=== PATIENT | male | born 1930 | race Caucasian/White ===

== ENCOUNTER 2016-09-24 19:54 | Inpatient (IN) | payer BC, OTHER ==
[~2016-09-24] VITALS: Ht 165.1 cm; Wt 59.1 kg
[~2016-09-24 19:54] MED LIST: BISA10SU7 RE; BNT/10 PO; CLC100X PO; LISI-789 PO; NUTR-977 PO; NVLGI SQ; OMEP40CA PO; PANC6000 PO; POLY335015 PO; PROTPAK PO; SENN1TAB80 PO; SIME1CAP11 PO
--- NOTE | 2016-09-24 20:27 | EMERGENCY ROOM VISIT NOTE ---
History Report prepared by Kaylin: Kenneth Lopez Under the Supervision of: Dr. Min Broderick M.D. First contact with patient: 20:16 Chief Complaint: HYPERTENSION Stated Complaint: VERY HIGH BLOOD PRESSURE AND SUGAR 210/98 History of Present Illness The patient is a 86 year old male who presents to the Emergency Room with complaints of hypertension that began BANKRUPTCY [place]. His blood pressure has been a high of 210/98. He notes that his blood pressure has been increasing over the past 2 months, but it has never been this high before. He has been having intermittent chest tightness with exertion recently as well. When this occurs, he becomes short of breath. He is not feeling this tightness or shortness of breath at this time. He is not on a blood thinner. He was started on Lasix four days ago. Source of History: patient Onset: BANKRUPTCY [place] Position: other (global) Symptom Intensity: 210/98 Quality: other (Hypertension) Timing: worsening Modifying Factors (Worsening): exertion Associated Symptoms: No SOB, No chest pain Review of Systems See HPI for pertinent positives & negatives. A total of 10 systems reviewed and were otherwise negative. Past Medical & Surgical Medical Problems: (1) Diabetes (2) Hyperlipidemia (3) Mass of common bile duct (4) Pancreatitis (5) Syncope (6) SYNCOPE AND COLLAPSE Surgical Problems: (1) S/P cholecystectomy Family History Heart disease Social History Smoking Status: Former Smoker Alcohol Use: none Drug Use: none Marital Status: Housing Status: lives with family Occupation Status: retired Current/Historical Medications Scheduled Docusate Sodium (Colace), 100 MG PO BID Enteral Nutrition Formula (Ensure Plus Vanilla), 1 BTL PO TID Furosemide (Lasix), 20 MG PO QAM Insulin Glargine (Lantus Solostar), 6 UNITS SC QAM Lisinopril (Zestril), 2.5 MG PO DAILY Metoprolol Tartrate (Lopressor) (Lopressor), 25 MG PO BID Pancrelipase (Lipase-Protease- (Zenpep 85923 Unit), 2 CAP PO WM Polyethylene (Miralax), 17 GM PO QAM Protein (Prosource), 15 GM PO TID Sennosides (Senna Lax), 8.6 MG PO LUNCH Sodium Chloride (Sodium Chloride), 2 GM PO TID Scheduled PRN Acetaminophen (Tylenol), 650 MG PO Q8 PRN for Pain Artificial Saliva (Mouthkote), 1 DOSE PO QPM PRN for PRN Ondansetron Hcl (Zofran), 4 MG PO Q6 PRN for Nausea Allergies Coded Allergies: Dextromethorphan (Verified Allergy, Unknown, RASH, 09/24/16) Guaifenesin (Verified Allergy, Unknown, RASH, 09/24/16) Physical Exam Vital Signs Date Time Temp Pulse Resp B/P Pulse Ox O2 Delivery O2 Flow Rate FiO2 09/24/16 22:19 77 12 198/112 98 Room Air 09/24/16 21:12 66 09/24/16 21:01 67 16 209/111 98 Room Air 09/24/16 21:00 Room Air 09/24/16 20:03 36.6 72 22 207/80 94 Room Air Physical Exam GENERAL: Patient is cachectic in appearance. HEAD: Normocephalic atraumatic EYES: Ocular movements intact pupils equal and react to light OROPHARYNX mucous membranes are moist no exudates present no erythema or edema present NECK: Supple no nuchal rigidity CHEST: Good equal expansion LUNGS: Clear and equal to auscultation CARDIAC: Grade 2/6 systolic murmur. ABDOMEN: Soft nontender no guarding BACK: No CVA tenderness EXTREMITIES: No pain upon palpation normal muscle strength in all groups no clubbing cyanosis or edema NEURO: Patient is following commands is answering questions appropriately. Alert and oriented x3 Cranial Nerves 2-12 grossly intact Medical Decision & Procedures ER Provider Diagnostic Interpretation: Radiology results are stated below per my review and radiologist interpretation: CHEST ONE VIEW PORTABLE CLINICAL HISTORY: Pt c/o SOB dyspnea COMPARISON STUDY: 02/13/2015 FINDINGS: Moderate increase in cardiac size as well as prominence of pulmonary vasculature. Diaphragms are smooth. Calcific angles are sharp. IMPRESSION: Congestive heart failure Electronically signed by: Henrry Rod M.D. 09/24/2016 8:47 PM Dictated Date/Time: 09/24/2016 8:47 PM CHEST CTA for PULMONARY ARTERIES CT DOSE: 214.95 mGy.cm HISTORY: Chest pain dyspnea TECHNIQUE: Multiaxial CT images of the chest were performed following the intravenous administration of contrast to evaluate the pulmonary arteries. Maximal intensity projection images were also obtained. COMPARISON STUDY: None. FINDINGS: General tortuosity and ectasia thoracic aorta. Mild cardiomegaly. Several indeterminate mediastinal and/or hilar nodes. Pulmonary vasculature enhances peripherally. There are no major filling defects. Mild/moderate emphysematous change. Small bilateral pleural effusions. IMPRESSION: 1. Study is negative for pulmonary embolus. 2. Generalized emphysematous and to a lesser extent interstitial prominence throughout both hemithoraces. 3. Several indeterminate mediastinal and hilar nodes. 4. Generalized atherosclerotic change and ectasia of the thoracic and upper abdominal arterial vasculature. 5. A component of mild congestive failure may be present Electronically signed by: Henrry Rod M.D. 09/24/2016 9:52 PM Dictated Date/Time: 09/24/2016 9:48 PM Laboratory Results 09/24/16 20:38 Red Blood Count 3.06, Mean Corpuscular Volume 89.5, Mean Corpuscular Hemoglobin 30.1, Mean Corpuscular Hemoglobin Concent 33.6, Mean Platelet Volume 9.8, Neutrophils (%) (Auto) 59.7, Lymphocytes (%) (Auto) 25.3, Monocytes (%) (Auto) 12.6, Eosinophils (%) (Auto) 1.7, Basophils (%) (Auto) 0.5, Neutrophils # (Auto ) 3.90, Lymphocytes # (Auto) 1.65, Monocytes # (Auto) 0.82, Eosinophils # (Auto ) 0.11, Basophils # (Auto) 0.03 09/24/16 20:38 Test 09/24/16 20:38 09/24/16 20:44 09/24/16 20:47 09/24/16 20:50 White Blood Count 6.52 K/uL (4.8-10.8) Red Blood Count 3.06 M/uL (4.7-6.1) Hemoglobin 9.2 g/dL (14.0-18.0) Hematocrit 27.4 % (42-52) Mean Corpuscular Volume 89.5 fL (80-100) Mean Corpuscular Hemoglobin 30.1 pg (25-34) Mean Corpuscular Hemoglobin Concent 33.6 g/dl (32-36) Platelet Count 215 K/uL (130-400) Mean Platelet Volume 9.8 fL (7.4-10.4) Neutrophils (%) (Auto) 59.7 % Lymphocytes (%) (Auto) 25.3 % Monocytes (%) (Auto) 12.6 % Eosinophils (%) (Auto) 1.7 % Basophils (%) (Auto) 0.5 % Neutrophils # (Auto) 3.90 K/uL (1.4-6.5) Lymphocytes # (Auto) 1.65 K/uL (1.2-3.4) Monocytes # (Auto) 0.82 K/uL (0.11-0.59) Eosinophils # (Auto) 0.11 K/uL (0-0.5) Basophils # (Auto) 0.03 K/uL (0-0.2) RDW Standard Deviation 44.4 fL (36.4-46.3) RDW Coefficient of Variation 13.5 % (11.5-14.5) Immature Granulocyte % (Auto) 0.2 % Immature Granulocyte # (Auto) 0.01 K/uL (0.00-0.02) Est Creatinine Clear Calc Drug Dose 24.6 ml/min Estimated GFR () 38.6 Estimated GFR (Non- 33.3 BUN/Creatinine Ratio 30.5 (10-20) Calcium Level 8.3 mg/dl (8.5-10.1) Total Bilirubin 0.2 mg/dl (0.2-1) Aspartate Amino Transf (AST/SGOT) 28 U/L (15-37) Alanine Aminotransferase (ALT/SGPT) 20 U/L (12-78) Alkaline Phosphatase 100 U/L (45-117) Total Creatine Kinase 93 U/L (39-308) Creatine Kinase MB 3.4 ng/ml (0.5-3.6) Creatine Kinase MB Ratio 3.7 (0-3.0) Troponin I 0.016 ng/ml (0-0.045) Pro-B-Type Natriuretic Peptide 10601 pg/ml (0-1800) Total Protein 7.8 gm/dl (6.4-8.2) Albumin 2.2 gm/dl (3.4-5.0) Globulin 5.6 gm/dl (2.5-4.0) Albumin/Globulin Ratio 0.4 (0.9-2) Bedside D-Dimer > 450 ng/mlFEU (0-450) Bedside Hemoglobin 9.5 g/dl (14.0-18.0) Bedside Hematocrit 28 % (42-52) Bedside Sodium 135 mEq/L (135-144) Bedside Potassium 3.9 mEq/L (3.3-5.0) Bedside Chloride 95 mEq/L (101-112) Bedside Total CO2 26 mEq/l (24-31) Anion Gap 18.0 mmol/L (16-25) Bedside Blood Urea Nitrogen 50 mg/dl (7-18) Bedside Creatinine 1.7 mg/dl (0.6-1.3) Bedside Glucose (other) 130 mg/dl (70-99) Bedside Ionized Calcium (Shelly) 1.21 mmol/l (1.12-1.32) Urine Color YELLOW Urine Appearance CLEAR (CLEAR) Urine pH 7.0 (4.5-7.5) Urine Specific [place] 1.009 (1.000-1.030) Urine Protein 2+ (NEG) Urine Glucose (UA) TRACE (NEG) Urine Ketones NEG (NEG) Urine Occult Blood 1+ (NEG) Urine Nitrite NEG (NEG) Urine Bilirubin NEG (NEG) Urine Urobilinogen NEG (NEG) Urine Leukocyte Esterase NEG (NEG) Urine WBC (Auto) 1-5 /hpf (0-5) Urine RBC (Auto) 0-4 /hpf (0-4) Urine Hyaline Casts (Auto) 0 /lpf (0-5) Urine Epithelial Cells (Auto) 0-5 /lpf (0-5) Urine Bacteria (Auto) NEG (NEG) Labs reviewed by ED physician. Medications Administered Medications (Trade) Dose Ordered Sig/Ruben Route Start Time Stop Time Status Last Admin Dose Admin Sodium Chloride (Nss 500ml) 500 ml @ 999 mls/hr Q31M STAT IV 09/24/16 21:06 09/24/16 21:36 DC 09/24/16 21:18 999 MLS/HR Furosemide (Lasix Inj) 40 mg NOW STAT IV 09/24/16 22:12 09/24/16 22:13 DC 09/24/16 22:41 40 MG ECG Indication: other (hypertension) Rate (beats per minute): 71 Rhythm: sinus rhythm Findings: 1st degree AV block, RBBB, no acute ischemic change, no ectopy ED Course 2016: Past medical records reviewed. The patient was evaluated in room C1. A complete history and physical examination was performed. 6: Ordered Sodium Chloride 500 ml @ 999 mls/hr IV 2: Ordered Lasix Inj 40 mg IV 2218: Upon reexamination the patient is resting. I discussed results and treatment plan with the patient. He verbalizes agreement and understanding. I spoke with Dr. Jimenes from the [facility]. The patient will be evaluated by her for further management. Medical Decision Differential diagnosis: Etiologies such as infections, reactive airway disease, pneumonia, pneumothorax , COPD, CHF, cardiac ischemia, pulmonary embolism, musculoskeletal, gastrointestinal, as well as others were entertained. This is an 86-year-old male who presents emergency department complaining of shortness of breath with exertion. The patient does have a history of congestive heart failure. The patient does have an elevation in his d-dimer therefore he was sent for CAT scan of the chest. His creatinine is 1.8 therefore the patient was given 2 boluses of fluid here in the emergency department. He was also given Lasix. Because of these findings I did discuss the case with the hospitalist service who agreed to admit the patient. Both patient and family were in agreement with the treatment plan. Consults Time Called: 2213 Consulting Physician: Dr. Jimenes - [facility] Returned Call: [phone] She will be evaluating the patient for further management. Impression Primary Impression: Acute renal failure Additional Impression: CHF (congestive heart failure) Scribe Attestation The scribe's documentation has been prepared under my direction and personally reviewed by me in its entirety. I confirm that the note above accurately reflects all work, treatment, procedures, and medical decision making performed by me. Departure Information Dispostion Being Evaluated By Hospitalist Referrals Naldo Espino MD (PCP) Patient Instructions My [facility] Problem Qualifiers Primary Impression: Acute renal failure Acute renal failure type: unspecified Qualified Codes: N17.9 - Acute kidney failure, unspecified Additional Impression: CHF (congestive heart failure) Congestive heart failure type: unspecified congestive heart failure type Congestive heart failure chronicity: unspecified congestive heart failure chronicity Qualified Codes: I50.9 - Heart failure, unspecified
--- NOTE | 2016-09-24 20:50 | DIAGNOSTIC IMAGING REPORT ---
CHEST ONE VIEW PORTABLE CLINICAL HISTORY: Pt c/o SOB dyspnea COMPARISON STUDY: 02/13/2015 FINDINGS: Moderate increase in cardiac size as well as prominence of pulmonary vasculature. Diaphragms are smooth. Calcific angles are sharp. IMPRESSION: Congestive heart failure Electronically signed by: Henrry Rod M.D. 09/24/2016 8:47 PM Dictated Date/Time: 09/24/2016 8:47 PM
[2016-09-24 20:54] LABS: BASO % 0.5 %; BASO ABS # 0.03 K/uL (0-0.2); COMPLETE YES; EOS % 1.7 %; HEMATOCRIT 27.4 % (42-52); IG% 0.2 %; LYMPH % 25.3 %; LYMPH ABS # 1.65 K/uL (1.2-3.4); MEAN CELL VOLUME 89.5 fL (80-100); MEAN CORPUSCULAR HEMOGLOBIN 30.1 pg (25-34); MEAN CORPUSCULAR HGB CONC 33.6 g/dl (32-36); MEAN PLATELET VOLUME 9.8 fL (7.4-10.4); MONO % 12.6 %; NEUT % 59.7 %; PLATELET COUNT 215 K/uL (130-400); RED BLOOD COUNT 3.06 M/uL (4.7-6.1); WHITE BLOOD COUNT 6.52 K/uL (4.8-10.8)
[2016-09-24 21:00] LABS: ISTAT CREATININE 1.7 mg/dl (0.6-1.3); ISTAT HEMOGLOBIN 9.5 g/dl (14.0-18.0); ISTAT IONIZED CALCIUM 1.21 mmol/l (1.12-1.32)
[2016-09-24] MEDS ORDERED: SODIUM CHLORIDE 0.9% 500ML 500 ML IV STA (21:06)
[2016-09-24] MEDS ORDERED: ARTISOL23 PO (21:08)
[2016-09-24] MEDS ORDERED: DOCU-94 PO (21:08)
[2016-09-24] MEDS ORDERED: SODI1TAB PO (21:08)
[2016-09-24] MEDS ORDERED: ONDA4TAB46 PO (21:08)
[2016-09-24] MEDS ORDERED: INSDGIPEN SC (21:08)
[2016-09-24] MEDS ORDERED: FURO-85 PO (21:08)
[2016-09-24] MEDS ORDERED: METO25TA56 PO (21:08)
[2016-09-24] MEDS ORDERED: MRLP17 PO (21:08)
[2016-09-24] MEDS ORDERED: PANC1CAP17 PO (21:08)
[2016-09-24 21:10] LABS: URINE APPEARANCE CLEAR (CLEAR); URINE BILIRUBIN NEG (NEG); URINE COLOR YELLOW; URINE EPITHELIAL CELL AUTO 0-5 /lpf (0-5); URINE NITRITE NEG (NEG); URINE SPECIFIC GRAVITY 1.009 (1.000-1.030); UROBILINOGEN NEG (NEG)
[2016-09-24] MEDS ORDERED: ACET-1311 PO (21:10)
[2016-09-24 21:15] LABS: MANUAL MICROSCOPIC REQUIRED? NO; REVIEW REQ? NO
[2016-09-24 21:17] LABS: ALB/GLOB RATIO 0.4 (0.9-2); BUN/CREATININE RATIO 30.5 (10-20); CALCIUM 8.3 mg/dl (8.5-10.1); CKMB/CK RATIO 3.7 (0-3.0); CREATININE 1.8 mg/dl (0.60-1.40); POTASSIUM 3.8 mmol/L (3.5-5.1)
[2016-09-24] MEDS ORDERED: OPTIRAY 320 IV PRN (21:30)
--- NOTE | 2016-09-24 21:54 | DIAGNOSTIC IMAGING REPORT ---
CHEST CTA for PULMONARY ARTERIES CT DOSE: 214.95 mGy.cm HISTORY: Chest pain dyspnea TECHNIQUE: Multiaxial CT images of the chest were performed following the intravenous administration of contrast to evaluate the pulmonary arteries. Maximal intensity projection images were also obtained. COMPARISON STUDY: None. FINDINGS: General tortuosity and ectasia thoracic aorta. Mild cardiomegaly. Several indeterminate mediastinal and/or hilar nodes. Pulmonary vasculature enhances peripherally. There are no major filling defects. Mild/moderate emphysematous change. Small bilateral pleural effusions. IMPRESSION: 1. Study is negative for pulmonary embolus. 2. Generalized emphysematous and to a lesser extent interstitial prominence throughout both hemithoraces. 3. Several indeterminate mediastinal and hilar nodes. 4. Generalized atherosclerotic change and ectasia of the thoracic and upper abdominal arterial vasculature. 5. A component of mild congestive failure may be present Electronically signed by: Henrry Rod M.D. 09/24/2016 9:52 PM Dictated Date/Time: 09/24/2016 9:48 PM
[2016-09-24] MEDS ORDERED: FUROSEMIDE 40 MG/4 ML VIAL IV STA (22:12)
[2016-09-25] VITALS (14 sets, daily range): BP systolic 135–181; BP diastolic 75–85; PULSE 67–91; TEMP 36.3–36.7; O2SAT 93–98; Ht 165.1 cm; Wt 59.1 kg
[2016-09-25] MEDS ORDERED: MoRPHine SULFATE 2 MG/ML CARP IV PRN
[2016-09-25] MEDS ORDERED: ACETAMINOPHEN 325 MG TAB PO PRN
[2016-09-25] MEDS ORDERED: POLYETHYLENE (MIRALAX) 17 GM PACK PO PRN
[2016-09-25] MEDS ORDERED: NITROGLYCERIN 0.4 MG SL PER TAB CHARGE SL PRN
[2016-09-25] MEDS ORDERED: ONDANSETRON INJ 2 MG/ML 2 ML VIAL IV PRN
[2016-09-25] MEDS ORDERED: DEXTROSE 50% 50 ML SYR IV PRN (00:15)
[2016-09-25] MEDS ORDERED: GLUCOSE 40% GEL 15 GM TUBE PO PRN (00:15)
[2016-09-25] MEDS ORDERED: GLUCAGON FOR INJ 1 MG VIAL SQ PRN (00:15)
[2016-09-25] MEDS ORDERED: GLUCOSE 10 TABS/TUBE PO PRN (00:15)
[2016-09-25] MEDS ORDERED: HydrALAZINE HCL 20 MG/ML VIAL IV. ONE (00:15)
--- NOTE | 2016-09-25 00:23 | History and Physical ---
History & Physical Date & Time of Service: Sep 25, 2016 at 00:03 Chief Complaint: Very High Blood Pressure And Sugar 210/98 Primary Care Physician: Naldo Espino MD History of Present Illness Source: patient, family 86 yoM with no h/o heart disease presents to the ER with concerns for elevated blood pressure, which he notes has been increasing over the past two months, along with a noted increase in lower extremity swelling. He is on minimal lisinopril (2.5mg) that was started while [place] was in [place] the winter. Otherwise he takes metoprolol tartrate likely for rate control in atrial fibrillation. He was just started on Lasix 20mg Po QAM 4 days ago, however, he has been given salt tabs for the last couple of months in order to "improve his numbers" and he does not try to actively restrict his salt intake. He reports some shortness of breath but is not working hard to breathe; it is more his fatigue that is slowing him down. In addition to the pulmonary congestion on exam and chest imaging today, he also has an acute kidney injury and some notable anemia of 03/13 without overt bleeding. Family reports energy levels are much lower than normal. The patient does report some chest tightness which was substernal and didn't radiate which occurred for him when he walked from one room to the other this morning, but went away shortly after he sat down, lasting approx 5 minutes total and not reoccurring. He does admit to some lightheadedness when standing up today and some generalized nausea without vomiting. Denies headache, visual changes, palpitations, numbness and tingling , or loss of consciousness. He reports that his sugars have been looking good. He wsa incidentally hospitalized in [place] in [place] an ABO which spontaneously resolved without intervention. Last echo on file was 10/2013 which revealed an EF55% and global biventricular dysfunction. The patient states that he did not know he had a heart murmur. 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 (8) Pancreatitis Status: Chronic (9) Small bowel obstruction Status: Chronic (10) SYNCOPE AND COLLAPSE Status: Resolved Surgical Problems: (1) S/P cholecystectomy Status: Resolved Family History Heart disease Father of [place] at 68 yrs old Social History Smoking Status: Former Smoker Smokeless Tobacco Use: No Alcohol Use: socially Drug Use: none Marital Status: Housing status: lives with family Occupational Status: retired Immunizations History of Influenza Vaccine: Yes Influenza Vaccine Date: Feb 18, 2015 (02/18/2015) History of Tetanus Vaccine?: Unknown History of Pneumococcal: Yes Pneumococcal Date: Mar 23, 2015 History of Hepatitis B Vaccine: No Multi-Drug Resistant Organisms History of MDRO: No Allergies Coded Allergies: Dextromethorphan (Verified Allergy, Unknown, RASH, 09/24/16) Guaifenesin (Verified Allergy, Unknown, RASH, 09/24/16) Home Medications Scheduled Docusate Sodium (Colace), 100 MG PO BID Enteral Nutrition Formula (Ensure Plus Vanilla), 1 BTL PO TID Furosemide (Lasix), 20 MG PO QAM Insulin Glargine (Lantus Solostar), 6 UNITS SC QAM Lisinopril (Zestril), 2.5 MG PO DAILY Metoprolol Tartrate (Lopressor) (Lopressor), 25 MG PO BID Pancrelipase (Lipase-Protease- (Zenpep 70709 Unit), 2 CAP PO WM Polyethylene (Miralax), 17 GM PO QAM Protein (Prosource), 15 GM PO TID Sennosides (Senna Lax), 8.6 MG PO LUNCH Sodium Chloride (Sodium Chloride), 2 GM PO TID Scheduled PRN Acetaminophen (Tylenol), 650 MG PO Q8 PRN for Pain Artificial Saliva (Mouthkote), 1 DOSE PO QPM PRN for PRN Ondansetron Hcl (Zofran), 4 MG PO Q6 PRN for Nausea Review of Systems Constitutional: + fatigue, + weakness, No chills, No fever Eyes: No worsening of vision ENT: + trouble swallowing, No sore throat Respiratory: + dyspnea on exertion, + shortness of breath, No cough Cardiovascular: + chest pain, + edema, No palpitations Abdomen: + nausea, No GI bleeding, No diarrhea, No pain, No vomiting Musculoskeletal: + swelling Genitourinary - Male: + hematuria, + urinary incontinence Neurologic: + balance problems Endocrine: + fatigue Hematologic / Lymphatic: No abnormal bleeding/bruising Physical Exam Vital Signs Date Time Temp Pulse Resp B/P Pulse Ox O2 Delivery O2 Flow Rate FiO2 09/24/16 22:30 77 13 192/104 97 Room Air 09/24/16 22:19 77 12 198/112 98 Room Air 09/24/16 21:12 66 09/24/16 21:01 67 16 209/111 98 Room Air 09/24/16 21:00 Room Air 09/24/16 20:03 36.6 72 22 207/80 94 Room Air GEN: frail, elderly, in no acute distress, alert and appropriate HEENT: NC/AT, PERRL, normal sclerae, mucous membranes are moist CARDIO: reg rate, 5/6 MANOLO heard throughout precordium, +palpable parasternal heave LUNGS: Crackles at bases of lungs bilaterally, no rales or wheezes, good diaphragmatic excursion ABD: soft, non-tender, non-distended, no rebound or guarding EXTREMITY: RP and DP palpable 2+ bilat, 1+ edema bilaterally, extremities are warm and well-perfused NEURO: CN 2-12 grossly intact, sensation intact throughout MUSC: 5/5 strength throughout, no gross focal deficits, ambulates well with minimal assistance SKIN: warm and dry Diagnostics Laboratory Results Results Past 24 Hours Test 09/24/16 20:38 09/24/16 20:44 09/24/16 20:47 09/24/16 20:50 Range/Units White Blood Count 6.52 4.8-10.8 K/uL Red Blood Count 3.06 4.7-6.1 M/uL Hemoglobin 9.2 14.0-18.0 g/dL Hematocrit 27.4 42-52 % Mean Corpuscular Volume 89.5 80-100 fL Mean Corpuscular Hemoglobin 30.1 25-34 pg Mean Corpuscular Hemoglobin Concent 33.6 32-36 g/dl Platelet Count 215 130-400 K/uL Mean Platelet Volume 9.8 7.4-10.4 fL Neutrophils (%) (Auto) 59.7 % Lymphocytes (%) (Auto) 25.3 % Monocytes (%) (Auto) 12.6 % Eosinophils (%) (Auto) 1.7 % Basophils (%) (Auto) 0.5 % Neutrophils # (Auto) 3.90 1.4-6.5 K/uL Lymphocytes # (Auto) 1.65 1.2-3.4 K/uL Monocytes # (Auto) 0.82 0.11-0.59 K/uL Eosinophils # (Auto) 0.11 0-0.5 K/uL Basophils # (Auto) 0.03 0-0.2 K/uL RDW Standard Deviation 44.4 36.4-46.3 fL RDW Coefficient of Variation 13.5 11.5-14.5 % Immature Granulocyte % (Auto) 0.2 % Immature Granulocyte # (Auto) 0.01 0.00-0.02 K/uL Sodium Level 133 136-145 mmol/L Potassium Level 3.8 3.5-5.1 mmol/L Chloride Level 99 98-107 mmol/L Carbon Dioxide Level 28 21-32 mmol/L Anion Gap 6.0 18.0 16-25 mmol/L Blood Urea Nitrogen 55 7-18 mg/dl Creatinine 1.80 0.60-1.40 mg/dl Est Creatinine Clear Calc Drug Dose 24.6 ml/min Estimated GFR () 38.6 Estimated GFR (Non- 33.3 BUN/Creatinine Ratio 30.5 10-20 Random Glucose 132 70-99 mg/dl Calcium Level 8.3 8.5-10.1 mg/dl Total Bilirubin 0.2 0.2-1 mg/dl Aspartate Amino Transf (AST/SGOT) 28 15-37 U/L Alanine Aminotransferase (ALT/SGPT) 20 12-78 U/L Alkaline Phosphatase 100 45-117 U/L Total Creatine Kinase 93 39-308 U/L Creatine Kinase MB 3.4 0.5-3.6 ng/ml Creatine Kinase MB Ratio 3.7 0-3.0 Troponin I 0.016 0-0.045 ng/ml Pro-B-Type Natriuretic Peptide 33940 0-1800 pg/ml Total Protein 7.8 6.4-8.2 gm/dl Albumin 2.2 3.4-5.0 gm/dl Globulin 5.6 2.5-4.0 gm/dl Albumin/Globulin Ratio 0.4 0.9-2 Bedside D-Dimer > 450 0-450 ng/mlFEU Bedside Hemoglobin 9.5 14.0-18.0 g/dl Bedside Hematocrit 28 42-52 % Bedside Sodium 135 135-144 mEq/L Bedside Potassium 3.9 3.3-5.0 mEq/L Bedside Chloride 95 101-112 mEq/L Bedside Total CO2 26 24-31 mEq/l Bedside Blood Urea Nitrogen 50 7-18 mg/dl Bedside Creatinine 1.7 0.6-1.3 mg/dl Bedside Glucose (other) 130 70-99 mg/dl Bedside Ionized Calcium (Shelly) 1.21 1.12-1.32 mmol/l Urine Color YELLOW Urine Appearance CLEAR CLEAR Urine pH 7.0 4.5-7.5 Urine Specific [place] 1.009 1.000-1.030 Urine Protein 2+ NEG Urine Glucose (UA) TRACE NEG Urine Ketones NEG NEG Urine Occult Blood 1+ NEG Urine Nitrite NEG NEG Urine Bilirubin NEG NEG Urine Urobilinogen NEG NEG Urine Leukocyte Esterase NEG NEG Urine WBC (Auto) 1-5 0-5 /hpf Urine RBC (Auto) 0-4 0-4 /hpf Urine Hyaline Casts (Auto) 0 0-5 /lpf Urine Epithelial Cells (Auto) 0-5 0-5 /lpf Urine Bacteria (Auto) NEG NEG Diagnostic Radiology CT PE: 1. Study is negative for pulmonary embolus. 2. Generalized emphysematous and to a lesser extent interstitial prominence throughout both hemithoraces. 3. Several indeterminate mediastinal and hilar nodes. 4. Generalized atherosclerotic change and ectasia of the thoracic and upper abdominal arterial vasculature. 5. A component of mild congestive failure may be present CXR: FINDINGS: Moderate increase in cardiac size as well as prominence of pulmonary vasculature. Diaphragms are smooth. Calcific angles are sharp. IMPRESSION: Congestive heart failure EKG SR 81, bifascicular block (chronic), 1AVB Impression Assessment and Plan 86 yoM with HTN and leg swelling presents to the hospital for elevated bp and atypical chest pain 1. Acute heart failure-new/worsened murmur on exam. Blood pressure is not well controlled on only minimal dose lisinopril. As he is currently in [place], this was held. Will use hydralazine IV now and defer better PO regimen to Cardiology who was consulted. Of note, he is also taking sodium tabs which are causing him to hold onto water and may have been a precipitant for the swelling and heart failure versus valve disease (parasternal heave on exam with loud murmur). Last TTE on file was in 2013. Will order updated one in am. Serial enzymes to rule out ACS. Lasix ordered in the ER and patient also underwent a contrasted study all after he had [place]. Hold off on further Lasix until the morning as he is not that tachypneic and has no hypoxia. CT PE was negative for PE. 2. Hypertensive urgency-IV hydralazine now. Lisinopril was held in setting of [place]. Pt will need a makeover of his antihypertensive regimen on discharge 3. [place]-poss 2/2 fluid overload versus Lasix use (started 4 days ago). Urine studies were ordered to assess Feurea. Hole ACEI, Trend PRP in am after diuresis. 4. Hyponatremia-patient was take off sodium tabs, Na is within normal limits. Low salt diet ordered. 5. Anemia-iron studies ordered for am. At baseline over last two years. 6. Dysphagia-Speech path consult. 7. Fatigue-likely 2/2 a combination of all of the above and advanced age with minimal reserve. 8. Ambulatory dysfunction-PT/OT for formal evaluation DVT proph: heparin Full Code-Discussed with patient and all family members present Dispo-inpatient for next 2-3 days. Cindy Cole, DO Hospitalist Level of Care Telemetry Resuscitation Status FULL RESUSCITATION VTE Prophylaxis VTE Risk Assessment Done? Y/N: Yes Risk Level: Moderate Given or contraindicated: Unfractionated heparin SQ, T.E.D. Stockings, SCD's Social Service Consult >80 yr.& Lives Alone
[2016-09-25] MEDS ORDERED: PHARMACY GLYCEMIC MGMT CONSULT PRN (00:30)
[2016-09-25 01:51] LABS: CREATININE RANDOM URINE < 13.0 mg/dl; UREA NITROGEN RANDOM URINE 117 mg/dl
[2016-09-25 04:20] LABS: HEMATOCRIT 28.4 % (42-52); MEAN CELL VOLUME 88.2 fL (80-100); MEAN CORPUSCULAR HEMOGLOBIN 29.8 pg (25-34); MEAN CORPUSCULAR HGB CONC 33.8 g/dl (32-36); MEAN PLATELET VOLUME 9.9 fL (7.4-10.4); PLATELET COUNT 242 K/uL (130-400); RED BLOOD COUNT 3.22 M/uL (4.7-6.1); WHITE BLOOD COUNT 8.57 K/uL (4.8-10.8)
[2016-09-25 04:48] LABS: BUN/CREATININE RATIO 29.7 (10-20); CALCIUM 8.4 mg/dl (8.5-10.1); CHOLESTEROL/HDL RATIO 2.2; CREATININE 1.7 mg/dl (0.60-1.40); FERRITIN 178.7 ng/ml (8.0-388.0); MAGNESIUM 1.8 mg/dl (1.8-2.4); POTASSIUM 3.1 mmol/L (3.5-5.1)
[2016-09-25] MEDS ORDERED: INSULIN ASPART 100 UNITS/ML 3 ML PEN SC SCH ×2 (07:00→07:30)
[2016-09-25] MEDS: BOOST VANILLA PO SCH ×6 (07:30→16:45)
[2016-09-25] MEDS ORDERED: AMLODIPINE BESYLATE 5 MG TAB PO ONE (10:45)
[2016-09-25 10:49] LABS: CKMB/CK RATIO 6.1 (0-3.0)
[2016-09-25] MEDS: FUROSEMIDE INJ 20 MG in SYRINGE 0 ML IV SCH (11:00)
[2016-09-25] MEDS: HEPARIN SOD 5000 UNIT/0.5 ML CARP SQ SCH ×2 (11:04→21:00)
[2016-09-25] MEDS: METOPROLOL TARTRATE 25 MG TAB PO SCH ×2 (11:05→19:59)
[2016-09-25] MEDS: DOCUSATE SODIUM 100 MG CAP PO SCH ×2 (11:05→19:59)
[2016-09-25] MEDS: PANCREAZE (LIPASE 10,500U) CAP PO SCH ×3 (11:05→17:46)
--- NOTE | 2016-09-25 11:59 | Progress Note ---
Subjective Date of Service: Sep 25, 2016. Subjective Pt evaluation today including: conversation w/ patient, physical exam, lab review, review of studies, review of inpatient medication list Saw/examined the patient in room 241 He states he presented to the ER with chest "tightness", some shortness of breath, lower extremity edema and high blood pressure Currently, lower extremity edema resolved; denies shortness of breath or chest pain today. Problem List Medical Problems: (1) Acute renal failure Status: Acute (2) CHF (congestive heart failure) Status: Acute (3) Vomiting Status: Acute Review of Systems Constitutional: + weakness, No chills, No fever Respiratory: + dyspnea on exertion, + shortness of breath (improving), No cough , No dyspnea at rest, No hemoptysis, No sputum, No wheezing Cardiac: + edema (improving), No chest pain (resolved), No palpitations Abdomen: No diarrhea, No nausea, No pain, No vomiting Musculoskeletal: + joint pain (chronic arthritic joint pain) Heme: No abnormal bleeding/bruising Medications Current Inpatient Medications Medications (Trade) Dose Ordered Sig/Ruben Route Start Time Stop Time Status Last Admin Dose Admin Ioversol (Optiray 320) 100 ml UD PRN IV 09/24/16 21:30 09/28/16 21:29 Acetaminophen (Tylenol Tab) 650 mg Q4H PRN PO 09/25/16 00:00 10/25/16 00:00 Ondansetron HCl (Zofran Inj) 4 mg Q6H PRN IV 09/25/16 00:00 10/25/16 00:00 Nitroglycerin (Nitrostat Tab) 0.4 mg UD PRN SL 09/25/16 00:00 10/25/16 00:00 Morphine Sulfate (MoRPHine SULFATE INJ) 2 mg Q30M PRN IV 09/25/16 00:00 10/09/16 00:00 Polyethylene (Miralax Powder Packet) 17 gm DAILY PRN PO 09/25/16 00:00 10/25/16 00:00 Docusate Sodium (coLACE CAP) 100 mg BID PO 09/25/16 09:00 10/25/16 08:59 09/25/16 11:05 100 MG Metoprolol Tartrate (Lopressor Tab) 25 mg BID PO 09/25/16 09:00 10/25/16 08:59 09/25/16 11:05 25 MG Amylase/Lipase/ Protease (Pancreaze (Lipase 10,500U) Cap) 3 cap TIDM PO 09/25/16 07:30 10/25/16 07:29 09/25/16 11:05 3 CAP Enteral Nutritional Formula (Boost) 1 can TIDM PO 09/25/16 07:30 10/25/16 07:59 09/25/16 07:30 1 CAN Insulin Glargine (Lantus Solostar Pen) 6 unit QAM SC 09/25/16 09:00 10/25/16 08:59 Future Hold Glucose (Glucose 40% Gel) 15-30 GRAMS 15 GRAMS... UD PRN PO 09/25/16 00:15 10/25/16 00:14 Glucose (Glucose Chew Tab) 4-8 Tablets 4 Tabl... UD PRN PO 09/25/16 00:15 10/25/16 00:14 Dextrose (Dextrose 50% 50ML Syringe) 25-50ML OF 50% DW IV FOR... UD PRN IV 09/25/16 00:15 10/25/16 00:14 Glucagon (Glucagon Inj) 1 mg UD PRN SQ 09/25/16 00:15 10/25/16 00:14 Miscellaneous Information 1 ea 1 ea UD PRN N/A 09/25/16 00:30 10/25/16 00:29 Furosemide/Syringe (Lasix Inj/ Syringe) 2 ml @ 4 mls/min QAM IV 09/25/16 09:00 10/25/16 08:59 09/25/16 11:00 4 MLS/MIN Heparin Sodium (Porcine) (Heparin Sq 5000 Unit/0.5ml) 5,000 unit Q12 SQ 09/25/16 09:00 10/25/16 08:59 09/25/16 11:04 5,000 UNIT Insulin Aspart (novoLOG ASPART) SLIDING SCALE If C... Q6 SC 09/25/16 07:30 10/25/16 07:29 Amlodipine Besylate 2.5 mg 2.5 mg QAM PO 09/26/16 09:00 10/26/16 08:59 Potassium Chloride/Prmx (Kcl 10 Meq / Wtr/Premixed Water) 100 ml @ 100 mls/hr Q1H IV 09/25/16 11:30 09/25/16 15:29 Objective Vital Signs Date Time Temp Pulse Resp B/P Pulse Ox O2 Delivery O2 Flow Rate FiO2 09/25/16 09:00 97 Room Air 09/25/16 08:15 36.4 90 18 141/77 96 09/25/16 06:46 36.4 91 22 139/79 98 Room Air 09/25/16 04:18 36.4 91 22 139/79 98 Room Air 09/25/16 04:00 96 Room Air 09/25/16 02:35 91 149/84 09/25/16 00:40 36.6 85 16 181/84 Room Air 09/25/16 00:34 74 18 212/108 96 09/25/16 00:10 74 18 212/108 96 Room Air 09/24/16 22:30 77 13 192/104 97 Room Air 09/24/16 22:19 77 12 198/112 98 Room Air 09/24/16 21:12 66 09/24/16 21:01 67 16 209/111 98 Room Air 09/24/16 21:00 Room Air 09/24/16 20:03 36.6 72 22 207/80 94 Room Air Physical Exam General Appearance: no apparent distress Respiratory/Chest: no respiratory distress, no accessory muscle use, + decreased breath sounds Cardiovascular: regular rate, rhythm, no edema Abdomen: normal bowel sounds, non tender, soft Extremities: normal inspection, no pedal edema Neurologic/Psychiatric: no motor/sensory deficits, alert, normal mood/affect Laboratory Results Last 24 Hours Test 09/24/16 20:38 09/24/16 20:44 09/24/16 20:47 09/24/16 20:50 White Blood Count 6.52 K/uL Red Blood Count 3.06 M/uL Hemoglobin 9.2 g/dL Hematocrit 27.4 % Mean Corpuscular Volume 89.5 fL Mean Corpuscular Hemoglobin 30.1 pg Mean Corpuscular Hemoglobin Concent 33.6 g/dl Platelet Count 215 K/uL Mean Platelet Volume 9.8 fL Neutrophils (%) (Auto) 59.7 % Lymphocytes (%) (Auto) 25.3 % Monocytes (%) (Auto) 12.6 % Eosinophils (%) (Auto) 1.7 % Basophils (%) (Auto) 0.5 % Neutrophils # (Auto) 3.90 K/uL Lymphocytes # (Auto) 1.65 K/uL Monocytes # (Auto) 0.82 K/uL Eosinophils # (Auto) 0.11 K/uL Basophils # (Auto) 0.03 K/uL RDW Standard Deviation 44.4 fL RDW Coefficient of Variation 13.5 % Immature Granulocyte % (Auto) 0.2 % Immature Granulocyte # (Auto) 0.01 K/uL Sodium Level 133 mmol/L Potassium Level 3.8 mmol/L Chloride Level 99 mmol/L Carbon Dioxide Level 28 mmol/L Anion Gap 6.0 mmol/L 18.0 mmol/L Blood Urea Nitrogen 55 mg/dl Creatinine 1.80 mg/dl Est Creatinine Clear Calc Drug Dose 24.6 ml/min Estimated GFR () 38.6 Estimated GFR (Non- 33.3 BUN/Creatinine Ratio 30.5 Random Glucose 132 mg/dl Calcium Level 8.3 mg/dl Total Bilirubin 0.2 mg/dl Aspartate Amino Transf (AST/SGOT) 28 U/L Alanine Aminotransferase (ALT/SGPT) 20 U/L Alkaline Phosphatase 100 U/L Total Creatine Kinase 93 U/L Creatine Kinase MB 3.4 ng/ml Creatine Kinase MB Ratio 3.7 Troponin I 0.016 ng/ml Pro-B-Type Natriuretic Peptide 08202 pg/ml Total Protein 7.8 gm/dl Albumin 2.2 gm/dl Globulin 5.6 gm/dl Albumin/Globulin Ratio 0.4 Bedside D-Dimer > 450 ng/mlFEU Bedside Hemoglobin 9.5 g/dl Bedside Hematocrit 28 % Bedside Sodium 135 mEq/L Bedside Potassium 3.9 mEq/L Bedside Chloride 95 mEq/L Bedside Total CO2 26 mEq/l Bedside Blood Urea Nitrogen 50 mg/dl Bedside Creatinine 1.7 mg/dl Bedside Glucose (other) 130 mg/dl Bedside Ionized Calcium (Shelly) 1.21 mmol/l Urine Color YELLOW Urine Appearance CLEAR Urine pH 7.0 Urine Specific [place] 1.009 Urine Protein 2+ Urine Glucose (UA) TRACE Urine Ketones NEG Urine Occult Blood 1+ Urine Nitrite NEG Urine Bilirubin NEG Urine Urobilinogen NEG Urine Leukocyte Esterase NEG Urine WBC (Auto) 1-5 /hpf Urine RBC (Auto) 0-4 /hpf Urine Hyaline Casts (Auto) 0 /lpf Urine Epithelial Cells (Auto) 0-5 /lpf Urine Bacteria (Auto) NEG Test 09/25/16 00:00 09/25/16 04:10 09/25/16 06:56 09/25/16 10:04 Urine Random Creatinine < 13.0 mg/dl Urine Random Urea Nitrogen 117 mg/dl White Blood Count 8.57 K/uL Red Blood Count 3.22 M/uL Hemoglobin 9.6 g/dL Hematocrit 28.4 % Mean Corpuscular Volume 88.2 fL Mean Corpuscular Hemoglobin 29.8 pg Mean Corpuscular Hemoglobin Concent 33.8 g/dl RDW Standard Deviation 43.5 fL RDW Coefficient of Variation 13.4 % Platelet Count 242 K/uL Mean Platelet Volume 9.9 fL Prothrombin Time 11.0 SECONDS Prothromb Time International Ratio 1.0 Sodium Level 136 mmol/L Potassium Level 3.1 mmol/L Chloride Level 100 mmol/L Carbon Dioxide Level 27 mmol/L Anion Gap 9.0 mmol/L Blood Urea Nitrogen 51 mg/dl Creatinine 1.70 mg/dl Est Creatinine Clear Calc Drug Dose 26.1 ml/min Estimated GFR () 41.4 Estimated GFR (Non- 35.7 BUN/Creatinine Ratio 29.7 Random Glucose 119 mg/dl Calcium Level 8.4 mg/dl Magnesium Level 1.8 mg/dl Iron Level 62 mcg/dl Total Iron Binding Capacity 241 mcg/dl Ferritin 178.7 ng/ml Total Creatine Kinase 106 U/L 124 U/L Creatine Kinase MB 4.2 ng/ml 7.6 ng/ml Creatine Kinase MB Ratio 4.0 6.1 Troponin I 0.141 ng/ml 1.140 ng/ml Triglycerides Level 82 mg/dl Cholesterol Level 102 mg/dl HDL Cholesterol 47 mg/dl LDL Cholesterol, Calculated 39 mg/dl VLDL Cholesterol, Calculated 16 mg/dl Cholesterol/HDL Ratio 2.2 Bedside Glucose 105 mg/dl Assessment and Plan This is an 86 year old male with PMH of DM1 on insulin, HTN, CKD stage 3, hx. of PE, hx. of aspiration, iron deficiency anemia presented with generalized weakness, shortness of breath, lower extremity edema and elevated blood pressure Hypertensive Urgency blood pressure > 200/100 on admission pressures improving currently after starting amlodipine 2.5mg daily continue metoprolol 25mg BID currently holding GEOFF-I due to kidney injury monitor blood pressures and will adjust accordingly appreciate cardiology input Acute Heart Failure with lower extremity edema and shortness of breath on admission BNP elevated; CXR suggests congestion was recently started on PO Lasix 20mg at home will switch to IV Lasix and monitor volume status Elevated Troponin likely from demand ischemia; probably related to hypertensive urgency last troponin level = 1.1 check one more level; control BP NOELLE superimposed on CKD stage 3 creat elevated at 1.8 on admission unsure of baseline creatinine is now down to 1.7 nephrology consulted for now on IV Lasix for his heart failure hx. of taking salt tablets? currently Na within nl Hx. of Dysphagia appreciate speech evaluation moist dental cut diet aspiration precautions Insulin Dependent DM1 currently on an insulin sliding scale check Ha1c Anemia was once on iron supplementation normal iron levels with low TIBC will check b12, folate, and stool guaiac DVT ppx subq heparin FULL CODE
--- NOTE | 2016-09-25 12:14 | CARDIOLOGY CONSULTATION ---
DATE OF CONSULTATION: 09/25/2016 CONSULTATION REQUESTED BY: Dr. Cole. REASON FOR CONSULTATION: Chest pain in the setting of uncontrolled hypertension. HISTORY OF PRESENT ILLNESS: Mr. Ramos is a very pleasant yet somewhat demented 86-year-old gentleman who presented to [facility] on 09/24[facility]2016 with a report of uncontrolled blood pressure for the last several months. Currently, the patient was seen and examined in room 241 with his and daughter present at the bedside. The daughter answers the majority of questions directed to the patient. Apparently, the patient was in [place] several months ago and was doing well; however, returning to [place], he started noticing he was developing lower extremity edema and his blood pressure was elevated when he checked it at home. His daughter states that they also noticed that he did not seem to be himself. He is rather fatigued ever since then and he did not have the energy he did previously. Then approximately 1 day ago, the patient started developing chest discomfort. He describes it as a substernal pressure sensation that would occur with exertion; however, when he would rest immediately after exertion. He states he walked across the room, maybe feeling a little winded than he would sit down and he was felt the tightness developed in his chest. He was seen by his primary care physician, Dr. Espino last week; however, he is not having the chest discomfort at that time and no medication changes were made and he was started on metoprolol 25 mg b.i.d. at that time as well as Lasix. Again since that visit, his symptoms have worsened. Currently, he states he feels fine. He does not remember the last time he had any chest discomfort, but his daughter believes it was prior to presentation to the Emergency Department. He states he has never had similar discomfort in the past. PAST SURGICAL HISTORY: 1. Whipple procedure. 2. Multiple upper endoscopies. 3. ERCP. 4. Exploratory laparotomy. 5. Hip fracture ORIF. 6. Cholecystectomy. MEDICAL ILLNESSES: 1. History of PE. 2. History of aspiration pneumonia. 3. Type 1 diabetes. 4. Stage III chronic kidney disease. 5. Pancreatic insufficiency. 6. Chronic respiratory failure. 7. Chronic hyponatremia following with nephrology. FAMILY HISTORY: Noncontributory. SOCIAL HISTORY: The patient has a very remote tobacco use history, quit in 1966. Denies any alcohol or recreational drug use. He lives at home with his . He is able to care for his ADLs at home, but not much else. REVIEW OF SYSTEMS: As per HPI, all other review of systems reviewed and negative at this time. ALLERGIES: 1. DEXTROMETHORPHAN. 2. GUAIFENESIN. MEDICATIONS AN OUTPATIENT: 1. Metoprolol 25 mg b.i.d. 2. Lantus as directed. 3. Lasix 20 mg daily. 4. Sodium chloride tablets 3 times a day. 5. Lisinopril 2.5 mg daily. 6. Insulin sliding scale as directed. PHYSICAL EXAMINATION: VITALS: Temperature 36.4, pulse 90, respiratory rate 12, and blood pressure 141/77. BP upon presentation was 207/80 followed by 209/111. GENERAL: Awake, alert, and oriented x3 in no acute distress, slow to answer questioning. HEENT: Normocephalic, atraumatic. Pupils equal, round, and reactive to light and accommodation. Extraocular muscles intact. Anicteric sclerae. Moist mucous membranes. Hard of hearing. NECK: No JVD, no bruit. CARDIOVASCULAR: Regular. Positive S4. Normal S1 and S2. No S3. 3/6 holosystolic ejection murmur greatest at the left midclavicular line with radiation to the left axilla. No rubs. PULMONARY: Clear to auscultation bilaterally. No rales, rhonchi, or wheezing. ABDOMEN: Bowel sounds x4, soft. No rebound, guarding, or tenderness. No organomegaly. EXTREMITIES: No clubbing, cyanosis or edema. +2 pedal pulses bilaterally. SKIN: Warm and dry. TEST RESULTS: A 12-lead EKG performed in the Emergency Department independently reviewed at this time shows normal sinus rhythm at 71 beats per minute with first-degree AV block, right bundle branch block, left anterior fascicular block, no signs of active ischemia. No significant change compared to previous study of October 2015. LABORATORY STUDIES OF SIGNIFICANCE: Hemoglobin 9.6. Sodium 136, potassium 3.1, BUN 51, and creatinine 1.7. CPK of 106 and troponin of 0.141. IMPRESSION: 1. Hypertensive urgency. 2. Chronic hyponatremia. 3. Type 1 diabetes. 4. Dementia. 5. Questionable history of atrial fibrillation, not on any antiplatelet or anticoagulation given history of blood loss anemia. 6. History of pulmonary embolism. 7. Aspiration pneumonia. 8. Stage III chronic kidney disease. RECOMMENDATIONS: It was my pleasure to see Mr. Ramos in consultation today. I believe his symptoms will most likely cause by hypertensive urgency. So at this point, the most prudent course of action would be to get his blood pressure under control. Given the history of his renal issues, I will choose amlodipine 2.5 mg daily to be started now and could be up titrated as needed for further blood pressure control. Given his history of hyponatremia, I will ask our nephrology colleagues to assist in his management. Otherwise, I do not believe this represents acute coronary syndrome. A complete 2D echocardiogram will be performed to evaluate for any wall motion abnormalities. However, even should that come back with any slight motion abnormalities, I believe medical management will be the preferred route. DAMION
[2016-09-25] MEDS: POTASSIUM CHLR 10 MEQ / WTR 10 MEQ in PREMIXED WATER 100 ML IV SCH ×4 (12:24→17:46)
[2016-09-25] MEDS: INSULIN ASPART 100 UNITS/ML 3 ML PEN SC SCH ×3 (12:31→21:00)
--- NOTE | 2016-09-25 13:06 | Pharmacy Progress Note ---
Glycemic Control Intl Consult Date of Service Sep 25, 2016. Scope Glycemic Pharmacist consulted by Dr Cole on 09/25 for glycemic control and to write orders per [facility] inpatient glycemic control protocol Objective Weight (Kilograms): 61.500 Accuchecks BSG (last 24hrs): Test 09/24/16 20:38 09/25/16 04:10 09/25/16 06:56 09/25/16 11:33 Random Glucose 132 mg/dl (70-99) 119 mg/dl (70-99) Bedside Glucose 105 mg/dl (70-99) 125 mg/dl (70-99) Laboratory Data (last 24hrs) Test 09/24/16 20:38 09/24/16 20:47 09/25/16 04:10 Anion Gap 6.0 mmol/L 18.0 mmol/L 9.0 mmol/L BUN/Creatinine Ratio 30.5 29.7 Blood Urea Nitrogen 55 mg/dl 51 mg/dl Creatinine 1.80 mg/dl 1.70 mg/dl Potassium Level 3.8 mmol/L 3.1 mmol/L Sodium Level 133 mmol/L 136 mmol/L White Blood Count 6.52 K/uL 8.57 K/uL Red Blood Count 3.06 M/uL Hemoglobin 9.2 g/dL Hematocrit 27.4 % Mean Corpuscular Volume 89.5 fL Mean Corpuscular Hemoglobin 30.1 pg Mean Corpuscular Hemoglobin Concent 33.6 g/dl Platelet Count 215 K/uL Mean Platelet Volume 9.8 fL Neutrophils (%) (Auto) 59.7 % Lymphocytes (%) (Auto) 25.3 % Monocytes (%) (Auto) 12.6 % Eosinophils (%) (Auto) 1.7 % Basophils (%) (Auto) 0.5 % Neutrophils # (Auto) 3.90 K/uL Lymphocytes # (Auto) 1.65 K/uL Monocytes # (Auto) 0.82 K/uL Eosinophils # (Auto) 0.11 K/uL Basophils # (Auto) 0.03 K/uL Recent Pertinent Medications Outpatient Anti-diabetic Regimen: * Lantus 6 units qAM * Novolog as needed - rarely, per patient's * A1c = pending The patient is currently receiving: * Basal insulin: Lantus 6 units every 24 hours * Correctional Insulin: Novolog Correction per scale ACHS Goal Range: Low 100 mg/dL - High 150 mg/dL Correction Factor: 75 mg/dL/unit * Prandial insulin: Per carb ratio of 1 unit per 25 grams CHO consumed Risk Factors for Insulin Resistance: * Diet: was NPO this AM -> now transitioned to AHA/type 2 diabetes diet Assessment & Plan ASSESSMENT: * ADA & AACE recommend a goal blood sugar range 140-180 mg/dl for the majority of critically ill & non-critically ill patients. However, more stringent targets may be selected in individual cases. 09/25/16 * Mr. 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 This may need to be cut back if it seems like he does not need the full amt. PLAN FOR INPATIENT GLYCEMIC CONTROL: * Give Lantus 4 units x 1 now then resume 6 units qAM tomorrow * Novolog ACHS * Goal 140-180 d/t age/comorbidities * CF 40 * Remove carb ratio * Please note that the plan above was derived based on current level of insulin resistance and hospital stress. These recommendations are appropriate for inpatient admission only. Plan of care upon discharge will need to be reassessed to avoid potential outpatient hypo/hyperglycemia. Thank you.
[2016-09-25] MEDS ORDERED: INSULIN GLARGINE SOLOSTAR 100 UNITS/ML 3 ML PEN SC ONE ×2 (13:15)
[2016-09-26] VITALS (8 sets, daily range): BP systolic 161–187; BP diastolic 76–89; PULSE 68–77; TEMP 36.8–37; O2SAT 93–98
[2016-09-26] MEDS ORDERED: AMLODIPINE BESYLATE 5 MG TAB PO ONE ×2 (04:15→10:30)
[2016-09-26 07:41] LABS: HEMATOCRIT 25.1 % (42-52); MEAN CELL VOLUME 87.8 fL (80-100); MEAN CORPUSCULAR HEMOGLOBIN 30.1 pg (25-34); MEAN CORPUSCULAR HGB CONC 34.3 g/dl (32-36); PLATELET COUNT 227 K/uL (130-400); RED BLOOD COUNT 2.86 M/uL (4.7-6.1); WHITE BLOOD COUNT 7.85 K/uL (4.8-10.8)
[2016-09-26] MEDS: INSULIN ASPART 100 UNITS/ML 3 ML PEN SC SCH ×4 (07:56→20:16)
[2016-09-26 08:06] LABS: BUN/CREATININE RATIO 26.7 (10-20); CREATININE 1.8 mg/dl (0.60-1.40); MAGNESIUM 1.8 mg/dl (1.8-2.4); POTASSIUM 3.9 mmol/L (3.5-5.1)
[2016-09-26] MEDS: PANCREAZE (LIPASE 10,500U) CAP PO SCH ×3 (08:15→17:05)
[2016-09-26] MEDS: BOOST VANILLA PO SCH ×2 (08:15)
[2016-09-26] MEDS: AMLODIPINE BESYLATE 5 MG TAB PO SCH (08:15)
[2016-09-26] MEDS: METOPROLOL TARTRATE 25 MG TAB PO SCH ×2 (08:16→20:12)
[2016-09-26] MEDS: DOCUSATE SODIUM 100 MG CAP PO SCH ×2 (08:16→20:13)
[2016-09-26] MEDS: INSULIN GLARGINE SOLOSTAR 100 UNITS/ML 3 ML PEN SC SCH (08:17)
[2016-09-26] MEDS: FUROSEMIDE INJ 20 MG in SYRINGE 0 ML IV SCH (08:17)
[2016-09-26] MEDS: HEPARIN SOD 5000 UNIT/0.5 ML CARP SQ SCH ×2 (08:19→20:16)
--- NOTE | 2016-09-26 08:52 | ECHOCARDIOGRAM REPORT ---
*NOTICE TO RECEIVING LIBERTARIAN AGENCY This information is strictly Confidential and protected under [place] law. [place] law prohibits you from making any further disclosure of this information unless further disclosure is expressly permitted by the written consent of the person to whom it pertains or is authorized by law. A general authorization for the release of medical or other information is not sufficient for this purpose. Hospital accepts no responsibility if the information is made available to any other person, INCLUDING THE PATIENT. Interpretation Summary * Name: CARMEN ECHEVARRIA Study Date: 09/25/2016 07:35 AM BP: 139/79 mmHg * Patient Location: [facility] HR: 91 * : 1930 (M/d/yyyy) Gender: Male Height: 65 in * Age: 86 yrs Ethnicity: CA Weight: 130 lb * Ordering Physician: Cindy Cole * Referring Physician: Naldo Espino * Performed By: Gracia Jackson RDCS * * Reason For Study: CHF * BSA: 1.6 m2 * -- Conclusions -- * Normal LV chamber size and wall thickness, sigmoid appearing septum. * Normal LV systolic function, EF 60-65%. * No segmental left ventricular wall motion abnormalities are noted. * Aortic valve sclerosis moderate, without significant aortic valvular stenosis. Mild aortic regurgitation. * Mild mitral annular calcification, mild mitral regurgitation. * Mild tricuspid regurgitation. * Atrial septal aneurysm incidentally noted, with small, hemodynamically insigificant shunt. Consider daily aspirin for stroke prophylaxis. Closure not currently indicated. Procedure Details * A complete two-dimensional transthoracic echocardiogram was performed (2D, M-mode, Doppler and color flow Doppler). * A contrast injection of Definity was performed to improve assessment of LV function. * Contrast was injected into an intravenous site in the left arm. * One vial of Definity ultrasound contrast was diluted in normal saline to a total volume of 10 ml. A total of '2' ml of solution was administered during imaging. * Lot # [id number] of Definity utilized for procedure. * Expiration date 1 AUG 04. * The attending nurse who injected the contrast agent was Nano Canales RN. Left Ventricle * The left ventricle is normal in size. * There is normal left ventricular wall thickness. * Ejection Fraction = 60-65%. * Left ventricular systolic function is normal. * No segmental left ventricular wall motion abnormalities are noted. * The left ventricular wall motion is normal. Right Ventricle * The right ventricular cavity size is normal (basal dimension <4.2 cm in right ventricular apical 4-chamber view). * The right ventricular systolic function is normal as assessed by tricuspid annular plane systolic excursion (TAPSE) (normal >1.5 cm). Atria * The left atrial size is normal. * Right atrial size is normal. * Atrial septal aneurysm incidentally noted, with small, hemodynamically insigificant shunt. Consider daily aspirin for stroke prophylaxis. Closure not currently indicated. * No ASD detected; PFO is not assessed. Mitral Valve * There is mild mitral annular calcification. * There is no mitral valve stenosis. * There is mild mitral regurgitation. Tricuspid Valve * The tricuspid valve anatomy is normal. * There is no tricuspid stenosis. * There is mild tricuspid regurgitation. Aortic Valve * The aortic valve is trileaflet. * Aortic valve sclerosis moderate, without significant aortic valvular stenosis. * Mild aortic regurgitation. Pulmonic Valve * The pulmonary valve is not well seen, but the Doppler examination is normal without significant regurgitation or stenosis. Great Vessels * The aortic root and proximal ascending aorta are normal sized. Pericardium/Pleural * There is no pericardial effusion. MMode 2D Measurements and Calculations IVSd 0.82 cm LVIDd 2.9 cm LVIDs 2.1 cm LVPWd 1.1 cm IVS/LVPW 0.76 FS 26.7 % EDV(Teich) 32.3 ml ESV(Teich) 14.9 ml EF(Teich) 53.9 % EDV(cubed) 24.4 ml ESV(cubed) 9.6 ml EF(cubed) 60.7 % LV mass(C)d 72.7 grams LV mass(C)dI 44.1 grams/m\S\2 CO(Teich) 1.5 l/min CI(Teich) 0.92 l/min/m\S\2 SV(Teich) 17.4 ml SI(Teich) 10.6 ml/m\S\2 CO(cubed) 1.3 l/min CI(cubed) 0.78 l/min/m\S\2 SV(cubed) 14.8 ml SI(cubed) 9.0 ml/m\S\2 Ao root diam 3.3 cm Ao root area 8.7 cm\S\2 ACS 1.0 cm LA dimension 2.5 cm asc Aorta Diam 3.3 cm LA/Ao 0.76 LVOT diam 2.0 cm LVOT area 3.0 cm\S\2 LVAd ap4 20.9 cm\S\2 LVLd ap4 7.5 cm EDV(MOD-sp4) 46.5 ml LVAs ap4 9.7 cm\S\2 LVLs ap4 5.2 cm ESV(MOD-sp4) 16.6 ml EF(MOD-sp4) 64.3 % LVAd ap2 16.0 cm\S\2 LVLd ap2 7.4 cm EDV(MOD-sp2) 29.4 ml LVAs ap2 8.2 cm\S\2 LVLs ap2 5.5 cm ESV(MOD-sp2) 11.9 ml EF(MOD-sp2) 59.5 % CO(MOD-sp4) 2.6 l/min CI(MOD-sp4) 1.6 l/min/m\S\2 SV(MOD-sp4) 29.9 ml SI(MOD-sp4) 18.2 ml/m\S\2 CO(MOD-sp2) 1.5 l/min CI(MOD-sp2) 0.92 l/min/m\S\2 SV(MOD-sp2) 17.5 ml SI(MOD-sp2) 10.6 ml/m\S\2 Doppler Measurements and Calculations MV E max nelson 156.7 cm/sec MV dec time 0.18 sec Ao V2 max 176.5 cm/sec Ao max PG 12.5 mmHg Ao max PG (full) 8.8 mmHg EASTON(V,A) 1.6 cm\S\2 EASTON(V,D) 1.6 cm\S\2 AI max nelson 289.1 cm/sec AI max PG 33.4 mmHg AI dec slope 137.0 cm/sec\S\2 AI P1/2t 618.3 msec LV V1 max PG 3.7 mmHg LV V1 max 96.1 cm/sec MR max nelson 623.0 cm/sec MR max PG 155.2 mmHg MR mean nelson 467.6 cm/sec MR mean PG 99.1 mmHg MR VTI 204.1 cm PA V2 max 73.3 cm/sec PA max PG 2.1 mmHg PA acc slope 437.8 cm/sec\S\2 PA acc time 0.16 sec TR max nelson 232.1 cm/sec PA pr(Accel) 7.7 mmHg
[2016-09-26] MEDS ORDERED: AMLODIPINE BESYLATE 5 MG TAB PO SCH (09:00)
[2016-09-26 09:34] LABS: ESTIMATED AVERAGE GLUCOSE 117 mg/dl; HA1C FLAG Normal (Normal)
[2016-09-26] MEDS ORDERED: NVLGI/PEN SQ (10:33)
--- NOTE | 2016-09-26 10:33 | Cardiology Follow-Up ---
Subjective Subjective Date of Service: Sep 26, 2016. Pt evaluation today including: conversation w/ patient, conversation w/ family , physical exam, chart review, lab review, review of studies, review of inpatient medication list Additional Details: Pt seen and examined, with daughter at bedside. No complaints overnight except not sleeping well. Denies cp, sob, palpitations, lightheadedness or dizziness. Tele reviewed: sinus rhythm without arrhythmia or significant ectopy. Problem List Medical Problems: (1) Acute renal failure Status: Acute (2) CHF (congestive heart failure) Status: Acute (3) Vomiting Status: Acute Review of Systems Constitutional: + weakness, No chills, No fever Respiratory: No cough, No dyspnea at rest, No dyspnea on exertion, No hemoptysis, No problem reported, No see HPI, No shortness of breath, No sputum, No wheezing Cardiac: No PND, No chest pain (resolved), No claudication, No edema, No orthopnea, No palpitations, No problem reported, No see HPI Abdomen: No diarrhea, No nausea, No pain, No vomiting Musculoskeletal: + joint pain (chronic arthritic joint pain) Heme: No abnormal bleeding/bruising Endo: + fatigue Objective Vital Signs Last Vital Signs Documentation Date Time Temp Pulse Resp B/P Pulse Ox O2 Delivery O2 Flow Rate FiO2 09/26/16 09:58 167/83 177/89 09/26/16 07:40 37.0 75 18 97 Room Air Physical Exam: General Appearance: WD/WN, no apparent distress, + cachetic, + pertinent finding (confused, slow to answer questions) Eyes: bilateral eyes EOMI, bilateral eyes PERRL, bilateral eyes normal inspection ENT: normal ENT inspection, hearing grossly normal, pharynx normal Neck: supple, no adenopathy, thyroid normal, no JVD, no carotid bruits, trachea midline Respiratory/Chest: chest non-tender, normal breath sounds, no respiratory distress, no accessory muscle use, + decreased breath sounds Cardiovascular: regular rate, rhythm, no edema, no JVD, + systolic murmur (3/6 mid to late zhanna, 2nd ics, rsb), + gallop/S4 Abdomen: normal bowel sounds, non tender, soft, no organomegaly, no pulsatile mass Extremities: non-tender, normal inspection, no pedal edema, no calf tenderness Neurologic/Psychiatric: photogrammetrist II-XII nml as tested, no motor/sensory deficits, alert, normal mood/affect, oriented x 3 Skin: normal color, warm/dry, no rash Lymphatic: no adenopathy Assessment and Plan 1. hypertensive urgency chest pain resolved no wall motion abnormalities on echo bp initially responded to amlodipine but back up again this AM remains elevated despite 5mg of amlodipine this AM, will give additional 5mg now will also start on terazosin qhs (pt states he normally gets up every hour to pee) will hold off rabia/arb given renal function, will defer to nephrology cont to monitor 2. hyponatremia/ckd appreciate nephrology input cont to monitor on tele
--- NOTE | 2016-09-26 10:41 | Pharmacy Progress Note ---
Glycemic Control: Progress Nt Date of Service Sep 26, 2016. Scope Glycemic Pharmacist consulted by Dr Cole on 09/25 for glycemic control and to write orders per [facility] inpatient glycemic control protocol. Objective Accuchecks BSG (last 24hrs): Test 09/25/16 11:33 09/25/16 16:27 09/25/16 20:52 09/26/16 06:51 Bedside Glucose 125 mg/dl (70-99) 125 mg/dl (70-99) 199 mg/dl (70-99) 111 mg/dl (70-99) Test 09/26/16 06:55 Random Glucose 96 mg/dl (70-99) Laboratory Data (last 24hrs) Test 09/26/16 06:55 Anion Gap 8.0 mmol/L BUN/Creatinine Ratio 26.7 Blood Urea Nitrogen 48 mg/dl Creatinine 1.80 mg/dl Hemoglobin A1c 5.7 % Potassium Level 3.9 mmol/L Sodium Level 131 mmol/L White Blood Count 7.85 K/uL HbA1c: Test 09/26/16 06:55 Hemoglobin A1c 5.7 % (4.5-5.6) H Recent Pertinent Medications Outpatient Anti-diabetic Regimen: * Lantus 6 units qAM * Novolog as needed - rarely, per patient's The patient is currently receiving: * Basal insulin: Lantus 4 units x 1 yesterday, 6 units qAM ordered to start today * Correctional Insulin: Novolog Correction per scale ACHS Goal Range: Low 140 mg/dL - High 180 mg/dL Correction Factor: 40 mg/dL/unit * Prandial insulin: None Risk Factors for Insulin Resistance: * Diet: AHA/type 2 diabetes diet Assessment & Plan ASSESSMENT: * ADA & AACE recommend a goal blood sugar range 140-180 mg/dl for the majority of critically ill & non-critically ill patients. However, more stringent targets may be selected in individual cases. 09/25/16 * Mr. 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 This may need to be cut back if it seems like he does not need the full amt. 09/26/16 * Mr. Ramos rec'd 7 units of insulin yesterday with BSGs ranging from 96-199 mg/dL in the past 24 hrs * His fasting BSG looks great this AM so continuing with 6 units of Lantus seems appropriate * Will see how he does today on basically his outpatient regimen * Of note, A1c is very well controlled and would have suspected hypoglycemia but patient's reported yesterday that his BSGs were well controlled with his Lantus PLAN FOR INPATIENT GLYCEMIC CONTROL: * Continue Lantus 6 units qAM * Continue Novolog ACHS * Goal 140-180 d/t age/comorbidities * CF 40 * No carb ratio DISCHARGE RECOMMENDATIONS: * Continue Lantus 6 units qAM + Novolog per sliding scale Thank you.
--- NOTE | 2016-09-26 10:49 | Clinical Documentation Query ---
QUERY 1 OF [address] LI, In your clinical opinion is this patient being managed for: ( ) NSTEMI/type II MT ( ) Other explanation of clinical findings (Please Explain) ( ) Unable to determine (Please Define) ( ) Need to Discuss ( ) Not Agree The medical record reflects the following clinical findings, treatment, and risk factors. Clinical Indicators:Pt reported chest tightness. Trops 0.141/1.140. Inital EKG with nonspecific T wave abnormality which is new compared to previous. Trop elevations noted to be likley from demand ischemia. Treatment:ECHO, tele, cardiology consult, start amlodipine, serial cardiac enzymes, IV lasix, continue metoprolol Risk Factors: age, hypertension, CKD, A fib, DM Type 2 MT is diagnosed in instances in which a supply/demand imbalance leads to myocardial injury with necrosis that is not caused by ACS, including arrhythmias, aortic dissection, severe aortic valve disease, hypertrophic cardiomyopathy, shock, respiratory failure, severe anemia, hypertension with or without left ventricular hypertrophy, coronary spasm, coronary embolism or vasculitis, and coronary endothelial dysfunction without significant coronary artery disease (CAD) Reference : [facility] October 2013, volume 63, issue 20 QUERY 2 OF 3 In your clinical opinion is this patient being managed for: ( ) Acute diastolic CHF ( ) Other explanation of clinical findings (Please Explain) ( ) Unable to determine (Please Define) ( ) Need to Discuss ( ) Not Agree The medical record reflects the following clinical findings, treatment, and risk factors. Clinical Indicators: 86 yo male presenting with increasing hypertension and increasing LE swelling. BNP 66414, CXR showed Congestive heart failure, +1 bilateral LE edema, lungs with crackles in bases bilaterally. BP 209/111. ECHO showed EF 60-65%. H/P and progress notes indicate Acute Heart Failure. Treatment: IV lasix, tele, ECHO, serial cardiac enzymes, cardiology consult, amlodipine Risk Factors: age, A fib, CKD stage III, HTN, DM QUERY 3 OF 3 In your clinical opinion is this patient being managed for: ( ) Hypertensive emergency ( ) Other explanation of clinical findings (Please Explain) ( ) Unable to determine (Please Define) ( ) Need to Discuss ( ) Not Agree The medical record reflects the following clinical findings, treatment, and risk factors. Clinical Indicators: Pt presented with elevated BP. Range of 192-212/104-112. Trops elevated 0.141/1.140, Cr 1.8 Treatment: IV lasix, tele, ECHO, serial cardiac enzymes, start amlodipine, cardiology consult, continue metoprolol Risk Factors:age, afib, HTN, NOELLE on CKD stage III, DM Hypertensive Emergency occurs when blood pressure is severely elevated and results in organ damage. The condition can also occur at lower levels in patients whose blood pressure had not previously been high. Serious consequences of uncontrolled hypertension include stroke, loss of consciousness, memory loss, acute myocardial infarction, angina, aortic dissection, damage to the eyes and kidneys, and pulmonary edema Please clarify and document your clinical opinion in the progress notes and discharge summary. Terms such as "probable", "suspected", "likely", "questionable", "possible", or "still to be ruled out" are acceptable. IF IN AGREEMENT, YOU MUST DOCUMENT ABOVE DIAGNOSTIC STATEMENT IN DAILY PROGRESS NOTES AND DISCHARGE SUMMARY. This document is not part of the patient's record. Thank You, Charity Montaño, LAY [phone]
--- NOTE | 2016-09-26 13:16 | Progress Note ---
Subjective Date of Service: Sep 26, 2016. Subjective Pt evaluation today including: conversation w/ patient, physical exam, lab review, review of studies, review of inpatient medication list Saw/examined the patient in room 241-2 He's doing well today; no significant shortness of breath. denies chest pain or palpitations as per family, he is not eating much Problem List Medical Problems: (1) Acute renal failure Status: Acute (2) CHF (congestive heart failure) Status: Acute (3) Vomiting Status: Acute Review of Systems Constitutional: + weakness, No chills, No fever Respiratory: No cough, No dyspnea on exertion, No shortness of breath, No sputum Cardiac: No chest pain, No edema, No palpitations Medications Current Inpatient Medications Medications (Trade) Dose Ordered Sig/Ruben Route Start Time Stop Time Status Last Admin Dose Admin Ioversol (Optiray 320) 100 ml UD PRN IV 09/24/16 21:30 09/28/16 21:29 Acetaminophen (Tylenol Tab) 650 mg Q4H PRN PO 09/25/16 00:00 10/25/16 00:00 09/26/16 00:21 650 MG Ondansetron HCl (Zofran Inj) 4 mg Q6H PRN IV 09/25/16 00:00 10/25/16 00:00 Nitroglycerin (Nitrostat Tab) 0.4 mg UD PRN SL 09/25/16 00:00 10/25/16 00:00 Morphine Sulfate (MoRPHine SULFATE INJ) 2 mg Q30M PRN IV 09/25/16 00:00 10/09/16 00:00 Polyethylene (Miralax Powder Packet) 17 gm DAILY PRN PO 09/25/16 00:00 10/25/16 00:00 Docusate Sodium (coLACE CAP) 100 mg BID PO 09/25/16 09:00 10/25/16 08:59 09/26/16 08:16 100 MG Metoprolol Tartrate (Lopressor Tab) 25 mg BID PO 09/25/16 09:00 10/25/16 08:59 09/26/16 08:16 25 MG Amylase/Lipase/ Protease (Pancreaze (Lipase 10,500U) Cap) 3 cap TIDM PO 09/25/16 07:30 10/25/16 07:29 09/26/16 08:15 3 CAP Insulin Glargine (Lantus Solostar Pen) 6 unit QAM SC 09/25/16 09:00 10/25/16 08:59 Future hold 09/26/16 08:17 6 UNIT Glucose (Glucose 40% Gel) 15-30 GRAMS 15 GRAMS... UD PRN PO 09/25/16 00:15 10/25/16 00:14 Glucose (Glucose Chew Tab) 4-8 Tablets 4 Tabl... UD PRN PO 09/25/16 00:15 10/25/16 00:14 Dextrose (Dextrose 50% 50ML Syringe) 25-50ML OF 50% DW IV FOR... UD PRN IV 09/25/16 00:15 10/25/16 00:14 Glucagon (Glucagon Inj) 1 mg UD PRN SQ 09/25/16 00:15 10/25/16 00:14 Miscellaneous Information 1 ea 1 ea UD PRN N/A 09/25/16 00:30 10/25/16 00:29 Furosemide/Syringe (Lasix Inj/ Syringe) 2 ml @ 4 mls/min QAM IV 09/25/16 09:00 10/25/16 08:59 09/26/16 08:17 4 MLS/MIN Heparin Sodium (Porcine) (Heparin Sq 5000 Unit/0.5ml) 5,000 unit Q12 SQ 09/25/16 09:00 10/25/16 08:59 09/26/16 08:19 5,000 UNIT Insulin Aspart (novoLOG ASPART) SLIDING SCALE If C... ACHS SC 09/25/16 11:30 10/25/16 11:29 09/25/16 21:00 1 UNITS Amlodipine Besylate (Norvasc Tab) 5 mg QAM PO 09/26/16 09:00 10/26/16 08:59 09/26/16 08:15 5 MG Terazosin HCl (Hytrin Cap) 1 mg HS PO 09/26/16 21:00 10/26/16 20:59 Enteral Nutritional Formula (Boost Glucose Control) 1 can TIDM PO 09/26/16 16:45 10/26/16 16:44 Objective Vital Signs Date Time Temp Pulse Resp B/P Pulse Ox O2 Delivery O2 Flow Rate FiO2 09/26/16 11:32 36.9 68 18 164/79 97 Room Air 09/26/16 09:58 167/83 177/89 09/26/16 08:00 Room Air 09/26/16 07:40 37.0 75 18 187/86 97 Room Air 09/26/16 04:05 36.8 77 16 181/88 97 Room Air 09/26/16 04:02 93 Room Air 09/26/16 00:01 93 Room Air 09/26/16 00:01 93 Room Air 09/25/16 23:18 36.7 72 16 154/85 98 Room Air 09/25/16 20:00 93 Room Air 09/25/16 20:00 93 Room Air 09/25/16 19:25 36.5 75 18 135/85 93 Room Air 09/25/16 16:15 95 Room Air 09/25/16 15:24 36.3 67 16 164/75 98 Room Air Physical Exam General Appearance: no apparent distress, + thin Respiratory/Chest: no respiratory distress, no accessory muscle use, + decreased breath sounds Cardiovascular: regular rate, rhythm, no edema, + systolic murmur Extremities: normal inspection, no pedal edema Neurologic/Psychiatric: no motor/sensory deficits, alert, normal mood/affect Skin: normal color Laboratory Results Last 24 Hours Test 09/25/16 16:27 09/25/16 20:52 09/26/16 06:51 09/26/16 06:55 Bedside Glucose 125 mg/dl 199 mg/dl 111 mg/dl White Blood Count 7.85 K/uL Red Blood Count 2.86 M/uL Hemoglobin 8.6 g/dL Hematocrit 25.1 % Mean Corpuscular Volume 87.8 fL Mean Corpuscular Hemoglobin 30.1 pg Mean Corpuscular Hemoglobin Concent 34.3 g/dl RDW Standard Deviation 44.2 fL RDW Coefficient of Variation 13.7 % Platelet Count 227 K/uL Mean Platelet Volume 10.0 fL Sodium Level 131 mmol/L Potassium Level 3.9 mmol/L Chloride Level 98 mmol/L Carbon Dioxide Level 25 mmol/L Anion Gap 8.0 mmol/L Blood Urea Nitrogen 48 mg/dl Creatinine 1.80 mg/dl Est Creatinine Clear Calc Drug Dose 25.6 ml/min Estimated GFR () 38.6 Estimated GFR (Non- 33.3 BUN/Creatinine Ratio 26.7 Random Glucose 96 mg/dl Estimated Average Glucose 117 mg/dl Hemoglobin A1c 5.7 % Calcium Level 8.3 mg/dl Magnesium Level 1.8 mg/dl Vitamin B12 Level 998 pg/mL Folate 14.16 ng/mL Test 09/26/16 11:20 Bedside Glucose 244 mg/dl Assessment and Plan This is an 86 year old male with PMH of DM1 on insulin, HTN, CKD stage 3, hx. of PE, hx. of aspiration, iron deficiency anemia presented with generalized weakness, shortness of breath, lower extremity edema and elevated blood pressure Hypertensive Urgency 09/26 blood pressures initially controlled yesterday, came back up later in the evening now received total of 10mg of amlodipine today if okay with nephrology, will add back lisinopril creatinine is stable; probably around his baseline kidney function 09/25 blood pressure > 200/100 on admission pressures improving currently after starting amlodipine 2.5mg daily continue metoprolol 25mg BID currently holding GEOFF-I due to kidney injury monitor blood pressures and will adjust accordingly appreciate cardiology input Acute Heart Failure 09/26 no significant shortness of breath noted will switch IV Lasix to PO and monitor volume status 09/25 with lower extremity edema and shortness of breath on admission BNP elevated; CXR suggests congestion was recently started on PO Lasix 20mg at home will switch to IV Lasix and monitor volume status Elevated Troponin likely from demand ischemia; probably related to hypertensive urgency last troponin level = 1.1 check one more level; control BP NOELLE superimposed on CKD stage 3 09/26 creat is stable will remove Medrano and monitor how he does with urination 09/25 creat elevated at 1.8 on admission unsure of baseline creatinine is now down to 1.7 nephrology consulted for now on IV Lasix for his heart failure hx. of taking salt tablets? currently Na within nl Hx. of Dysphagia appreciate speech evaluation moist dental cut diet aspiration precautions Insulin Dependent DM1 Ha1c = 5.7%; well controlled patient is not eating as much as he should boost TID with meals added Anemia 09/26 Hgb = 8.6 today monitor normal folate and B12 will need iron supplementation 09/25 was once on iron supplementation normal iron levels with low TIBC will check b12, folate, and stool guaiac DVT ppx subq heparin FULL CODE
--- NOTE | 2016-09-26 14:19 | Nephrology Consultation ---
Nephrology Consultation Date of Consultation: Sep 26, 2016. Attending Physician: Dr Crespo Requesting Physician: Dr Ackerman Reason for Consultation: hyponatremia, salt tablets, HTN History of Present Illness 86 year old male admitted 09/25 for mgt of HTN urgency after presenting w/ elevated BP at home (worsening over past 2 mos), fatigue, and worsening LE edema w/o dypsnea or orthopnea. He follows w/ my partner Dr Bar in CKD clinic for ckd 3 and euvolemic hyponatremia/SIADH, the latter treated with salt tablets. 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 His baseline creatinine in [facility] is 1.1-1.3, has had a few more readings of 1.5 since late last summer when he developed sodium as low as 124 as an outpatient, attributed to SIADH, and started on salt tablets which were subsequently increased. Lost 40 lb after Whipple procedure and has since regained some back; did lose 5 lb (back to where he was about a year ago at 127 lb) per [facility] records 09/2016 after spending winter in [place]. He presented to ER 09/25 with nausea in addition to above sx; no emesis; did endorse mild exertional dyspnea on presentation. Saw PCP on 09/20 and HTN, edema noted: started on lasix low dose. Hgb in [facility] runs in low 10s past year (last checked 01/2016); 10s generally since 2013. Salt tabs held at admission; edema much improved; BP still working at control. Lives independently with his . Uses a cane for ambulation. Pt seen on rounds this am at 0800. Past Medical/Surgical History Medical Problems: (1) Acute renal failure Status: Acute (2) CHF (congestive heart failure) Status: Acute (3) Vomiting Status: Acute as per HPI Family History Heart disease Social History Smoking Status: Former Smoker Alcohol Use: none Drug Use: none Marital Status: Housing Status: lives with family Occupation Status: retired Allergies Coded Allergies: Dextromethorphan (Verified Allergy, Unknown, RASH, 09/24/16) Guaifenesin (Verified Allergy, Unknown, RASH, 09/24/16) Medications Current Inpatient Medications Medications (Trade) Dose Ordered Sig/Ruben Route Start Time Stop Time Status Last Admin Dose Admin Ioversol (Optiray 320) 100 ml UD PRN IV 09/24/16 21:30 09/28/16 21:29 Acetaminophen (Tylenol Tab) 650 mg Q4H PRN PO 09/25/16 00:00 10/25/16 00:00 09/26/16 00:21 650 MG Ondansetron HCl (Zofran Inj) 4 mg Q6H PRN IV 09/25/16 00:00 10/25/16 00:00 Nitroglycerin (Nitrostat Tab) 0.4 mg UD PRN SL 09/25/16 00:00 10/25/16 00:00 Morphine Sulfate (MoRPHine SULFATE INJ) 2 mg Q30M PRN IV 09/25/16 00:00 10/09/16 00:00 Polyethylene (Miralax Powder Packet) 17 gm DAILY PRN PO 09/25/16 00:00 10/25/16 00:00 Docusate Sodium (coLACE CAP) 100 mg BID PO 09/25/16 09:00 10/25/16 08:59 09/26/16 08:16 100 MG Metoprolol Tartrate (Lopressor Tab) 25 mg BID PO 09/25/16 09:00 10/25/16 08:59 09/26/16 08:16 25 MG Amylase/Lipase/ Protease (Pancreaze (Lipase 10,500U) Cap) 3 cap TIDM PO 09/25/16 07:30 10/25/16 07:29 09/26/16 08:15 3 CAP Insulin Glargine (Lantus Solostar Pen) 6 unit QAM SC 09/25/16 09:00 10/25/16 08:59 Future hold 09/26/16 08:17 6 UNIT Glucose (Glucose 40% Gel) 15-30 GRAMS 15 GRAMS... UD PRN PO 09/25/16 00:15 10/25/16 00:14 Glucose (Glucose Chew Tab) 4-8 Tablets 4 Tabl... UD PRN PO 09/25/16 00:15 10/25/16 00:14 Dextrose (Dextrose 50% 50ML Syringe) 25-50ML OF 50% DW IV FOR... UD PRN IV 09/25/16 00:15 10/25/16 00:14 Glucagon (Glucagon Inj) 1 mg UD PRN SQ 09/25/16 00:15 10/25/16 00:14 Miscellaneous Information (Consult Glycemic Management Pharmacy) 1 ea UD PRN N/A 09/25/16 00:30 10/25/16 00:29 Heparin Sodium (Porcine) (Heparin Sq 5000 Unit/0.5ml) 5,000 unit Q12 SQ 09/25/16 09:00 10/25/16 08:59 09/26/16 08:19 5,000 UNIT Insulin Aspart (novoLOG ASPART) SLIDING SCALE If C... ACHS SC 09/25/16 11:30 10/25/16 11:29 09/25/16 21:00 1 UNITS Amlodipine Besylate (Norvasc Tab) 5 mg QAM PO 09/26/16 09:00 10/26/16 08:59 09/26/16 08:15 5 MG Terazosin HCl (Hytrin Cap) 1 mg HS PO 09/26/16 21:00 10/26/16 20:59 Enteral Nutritional Formula (Boost Glucose Control) 1 can TIDM PO 09/26/16 16:45 10/26/16 16:44 Furosemide (Lasix Tab) 20 mg QAM PO 09/27/16 09:00 10/27/16 08:59 UNV Home Meds and Scripts Medications Dose Route/Sig Max Daily Dose Days Date Category Dose Instructions Novolog Flexpen (Insulin Aspart) 100 Units/Ml Inj 0 SQ UD 09/26/16 Reported per sliding scale Tylenol (Acetaminophen) 325 Mg Tab 650 Mg PO Q8 PRN 09/24/16 Reported Zofran (Ondansetron HCl) 4 Mg Tab 4 Mg PO Q6 PRN 09/24/16 Reported Mouthkote (Artificial Saliva) 1 Nellie Nellie 1 Dose PO QPM PRN 09/24/16 Reported Zenpep 22455 Unit (Pancrelipase (Lipase-Protease-) 1 Cap Cap 2 Cap PO WM 09/24/16 Reported Sodium Chloride 1 Gm Tab 2 Gm PO TID 09/24/16 Reported Lasix (Furosemide) 20 Mg Tab 20 Mg PO QAM 09/24/16 Reported Lopressor (Metoprolol Tartrate) 25 Mg Tab 25 Mg PO BID 09/24/16 Reported Lantus Solostar (Insulin Glargine) 100 Unit/Ml Inj 6 Units SC QAM 09/24/16 Reported Colace (Docusate Sodium) 100 Mg Cap 100 Mg PO BID 30 09/24/16 Reported Miralax (Polyethylene) 17 Gm Pow 17 Gm PO QAM 09/24/16 Reported Prosource (Protein) 1 Yuri Yuri 15 Gm PO TID 11/02/15 Reported Ensure Plus Vanilla (Enteral Nutritional Formula) 1 Can Liqd 1 Btl PO TID 11/02/15 Reported Zestril (Lisinopril) 2.5 Mg Tab 2.5 Mg PO DAILY 11/02/15 Reported Senna Lax (Sennosides) 8.6 Mg Tab 8.6 Mg PO LUNCH 01/23/14 Reported Review of Systems Constitutional: + fatigue, + weakness Eyes: No worsening of vision ENT: + hearing loss Respiratory: + dyspnea on exertion, + see HPI, No dyspnea at rest Cardiac: + see HPI, No chest pain, No edema, No palpitations Abdomen: + nausea, + problem reported (has to work to maintain weight and protein intake), No constipation, No diarrhea, No pain, No vomiting Musculoskeletal: No joint pain, No muscle pain Male : No dysuria, No incontinence, No urinary frequency Neuro: + balance problems, + memory loss, + weakness Psych: No anxiety, No depression symptoms Heme: No abnormal bleeding/bruising Endo: + fatigue Skin: No rash Physical Exam Date Time Temp Pulse Resp B/P Pulse Ox O2 Delivery O2 Flow Rate FiO2 09/26/16 12:00 Room Air 09/26/16 11:32 36.9 68 18 164/79 97 Room Air 09/26/16 09:58 167/83 177/89 09/26/16 08:00 Room Air 09/26/16 07:40 37.0 75 18 187/86 97 Room Air 09/26/16 04:05 36.8 77 16 181/88 97 Room Air 09/26/16 04:02 93 Room Air 09/26/16 00:01 93 Room Air 09/26/16 00:01 93 Room Air 09/25/16 23:18 36.7 72 16 154/85 98 Room Air 09/25/16 20:00 93 Room Air 09/25/16 20:00 93 Room Air 09/25/16 19:25 36.5 75 18 135/85 93 Room Air 09/25/16 16:15 95 Room Air 09/25/16 15:24 36.3 67 16 164/75 98 Room Air 24-Hour Column 09/26/16 08:00 Intake Total 1364 ml Output Total 1550 ml Balance -186 ml General Appearance: WD/WN, no apparent distress, + thin, + pertinent finding ( sitting in bed on room air; belches several times in exam) Eyes: EOMI ENT: hearing grossly normal Neck: supple Respiratory/Chest: no respiratory distress, + decreased breath sounds Cardiovascular: regular rate, rhythm, + systolic murmur Abdomen: normal bowel sounds, non tender, soft, + pertinent finding (joshua) Extremities: + pedal edema (at most trace) Neurologic/Psych: alert, normal mood/affect, oriented x 3 (works to recall/ find right words but mostly good historian) Skin: no jaundice, warm/dry, no rash Diagnostics Last 24 Hours Test 09/25/16 16:27 09/25/16 20:52 09/26/16 06:51 09/26/16 06:55 Bedside Glucose 125 mg/dl 199 mg/dl 111 mg/dl White Blood Count 7.85 K/uL Red Blood Count 2.86 M/uL Hemoglobin 8.6 g/dL Hematocrit 25.1 % Mean Corpuscular Volume 87.8 fL Mean Corpuscular Hemoglobin 30.1 pg Mean Corpuscular Hemoglobin Concent 34.3 g/dl RDW Standard Deviation 44.2 fL RDW Coefficient of Variation 13.7 % Platelet Count 227 K/uL Mean Platelet Volume 10.0 fL Sodium Level 131 mmol/L Potassium Level 3.9 mmol/L Chloride Level 98 mmol/L Carbon Dioxide Level 25 mmol/L Anion Gap 8.0 mmol/L Blood Urea Nitrogen 48 mg/dl Creatinine 1.80 mg/dl Est Creatinine Clear Calc Drug Dose 25.6 ml/min Estimated GFR () 38.6 Estimated GFR (Non- 33.3 BUN/Creatinine Ratio 26.7 Random Glucose 96 mg/dl Estimated Average Glucose 117 mg/dl Hemoglobin A1c 5.7 % Calcium Level 8.3 mg/dl Magnesium Level 1.8 mg/dl Vitamin B12 Level 998 pg/mL Folate 14.16 ng/mL Test 09/26/16 11:20 Bedside Glucose 244 mg/dl Diagnostic Radiology: CT angio 09/24 no PE several indeterminate lung/hilar nodules mild HF emphysema CXR 09/24 HF EKG: TTE > EF 55%; mild AV sclerosis w/o stenosis; no wma Assessment & Plan 86 y/o M w/ ckd 3 baseline creatinine 1.2-1.3 as of last fall and getting salt tablets for mgt of hyponatremia admitted with HTN urgency and volume overload. Other PMH includes s/p Whipple procedure, DM, past PE. He had IV contrast on ; also started on lasix on 09/20. Hyponatremia Sodium today 131; salt tabs appropriately held since admission. Appears euvolemic today on exam but may be slightly volume depleted given lasix start, over 1L negative yesterday; I also get the sense that since/after Whipple he has to really work to maintain adequate food intake. already works hard to maintain protein intake -no fluid restriction just yet >recheck bmp later today and check serum/urine osms, urine Na rd Acute on chronic renal failure suspect multifactorial > ATN +/- combined contrast induced nephropathy; he also told me he'd had a few advil prior to admission, though he usually does not use these> urine sediment on admission shows dilute urine with blood and protein; has had suggestions of each individually on outside studies > unclear what his baseline function was on return from [place] as recent #s in fall suggest trend to progression; also recently started on lasix and had IV contrast and was on ACEI on admission. -cont to hold ACEI; diuretic for now prn only HTN Goal sbp is 140-150s for this hospital stay -started on amlodipine this admission and this was upped to 5 mg today -still getting lasix 20 mg po daily and may look to hold this/ substitute w/ hydralazine for now -cont BB Wt loss -low threshold for calorie count; agree w/ speech eval >>>cont boost Appreciate consultation; will follow with you
[2016-09-26 14:58] LABS: CALCIUM 8.7 mg/dl (8.5-10.1)
[2016-09-26] MEDS: BOOST GLUCOSE CONTROL PO SCH (17:05)
[2016-09-26 17:27] LABS: BUN/CREATININE RATIO 25.4 (10-20); CALCIUM 8.5 mg/dl (8.5-10.1); CREATININE 1.9 mg/dl (0.60-1.40); POTASSIUM 4.1 mmol/L (3.5-5.1)
[2016-09-27] VITALS (10 sets, daily range): BP systolic 123–168; BP diastolic 64–80; PULSE 70–80; TEMP 36.3–36.7; O2SAT 92–98
[2016-09-27 07:33] LABS: HEMATOCRIT 24.7 % (42-52); MEAN CELL VOLUME 86.7 fL (80-100); MEAN CORPUSCULAR HEMOGLOBIN 29.5 pg (25-34); MEAN PLATELET VOLUME 10.2 fL (7.4-10.4); PLATELET COUNT 207 K/uL (130-400); RED BLOOD COUNT 2.85 M/uL (4.7-6.1); WHITE BLOOD COUNT 7.47 K/uL (4.8-10.8)
[2016-09-27] MEDS: BOOST GLUCOSE CONTROL PO SCH ×3 (07:54→17:52)
[2016-09-27] MEDS: DOCUSATE SODIUM 100 MG CAP PO SCH ×2 (07:54→20:35)
[2016-09-27] MEDS: AMLODIPINE BESYLATE 5 MG TAB PO SCH (07:55)
[2016-09-27] MEDS: PANCREAZE (LIPASE 10,500U) CAP PO SCH ×3 (07:55→17:53)
[2016-09-27] MEDS: METOPROLOL TARTRATE 25 MG TAB PO SCH ×2 (07:56→20:36)
[2016-09-27 08:37] LABS: BUN/CREATININE RATIO 26.6 (10-20)
[2016-09-27 09:00] LABS: CALCIUM 8.8 mg/dl (8.5-10.1)
[2016-09-27] MEDS ORDERED: FUROSEMIDE 20 MG TAB PO SCH (09:00)
[2016-09-27] MEDS: INSULIN ASPART 100 UNITS/ML 3 ML PEN SC SCH ×4 (09:30→20:36)
[2016-09-27] MEDS: HEPARIN SOD 5000 UNIT/0.5 ML CARP SQ SCH ×2 (09:30→20:39)
[2016-09-27] MEDS: INSULIN GLARGINE SOLOSTAR 100 UNITS/ML 3 ML PEN SC SCH (09:30)
--- NOTE | 2016-09-27 10:12 | Nephrology Progress Note ---
Nephrology Progress Note Date of Service: Sep 27, 2016. Subjective no pain in abd or chest, breathing well no edema; slept well, moving bowels. daughter at bedside Objective Date Time Temp Pulse Resp B/P Pulse Ox O2 Delivery O2 Flow Rate FiO2 09/27/16 07:35 36.7 80 20 150/69 95 Room Air 09/27/16 04:03 Room Air 09/27/16 03:57 36.6 77 15 123/64 92 Room Air 09/27/16 00:25 93 Room Air 09/27/16 00:13 36.5 71 19 142/69 96 Room Air 09/27/16 00:01 Room Air 09/26/16 20:00 36.8 71 16 165/76 96 Room Air 09/26/16 20:00 Room Air 09/26/16 16:00 Room Air 09/26/16 15:51 36.8 71 16 161/76 98 Room Air 09/26/16 12:00 Room Air 09/26/16 11:32 36.9 68 18 164/79 97 Room Air Physical Exam: General Appearance: WD/WN, no apparent distress, + thin, + pertinent finding ( sitting up in chair on room air; no belching today) Eyes: EOMI ENT: hearing grossly normal Neck: supple Respiratory/Chest: no respiratory distress, + decreased breath sounds Cardiovascular: regular rate, rhythm, + systolic murmur Abdomen: normal bowel sounds, non tender, soft, + pertinent finding (joshua) Extremities: no edema Neurologic/Psych: alert, normal mood/affect, oriented x 3 (works to recall/ find right words but mostly good historian) Skin: no jaundice, warm/dry, no rash Current Inpatient Medications Medications (Trade) Dose Ordered Sig/Ruben Route Start Time Stop Time Status Last Admin Dose Admin Ioversol (Optiray 320) 100 ml UD PRN IV 09/24/16 21:30 09/28/16 21:29 Acetaminophen (Tylenol Tab) 650 mg Q4H PRN PO 09/25/16 00:00 10/25/16 00:00 09/26/16 00:21 650 MG Ondansetron HCl (Zofran Inj) 4 mg Q6H PRN IV 09/25/16 00:00 10/25/16 00:00 Nitroglycerin (Nitrostat Tab) 0.4 mg UD PRN SL 09/25/16 00:00 10/25/16 00:00 Morphine Sulfate (MoRPHine SULFATE INJ) 2 mg Q30M PRN IV 09/25/16 00:00 10/09/16 00:00 Polyethylene (Miralax Powder Packet) 17 gm DAILY PRN PO 09/25/16 00:00 10/25/16 00:00 Docusate Sodium (coLACE CAP) 100 mg BID PO 09/25/16 09:00 10/25/16 08:59 09/27/16 07:54 100 MG Metoprolol Tartrate (Lopressor Tab) 25 mg BID PO 09/25/16 09:00 10/25/16 08:59 09/27/16 07:56 25 MG Amylase/Lipase/ Protease (Pancreaze (Lipase 10,500U) Cap) 3 cap TIDM PO 09/25/16 07:30 10/25/16 07:29 09/27/16 07:55 3 CAP Insulin Glargine (Lantus Solostar Pen) 6 unit QAM SC 09/25/16 09:00 10/25/16 08:59 Future hold 09/26/16 08:17 6 UNIT Glucose (Glucose 40% Gel) 15-30 GRAMS 15 GRAMS... UD PRN PO 09/25/16 00:15 10/25/16 00:14 Glucose (Glucose Chew Tab) 4-8 Tablets 4 Tabl... UD PRN PO 09/25/16 00:15 10/25/16 00:14 Dextrose (Dextrose 50% 50ML Syringe) 25-50ML OF 50% DW IV FOR... UD PRN IV 09/25/16 00:15 10/25/16 00:14 Glucagon (Glucagon Inj) 1 mg UD PRN SQ 09/25/16 00:15 10/25/16 00:14 Miscellaneous Information (Consult Glycemic Management Pharmacy) 1 ea UD PRN N/A 09/25/16 00:30 10/25/16 00:29 Heparin Sodium (Porcine) (Heparin Sq 5000 Unit/0.5ml) 5,000 unit Q12 SQ 09/25/16 09:00 10/25/16 08:59 09/26/16 20:16 5,000 UNIT Insulin Aspart (novoLOG ASPART) SLIDING SCALE If C... ACHS SC 09/25/16 11:30 10/25/16 11:29 09/26/16 20:16 1 UNITS Amlodipine Besylate (Norvasc Tab) 5 mg QAM PO 09/26/16 09:00 10/26/16 08:59 09/27/16 07:55 5 MG Terazosin HCl (Hytrin Cap) 1 mg HS PO 09/26/16 21:00 10/26/16 20:59 09/26/16 20:13 1 MG Enteral Nutritional Formula (Boost Glucose Control) 1 can TIDM PO 09/26/16 16:45 10/26/16 16:44 09/27/16 07:54 1 CAN Last 24 Hours Test 09/26/16 11:20 09/26/16 16:05 09/26/16 16:32 09/26/16 16:42 Bedside Glucose 244 mg/dl 135 mg/dl Transferrin % Saturation % 26 % Sodium Level 132 mmol/L Potassium Level 4.1 mmol/L Chloride Level 95 mmol/L Carbon Dioxide Level 30 mmol/L Anion Gap 7.0 mmol/L Blood Urea Nitrogen 48 mg/dl Creatinine 1.90 mg/dl Est Creatinine Clear Calc Drug Dose 24.3 ml/min Estimated GFR () 36.2 Estimated GFR (Non- 31.2 BUN/Creatinine Ratio 25.4 Random Glucose 132 mg/dl Osmolality 286 mOsm/kg Calcium Level 8.5 mg/dl Iron Level 67 mcg/dl Total Iron Binding Capacity 229 mcg/dl Transferrin 181 mg/dl Test 09/26/16 17:40 09/26/16 20:09 09/27/16 06:42 09/27/16 06:59 Urine Osmolality 348 mOms/kg Urine Random Sodium 62 mEq/L Bedside Glucose 194 mg/dl 128 mg/dl White Blood Count 7.47 K/uL Red Blood Count 2.85 M/uL Hemoglobin 8.4 g/dL Hematocrit 24.7 % Mean Corpuscular Volume 86.7 fL Mean Corpuscular Hemoglobin 29.5 pg Mean Corpuscular Hemoglobin Concent 34.0 g/dl RDW Standard Deviation 42.8 fL RDW Coefficient of Variation 13.4 % Platelet Count 207 K/uL Mean Platelet Volume 10.2 fL Sodium Level 132 mmol/L Potassium Level 4.0 mmol/L Chloride Level 97 mmol/L Carbon Dioxide Level 28 mmol/L Anion Gap 7.0 mmol/L Blood Urea Nitrogen 53 mg/dl Creatinine 2.00 mg/dl Est Creatinine Clear Calc Drug Dose 20.5 ml/min Estimated GFR () 34.0 Estimated GFR (Non- 29.3 BUN/Creatinine Ratio 26.6 Random Glucose 115 mg/dl Calcium Level 8.8 mg/dl Assessment & Plan 86 y/o M w/ ckd 3 baseline creatinine 1.2-1.3 as of last fall and getting salt tablets for mgt of hyponatremia admitted with HTN urgency and volume overload. 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 He had IV contrast on 09/24; also started on lasix on 09/20 , last dose 09/26. Normoosmolar hyponatremia Sodium today 132 and w/ normal serum osms this is not true/classic hyponatremia ; salt tabs appropriately held since admission. BG ok > no obvious cause for normal serum osms but will r/o paraproteinemia Appears euvolemic today on exam but may be slightly volume depleted given lasix and again over 1L negative yesterday; I also get the sense that since/after Whipple he has to really work to maintain adequate food intake. already works hard to maintain protein intake -no fluid restriction >daily bmp -ordered SPEP -will check prot/creat ratio in urine > if present > 1gm or so needs BJ protein Acute on chronic renal failure suspect multifactorial > prerenal in setting of diuretic +/- combined contrast induced nephropathy; he also told me he'd had a few advil prior to admission, though he usually does not use these> urine sediment on admission shows dilute urine with blood and protein; has had suggestions of each individually on outside studies > unclear what his baseline function was on return from [place] as recent #s in fall suggest trend to progression; also recently started on lasix and had IV contrast and was on ACEI on admission. -cont to hold ACEI; diuretic for now prn only -d/c joshua -will give a liter of 1/2 NS to gently hydrate w/o much affecting BP HTN Goal sbp is 140-150s for this hospital stay and at goal today -hold lasix; if needed, prn hydralazine for now -cont BB and CCB Wt loss -low threshold for calorie count; agree w/ speech eval >>>cont boost Appreciate consultation; will follow with you. care coordinated w/ Zak Rodríguez; care d/w daughter >10 min
[2016-09-27] MEDS ORDERED: SODIUM CHLORIDE 0.45% 1000ML 1,000 ML IV SCH (10:15)
--- NOTE | 2016-09-27 10:37 | Cardiology Follow-Up ---
Subjective Subjective Date of Service: Sep 27, 2016. Pt evaluation today including: conversation w/ patient, physical exam, chart review, lab review, review of studies, review of inpatient medication list Additional Details: Pt seen and examined, with daughter at bedside. No complaints overnight, slept well. Denies cp, sob, palpitations, lightheadedness or dizziness. Tele reviewed: sinus rhythm without arrhythmia or significant ectopy. Problem List Medical Problems: (1) Acute renal failure Status: Acute (2) CHF (congestive heart failure) Status: Acute (3) Vomiting Status: Acute Review of Systems Constitutional: + fatigue, + weakness Eyes: No worsening of vision Respiratory: + dyspnea on exertion, + see HPI, No dyspnea at rest Cardiac: + see HPI, No chest pain, No edema, No palpitations Abdomen: No diarrhea, No nausea, No pain, No vomiting Musculoskeletal: No joint pain, No muscle pain Male : No dysuria, No incontinence, No urinary frequency Neurologic: + balance problems, + memory loss, + weakness Psychiatric: No anxiety, No depression symptoms Heme: No abnormal bleeding/bruising Endo: + fatigue Objective Vital Signs Last Vital Signs Documentation Date Time Temp Pulse Resp B/P Pulse Ox O2 Delivery O2 Flow Rate FiO2 09/27/16 07:35 36.7 80 20 150/69 95 Room Air Physical Exam: General Appearance: WD/WN, no apparent distress, + thin Eyes: bilateral eyes EOMI, bilateral eyes PERRL, bilateral eyes normal inspection ENT: normal ENT inspection, hearing grossly normal, pharynx normal Neck: supple, no adenopathy, thyroid normal, no JVD, no carotid bruits, trachea midline Respiratory/Chest: no respiratory distress, no accessory muscle use, + decreased breath sounds Cardiovascular: regular rate, rhythm, no edema, + systolic murmur Abdomen: normal bowel sounds, non tender, soft, no organomegaly, no pulsatile mass Extremities: normal inspection, no pedal edema Neurologic/Psychiatric: no motor/sensory deficits, alert, normal mood/affect Skin: normal color Lymphatic: no adenopathy Assessment and Plan 1. hypertensive urgency chest pain resolved no wall motion abnormalities on echo bp now well controlled received terazosin last pm amlodipine 5mg today and metoprolol suspect terazosin will be the most beneficial especially with significant nocturia can increase amlodipine to a total of 10mg if necessary or uptitrate terazosin can be done as an outpatient ok to d/c to home from cardiac standpoint 2. hyponatremia/ckd appreciate nephrology input pt was receiving lasix for hyponatremia and not chf, no role from cardiac standpoint ok to d/c to home from cardiac standpoint
--- NOTE | 2016-09-27 11:16 | Pharmacy Progress Note ---
Glycemic Control: Progress Nt Date of Service Sep 27, 2016. Scope Glycemic Pharmacist consulted by Dr Cole on 09/25 for glycemic control and to write orders per [facility] inpatient glycemic control protocol. Objective Accuchecks BSG (last 24hrs): Test 09/26/16 11:20 09/26/16 16:32 09/26/16 16:42 09/26/16 20:09 Bedside Glucose 244 mg/dl (70-99) 135 mg/dl (70-99) 194 mg/dl (70-99) Random Glucose 132 mg/dl (70-99) Test 09/27/16 06:42 09/27/16 06:59 Random Glucose 115 mg/dl (70-99) Bedside Glucose 128 mg/dl (70-99) Laboratory Data (last 24hrs) Test 09/26/16 16:42 09/27/16 06:42 Anion Gap 7.0 mmol/L 7.0 mmol/L BUN/Creatinine Ratio 25.4 26.6 Blood Urea Nitrogen 48 mg/dl 53 mg/dl Creatinine 1.90 mg/dl 2.00 mg/dl Potassium Level 4.1 mmol/L 4.0 mmol/L Sodium Level 132 mmol/L 132 mmol/L White Blood Count 7.47 K/uL HbA1c: Test 09/26/16 06:55 Hemoglobin A1c 5.7 % (4.5-5.6) H Recent Pertinent Medications Outpatient Anti-diabetic Regimen: * Lantus 6 units qAM * Novolog as needed - rarely, per patient's The patient is currently receiving: * Basal insulin: Lantus 6 units qAM * Correctional Insulin: Novolog Correction per scale ACHS Goal Range: Low 140 mg/dL - High 180 mg/dL Correction Factor: 40 mg/dL/unit * Prandial insulin: 1 unit per 20 gm CHO consumed Risk Factors for Insulin Resistance: * Diet: AHA/type 2 diabetes diet + Boost glucose control TID with meals Assessment & Plan ASSESSMENT: * ADA & AACE recommend a goal blood sugar range 140-180 mg/dl for the majority of critically ill & non-critically ill patients. However, more stringent targets may be selected in individual cases. 09/25/16 * Mr. 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 This may need to be cut back if it seems like he does not need the full amt. 09/26/16 * Mr. Ramos rec'd 7 units of insulin yesterday with BSGs ranging from 96-199 mg/dL in the past 24 hrs * His fasting BSG looks great this AM so continuing with 6 units of Lantus seems appropriate * Will see how he does today on basically his outpatient regimen * Of note, A1c is very well controlled and would have suspected hypoglycemia but patient's reported yesterday that his BSGs were well controlled with his Lantus 09/27/16 * BSGs have improved with the addition of a conservative CR * Pt rec'd 10 units yesterday with BSGs ranging from 115-194 since addition of this * No new stressors have been added but will need to be cognizant of the slowly increasing SCr and potential for insulin accumulation PLAN FOR INPATIENT GLYCEMIC CONTROL: * Continue Lantus 6 units qAM * Continue Novolog ACHS * Goal 140-180 d/t age/comorbidities * CF 40 * CR 20 DISCHARGE RECOMMENDATIONS: * Continue Lantus 6 units qAM + Novolog per sliding scale Thank you.
--- NOTE | 2016-09-27 17:28 | Progress Note ---
Subjective Date of Service: Sep 27, 2016. Subjective Pt evaluation today including: conversation w/ patient, physical exam, lab review, review of studies, review of inpatient medication list Saw/examined the patient in room 241 He's doing better today; no shortness of breath or chest pain Medrano removed, ambulation improved Problem List Medical Problems: (1) Acute renal failure Status: Acute (2) CHF (congestive heart failure) Status: Acute (3) Vomiting Status: Acute Review of Systems Constitutional: + fatigue, + weakness, No chills, No fever Respiratory: No cough, No dyspnea on exertion, No shortness of breath, No sputum, No wheezing Cardiac: No chest pain, No edema, No palpitations Abdomen: No diarrhea, No nausea, No pain, No vomiting Musculoskeletal: + joint pain (chronic hip/back pain) Neurologic: + balance problems, + weakness, No numbness/tingling, No paralysis , No vertigo Medications Current Inpatient Medications Medications (Trade) Dose Ordered Sig/Ruben Route Start Time Stop Time Status Last Admin Dose Admin Ioversol (Optiray 320) 100 ml UD PRN IV 09/24/16 21:30 09/28/16 21:29 Acetaminophen (Tylenol Tab) 650 mg Q4H PRN PO 09/25/16 00:00 10/25/16 00:00 09/26/16 00:21 650 MG Ondansetron HCl (Zofran Inj) 4 mg Q6H PRN IV 09/25/16 00:00 10/25/16 00:00 Nitroglycerin (Nitrostat Tab) 0.4 mg UD PRN SL 09/25/16 00:00 10/25/16 00:00 Morphine Sulfate (MoRPHine SULFATE INJ) 2 mg Q30M PRN IV 09/25/16 00:00 10/09/16 00:00 Polyethylene (Miralax Powder Packet) 17 gm DAILY PRN PO 09/25/16 00:00 10/25/16 00:00 Docusate Sodium (coLACE CAP) 100 mg BID PO 09/25/16 09:00 10/25/16 08:59 09/27/16 07:54 100 MG Metoprolol Tartrate (Lopressor Tab) 25 mg BID PO 09/25/16 09:00 10/25/16 08:59 09/27/16 07:56 25 MG Amylase/Lipase/ Protease (Pancreaze (Lipase 10,500U) Cap) 3 cap TIDM PO 09/25/16 07:30 10/25/16 07:29 09/27/16 12:27 3 CAP Insulin Glargine (Lantus Solostar Pen) 6 unit QAM SC 09/25/16 09:00 10/25/16 08:59 Future hold 09/27/16 09:30 6 UNIT Glucose (Glucose 40% Gel) 15-30 GRAMS 15 GRAMS... UD PRN PO 09/25/16 00:15 10/25/16 00:14 Glucose (Glucose Chew Tab) 4-8 Tablets 4 Tabl... UD PRN PO 09/25/16 00:15 10/25/16 00:14 Dextrose (Dextrose 50% 50ML Syringe) 25-50ML OF 50% DW IV FOR... UD PRN IV 09/25/16 00:15 10/25/16 00:14 Glucagon (Glucagon Inj) 1 mg UD PRN SQ 09/25/16 00:15 10/25/16 00:14 Miscellaneous Information (Consult Glycemic Management Pharmacy) 1 ea UD PRN N/A 09/25/16 00:30 10/25/16 00:29 Heparin Sodium (Porcine) (Heparin Sq 5000 Unit/0.5ml) 5,000 unit Q12 SQ 09/25/16 09:00 10/25/16 08:59 09/26/16 20:16 5,000 UNIT Insulin Aspart (novoLOG ASPART) SLIDING SCALE If C... ACHS SC 09/25/16 11:30 10/25/16 11:29 09/27/16 09:30 1 UNITS Amlodipine Besylate (Norvasc Tab) 5 mg QAM PO 09/26/16 09:00 10/26/16 08:59 09/27/16 07:55 5 MG Terazosin HCl (Hytrin Cap) 1 mg HS PO 09/26/16 21:00 10/26/16 20:59 09/26/16 20:13 1 MG Enteral Nutritional Formula 1 can 1 can TIDM PO 09/26/16 16:45 10/26/16 16:44 09/27/16 12:28 1 CAN Sodium Chloride (1/2 Nss 1000ml) 1,000 ml @ 75 mls/hr [id number] IV 09/27/16 10:15 09/27/16 23:34 09/27/16 12:27 75 MLS/HR Objective Vital Signs Date Time Temp Pulse Resp B/P Pulse Ox O2 Delivery O2 Flow Rate FiO2 09/27/16 16:00 Room Air 09/27/16 15:26 36.3 72 18 155/80 98 Room Air 09/27/16 14:44 70 98 09/27/16 12:00 Room Air 09/27/16 11:00 36.3 70 20 142/73 98 Room Air 09/27/16 08:00 Room Air 09/27/16 07:35 36.7 80 20 150/69 95 Room Air 09/27/16 04:03 Room Air 09/27/16 03:57 36.6 77 15 123/64 92 Room Air 09/27/16 00:25 93 Room Air 09/27/16 00:13 36.5 71 19 142/69 96 Room Air 09/27/16 00:01 Room Air 09/26/16 20:00 36.8 71 16 165/76 96 Room Air 09/26/16 20:00 Room Air Physical Exam General Appearance: no apparent distress, + thin Respiratory/Chest: lungs clear, normal breath sounds, no respiratory distress, no accessory muscle use Cardiovascular: regular rate, rhythm, no edema, + systolic murmur Abdomen: normal bowel sounds, non tender, soft Extremities: normal inspection, no pedal edema Neurologic/Psychiatric: no motor/sensory deficits, alert, normal mood/affect Laboratory Results Last 24 Hours Test 09/26/16 17:40 09/26/16 20:09 09/27/16 06:42 09/27/16 06:59 Urine Osmolality 348 mOms/kg Urine Random Sodium 62 mEq/L Bedside Glucose 194 mg/dl 128 mg/dl White Blood Count 7.47 K/uL Red Blood Count 2.85 M/uL Hemoglobin 8.4 g/dL Hematocrit 24.7 % Mean Corpuscular Volume 86.7 fL Mean Corpuscular Hemoglobin 29.5 pg Mean Corpuscular Hemoglobin Concent 34.0 g/dl RDW Standard Deviation 42.8 fL RDW Coefficient of Variation 13.4 % Platelet Count 207 K/uL Mean Platelet Volume 10.2 fL Sodium Level 132 mmol/L Potassium Level 4.0 mmol/L Chloride Level 97 mmol/L Carbon Dioxide Level 28 mmol/L Anion Gap 7.0 mmol/L Blood Urea Nitrogen 53 mg/dl Creatinine 2.00 mg/dl Est Creatinine Clear Calc Drug Dose 20.5 ml/min Estimated GFR () 34.0 Estimated GFR (Non- 29.3 BUN/Creatinine Ratio 26.6 Random Glucose 115 mg/dl Calcium Level 8.8 mg/dl Test 09/27/16 11:41 09/27/16 16:11 Bedside Glucose 194 mg/dl 134 mg/dl Assessment and Plan This is an 86 year old male with PMH of DM1 on insulin, HTN, CKD stage 3, hx. of PE, hx. of aspiration, iron deficiency anemia presented with generalized weakness, shortness of breath, lower extremity edema and elevated blood pressure Hypertensive Urgency 09/27 appreciate nephrology input currently on amlodipine 5mg daily metoprolol 25mg BID appreciate cardiology input - Lasix d/c'd 09/26 blood pressures initially controlled yesterday, came back up later in the evening now received total of 10mg of amlodipine today if okay with nephrology, will add back lisinopril creatinine is stable; probably around his baseline kidney function 09/25 blood pressure > 200/100 on admission pressures improving currently after starting amlodipine 2.5mg daily continue metoprolol 25mg BID currently holding GEOFF-I due to kidney injury monitor blood pressures and will adjust accordingly appreciate cardiology input NOELLE superimposed on CKD stage 3 09/27 appreciate nephrology input gentle hydration with 1/2 NS monitor creat off of Lasix hold GEOFF-I for now, discuss regarding whether to continue this on discharge or not 09/26 creat is stable will remove Medrano and monitor how he does with urination 09/25 creat elevated at 1.8 on admission unsure of baseline creatinine is now down to 1.7 nephrology consulted for now on IV Lasix for his heart failure hx. of taking salt tablets? currently Na within nl Hyponatremia appreciate nephrology consultation on this he was once on sodium tablets currently mildly hyponatremic SPEP/EPEP ordered as per nephro Lasix d/c'd Unlikely Heart Failure normal echo, SOB not likely related to heart failure as per cardio, we will d/c Lasix continue medications for blood pressure 09/25 with lower extremity edema and shortness of breath on admission BNP elevated; CXR suggests congestion was recently started on PO Lasix 20mg at home will switch to IV Lasix and monitor volume status Elevated Troponin likely from demand ischemia; probably related to hypertensive urgency last troponin level = 1.1 check one more level; control BP Hx. of Dysphagia appreciate speech evaluation moist dental cut diet aspiration precautions Insulin Dependent DM1 Ha1c = 5.7%; well controlled patient is not eating as much as he should boost TID with meals added Anemia 09/26 Hgb = 8.6 today monitor normal folate and B12 will need iron supplementation 09/25 was once on iron supplementation normal iron levels with low TIBC will check b12, folate, and stool guaiac DVT ppx subq heparin FULL CODE
[2016-09-27 20:02] LABS: URINE APPEARANCE CLEAR (CLEAR); URINE BILIRUBIN NEG (NEG); URINE COLOR YELLOW; URINE NITRITE NEG (NEG); URINE PH 6.5 (4.5-7.5); URINE SPECIFIC GRAVITY 1.012 (1.000-1.030); UROBILINOGEN NEG (NEG); ZZUR CULT IF INDIC CLEAN CATCH NO
[2016-09-27 20:09] LABS: MANUAL MICROSCOPIC REQUIRED? NO; REVIEW REQ? NO
[2016-09-27 20:22] LABS: URINE TOTAL PROTEIN 104.5 mg/dl (0-11.9)
[2016-09-28 03:20] VITALS: BP 129/71; PULSE 69; TEMP 36.5; O2SAT 96
[2016-09-28 06:01] LABS: HEMATOCRIT 27.9 % (42-52); MEAN CELL VOLUME 89.1 fL (80-100); MEAN CORPUSCULAR HEMOGLOBIN 29.7 pg (25-34); MEAN CORPUSCULAR HGB CONC 33.3 g/dl (32-36); MEAN PLATELET VOLUME 10.7 fL (7.4-10.4); PLATELET COUNT 217 K/uL (130-400); RED BLOOD COUNT 3.13 M/uL (4.7-6.1); WHITE BLOOD COUNT 7.29 K/uL (4.8-10.8)
[2016-09-28 07:47] VITALS: BP 158/78; PULSE 75; TEMP 36.9; O2SAT 96
[2016-09-28] MEDS: AMLODIPINE BESYLATE 5 MG TAB PO SCH (08:26)
[2016-09-28] MEDS: PANCREAZE (LIPASE 10,500U) CAP PO SCH (08:26)
[2016-09-28] MEDS: BOOST GLUCOSE CONTROL PO SCH (08:27)
[2016-09-28] MEDS: INSULIN ASPART 100 UNITS/ML 3 ML PEN SC SCH (08:28)
[2016-09-28] MEDS: DOCUSATE SODIUM 100 MG CAP PO SCH (08:29)
[2016-09-28] MEDS: HEPARIN SOD 5000 UNIT/0.5 ML CARP SQ SCH (08:29)
[2016-09-28] MEDS: METOPROLOL TARTRATE 25 MG TAB PO SCH (08:29)
[2016-09-28] MEDS: INSULIN GLARGINE SOLOSTAR 100 UNITS/ML 3 ML PEN SC SCH (08:29)
[2016-09-28 08:50] LABS: BUN/CREATININE RATIO 25.8 (10-20); CREATININE 1.9 mg/dl (0.60-1.40); POTASSIUM 4.1 mmol/L (3.5-5.1)
[2016-09-28 08:57] LABS: CALCIUM 8.1 mg/dl (8.5-10.1)
--- NOTE | 2016-09-28 09:47 | Nephrology Progress Note ---
Nephrology Progress Note Date of Service: Sep 28, 2016. Subjective 86 yo male with ckd stage 3 and hyponatremia with underlying siadh of unclear etiology who presented with jay and hypertensive urgency and volume overload. off salt tabs and off lasix now. volume status is good. urinating well and is 1 to 2 liters negative. Objective Date Time Temp Pulse Resp B/P Pulse Ox O2 Delivery O2 Flow Rate FiO2 09/28/16 08:00 Room Air 09/28/16 07:47 36.9 75 18 158/78 96 Room Air 09/28/16 04:03 Room Air 09/28/16 03:20 36.5 69 18 129/71 96 Room Air 09/28/16 00:00 Room Air 09/27/16 23:48 36.6 70 20 142/69 98 Room Air 09/27/16 20:00 Room Air 09/27/16 19:41 36.5 71 18 168/79 98 Room Air 09/27/16 16:00 Room Air 09/27/16 15:26 36.3 72 18 155/80 98 Room Air 09/27/16 14:44 70 98 09/27/16 12:00 Room Air 09/27/16 11:00 36.3 70 20 142/73 98 Room Air Physical Exam: General-aaox3, mentally improving Eyes-no scleral icterus ENT-mmm Neck-supple Lungs-cta Heart-rrr Abdomen-bs+ s/nt/nd Extremities-no c/c/e Neuro-nonfocal Current Inpatient Medications Medications (Trade) Dose Ordered Sig/Ruben Route Start Time Stop Time Status Last Admin Dose Admin Ioversol (Optiray 320) 100 ml UD PRN IV 09/24/16 21:30 09/28/16 21:29 Acetaminophen (Tylenol Tab) 650 mg Q4H PRN PO 09/25/16 00:00 10/25/16 00:00 09/26/16 00:21 650 MG Ondansetron HCl (Zofran Inj) 4 mg Q6H PRN IV 09/25/16 00:00 10/25/16 00:00 Nitroglycerin (Nitrostat Tab) 0.4 mg UD PRN SL 09/25/16 00:00 10/25/16 00:00 Morphine Sulfate (MoRPHine SULFATE INJ) 2 mg Q30M PRN IV 09/25/16 00:00 10/09/16 00:00 Polyethylene (Miralax Powder Packet) 17 gm DAILY PRN PO 09/25/16 00:00 10/25/16 00:00 Docusate Sodium (coLACE CAP) 100 mg BID PO 09/25/16 09:00 10/25/16 08:59 09/28/16 08:29 100 MG Metoprolol Tartrate (Lopressor Tab) 25 mg BID PO 09/25/16 09:00 10/25/16 08:59 09/28/16 08:29 25 MG Amylase/Lipase/ Protease (Pancreaze (Lipase 10,500U) Cap) 3 cap TIDM PO 09/25/16 07:30 10/25/16 07:29 09/28/16 08:26 3 CAP Insulin Glargine (Lantus Solostar Pen) 6 unit QAM SC 09/25/16 09:00 10/25/16 08:59 Future hold 09/28/16 08:29 6 UNIT Glucose (Glucose 40% Gel) 15-30 GRAMS 15 GRAMS... UD PRN PO 09/25/16 00:15 10/25/16 00:14 Glucose (Glucose Chew Tab) 4-8 Tablets 4 Tabl... UD PRN PO 09/25/16 00:15 10/25/16 00:14 Dextrose (Dextrose 50% 50ML Syringe) 25-50ML OF 50% DW IV FOR... UD PRN IV 09/25/16 00:15 10/25/16 00:14 Glucagon (Glucagon Inj) 1 mg UD PRN SQ 09/25/16 00:15 10/25/16 00:14 Miscellaneous Information (Consult Glycemic Management Pharmacy) 1 ea UD PRN N/A 09/25/16 00:30 10/25/16 00:29 Heparin Sodium (Porcine) (Heparin Sq 5000 Unit/0.5ml) 5,000 unit Q12 SQ 09/25/16 09:00 10/25/16 08:59 09/28/16 08:29 5,000 UNIT Insulin Aspart (novoLOG ASPART) SLIDING SCALE If C... ACHS SC 09/25/16 11:30 10/25/16 11:29 09/28/16 08:28 3 UNITS Amlodipine Besylate (Norvasc Tab) 5 mg QAM PO 09/26/16 09:00 10/26/16 08:59 09/28/16 08:26 5 MG Terazosin HCl (Hytrin Cap) 1 mg HS PO 09/26/16 21:00 10/26/16 20:59 09/27/16 20:36 1 MG Enteral Nutritional Formula (Boost Glucose Control) 1 can TIDM PO 09/26/16 16:45 10/26/16 16:44 09/28/16 08:27 1 CAN Last 24 Hours Test 09/27/16 11:41 09/27/16 16:11 09/27/16 19:34 09/27/16 20:28 Bedside Glucose 194 mg/dl 134 mg/dl 178 mg/dl Urine Color YELLOW Urine Appearance CLEAR Urine pH 6.5 Urine Specific [place] 1.012 Urine Protein 2+ Urine Glucose (UA) NEG Urine Ketones NEG Urine Occult Blood 1+ Urine Nitrite NEG Urine Bilirubin NEG Urine Urobilinogen NEG Urine Leukocyte Esterase NEG Urine WBC (Auto) 1-5 /hpf Urine RBC (Auto) 0-4 /hpf Urine Hyaline Casts (Auto) 1-5 /lpf Urine Epithelial Cells (Auto) 10-20 /lpf Urine Bacteria (Auto) NEG Urine Random Creatinine 35.0 mg/dl Urine Random Total Protein 104.5 mg/dl Urine Protein/Creatinine Ratio 3.0 Test 09/28/16 05:21 09/28/16 07:03 White Blood Count 7.29 K/uL Red Blood Count 3.13 M/uL Hemoglobin 9.3 g/dL Hematocrit 27.9 % Mean Corpuscular Volume 89.1 fL Mean Corpuscular Hemoglobin 29.7 pg Mean Corpuscular Hemoglobin Concent 33.3 g/dl RDW Standard Deviation 44.5 fL RDW Coefficient of Variation 13.6 % Platelet Count 217 K/uL Mean Platelet Volume 10.7 fL Sodium Level 133 mmol/L Potassium Level 4.1 mmol/L Chloride Level 98 mmol/L Carbon Dioxide Level 28 mmol/L Anion Gap 7.0 mmol/L Blood Urea Nitrogen 49 mg/dl Creatinine 1.90 mg/dl Est Creatinine Clear Calc Drug Dose 23.3 ml/min Estimated GFR () 36.2 Estimated GFR (Non- 31.2 BUN/Creatinine Ratio 25.8 Random Glucose 90 mg/dl Calcium Level 8.1 mg/dl Bedside Glucose 106 mg/dl Assessment & Plan yri-hwh-erjnpvjo-creatinine elevated above baseline and now at 1.9. may be at new baseline. perhaps may trend back down to 1.4 range. hyponatremia-serum osm is normal. lipid panel is normal. spep is pending. currently off salt tabs and lasix. volume status is good and pt is urinating very well. will recheck sodium levels on saturday. may need to eventually restart salt tabs and/or lasix but would discharge off of them for now.
--- NOTE | 2016-09-28 10:04 | Progress Note ---
Subjective Date of Service: Sep 28, 2016. Subjective Pt evaluation today including: conversation w/ patient, physical exam, lab review, review of studies, review of inpatient medication list Saw/examined the patient in room 241 Doing well today, no shortness of breath, no chest pain no other complaints at this time Problem List Medical Problems: (1) Acute renal failure Status: Acute (2) CHF (congestive heart failure) Status: Acute (3) Vomiting Status: Acute Review of Systems Constitutional: + weakness, No chills, No fever Respiratory: No shortness of breath Cardiac: No chest pain Abdomen: + constipation, No diarrhea, No nausea, No pain, No vomiting Musculoskeletal: No joint pain Male : No dysuria, No urinary frequency Medications Current Inpatient Medications Medications (Trade) Dose Ordered Sig/Ruebn Route Start Time Stop Time Status Last Admin Dose Admin Ioversol (Optiray 320) 100 ml UD PRN IV 09/24/16 21:30 09/28/16 21:29 Acetaminophen (Tylenol Tab) 650 mg Q4H PRN PO 09/25/16 00:00 10/25/16 00:00 09/26/16 00:21 650 MG Ondansetron HCl (Zofran Inj) 4 mg Q6H PRN IV 09/25/16 00:00 10/25/16 00:00 Nitroglycerin (Nitrostat Tab) 0.4 mg UD PRN SL 09/25/16 00:00 10/25/16 00:00 Morphine Sulfate (MoRPHine SULFATE INJ) 2 mg Q30M PRN IV 09/25/16 00:00 10/09/16 00:00 Polyethylene (Miralax Powder Packet) 17 gm DAILY PRN PO 09/25/16 00:00 10/25/16 00:00 Docusate Sodium (coLACE CAP) 100 mg BID PO 09/25/16 09:00 10/25/16 08:59 09/28/16 08:29 100 MG Metoprolol Tartrate (Lopressor Tab) 25 mg BID PO 09/25/16 09:00 10/25/16 08:59 09/28/16 08:29 25 MG Amylase/Lipase/ Protease (Pancreaze (Lipase 10,500U) Cap) 3 cap TIDM PO 09/25/16 07:30 10/25/16 07:29 09/28/16 08:26 3 CAP Insulin Glargine (Lantus Solostar Pen) 6 unit QAM SC 09/25/16 09:00 10/25/16 08:59 Future hold 09/28/16 08:29 6 UNIT Glucose (Glucose 40% Gel) 15-30 GRAMS 15 GRAMS... UD PRN PO 09/25/16 00:15 10/25/16 00:14 Glucose (Glucose Chew Tab) 4-8 Tablets 4 Tabl... UD PRN PO 09/25/16 00:15 10/25/16 00:14 Dextrose (Dextrose 50% 50ML Syringe) 25-50ML OF 50% DW IV FOR... UD PRN IV 09/25/16 00:15 10/25/16 00:14 Glucagon (Glucagon Inj) 1 mg UD PRN SQ 09/25/16 00:15 10/25/16 00:14 Miscellaneous Information (Consult Glycemic Management Pharmacy) 1 ea UD PRN N/A 09/25/16 00:30 10/25/16 00:29 Heparin Sodium (Porcine) (Heparin Sq 5000 Unit/0.5ml) 5,000 unit Q12 SQ 09/25/16 09:00 10/25/16 08:59 09/28/16 08:29 5,000 UNIT Insulin Aspart (novoLOG ASPART) SLIDING SCALE If C... ACHS SC 09/25/16 11:30 10/25/16 11:29 09/28/16 08:28 3 UNITS Amlodipine Besylate (Norvasc Tab) 5 mg QAM PO 09/26/16 09:00 10/26/16 08:59 09/28/16 08:26 5 MG Terazosin HCl (Hytrin Cap) 1 mg HS PO 09/26/16 21:00 10/26/16 20:59 09/27/16 20:36 1 MG Enteral Nutritional Formula (Boost Glucose Control) 1 can TIDM PO 09/26/16 16:45 10/26/16 16:44 09/28/16 08:27 1 CAN Objective Vital Signs Date Time Temp Pulse Resp B/P Pulse Ox O2 Delivery O2 Flow Rate FiO2 09/28/16 08:00 Room Air 09/28/16 07:47 36.9 75 18 158/78 96 Room Air 09/28/16 04:03 Room Air 09/28/16 03:20 36.5 69 18 129/71 96 Room Air 09/28/16 00:00 Room Air 09/27/16 23:48 36.6 70 20 142/69 98 Room Air 09/27/16 20:00 Room Air 09/27/16 19:41 36.5 71 18 168/79 98 Room Air 09/27/16 16:00 Room Air 09/27/16 15:26 36.3 72 18 155/80 98 Room Air 09/27/16 14:44 70 98 09/27/16 12:00 Room Air 09/27/16 11:00 36.3 70 20 142/73 98 Room Air Physical Exam General Appearance: no apparent distress, + thin Respiratory/Chest: lungs clear, normal breath sounds, no respiratory distress, no accessory muscle use Cardiovascular: regular rate, rhythm, no edema, no murmur Abdomen: normal bowel sounds, non tender, soft Laboratory Results Last 24 Hours Test 09/27/16 11:41 09/27/16 16:11 09/27/16 19:34 09/27/16 20:28 Bedside Glucose 194 mg/dl 134 mg/dl 178 mg/dl Urine Color YELLOW Urine Appearance CLEAR Urine pH 6.5 Urine Specific [place] 1.012 Urine Protein 2+ Urine Glucose (UA) NEG Urine Ketones NEG Urine Occult Blood 1+ Urine Nitrite NEG Urine Bilirubin NEG Urine Urobilinogen NEG Urine Leukocyte Esterase NEG Urine WBC (Auto) 1-5 /hpf Urine RBC (Auto) 0-4 /hpf Urine Hyaline Casts (Auto) 1-5 /lpf Urine Epithelial Cells (Auto) 10-20 /lpf Urine Bacteria (Auto) NEG Urine Random Creatinine 35.0 mg/dl Urine Random Total Protein 104.5 mg/dl Urine Protein/Creatinine Ratio 3.0 Test 09/28/16 05:21 09/28/16 07:03 White Blood Count 7.29 K/uL Red Blood Count 3.13 M/uL Hemoglobin 9.3 g/dL Hematocrit 27.9 % Mean Corpuscular Volume 89.1 fL Mean Corpuscular Hemoglobin 29.7 pg Mean Corpuscular Hemoglobin Concent 33.3 g/dl RDW Standard Deviation 44.5 fL RDW Coefficient of Variation 13.6 % Platelet Count 217 K/uL Mean Platelet Volume 10.7 fL Sodium Level 133 mmol/L Potassium Level 4.1 mmol/L Chloride Level 98 mmol/L Carbon Dioxide Level 28 mmol/L Anion Gap 7.0 mmol/L Blood Urea Nitrogen 49 mg/dl Creatinine 1.90 mg/dl Est Creatinine Clear Calc Drug Dose 23.3 ml/min Estimated GFR () 36.2 Estimated GFR (Non- 31.2 BUN/Creatinine Ratio 25.8 Random Glucose 90 mg/dl Calcium Level 8.1 mg/dl Bedside Glucose 106 mg/dl Assessment and Plan This is an 86 year old male with PMH of DM1 on insulin, HTN, CKD stage 3, hx. of PE, hx. of aspiration, iron deficiency anemia presented with generalized weakness, shortness of breath, lower extremity edema and elevated blood pressure Hypertensive Urgency 09/28 will d/c home with amlodipine and metoprolol BID d/c Lasix recheck labs on Wednesday 09/27 appreciate nephrology input currently on amlodipine 5mg daily metoprolol 25mg BID appreciate cardiology input - Lasix d/c'd 09/26 blood pressures initially controlled yesterday, came back up later in the evening now received total of 10mg of amlodipine today if okay with nephrology, will add back lisinopril creatinine is stable; probably around his baseline kidney function 09/25 blood pressure > 200/100 on admission pressures improving currently after starting amlodipine 2.5mg daily continue metoprolol 25mg BID currently holding GEOFF-I due to kidney injury monitor blood pressures and will adjust accordingly appreciate cardiology input NOELLE superimposed on CKD stage 3 09/27 appreciate nephrology input gentle hydration with 1/2 NS monitor creat off of Lasix hold GEOFF-I for now, discuss regarding whether to continue this on discharge or not 09/26 creat is stable will remove Medrano and monitor how he does with urination 09/25 creat elevated at 1.8 on admission unsure of baseline creatinine is now down to 1.7 nephrology consulted for now on IV Lasix for his heart failure hx. of taking salt tablets? currently Na within nl Hyponatremia appreciate nephrology consultation on this he was once on sodium tablets currently mildly hyponatremic SPEP/EPEP ordered as per nephro Lasix d/c'd Unlikely Heart Failure normal echo, SOB not likely related to heart failure as per cardio, we will d/c Lasix continue medications for blood pressure 09/25 with lower extremity edema and shortness of breath on admission BNP elevated; CXR suggests congestion was recently started on PO Lasix 20mg at home will switch to IV Lasix and monitor volume status Elevated Troponin likely from demand ischemia; probably related to hypertensive urgency last troponin level = 1.1 check one more level; control BP Hx. of Dysphagia appreciate speech evaluation moist dental cut diet aspiration precautions Insulin Dependent DM1 Ha1c = 5.7%; well controlled patient is not eating as much as he should boost TID with meals added Anemia 09/26 Hgb = 8.6 today monitor normal folate and B12 will need iron supplementation 09/25 was once on iron supplementation normal iron levels with low TIBC will check b12, folate, and stool guaiac DVT ppx subq heparin FULL CODE Discharge planning: home with home health
[2016-09-28] MEDS ORDERED: NRV5 PO (10:06)
[2016-09-28] MEDS ORDERED: INSDGIPEN SC (10:06)
--- NOTE | 2016-09-28 10:11 | Discharge Instructions ---
Discharge Instructions Date of Service Sep 28, 2016. Admission Reason for Admission: Acute Heart Failure Discharge Discharge Diagnosis / Problem: hypertensive urgency; SOB, hyponatremia, NOELLE Discharge Goals Goal(s): Decrease discomfort, Improve function, Diagnostic testing, Therapeutic intervention Activity Recommendations Activity Limitations: resume your previous activity . Instructions / Follow-Up Instructions / Follow-Up Please follow-up with Dr. Espino on October 03 @ 12:45PM * Stop taking Lasix, lisinopril and salt tablets * You are started on amlodipine 5mg for blood pressure; if blood pressure >200, let your primary care physician know * Your Lantus dose is changed from 6 units to 5 units - take sugars in the morning and in the evening and let your primary care physician know the numbers * blood work will be performed on Saturday - with the lab results being sent to your primary care physician Current Hospital Diet Patient's current hospital diet: AHA Diet (Heart Healthy), Diabetes Type 2 Diet Discharge Diet Recommended Diet: Regular Diet Pending Studies Studies pending at discharge: no Laboratory Results Hemoglobin A1c Test 09/26/16 06:55 Range/Units Estimated Average Glucose 117 mg/dl Hemoglobin A1c 5.7 H 4.5-5.6 % Lipid Panel Test 09/25/16 04:10 Range/Units Triglycerides Level 82 0-150 mg/dl Cholesterol Level 102 0-200 mg/dl HDL Cholesterol 47 mg/dl Cholesterol/HDL Ratio 2.2 LDL Cholesterol, Calculated 39 mg/dl Medical Emergencies . Who to Call and When: Medical Emergencies: If at any time you feel your situation is an emergency, please call 911 immediately. . Non-Emergent Contact Non-Emergency issues call your: Primary Care Provider, Respiratory Therapist Assistant . . "Provider Documentation" section prepared by Juliane Crespo. VTE Core Measure Inpt VTE Proph given/why not?: Unfractionated heparin SQ, T.E.Demi. Rhett, SCD 's
--- NOTE | 2016-09-28 10:17 | Discharge Summary ---
Discharge Summary Date of Service Sep 28, 2016. Discharge Summary Admission Date: Sep 24, 2016 at 23:54 Discharge Date: Sep 28, 2016 Discharge Disposition: Home with services Principal Diagnosis: Hypertensive Urgency Shortness of Breath Hyponatremia Acute Kidney Injury Medication Reconciliation New Medications: Amlodipine Besylate (Amlodipine Besylate) 5 Mg Tab 5 MG PO QAM for 30 Days, #30 TAB Changed Medications: Insulin Glargine (Lantus Solostar) 100 Unit/Ml Inj 5 UNITS SC QAM for 30 Days, #1 PEN (Changed from: 6 UNITS) Continued Medications: Acetaminophen (Tylenol) 325 Mg Tab 650 MG PO Q8 PRN for Pain, TAB Artificial Saliva (Mouthkote) 1 Nellie Nellie 1 DOSE PO QPM PRN for PRN Docusate Sodium (Colace) 100 Mg Cap 100 MG PO BID for 30 Days, #60 CAP Enteral Nutrition Formula (Ensure Plus Vanilla) 1 Can Liqd 1 BTL PO TID, CAN Insulin Aspart (Novolog Flexpen) 100 Units/Ml Inj 0 SQ UD per sliding scale Metoprolol Tartrate (Lopressor) (Lopressor) 25 Mg Tab 25 MG PO BID, TAB Ondansetron Hcl (Zofran) 4 Mg Tab 4 MG PO Q6 PRN for Nausea, TAB Pancrelipase (Lipase-Protease- (Zenpep 01923 Unit) 1 Cap Cap 2 CAP PO WM Polyethylene (Miralax) 17 Gm Pow 17 GM PO QAM Protein (Prosource) 1 Yuri Yuri 15 GM PO TID Sennosides (Senna Lax) 8.6 Mg Tab 8.6 MG PO LUNCH Discontinued Medications: Furosemide (Lasix) 20 Mg Tab 20 MG PO QAM, TAB Lisinopril (Zestril) 2.5 Mg Tab 2.5 MG PO DAILY Sodium Chloride (Sodium Chloride) 1 Gm Tab 2 GM PO TID Admission Information HPI (per Admitting provider): 86 yoM with no h/o heart disease presents to the ER with concerns for elevated blood pressure, which he notes has been increasing over the past two months, along with a noted increase in lower extremity swelling. He is on minimal lisinopril (2.5mg) that was started while he was in [place] for the winter. Otherwise he takes metoprolol tartrate likely for rate control in atrial fibrillation. He was just started on Lasix 20mg Po QAM 4 days ago, however, he has been given salt tabs for the last couple of months in order to "improve his numbers" and he does not try to actively restrict his salt intake. He reports some shortness of breath but is not working hard to breathe; it is more his fatigue that is slowing him down. In addition to the pulmonary congestion on exam and chest imaging today, he also has an acute kidney injury and some notable anemia of 03/13 without overt bleeding. Family reports energy levels are much lower than normal. The patient does report some chest tightness which was substernal and didn't radiate which occurred for him when he walked from one room to the other this morning, but went away shortly after he sat down, lasting approx 5 minutes total and not reoccurring. He does admit to some lightheadedness when standing up today and some generalized nausea without vomiting. Denies headache, visual changes, palpitations, numbness and tingling , or loss of consciousness. He reports that his sugars have been looking good. He wsa incidentally hospitalized in [place] in [place] an ABO which spontaneously resolved without intervention. Last echo on file was 10/2013 which revealed an EF55% and global biventricular dysfunction. The patient states that he did not know he had a heart murmur. Physical Exam (per Admitting): GEN: frail, elderly, in no acute distress, alert and appropriate HEENT: NC/AT, PERRL, normal sclerae, mucous membranes are moist CARDIO: reg rate, 5/6 MANOLO heard throughout precordium, +palpable parasternal heave LUNGS: Crackles at bases of lungs bilaterally, no rales or wheezes, good diaphragmatic excursion ABD: soft, non-tender, non-distended, no rebound or guarding EXTREMITY: RP and DP palpable 2+ bilat, 1+ edema bilaterally, extremities are warm and well-perfused NEURO: CN 2-12 grossly intact, sensation intact throughout MUSC: 5/5 strength throughout, no gross focal deficits, ambulates well with minimal assistance SKIN: warm and dry Hospital Course This is an 86 year old male with PMH of DM1 on insulin, HTN, CKD stage 3, hx. of PE, hx. of aspiration, iron deficiency anemia presented with generalized weakness, shortness of breath, lower extremity edema and elevated blood pressure Hypertensive Urgency 09/28 will d/c home with amlodipine and metoprolol BID d/c Lasix recheck labs on Wednesday 09/27 appreciate nephrology input currently on amlodipine 5mg daily metoprolol 25mg BID appreciate cardiology input - Lasix d/c'd 09/26 blood pressures initially controlled yesterday, came back up later in the evening now received total of 10mg of amlodipine today if okay with nephrology, will add back lisinopril creatinine is stable; probably around his baseline kidney function 09/25 blood pressure > 200/100 on admission pressures improving currently after starting amlodipine 2.5mg daily continue metoprolol 25mg BID currently holding GEOFF-I due to kidney injury monitor blood pressures and will adjust accordingly appreciate cardiology input NOELLE superimposed on CKD stage 3 09/27 appreciate nephrology input gentle hydration with 1/2 NS monitor creat off of Lasix hold GEOFF-I for now, discuss regarding whether to continue this on discharge or not 09/26 creat is stable will remove Medrnao and monitor how he does with urination 09/25 creat elevated at 1.8 on admission unsure of baseline creatinine is now down to 1.7 nephrology consulted for now on IV Lasix for his heart failure hx. of taking salt tablets? currently Na within nl Hyponatremia appreciate nephrology consultation on this he was once on sodium tablets currently mildly hyponatremic SPEP/EPEP ordered as per nephro Lasix d/c'd Unlikely Heart Failure normal echo, SOB not likely related to heart failure as per cardio, we will d/c Lasix continue medications for blood pressure 09/25 with lower extremity edema and shortness of breath on admission BNP elevated; CXR suggests congestion was recently started on PO Lasix 20mg at home will switch to IV Lasix and monitor volume status Elevated Troponin likely from demand ischemia; probably related to hypertensive urgency last troponin level = 1.1 check one more level; control BP Hx. of Dysphagia appreciate speech evaluation moist dental cut diet aspiration precautions Insulin Dependent DM1 Ha1c = 5.7%; well controlled patient is not eating as much as he should boost TID with meals added Anemia 09/26 Hgb = 8.6 today monitor normal folate and B12 will need iron supplementation 09/25 was once on iron supplementation normal iron levels with low TIBC will check b12, folate, and stool guaiac DVT ppx subq heparin FULL CODE Discharge planning: home with home health Total time spent on discharge = 50 minutes This includes examination of the patient, discharge planning, medication reconciliation, and communication with other providers. Discharge Instructions Please follow-up with Dr. Espino on October 03 @ 12:45PM * Stop taking Lasix, lisinopril and salt tablets * You are started on amlodipine 5mg for blood pressure; if blood pressure >200, let your primary care physician know * Your Lantus dose is changed from 6 units to 5 units - take sugars in the morning and in the evening and let your primary care physician know the numbers * blood work will be performed on Saturday - with the lab results being sent to your primary care physician
[2016-09-28 10:48] VITALS: BP 158/78; PULSE 75; TEMP 36.9; O2SAT 96
--- NOTE | 2016-09-28 10:59 | Pharmacy Progress Note ---
Glycemic Control: Progress Nt Date of Service Sep 28, 2016. Scope Glycemic Pharmacist consulted by Dr Cole on 09/25/16 for glycemic control and to write orders per [facility] inpatient glycemic control protocol. Objective Accuchecks BSG (last 24hrs): Test 09/27/16 11:41 09/27/16 16:11 09/27/16 20:28 09/28/16 05:21 Bedside Glucose 194 mg/dl (70-99) 134 mg/dl (70-99) 178 mg/dl (70-99) Random Glucose 90 mg/dl (70-99) Test 09/28/16 07:03 Bedside Glucose 106 mg/dl (70-99) Laboratory Data (last 24hrs) Test 09/28/16 05:21 Anion Gap 7.0 mmol/L BUN/Creatinine Ratio 25.8 Blood Urea Nitrogen 49 mg/dl Creatinine 1.90 mg/dl Potassium Level 4.1 mmol/L Sodium Level 133 mmol/L White Blood Count 7.29 K/uL HbA1c: Test 09/26/16 06:55 Hemoglobin A1c 5.7 % (4.5-5.6) H Recent Pertinent Medications Outpatient Anti-diabetic Regimen: * Lantus 6 units Q AM * Novolog as needed (rarely given per 's report) * A1c = 5.7 % 09/26/16 The patient is currently receiving: * Basal insulin: Lantus 6 units every 24 hours - dosed in the AM * Correctional Insulin: Novolog Correction per scale ACHS Goal Range: Low 140 mg/dL - High 180 mg/dL Correction Factor: 40 mg/dL/unit * Prandial insulin: Per carb ratio of 1 unit per 20 grams CHO consumed * Oral Agents: None currently Risk Factors for Insulin Resistance: * Steroids: n/a * Infection: n/a * Pressors: n/a * IVF: n/a * Recent Surgery: n/a * Diet: ordered AHA / T2DM diet and tolerating well * Mechanical Ventilation: n/a Assessment & Plan ASSESSMENT: 09/25/16 * Mr. 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 This may need to be cut back if it seems like he does not need the full amt. 09/26/16 * Mr. Ramos rec'd 7 units of insulin yesterday with BSGs ranging from 96-199 mg/dL in the past 24 hrs * His fasting BSG looks great this AM so continuing with 6 units of Lantus seems appropriate * Will see how he does today on basically his outpatient regimen * Of note, A1c is very well controlled and would have suspected hypoglycemia but patient's reported yesterday that his BSGs were well controlled with his Lantus 09/27/16 * BSGs have improved with the addition of a conservative CR * Pt rec'd 10 units yesterday with BSGs ranging from 115-194 since addition of this * No new stressors have been added but will need to be cognizant of the slowly increasing SCr and potential for insulin accumulation 09/28/16 * Control remains acceptable; only 1 BSG elevated above 180 in the last 24 hrs * Fasting BSG 106 this AM w/ 6 units of Lantus on board - no change * CF and CR have performed well * Of note, pre-lunch hyperglycemia noted on BSG pattern - this is most likely due to post-prandial administration of Novolog - leading to delayed administration and f/u BSG check soon afterwards, before full effects of AM dose shown PLAN FOR INPATIENT GLYCEMIC CONTROL: * Continuing Lantus 6 units SQ Q AM * Continuing correction factor 40 mg/dl/unit * Continuing carb ratio 1 unit per 20 grams CHO consumed * Continuing goal range Low 140 mg/dL - High 180 mg/dL * Please note that the plan above was derived based on current level of insulin resistance and hospital stress. These recommendations are appropriate for inpatient admission only. Plan of care upon discharge will need to be reassessed to avoid potential outpatient hypo/hyperglycemia. Thank you.
[2016-10-01 17:57] LABS: ALBUMIN 2.4 G/DL (3.8-4.8); GAMMA GLOBULIN 2.6 G/DL (0.8-1.7)
[2017-04-01] MEDS ORDERED: METO25TA56 PO (13:01)
== END 2016-09-28 11:30 | disposition home health service (06) | DRG 292 ==
LOC: ENRESERVDT → ENRESERVTM → C.EDB 19:56 → C.2T 23:54
PROVIDERS: ADMIT Hospitalist; ATTEND Family Medicine
DX: I13.0 Hypertensive heart and chronic kidney disease with heart failure and stage 1 through stage 4 chronic kidney disease, or unspecified chronic kidney disease (principal); J96.10 Chronic respiratory failure, unspecified whether with hypoxia or hypercapnia; E87.1 Hypo-osmolality and hyponatremia; N17.9 Acute kidney failure, unspecified; R64 Cachexia; I24.8 Other forms of acute ischemic heart disease; I48.2 Chronic atrial fibrillation; E78.5 Hyperlipidemia, unspecified; Z90.49 Acquired absence of other specified parts of digestive tract; Z82.49 Family history of ischemic heart disease and other diseases of the circulatory system; Z87.891 Personal history of nicotine dependence; R32 Unspecified urinary incontinence; I16.0 Hypertensive urgency; Z88.8 Allergy status to other drugs, medicaments and biological substances; Z88.5 Allergy status to narcotic agent; Z79.4 Long term (current) use of insulin; Z79.899 Other long term (current) drug therapy; R31.9 Hematuria, unspecified; R13.10 Dysphagia, unspecified; R26.9 Unspecified abnormalities of gait and mobility; F03.90 Unspecified dementia, unspecified severity, without behavioral disturbance, psychotic disturbance, mood disturbance, and anxiety; N18.3 Chronic kidney disease, stage 3 (moderate); E10.22 Type 1 diabetes mellitus with diabetic chronic kidney disease; Z86.711 Personal history of pulmonary embolism; H91.90 Unspecified hearing loss, unspecified ear; D50.9 Iron deficiency anemia, unspecified; Z68.21 Body mass index [BMI] 21.0-21.9, adult; K59.00 Constipation, unspecified; I50.9 Heart failure, unspecified

== ENCOUNTER 2017-03-28 10:06 | Inpatient (IN) | payer BC, OTHER ==
[~2017-03-28] VITALS: Ht 167.6 cm; Wt 53.6 kg
[~2017-03-28 10:06] MED LIST changes: +ACET-1311 PO; +ARTISOL23 PO; -BISA10SU7 RE; -BNT/10 PO; -CLC100X PO; +DOCU-94 PO; +INSDGIPEN SC; -LISI-789 PO; +METO25TA56 PO; +MRLP17 PO; +NRV5 PO; -NVLGI SQ; +NVLGI/PEN SQ; -OMEP40CA PO; +ONDA4TAB46 PO; +PANC1CAP17 PO; -PANC6000 PO; -POLY335015 PO; -SENN1TAB80 PO; +SENN8.6T13 PO; -SIME1CAP11 PO
[2017-03-28 10:46] LABS: BASO % 0.2 %; BASO ABS # 0.02 K/uL (0-0.2); COMPLETE YES; EOS % 1.4 %; IG% 0.3 %; LYMPH % 14.6 %; LYMPH ABS # 1.42 K/uL (1.2-3.4); MEAN CELL VOLUME 87.8 fL (80-100); MEAN CORPUSCULAR HEMOGLOBIN 30.1 pg (25-34); MEAN CORPUSCULAR HGB CONC 34.3 g/dl (32-36); MEAN PLATELET VOLUME 9.5 fL (7.4-10.4); MONO % 10.4 %; NEUT % 73.1 %; PLATELET COUNT 274 K/uL (130-400); RED BLOOD COUNT 3.19 M/uL (4.7-6.1); WHITE BLOOD COUNT 9.71 K/uL (4.8-10.8)
--- NOTE | 2017-03-28 10:46 | DIAGNOSTIC IMAGING REPORT ---
CHEST ONE VIEW PORTABLE CLINICAL HISTORY: Weakness. COMPARISON STUDY: 09/24/2016 FINDINGS: The cardiac and mediastinal contours remain stable. There is persistent aortic tortuosity/ectasia. There is mild interstitial thickening but no evidence of overt failure. There is no focal pulmonary consolidation. There are no pleural effusions.[ IMPRESSION: No active disease in the chest. Electronically signed by: Aakash Mayo M.D. 03/28/2017 10:44 AM Dictated Date/Time: 03/28/2017 10:44 AM
[2017-03-28 10:52] LABS: PARTIAL THROMBOPLASTIN RATIO 0.8; PROTHROMBIN TIME (PATIENT) 10.5 SECONDS (9.0-12.0)
[2017-03-28 11:02] LABS: ALT/SGPT 35 U/L (12-78); BLOOD UREA NITROGEN 67 mg/dl (7-18); BUN/CREATININE RATIO 32.1 (10-20); CALCIUM 8.8 mg/dl (8.5-10.1); CARBON DIOXIDE 24 mmol/L (21-32); CHLORIDE 102 mmol/L (98-107); GLUCOSE 109 mg/dl (70-99); MAGNESIUM 2.3 mg/dl (1.8-2.4); SODIUM 132 mmol/L (136-145)
--- NOTE | 2017-03-28 11:03 | EMERGENCY ROOM VISIT NOTE ---
History Report prepared by Kaylin: Yonatan Mcnair Under the Supervision of: Dr. Jose Bae M.D. First contact with patient: 10:20 Chief Complaint: SYNCOPE Stated Complaint: NEAR SYNCOPE Nursing Triage Summary: Patient arrived by ambulance from home after having 3 syncopal episodes this am. Patient states he felt "crampy" and thought he may need to have a bowel movement then became warm all over and when he got up to walk into the bathroom fainted. Patient states he is having left knee pain but denies any other symptoms on arrival. History of Present Illness The patient is an 87 year old male who presents to the Emergency Room via EMS with complaints of 3 syncopal episodes that occurred earlier this morning. The patient says that he felt like he needed to have a bowel movement earlier this morning but did not have one. Per the patient's , the patient felt hot right before the episodes. The patient says that he hurt his left knee during the episodes, and during the second episode, he fell onto the concrete floor in the bathroom. Per the patient's , the patient was out for around 20 to 30 seconds during the episodes. The patient did not hit his head on the falls. Per the patient's family, the patient has been eating and drinking fine the past few days, but is on a fluid restriction because his kidneys are not well. Pt denies headache, visual changes, neck pain, chest pain, breathing difficulties, nausea, vomiting, abdominal pain, back pain, numbness, weakness, open wounds, active bleeding, or other complaints. Source of History: patient, family Onset: Earlier this morning Position: other (global - syncope) Symptom Intensity: 3 episodes - out for 20-30 seconds Timing: other (episodes) Associated Symptoms: + LOC Note: Associated symptoms: [place] hot right before passing out. Hurt left knee from falls. Review of Systems See HPI for pertinent positives and negatives. A total of ten systems were reviewed and were otherwise negative. Past Medical & Surgical Medical Problems: (1) Anemia (2) CKD (chronic kidney disease), stage III (3) DM type 1 (diabetes mellitus, type 1) (4) H/O fracture of femur (5) HTN (hypertension) (6) Hyponatremia (7) Pulmonary embolism Surgical Problems: (1) H/O exploratory laparotomy (2) S/P cholecystectomy (3) s/p Whipple Family History Heart disease Social History Smoking Status: Former Smoker Alcohol Use: none Drug Use: none Marital Status: Housing Status: lives with family Occupation Status: retired Current/Historical Medications Scheduled Amlodipine Besylate (Amlodipine Besylate), 5 MG PO QAM Docusate Sodium (Colace), 100 MG PO BID Insulin Aspart (Novolog Flexpen), 0 SQ UD Insulin Glargine (Lantus Solostar), 5 UNITS SC QAM Metoprolol Tartrate (Lopressor) (Lopressor), 25 MG PO BID Pancrelipase (Lipase-Protease- (Zenpep), 2 CAP PO TIDM Polyethylene (Miralax), 17 GM PO QAM Protein (Prosource), 15 GM PO BID Sennosides (Senna Lax), 8.6 MG PO LUNCH Scheduled PRN Acetaminophen (Tylenol), 650 MG PO Q8 PRN for Pain Artificial Saliva (Mouthkote), 1 DOSE PO QPM PRN for PRN Ondansetron Hcl (Zofran), 4 MG PO Q6 PRN for Nausea Allergies Coded Allergies: Dextromethorphan (Verified Allergy, Unknown, RASH, 03/28/17) Guaifenesin (Verified Allergy, Unknown, RASH, 03/28/17) Physical Exam Vital Signs Date Time Temp Pulse Resp B/P (MAP) Pulse Ox O2 Delivery O2 Flow Rate FiO2 03/28/17 13:13 97 03/28/17 13:00 89 20 138/80 94 Room Air 03/28/17 12:00 89 20 138/80 93 Room Air 03/28/17 10:30 89 20 110/56 94 Room Air 03/28/17 10:22 78 03/28/17 10:15 36.8 84 20 131/75 96 Room Air 03/28/17 10:15 36.8 84 20 131/73 96 Room Air 81 141/71 86 110/56 03/28/17 10:15 96 Room Air Physical Exam GENERAL: Awake, alert, tired-appearing, in no distress HENT: Normocephalic, atraumatic. Oropharynx unremarkable. EYES: Normal conjunctiva. Sclera non-icteric. NECK: Supple. No nuchal rigidity. FROM. No JVD. RESPIRATORY: Clear to auscultation. CARDIAC: Regular rate, normal rhythm. Extremities warm and well perfused. Pulses equal. ABDOMEN: Soft, non-distended. No tenderness to palpation. No rebound or guarding. No masses. RECTAL: Deferred. MUSCULOSKELETAL: Chest examination reveals no tenderness. The back is symmetrical on inspection without obvious abnormality. There is no CVA tenderness to palpation. No joint edema. LOWER EXTREMITIES: Calves are equal size bilaterally and non-tender. No edema. No discoloration. NEURO: Normal sensorium. No sensory or motor deficits noted. SKIN: No rash or jaundice noted. Medical Decision & Procedures ER Provider Diagnostic Interpretation: Radiology results as stated below per my review and radiologist interpretation: CHEST ONE VIEW PORTABLE CLINICAL HISTORY: Weakness. COMPARISON STUDY: 09/24/2016 FINDINGS: The cardiac and mediastinal contours remain stable. There is persistent aortic tortuosity/ectasia. There is mild interstitial thickening but no evidence of overt failure. There is no focal pulmonary consolidation. There are no pleural effusions.[ IMPRESSION: No active disease in the chest. Electronically signed by: Aakash Mayo M.D. 03/28/2017 10:44 AM Dictated Date/Time: 03/28/2017 10:[address] HEAD WITHOUT CONTRAST (CT) CLINICAL HISTORY: Head pain status post trauma COMPARISON STUDY: No previous studies for comparison. TECHNIQUE: Axial CT of the brain is performed from the vertex to the skull base. IV contrast was not administered for this examination. A dose lowering technique was utilized adhering to the principles of ALARA. CT DOSE: 776.86 mGycm FINDINGS: No intra or extra-axial mass lesions are visualized. There is no CT evidence of acute cortical infarction. There is no evidence of midline shift. There is no acute hemorrhage. No calvarial fractures are visualized. There are patchy white matter hypodensities likely on a small vessel basis. 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 There is a lacunar infarct in the right cerebellar hemisphere. There is no evidence of pathologic ventricular dilatation. There is left maxillary sinus because of thickening and left frontal sinus mucosal thickening IMPRESSION: No acute intracranial findings Electronically signed by: Aakash Mayo M.D. 03/28/2017 11:42 AM Dictated Date/Time: 03/28/2017 11:40 AM Left knee x-ray negative for fracture. Laboratory Results 03/28/17 10:25 Red Blood Count 3.19, Mean Corpuscular Volume 87.8, Mean Corpuscular Hemoglobin 30.1, Mean Corpuscular Hemoglobin Concent 34.3, Mean Platelet Volume 9.5, Neutrophils (%) (Auto) 73.1, Lymphocytes (%) (Auto) 14.6, Monocytes (%) (Auto) 10.4, Eosinophils (%) (Auto) 1.4, Basophils (%) (Auto) 0.2, Neutrophils # (Auto ) 7.09, Lymphocytes # (Auto) 1.42, Monocytes # (Auto) 1.01, Eosinophils # (Auto ) 0.14, Basophils # (Auto) 0.02 03/28/17 10:25 Test 03/28/17 10:25 03/28/17 10:45 White Blood Count 9.71 K/uL (4.8-10.8) Red Blood Count 3.19 M/uL (4.7-6.1) Hemoglobin 9.6 g/dL (14.0-18.0) Hematocrit 28.0 % (42-52) Mean Corpuscular Volume 87.8 fL (80-100) Mean Corpuscular Hemoglobin 30.1 pg (25-34) Mean Corpuscular Hemoglobin Concent 34.3 g/dl (32-36) Platelet Count 274 K/uL (130-400) Mean Platelet Volume 9.5 fL (7.4-10.4) Neutrophils (%) (Auto) 73.1 % Lymphocytes (%) (Auto) 14.6 % Monocytes (%) (Auto) 10.4 % Eosinophils (%) (Auto) 1.4 % Basophils (%) (Auto) 0.2 % Neutrophils # (Auto) 7.09 K/uL (1.4-6.5) Lymphocytes # (Auto) 1.42 K/uL (1.2-3.4) Monocytes # (Auto) 1.01 K/uL (0.11-0.59) Eosinophils # (Auto) 0.14 K/uL (0-0.5) Basophils # (Auto) 0.02 K/uL (0-0.2) RDW Standard Deviation 42.7 fL (36.4-46.3) RDW Coefficient of Variation 13.2 % (11.5-14.5) Immature Granulocyte % (Auto) 0.3 % Immature Granulocyte # (Auto) 0.03 K/uL (0.00-0.02) Prothrombin Time 10.5 SECONDS (9.0-12.0) Prothromb Time International Ratio 1.0 (0.9-1.1) Activated Partial Thromboplast Time 21.2 SECONDS (21.0-31.0) Partial Thromboplastin Ratio 0.8 Anion Gap 7.0 mmol/L (3-11) Est Creatinine Clear Calc Drug Dose 19.1 ml/min Estimated GFR () 31.8 Estimated GFR (Non- 27.5 BUN/Creatinine Ratio 32.1 (10-20) Calcium Level 8.8 mg/dl (8.5-10.1) Magnesium Level 2.3 mg/dl (1.8-2.4) Total Bilirubin 0.2 mg/dl (0.2-1) Direct Bilirubin < 0.1 mg/dl (0-0.2) Aspartate Amino Transf (AST/SGOT) 44 U/L (15-37) Alanine Aminotransferase (ALT/SGPT) 35 U/L (12-78) Alkaline Phosphatase 155 U/L (45-117) Total Protein 8.5 gm/dl (6.4-8.2) Albumin 2.5 gm/dl (3.4-5.0) Lipase 34 U/L (73-393) Thyroid Stimulating Hormone (TSH) 5.950 uIu/ml (0.300-4.500) Free Thyroxine 1.17 ng/dl (0.80-1.60) Urine Color YELLOW Urine Appearance CLEAR (CLEAR) Urine pH 5.0 (4.5-7.5) Urine Specific [place] 1.015 (1.000-1.030) Urine Protein 1+ (NEG) Urine Glucose (UA) NEG (NEG) Urine Ketones NEG (NEG) Urine Occult Blood TRACE (NEG) Urine Nitrite NEG (NEG) Urine Bilirubin NEG (NEG) Urine Urobilinogen NEG (NEG) Urine Leukocyte Esterase TRACE (NEG) Urine WBC (Auto) 1-5 /hpf (0-5) Urine RBC (Auto) 0-4 /hpf (0-4) Urine Hyaline Casts (Auto) 1-5 /lpf (0-5) Urine Epithelial Cells (Auto) 10-20 /lpf (0-5) Urine Bacteria (Auto) NEG (NEG) Laboratory results reviewed by me ECG Indication: syncope Rate (beats per minute): 79 Rhythm: sinus rhythm Findings: 1st degree AV block, LAFB, RBBB, no acute ischemic change, no ectopy ED Course 1047: The patient was evaluated in room A3. A complete history and physical exam was performed. 1217: Upon reexamination, the patient was resting comfortably. I discussed the test results and treatment plan with him. He expressed understanding and agreement. The patient will be evaluated for further management. 1240: I discussed the patient with Dr. Jeromy Glass fuel cell engineer - he will evaluate the patient for further treatment. Medical Decision Triage Nursing notes reviewed. The patient's presentation and history were concerning for syncope. Etiologies such as vasovagal event, infection, hypoglycemia, electrolyte abnormalities, cardiac sources, intracerebral event, toxicologic, neurologic, as well as others were entertained. The patient was evaluated. Clinically he is tired but was in no distress. He had a skin abrasion on the right anterior knee that was nontender. He complained of some left knee pain. There is no edema. No joint line tenderness. He had good range of motion. No focal neurologic findings. Blood work, imaging and ECG were performed. The patient was gently hydrated. Given his multiple episodes of syncope this morning he will need further evaluation and management in the hospital. Consultation was made with the hospitalist service. The patient was evaluated in the Emergency Room for further treatment. Medication Reconcilliation Current Medication List: was personally reviewed by me Blood Pressure Screening Patient's blood pressure: Normal blood pressure Consults Time Called: 1230 Consulting Physician: Dr. Jeromy Glass fuel cell engineer Returned Call: 1240 I discussed the patient with Dr. Jeromy Glass fuel cell engineer - he will evaluate the patient for further treatment. Impression Primary Impression: Syncope Scribe Attestation The scribe's documentation has been prepared under my direction and personally reviewed by me in its entirety. I confirm that the note above accurately reflects all work, treatment, procedures, and medical decision making performed by me. Departure Information Dispostion Being Evaluated By Hospitalist Referrals Naldo Espino MD (PCP) Patient Instructions [facility]
[2017-03-28 11:06] LABS: URINE APPEARANCE CLEAR (CLEAR); URINE BILIRUBIN NEG (NEG); URINE COLOR YELLOW; URINE NITRITE NEG (NEG); URINE SPECIFIC GRAVITY 1.015 (1.000-1.030); UROBILINOGEN NEG (NEG)
[2017-03-28 11:09] LABS: MANUAL MICROSCOPIC REQUIRED? NO; REVIEW REQ? NO
[2017-03-28 11:13] LABS: ALKALINE PHOSPHATASE 155 U/L (45-117); AST/SGOT 44 U/L (15-37)
--- NOTE | 2017-03-28 11:44 | DIAGNOSTIC IMAGING REPORT ---
CT HEAD WITHOUT CONTRAST (CT) CLINICAL HISTORY: Head pain status post trauma COMPARISON STUDY: No previous studies for comparison. TECHNIQUE: Axial CT of the brain is performed from the vertex to the skull base. IV contrast was not administered for this examination. A dose lowering technique was utilized adhering to the principles of ALARA. CT DOSE: 776.86 mGycm FINDINGS: No intra or extra-axial mass lesions are visualized. There is no CT evidence of acute cortical infarction. There is no evidence of midline shift. There is no acute hemorrhage. No calvarial fractures are visualized. There are patchy white matter hypodensities likely on a small vessel basis. 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 There is a lacunar infarct in the right cerebellar hemisphere. There is no evidence of pathologic ventricular dilatation. There is left maxillary sinus because of thickening and left frontal sinus mucosal thickening IMPRESSION: No acute intracranial findings Electronically signed by: Aakash Mayo M.D. 03/28/2017 11:42 AM Dictated Date/Time: 03/28/2017 11:40 AM
[2017-03-28] MEDS ORDERED: ONDANSETRON INJ 2 MG/ML 2 ML VIAL IV PRN (13:45)
[2017-03-28] MEDS ORDERED: ACETAMINOPHEN 325 MG TAB PO PRN (13:45)
[2017-03-28] MEDS ORDERED: IV FLUIDS COMPLETED PRN (13:45)
[2017-03-28] MEDS ORDERED: PANC1CAP21 PO (13:46)
--- NOTE | 2017-03-28 13:50 | DIAGNOSTIC IMAGING REPORT ---
LEFT KNEE 2 VIEWS CLINICAL HISTORY: Left knee pain status post trauma COMPARISON: None. DISCUSSION: The bones are osteopenic. No fractures or dislocations are visualized. There are moderately extensive vascular calcifications. IMPRESSION: Osteopenia. No acute fractures. Electronically signed by: Aakash Mayo M.D. 03/28/2017 1:49 PM Dictated Date/Time: 03/28/2017 1:48 PM
[2017-03-28] MEDS ORDERED: SODIUM CHLORIDE 0.9% 500ML 500 ML IV SCH (14:00)
[2017-03-28] MEDS ORDERED: DEXTROSE 50% 50 ML SYR IV PRN (14:00)
[2017-03-28] MEDS ORDERED: GLUCOSE 10 TABS/TUBE PO PRN (14:00)
[2017-03-28] MEDS ORDERED: GLUCAGON FOR INJ 1 MG VIAL SQ PRN (14:00)
[2017-03-28] MEDS ORDERED: GLUCOSE 40% GEL 15 GM TUBE PO PRN (14:00)
[2017-03-28 15:23] VITALS: BP 136/83; PULSE 92; TEMP 36.6; O2SAT 96
[2017-03-28 16:15] VITALS: BP 146/82; PULSE 99; TEMP 36.8; Ht 167.6 cm; Wt 53.6 kg
[2017-03-28] MEDS: INSULIN ASPART 100 UNITS/ML 3 ML PEN SC SCH ×2 (16:30→20:43)
--- NOTE | 2017-03-28 17:32 | History and Physical ---
History & Physical Date & Time of Service: Mar 28, 2017 ~ 13:15 Chief Complaint: Passed Out Primary Care Physician: Naldo Espino MD History of Present Illness 87 year old male who presents to the ED with multiple syncopal events at home. is at the bedside who provides some history. Patient reports that he woke up around 0300 to have a bowl of cereal, like he normally does. He was warming the milk up in the microwave and when he turned around her felt very warm and lightheaded. He reports he fell to his knees. He does not feel as though he lost coconsciousness but his reports he did for a few seconds. She checked his blood sugar and reports that it was normal. He then went back to bed. He got up a few hours later to go to the bathroom and had another similar event in the bathroom. He was took weak to stand on his own so his son-in-law was called to help him. While he was lifting him up, he passed out again. EMS was then called. Patient denies any loss of bowel or bladder function with these episodes. No associated shortness of breath, chest pain, or diaphoresis. He reports he has been feeling well recently. He actually went out last night to celebrate his birthday. He was placed on a fluid restriction 6 months ago by nephrology and denies any changes in his oral intake. He denies abdominal pain, nausea, vomiting, or diarrhea. No fever or chills. He denies urinary symptoms. In the ED, patient is found to have orthostatic BPs. Labs and EKG are unremarkable. 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 Family History non contributory due to patient's advanced age Social History Smoking Status: Former Smoker Alcohol Use: none Marital Status: Housing status: lives with family Immunizations History of Influenza Vaccine: Yes Influenza Vaccine Date: Mar 01, 2017 History of Pneumococcal: Yes Pneumococcal Date: Mar 23, 2015 Multi-Drug Resistant Organisms History of MDRO: No Allergies Coded Allergies: Dextromethorphan (Verified Allergy, Unknown, RASH, 03/28/17) Guaifenesin (Verified Allergy, Unknown, RASH, 03/28/17) Home Medications Scheduled Amlodipine Besylate (Amlodipine Besylate), 5 MG PO QAM Docusate Sodium (Colace), 100 MG PO BID Insulin Aspart (Novolog Flexpen), 0 SQ UD Insulin Glargine (Lantus Solostar), 5 UNITS SC QAM Metoprolol Tartrate (Lopressor) (Lopressor), 25 MG PO BID Pancrelipase (Lipase-Protease- (Zenpep), 2 CAP PO TIDM Polyethylene (Miralax), 17 GM PO QAM Protein (Prosource), 15 GM PO BID Sennosides (Senna Lax), 8.6 MG PO LUNCH Scheduled PRN Acetaminophen (Tylenol), 650 MG PO Q8 PRN for Pain Artificial Saliva (Mouthkote), 1 DOSE PO QPM PRN for PRN Ondansetron Hcl (Zofran), 4 MG PO Q6 PRN for Nausea Review of Systems ROS per HPI, all other systems reviewed and negative Physical Exam Vital Signs Date Time Temp Pulse Resp B/P (MAP) Pulse Ox O2 Delivery O2 Flow Rate FiO2 03/28/17 16:15 36.8 99 16 146/82 Room Air 03/28/17 15:23 36.6 92 16 136/83 (100) 96 Room Air 03/28/17 14:30 92 20 138/80 94 03/28/17 13:13 97 03/28/17 13:00 89 20 138/80 94 Room Air 03/28/17 12:00 89 20 138/80 93 Room Air 03/28/17 10:30 89 20 110/56 94 Room Air 03/28/17 10:22 78 03/28/17 10:15 36.8 84 20 131/75 96 Room Air 03/28/17 10:15 36.8 84 20 131/73 96 Room Air 81 141/71 86 110/56 03/28/17 10:15 96 Room Air General Appearance: WD/WN, no apparent distress Head: normocephalic, atraumatic Eyes: normal inspection, PERRL, EOMI, sclerae normal ENT: hearing grossly normal, + pertinent finding (mucous membranes moist) Neck: supple, no JVD, trachea midline Respiratory/Chest: lungs clear, normal breath sounds, no respiratory distress Cardiovascular: regular rate, rhythm, no edema, normal peripheral pulses, + systolic murmur Abdomen/GI: normal bowel sounds, non tender, soft, no organomegaly Extremities/Musculoskelatal: normal inspection, no calf tenderness, normal capillary refill Neurologic/Psych: no motor/sensory deficits, alert, normal mood/affect, oriented x 3 Skin: normal color, warm/dry Diagnostics Laboratory Results Results Past 24 Hours Test 03/28/17 10:25 03/28/17 10:45 03/28/17 15:59 03/28/17 16:24 Range/Units White Blood Count 9.71 4.8-10.8 K/uL Red Blood Count 3.19 4.7-6.1 M/uL Hemoglobin 9.6 14.0-18.0 g/dL Hematocrit 28.0 42-52 % Mean Corpuscular Volume 87.8 80-100 fL Mean Corpuscular Hemoglobin 30.1 25-34 pg Mean Corpuscular Hemoglobin Concent 34.3 32-36 g/dl Platelet Count 274 130-400 K/uL Mean Platelet Volume 9.5 7.4-10.4 fL Neutrophils (%) (Auto) 73.1 % Lymphocytes (%) (Auto) 14.6 % Monocytes (%) (Auto) 10.4 % Eosinophils (%) (Auto) 1.4 % Basophils (%) (Auto) 0.2 % Neutrophils # (Auto) 7.09 1.4-6.5 K/uL Lymphocytes # (Auto) 1.42 1.2-3.4 K/uL Monocytes # (Auto) 1.01 0.11-0.59 K/uL Eosinophils # (Auto) 0.14 0-0.5 K/uL Basophils # (Auto) 0.02 0-0.2 K/uL RDW Standard Deviation 42.7 36.4-46.3 fL RDW Coefficient of Variation 13.2 11.5-14.5 % Immature Granulocyte % (Auto) 0.3 % Immature Granulocyte # (Auto) 0.03 0.00-0.02 K/uL Prothrombin Time 10.5 9.0-12.0 SECONDS Prothromb Time International Ratio 1.0 0.9-1.1 Activated Partial Thromboplast Time 21.2 21.0-31.0 SECONDS Partial Thromboplastin Ratio 0.8 Sodium Level 132 136-145 mmol/L Potassium Level 4.0 3.5-5.1 mmol/L Chloride Level 102 98-107 mmol/L Carbon Dioxide Level 24 21-32 mmol/L Anion Gap 7.0 3-11 mmol/L Blood Urea Nitrogen 67 7-18 mg/dl Creatinine 2.10 0.60-1.40 mg/dl Est Creatinine Clear Calc Drug Dose 19.1 ml/min Estimated GFR () 31.8 Estimated GFR (Non- 27.5 BUN/Creatinine Ratio 32.1 10-20 Random Glucose 109 70-99 mg/dl Calcium Level 8.8 8.5-10.1 mg/dl Magnesium Level 2.3 1.8-2.4 mg/dl Total Bilirubin 0.2 0.2-1 mg/dl Direct Bilirubin < 0.1 0-0.2 mg/dl Aspartate Amino Transf (AST/SGOT) 44 15-37 U/L Alanine Aminotransferase (ALT/SGPT) 35 12-78 U/L Alkaline Phosphatase 155 45-117 U/L Troponin I < 0.015 0-0.045 ng/ml Total Protein 8.5 6.4-8.2 gm/dl Albumin 2.5 3.4-5.0 gm/dl Lipase 34 73-393 U/L Thyroid Stimulating Hormone (TSH) 5.950 0.300-4.500 uIu/ml Free Thyroxine 1.17 0.80-1.60 ng/dl Urine Color YELLOW Urine Appearance CLEAR CLEAR Urine pH 5.0 4.5-7.5 Urine Specific [place] 1.015 1.000-1.030 Urine Protein 1+ NEG Urine Glucose (UA) NEG NEG Urine Ketones NEG NEG Urine Occult Blood TRACE NEG Urine Nitrite NEG NEG Urine Bilirubin NEG NEG Urine Urobilinogen NEG NEG Urine Leukocyte Esterase TRACE NEG Urine WBC (Auto) 1-5 0-5 /hpf Urine RBC (Auto) 0-4 0-4 /hpf Urine Hyaline Casts (Auto) 1-5 0-5 /lpf Urine Epithelial Cells (Auto) 10-20 0-5 /lpf Urine Bacteria (Auto) NEG NEG Creatine Kinase MB Ratio 0-3.0 Bedside Glucose 122 70-99 mg/dl Microbiology Results 03/28/17 Urine Culture, Received Pending Diagnostic Radiology CXR IMPRESSION: No active disease in the chest. HEAD CT IMPRESSION: No acute intracranial findings LEFT KNEE XR MPRESSION: Osteopenia. No acute fractures. Impression Assessment and Plan SYNCOPE - admit to tele - patient presenting with syncopal events x 3 at home - work up in the ED shows positive orthostatic BPs; head CT negative, troponin negative, EKG without acute ST changes - suspect likely due to hypovolemia given positive orthostatic BPs; no focal deficits on exam, nothing in the history to suggest seizure - will give 500ml NSS slowly due to history of volume overload (patient is on fluid restriction at home per nephrology for hyponatremia and volume overload) - recent outpatient echo 02/13/17 - PFO noted, mild aortic stenosis, mild aortic regurgitation, moderate MR, mod-severe TR - will hold on repeating echo for now - monitor in tele for arrhythmias - serial cardiac enzymes - orthostatic BPs ANEMIA - baseline hgb 8.5 - 9.0 - likely due to CKD; has had positive FOBT however due to patient's advanced age , EGD and colonoscopy were deferred - hgb 9.6 today CKD STAGE III - baseline creat runs in the high 1's - low 2's - creat noted to be 2.1 today - continue to monitor, avoid nephrotoxic agents when able PFO - noted on recent echo - ASA not given due to anemia / positive FOBT HTN - BP controlled, continue metoprolol and amlodipine DM TYPE I - hgb a1 5.7 09/2016 - continue Lantus + SSI DVT PROPHYLAXIS - SCDs due to anemia CODE STATUS - Patient is a DNR as per my discussion with him and his and daughter who are the bedside. DISPO - The patient will be placed as observation status for now until further work up is complete. Advanced Directives Existing Living Will: No Existing Power of Aerial Sprayer: Yes VTE Prophylaxis VTE Risk Assessment Done? Y/N: Yes Risk Level: Moderate Given or contraindicated: SCD's Note ATTENDING ADDENDUM Record reviewed. Patient interviewed and examined in his room. Care coordinated with TALIA Garcia. Please refer to her documentation for patient's history. Briefly, 87 YO male with history of hypertension, PFO, CKD, hyponatremia, anemia. 3 syncopal episodes this morning, each after rising from sitting to standing position. No associated neurologic or cardiac symptoms. No fever, diarrhea, gross GI bleeding. EXAM: General- VS- as noted HEENT- anicteric Neck- no JVD Lungs- clear Heart- RRR, II/ systolic murmurs at base and apex, no gallop appreciated Abdomen- + BS, soft, nontender Extremities- no pretibial edema or calf tenderness Neuro- alert, mild confusion, PERRL, EOMI, no facial palsy, no dysarthria, motor strength upper and lower extremities essentially normal DATA: Hgb 9.6. Na 132. BUN 67, creat 2.1. Other lab studies as noted. CT head- small vessel white matter disease, old lacunar infarcts within L periventricular white matter and right cerebellum; no acute events. EKG performed at 10:16 reviewed and demonstrated NSR at 80 / minute, RBB, left anterior fascicular block, repolarization abnormalities. ASSESSMENT AND PLAN: Syncope x 3 after standing. No associated cardiac or neuro symptoms. Orthostatic BP drop noted. Gentle IV hydration. Monitor for arrhythmias. Chronic anemia / monitor H/H. History of hyponatremia followed by Nephrology. Was on NaCl supplementation, but developed elevated BP and fluid overload. Now on fluid restriction, but BUN and creatinine elevated and orthostatic. Na 132. Consult Nephrology regarding further management. Please refer to DEREK Bro's documentation for discussion of other issues. Jose Pinzon MD .
[2017-03-28] MEDS ORDERED: ZENPEP PO PRN ×2 (18:45)
[2017-03-28 19:48] VITALS: BP 141/81; PULSE 88; TEMP 36.7; O2SAT 96
[2017-03-28] MEDS: DOCUSATE SODIUM 100 MG CAP PO SCH (20:53)
[2017-03-28] MEDS: METOPROLOL TARTRATE 25 MG TAB PO SCH (20:54)
[2017-03-28 21:10] VITALS: BP_SYST 109; BP_SYST 126; BP_SYST 163; BP_DIAS 64; BP_DIAS 80; BP_DIAS 85; PULSE 99
[2017-03-28 23:29] VITALS: BP 138/76; PULSE 77; TEMP 37.2; O2SAT 95
[2017-03-29] VITALS (9 sets, daily range): BP systolic 84–162; BP diastolic 40–80; PULSE 55–94; TEMP 36.6–36.9; O2SAT 95–100
[2017-03-29 05:36] LABS: HEMATOCRIT 24.8 % (42-52); MEAN CELL VOLUME 88.3 fL (80-100); MEAN CORPUSCULAR HEMOGLOBIN 29.5 pg (25-34); MEAN CORPUSCULAR HGB CONC 33.5 g/dl (32-36); MEAN PLATELET VOLUME 9.7 fL (7.4-10.4); PLATELET COUNT 261 K/uL (130-400); RED BLOOD COUNT 2.81 M/uL (4.7-6.1); WHITE BLOOD COUNT 7.91 K/uL (4.8-10.8)
[2017-03-29 06:08] LABS: BUN/CREATININE RATIO 28.2 (10-20); CALCIUM 8.1 mg/dl (8.5-10.1); CREATININE 2.2 mg/dl (0.60-1.40); POTASSIUM 4.3 mmol/L (3.5-5.1)
[2017-03-29] MEDS ORDERED: ZENPEP PO SCH (08:00)
[2017-03-29] MEDS: ZENPEP PO SCH ×3 (08:16→16:46)
[2017-03-29] MEDS: DOCUSATE SODIUM 100 MG CAP PO SCH ×2 (08:17→21:20)
[2017-03-29] MEDS: METOPROLOL TARTRATE 25 MG TAB PO SCH ×2 (08:18→21:20)
[2017-03-29] MEDS: POLYETHYLENE (MIRALAX) 17 GM PACK PO SCH (08:18)
[2017-03-29] MEDS: INSULIN ASPART 100 UNITS/ML 3 ML PEN SC SCH ×4 (08:19→21:00)
[2017-03-29] MEDS: SENNA 8.6 MG TAB PO SCH (08:19)
[2017-03-29] MEDS: INSULIN GLARGINE SOLOSTAR 100 UNITS/ML 3 ML PEN SC SCH (08:22)
[2017-03-29] MEDS ORDERED: AMLODIPINE BESYLATE 5 MG TAB PO SCH (09:00)
--- NOTE | 2017-03-29 09:03 | NEPHROLOGY CONSULTATION ---
DATE OF CONSULTATION: 03/29/2017 ATTENDING OF RECORD: Dr. Guzmán. REASON FOR CONSULTATION: Syncope. HISTORY OF PRESENT ILLNESS: This is an 87-year-old male with CKD stage III-IV with a creatinine of 2 with proteinuria and chronic hyponatremia who is on a 1500 mL fluid restriction, does have a significant history of Whipple in 2013, and diabetic since 2013 as well with a hemoglobin A1c of 5.7 with no retinopathy, quit smoking about 40 years ago. No NSAIDs. The patient was treated in the past with salt tablets; however, presented in the beginning of the year, coming back from [place] with significant volume overload and salt tablets were stopped and diuretics were stopped as well and I have been treating with a purely a fluid restriction. The patient weighs himself at home and weight has been stable. No recent infections. He has been eating and drinking okay. The patient normally wakes up at 3:00 in the morning and makes himself something to eat and while doing so, passed out briefly and fell to the ground on to his knees. The patient was brought in for further evaluation. PAST MEDICAL HISTORY: Diabetes, CKD stage III-IV, hyponatremia, history of PE in the past, hyperlipidemia. PAST SURGICAL HISTORY: Whipple femoral fracture repair, exploratory laparotomy. FAMILY HISTORY: Significant for heart disease in dad. 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 REVIEW OF SYSTEMS: Positive fatigue. Positive shortness of breath with overexertion. No chest pain. No swelling. No nausea or vomiting, no diarrhea or constipation. Positive nocturia. Positive arthritis in the hands and a recent syncopal episode. No rash or itching. All other review of systems otherwise negative. CURRENT MEDICATIONS: Norvasc 5 mg a day, Lantus 5 units subQ daily, MiraLax 17 grams daily, senna 8.6 mg daily, Colace 100 mg p.o. b.i.d., Lopressor 25 mg p.o. b.i.d. PHYSICAL EXAMINATION VITAL SIGNS: Temperature 36.6, pulse 67, blood pressures 136/71. Did have significant orthostasis last night with blood pressure 163/85 lying down drop down to 109/64 standing up. GENERAL: Awake, alert, oriented x3, and difficulty with hearing. EYES: No scleral icterus. HEENT: Moist mucous membranes. NECK: Supple. PULMONARY: Clear to auscultation. CARDIAC: A 3/6 systolic murmur. ABDOMEN: Bowel sounds positive, soft, nontender. EXTREMITIES: No clubbing, cyanosis or edema. NEUROLOGICALLY: Nonfocal. DERMATOLOGIC: No rash or ulcers noted. LABORATORY DATA: Sodium was 137, potassium 4.3, chloride is 106, bicarbonate is 22, BUN is 62, creatinine is 2.2, glucose 98, calcium is 8.1. Troponin is negative x2. White count 7.9, H&H 8.3 and 24.8, platelet count is 261. INR is 1. UA with pH of 5, specific gravity 1.015, trace blood. Urine culture is pending. IMAGING DATA: Chest x-ray shows no active disease in the chest. IMPRESSION AND PLAN: 1. Chronic kidney disease stage IV with baseline creatinine in the high 1s to low 2's, creatinine at baseline. Volume status appears good. No changes to medications at this time. 2. Hypertension. The patient has some positive orthostasis. We will discuss further with the primary hospitalist, currently on his home medicines metoprolol and amlodipine. 3. Hyponatremia. Sodium levels are stable, did receive 500 mL of normal saline. Echo in the past revealed moderate to severe tricuspid regurgitation, mild aortic stenosis. The patient is relatively asymptomatic at this time but did have significant orthostasis. Question would be whether to continue IV fluids to help optimize his volume status and/or decreased one of his blood pressure medicines perhaps lowering his Norvasc from 5 mg to 2.5 mg a day and consider another 500 mL of normal saline bolus. In terms of kidney function, sodium levels, those labs are stable; however, need to monitor his orthostasis to make sure volume status is good and that he is not overmedicated in terms of his blood pressure medications. We will discuss further with hospitalist. DAMION
--- NOTE | 2017-03-29 18:27 | Progress Note ---
Medicine Progress Note Date & Time of Visit: Mar 29, 2017 at 18:05. Subjective Pt was seen and examined Lying in bed with no distress Pt said that he feels fine Denies any chest pain, palpitation, dizziness and sob Objective Last 8 Hrs Date Time Temp Pulse Resp B/P (MAP) Pulse Ox O2 Delivery O2 Flow Rate FiO2 03/29/17 16:00 74 129/65 (86) 03/29/17 16:00 Room Air 03/29/17 15:59 94 137/73 (94) 03/29/17 15:57 36.7 67 18 156/72 (100) 100 Room Air 67 03/29/17 12:30 Room Air 03/29/17 11:57 36.8 61 16 152/75 (100) 96 Room Air Physical Exam: General- No acute distress Head- atraumatic Eyes- PERRL, EOMI ENT- oropharynx clear Neck- supple, no JVD Lungs- clear to auscultation Heart- regular rhythm, +systolic murmur Abdomen- normal bowel sounds, soft Extremities- no calf tenderness Neuro- alert, oriented x 3; PERRL, EOMI; no facial palsy Skin- warm & dry Laboratory Results: Last 24 Hours Test 03/28/17 20:25 03/28/17 21:57 03/29/17 05:12 03/29/17 07:44 Bedside Glucose 150 mg/dl 102 mg/dl Creatine Kinase MB 2.7 ng/ml Creatine Kinase MB Ratio Troponin I < 0.015 ng/ml White Blood Count 7.91 K/uL Red Blood Count 2.81 M/uL Hemoglobin 8.3 g/dL Hematocrit 24.8 % Mean Corpuscular Volume 88.3 fL Mean Corpuscular Hemoglobin 29.5 pg Mean Corpuscular Hemoglobin Concent 33.5 g/dl RDW Standard Deviation 43.3 fL RDW Coefficient of Variation 13.3 % Platelet Count 261 K/uL Mean Platelet Volume 9.7 fL Sodium Level 137 mmol/L Potassium Level 4.3 mmol/L Chloride Level 106 mmol/L Carbon Dioxide Level 22 mmol/L Anion Gap 9.0 mmol/L Blood Urea Nitrogen 62 mg/dl Creatinine 2.20 mg/dl Est Creatinine Clear Calc Drug Dose 18.3 ml/min Estimated GFR () 30.1 Estimated GFR (Non- 26.0 BUN/Creatinine Ratio 28.2 Random Glucose 98 mg/dl Calcium Level 8.1 mg/dl Test 03/29/17 11:43 03/29/17 16:26 Bedside Glucose 132 mg/dl 112 mg/dl Assessment & Plan SYNCOPE had 3 syncopal events at home CT head was negative for acute finding Positive for orthostatic BP Positive related to hypovolemia from fluid restriction EKG showed no acute ischemic changes No focal neuro deficit on exam Received 500 ml IVL Telemonitor showed no arrhythmia activity Consider to decrease BP med if continue Last outpatient echo 02/13/17 - PFO noted, mild aortic stenosis, mild aortic regurgitation, moderate MR, mod-severe TR Continue monitor in telemetry PT/OT Fall precaution ANEMIA Baseline hgb 8.5 - 9.0 Hgb 8.3 today Likely due to CKD; has had positive FOBT however due to patient's advanced age, EGD and colonoscopy were deferred Continue monitor cbc CKD STAGE III Baseline creat runs in the high 1's - low 2's Creatine on admission 2.1, increase to 2.2 today Avoid nephrotoxic agents Continue monitor HYPONATREMIA Na on admission 132 improved to 137 today Nephrology on board continue monitor ABNORMAL TSH TSH elevated to 5.9 with normal free T4 Check TSH in 1 month PFO Noted on recent echo ASA not given due to anemia / positive FOBT HTN on metoprolol and amlodipine Might consider to decrease norvasc to 2.5 mg if orthostatic BP still presents Stable DM TYPE I Hgba1C 5.7 09/2016 Continue Lantus + SSI DVT PROPHYLAXIS SCDs due to anemia CODE STATUS DNR DISPOSITION Continue monitor in tele Consultants: Nephrology Current Inpatient Medications: Current Inpatient Medications Medications (Trade) Dose Ordered Sig/Ruben Route Start Time Stop Time Status Last Admin Dose Admin Acetaminophen (Tylenol Tab) 650 mg Q4H PRN PO 03/28/17 13:45 04/27/17 13:44 03/28/17 23:42 325 MG Ondansetron HCl (Zofran Inj) 4 mg Q6H PRN IV 03/28/17 13:45 04/27/17 13:44 Miscellaneous (Iv Fluids Completed) 1 ea PRN PRN N/A 03/28/17 13:45 03/28/18 13:44 Insulin Aspart (novoLOG ASPART) SLIDING SCALE If C... ACHS SC 03/28/17 16:00 04/27/17 15:59 Glucose (Glucose 40% Gel) 15-30 GRAMS 15 GRAMS... UD PRN PO 03/28/17 14:00 04/27/17 13:59 Glucose (Glucose Chew Tab) 4-8 Tablets 4 Tabl... UD PRN PO 03/28/17 14:00 04/27/17 13:59 Dextrose (Dextrose 50% 50ML Syringe) 25-50ML OF 50% DW IV FOR... UD PRN IV 03/28/17 14:00 04/27/17 13:59 Glucagon (Glucagon Inj) 1 mg UD PRN SQ 03/28/17 14:00 04/27/17 13:59 Amlodipine Besylate (Norvasc Tab) 5 mg QAM PO 03/29/17 09:00 04/28/17 08:59 03/29/17 08:18 5 MG Docusate Sodium (coLACE CAP) 100 mg BID PO 03/28/17 21:00 04/27/17 20:59 03/29/17 08:17 100 MG Insulin Glargine (Lantus Solostar Pen) 5 units QAM SC 03/29/17 09:00 04/28/17 08:59 03/29/17 08:22 5 UNITS Metoprolol Tartrate (Lopressor Tab) 25 mg BID PO 03/28/17 21:00 04/27/17 20:59 03/29/17 08:18 25 MG Polyethylene (Miralax Powder Packet) 17 gm QAM PO 03/29/17 09:00 04/28/17 08:59 03/29/17 08:18 17 GM Senna (Senokot Tab) 8.6 mg DAILY PO 03/29/17 09:00 04/28/17 08:59 03/29/17 08:19 8.6 MG Non-Formulary Medication (Non-Formulary Patient'S Own Med) 2 ea TIDM PO 03/29/17 08:00 04/28/17 07:59 03/29/17 16:46 2 EA Non-Formulary Medication (Non-Formulary Patient'S Own Med) 2 ea PRN PRN PO 03/28/17 18:45 04/27/17 18:44
[2017-03-30] VITALS (8 sets, daily range): BP systolic 89–145; BP diastolic 45–80; PULSE 18–105; TEMP 36.2–37.1; O2SAT 94–98
[2017-03-30 06:37] LABS: HEMATOCRIT 27.2 % (42-52); MEAN CORPUSCULAR HEMOGLOBIN 28.5 pg (25-34); MEAN CORPUSCULAR HGB CONC 32.4 g/dl (32-36); MEAN PLATELET VOLUME 9.6 fL (7.4-10.4); PLATELET COUNT 265 K/uL (130-400); RED BLOOD COUNT 3.09 M/uL (4.7-6.1)
[2017-03-30 07:06] LABS: BUN/CREATININE RATIO 25.9 (10-20); CALCIUM 8.5 mg/dl (8.5-10.1); CREATININE 2.3 mg/dl (0.60-1.40); POTASSIUM 4.3 mmol/L (3.5-5.1)
[2017-03-30] MEDS: ZENPEP PO SCH ×3 (07:56→17:48)
[2017-03-30] MEDS: DOCUSATE SODIUM 100 MG CAP PO SCH ×2 (07:56→21:01)
[2017-03-30] MEDS: SENNA 8.6 MG TAB PO SCH (07:56)
[2017-03-30] MEDS: POLYETHYLENE (MIRALAX) 17 GM PACK PO SCH (07:57)
[2017-03-30] MEDS: INSULIN ASPART 100 UNITS/ML 3 ML PEN SC SCH ×4 (07:57→21:12)
[2017-03-30] MEDS: INSULIN GLARGINE SOLOSTAR 100 UNITS/ML 3 ML PEN SC SCH (07:59)
[2017-03-30] MEDS ORDERED: SODIUM CHLORIDE 0.9% 500ML 500 ML IV SCH (08:15)
[2017-03-30] MEDS: METOPROLOL TARTRATE 25 MG TAB PO SCH ×2 (09:00→21:04)
--- NOTE | 2017-03-30 09:48 | Nephrology Progress Note ---
Nephrology Progress Note Date of Service: Mar 30, 2017. Subjective 87 yo male with orthostasis in the setting of hyponatremia and ckd stage 4 both of which are stable. pt walked around yesterday with nurse and did well. pt to leave for [place] next weekend. pt has lost about 5 pounds. Objective Date Time Temp Pulse Resp B/P (MAP) Pulse Ox O2 Delivery O2 Flow Rate FiO2 03/30/17 09:12 36.2 74 18 145/73 (97) 94 Room Air 129/64 (85) 89/45 (60) 03/30/17 08:30 Room Air 03/30/17 06:56 36.6 74 18 131/69 (89) 97 Room Air 03/30/17 04:00 Room Air 03/30/17 03:52 36.6 69 18 131/66 (87) 98 Room Air 03/30/17 00:00 Room Air 03/29/17 23:28 36.7 65 18 144/71 (95) 97 Room Air 03/29/17 21:26 86 162/80 (107) 03/29/17 21:00 Room Air 03/29/17 19:46 36.9 79 18 139/74 (95) 95 Room Air 03/29/17 16:00 74 129/65 (86) 03/29/17 16:00 Room Air 03/29/17 15:59 94 137/73 (94) 03/29/17 15:57 36.7 67 18 156/72 (100) 100 Room Air 67 03/29/17 12:30 Room Air 03/29/17 11:57 36.8 61 16 152/75 (100) 96 Room Air Physical Exam: General-aaox3 Eyes-no scleral icterus ENT-mmm Neck-supple Lungs-cta Heart-rrr Abdomen-bs+ s/nt/nd Extremities-no c/c/e Neuro-nonfocal Current Inpatient Medications Medications (Trade) Dose Ordered Sig/Ruben Route Start Time Stop Time Status Last Admin Dose Admin Acetaminophen (Tylenol Tab) 650 mg Q4H PRN PO 03/28/17 13:45 04/27/17 13:44 03/28/17 23:42 325 MG Ondansetron HCl (Zofran Inj) 4 mg Q6H PRN IV 03/28/17 13:45 04/27/17 13:44 Miscellaneous (Iv Fluids Completed) 1 ea PRN PRN N/A 03/28/17 13:45 03/28/18 13:44 Insulin Aspart (novoLOG ASPART) SLIDING SCALE If C... ACHS SC 03/28/17 16:00 04/27/17 15:59 Glucose (Glucose 40% Gel) 15-30 GRAMS 15 GRAMS... UD PRN PO 03/28/17 14:00 04/27/17 13:59 Glucose (Glucose Chew Tab) 4-8 Tablets 4 Tabl... UD PRN PO 03/28/17 14:00 04/27/17 13:59 Dextrose (Dextrose 50% 50ML Syringe) 25-50ML OF 50% DW IV FOR... UD PRN IV 03/28/17 14:00 04/27/17 13:59 Glucagon (Glucagon Inj) 1 mg UD PRN SQ 03/28/17 14:00 04/27/17 13:59 Docusate Sodium (coLACE CAP) 100 mg BID PO 03/28/17 21:00 04/27/17 20:59 03/30/17 07:56 100 MG Insulin Glargine (Lantus Solostar Pen) 5 units QAM SC 03/29/17 09:00 04/28/17 08:59 03/30/17 07:59 5 UNITS Metoprolol Tartrate (Lopressor Tab) 25 mg BID PO 03/28/17 21:00 04/27/17 20:59 03/29/17 21:20 25 MG Polyethylene (Miralax Powder Packet) 17 gm QAM PO 03/29/17 09:00 04/28/17 08:59 03/30/17 07:57 17 GM Senna (Senokot Tab) 8.6 mg DAILY PO 03/29/17 09:00 04/28/17 08:59 03/30/17 07:56 8.6 MG Non-Formulary Medication (Non-Formulary Patient'S Own Med) 2 ea TIDM PO 03/29/17 08:00 04/28/17 07:59 03/30/17 07:56 2 EA Non-Formulary Medication (Non-Formulary Patient'S Own Med) 2 ea PRN PRN PO 03/28/17 18:45 04/27/17 18:44 Sodium Chloride 500 ml @ 80 mls/hr Q6H15M IV 03/30/17 08:15 03/30/17 14:29 03/30/17 08:31 80 MLS/HR Amlodipine Besylate (Norvasc Tab) 2.5 mg QAM PO 03/31/17 09:00 04/28/17 08:59 Last 24 Hours Test 03/29/17 11:43 03/29/17 16:26 03/29/17 20:23 03/30/17 06:05 Bedside Glucose 132 mg/dl 112 mg/dl 176 mg/dl White Blood Count 8.70 K/uL Red Blood Count 3.09 M/uL Hemoglobin 8.8 g/dL Hematocrit 27.2 % Mean Corpuscular Volume 88.0 fL Mean Corpuscular Hemoglobin 28.5 pg Mean Corpuscular Hemoglobin Concent 32.4 g/dl RDW Standard Deviation 42.8 fL RDW Coefficient of Variation 13.2 % Platelet Count 265 K/uL Mean Platelet Volume 9.6 fL Sodium Level 134 mmol/L Potassium Level 4.3 mmol/L Chloride Level 103 mmol/L Carbon Dioxide Level 23 mmol/L Anion Gap 8.0 mmol/L Blood Urea Nitrogen 60 mg/dl Creatinine 2.30 mg/dl Est Creatinine Clear Calc Drug Dose 16.9 ml/min Estimated GFR () 28.5 Estimated GFR (Non- 24.6 BUN/Creatinine Ratio 25.9 Random Glucose 112 mg/dl Calcium Level 8.5 mg/dl Vitamin B12 Level 771 pg/mL Folate 10.21 ng/mL Test 03/30/17 07:37 Bedside Glucose 112 mg/dl Assessment & Plan hyponatremia-pt with chronic hyponatremia treated with fluid restriction at home and sodium levels are stable. CKD stage 4-creatinine usually in the low 2s and stable. Orthostatic hypotension-pt has lost weight and getting iv fluids and has orthostasis when he stands up. will stop the norvasc altogether and lower metoprolol to 12.5mg a day and continue the iv fluids throughout the day and stop in the morning. recommend bp check this upcoming week along with a bmp prior to going to [place].
[2017-03-30] MEDS: SODIUM CHLORIDE 0.9% 1000ML 1,000 ML IV SCH ×2 (10:18→22:21)
--- NOTE | 2017-03-30 14:12 | Progress Note ---
Medicine Progress Note Date & Time of Visit: Mar 30, 2017 at 13:55. Subjective Pt was seen and examined Lying in bed with no distress with daughter at bedside Pt said that he feels fine Pt said that he walked yesterday with the nurse with no problem denies any chest pain, palpitation, dizziness, dysuria and diarrhea Objective Last 8 Hrs Date Time Temp Pulse Resp B/P (MAP) Pulse Ox O2 Delivery O2 Flow Rate FiO2 03/30/17 12:00 Room Air 03/30/17 11:35 36.6 76 18 141/74 (96) 95 Room Air 03/30/17 09:12 36.2 74 18 145/73 (97) 94 Room Air 129/64 (85) 89/45 (60) 03/30/17 08:30 Room Air 03/30/17 06:56 36.6 74 18 131/69 (89) 97 Room Air Physical Exam: General- No acute distress Head- atraumatic Eyes- PERRL, EOMI ENT- oropharynx clear Neck- supple, no JVD Lungs- clear to auscultation Heart- regular rhythm, +systolic murmur Abdomen- normal bowel sounds, soft Extremities- no calf tenderness Neuro- alert, oriented x 3; PERRL, EOMI; no facial palsy Skin- warm & dry Laboratory Results: Last 24 Hours Test 03/29/17 16:26 03/29/17 20:23 03/30/17 06:05 03/30/17 07:37 Bedside Glucose 112 mg/dl 176 mg/dl 112 mg/dl White Blood Count 8.70 K/uL Red Blood Count 3.09 M/uL Hemoglobin 8.8 g/dL Hematocrit 27.2 % Mean Corpuscular Volume 88.0 fL Mean Corpuscular Hemoglobin 28.5 pg Mean Corpuscular Hemoglobin Concent 32.4 g/dl RDW Standard Deviation 42.8 fL RDW Coefficient of Variation 13.2 % Platelet Count 265 K/uL Mean Platelet Volume 9.6 fL Sodium Level 134 mmol/L Potassium Level 4.3 mmol/L Chloride Level 103 mmol/L Carbon Dioxide Level 23 mmol/L Anion Gap 8.0 mmol/L Blood Urea Nitrogen 60 mg/dl Creatinine 2.30 mg/dl Est Creatinine Clear Calc Drug Dose 16.9 ml/min Estimated GFR () 28.5 Estimated GFR (Non- 24.6 BUN/Creatinine Ratio 25.9 Random Glucose 112 mg/dl Calcium Level 8.5 mg/dl Vitamin B12 Level 771 pg/mL Folate 10.21 ng/mL Test 03/30/17 11:12 03/30/17 11:47 Bedside Glucose 162 mg/dl 183 mg/dl Assessment & Plan SYNCOPE had 3 syncopal events at home CT head was negative for acute finding Positive for orthostatic BP Positive related to hypovolemia from fluid restriction EKG showed no acute ischemic changes No focal neuro deficit on exam Received 500 ml IVL Telemonitor showed no arrhythmia activity Consider to decrease BP med if continue Last outpatient echo 02/13/17 - PFO noted, mild aortic stenosis, mild aortic regurgitation, moderate MR, mod-severe TR Continue monitor in telemetry 03/30 Continue PT/OT Fall precaution no further episode of syncope while in the hospital no arrhythmia on tele monitor Starting on NS at 80ml Norvasc d/c and metoprolol decrease to 12.5 mg Continue monitor ANEMIA Baseline hgb 8.5 - 9.0 Hgb 8.8 today Likely due to CKD; has had positive FOBT however due to patient's advanced age, EGD and colonoscopy were deferred Continue monitor cbc CKD STAGE III Baseline creat runs in the high 1's - low 2's Creatine on admission 2.1, increase to 2.3 today Avoid nephrotoxic agents Continue monitor HYPONATREMIA Na on admission 132 improved to 134 today Nephrology on board Continue IVF will monitor for signs of overload continue monitor ABNORMAL TSH TSH elevated to 5.9 with normal free T4 Check TSH in 1 month PFO Noted on recent echo ASA not given due to anemia / positive FOBT HTN Orthostatic BP present Norvasc discontinued and metoprolol decreased to 12.5 mg Will monitor BP closely Stable DM TYPE I Hgba1C 5.7 09/2016 Continue Lantus + SSI DVT PROPHYLAXIS SCDs due to anemia CODE STATUS DNR DISPOSITION Continue monitor in tele Consultants: Nephrology Current Inpatient Medications: Current Inpatient Medications Medications (Trade) Dose Ordered Sig/Ruebn Route Start Time Stop Time Status Last Admin Dose Admin Acetaminophen (Tylenol Tab) 650 mg Q4H PRN PO 03/28/17 13:45 04/27/17 13:44 03/28/17 23:42 325 MG Ondansetron HCl (Zofran Inj) 4 mg Q6H PRN IV 03/28/17 13:45 04/27/17 13:44 Miscellaneous (Iv Fluids Completed) 1 ea PRN PRN N/A 03/28/17 13:45 03/28/18 13:44 Insulin Aspart (novoLOG ASPART) SLIDING SCALE If C... ACHS SC 03/28/17 16:00 04/27/17 15:59 03/30/17 12:19 2 UNITS Glucose (Glucose 40% Gel) 15-30 GRAMS 15 GRAMS... UD PRN PO 03/28/17 14:00 04/27/17 13:59 Glucose (Glucose Chew Tab) 4-8 Tablets 4 Tabl... UD PRN PO 03/28/17 14:00 04/27/17 13:59 Dextrose (Dextrose 50% 50ML Syringe) 25-50ML OF 50% DW IV FOR... UD PRN IV 03/28/17 14:00 04/27/17 13:59 Glucagon (Glucagon Inj) 1 mg UD PRN SQ 03/28/17 14:00 04/27/17 13:59 Docusate Sodium (coLACE CAP) 100 mg BID PO 03/28/17 21:00 04/27/17 20:59 03/30/17 07:56 100 MG Insulin Glargine (Lantus Solostar Pen) 5 units QAM SC 03/29/17 09:00 04/28/17 08:59 03/30/17 07:59 5 UNITS Polyethylene (Miralax Powder Packet) 17 gm QAM PO 03/29/17 09:00 04/28/17 08:59 03/30/17 07:57 17 GM Senna (Senokot Tab) 8.6 mg DAILY PO 03/29/17 09:00 04/28/17 08:59 03/30/17 07:56 8.6 MG Non-Formulary Medication (Non-Formulary Patient'S Own Med) 2 ea TIDM PO 03/29/17 08:00 04/28/17 07:59 03/30/17 12:16 2 EA Non-Formulary Medication (Non-Formulary Patient'S Own Med) 2 ea PRN PRN PO 03/28/17 18:45 04/27/17 18:44 Metoprolol Tartrate (Lopressor Tab) 12.5 mg BID PO 03/30/17 21:00 04/27/17 20:59 Sodium Chloride 1,000 ml @ 80 mls/hr [id number] IV 03/30/17 10:00 04/29/17 09:59 03/30/17 10:18 80 MLS/HR
[2017-03-31] VITALS (7 sets, daily range): BP systolic 146–181; BP diastolic 70–86; PULSE 66–81; TEMP 36.3–36.7; O2SAT 96–98
[2017-03-31 06:37] LABS: BUN/CREATININE RATIO 27.9 (10-20); CALCIUM 8.4 mg/dl (8.5-10.1); CREATININE 2.2 mg/dl (0.60-1.40); POTASSIUM 4.5 mmol/L (3.5-5.1)
[2017-03-31] MEDS: ZENPEP PO SCH ×3 (07:47→17:12)
[2017-03-31] MEDS: METOPROLOL TARTRATE 25 MG TAB PO SCH ×2 (07:48→21:02)
[2017-03-31] MEDS: DOCUSATE SODIUM 100 MG CAP PO SCH ×2 (07:48→21:03)
[2017-03-31] MEDS: SENNA 8.6 MG TAB PO SCH (07:49)
[2017-03-31] MEDS: POLYETHYLENE (MIRALAX) 17 GM PACK PO SCH (07:49)
[2017-03-31] MEDS: INSULIN GLARGINE SOLOSTAR 100 UNITS/ML 3 ML PEN SC SCH (07:52)
[2017-03-31] MEDS: INSULIN ASPART 100 UNITS/ML 3 ML PEN SC SCH ×5 (08:00→21:00)
[2017-03-31] MEDS ORDERED: AMLODIPINE BESYLATE 5 MG TAB PO SCH (09:00)
--- NOTE | 2017-03-31 09:05 | Nephrology Progress Note ---
Nephrology Progress Note Date of Service: Mar 31, 2017. Subjective 87 yo male with orthostasis in the setting of hyponatremia and ckd stage 4 both of which are stable. giving iv fluids yesterday and stopped his norvasc and lowered his metoprolol yesterday. this morning, orthostasis has improved however laying blood pressure is elevated. Objective Date Time Temp Pulse Resp B/P (MAP) Pulse Ox O2 Delivery O2 Flow Rate FiO2 03/31/17 07:32 36.6 71 18 175/86 (115) 97 Room Air 160/84 (109) 153/82 (105) 03/31/17 04:00 Room Air 03/31/17 03:42 36.3 79 20 153/75 (101) 96 Room Air 03/30/17 23:59 Room Air 03/30/17 23:02 36.8 82 20 116/62 (80) 95 Room Air 84 113/70 (84) 84 99/46 (63) 03/30/17 21:00 105 127/78 (94) 03/30/17 20:00 Room Air 03/30/17 19:27 36.9 102 20 124/80 (95) 96 Room Air 03/30/17 16:00 Room Air 03/30/17 15:09 37.1 89 18 130/75 (93) 96 Room Air 03/30/17 12:00 Room Air 03/30/17 11:35 36.6 76 18 141/74 (96) 95 Room Air 03/30/17 09:12 36.2 74 18 145/73 (97) 94 Room Air 129/64 (85) 89/45 (60) Physical Exam: General-aaox3 Eyes-no scleral icterus ENT-mmm Neck-supple Lungs-clear Heart-regular Abdomen-bs+ s/nt/nd Extremities-no c/c/e Neuro-nonfocal Current Inpatient Medications Medications (Trade) Dose Ordered Sig/Ruben Route Start Time Stop Time Status Last Admin Dose Admin Acetaminophen (Tylenol Tab) 650 mg Q4H PRN PO 03/28/17 13:45 04/27/17 13:44 03/28/17 23:42 325 MG Ondansetron HCl (Zofran Inj) 4 mg Q6H PRN IV 03/28/17 13:45 04/27/17 13:44 Miscellaneous (Iv Fluids Completed) 1 ea PRN PRN N/A 03/28/17 13:45 03/28/18 13:44 Insulin Aspart (novoLOG ASPART) SLIDING SCALE If C... ACHS SC 03/28/17 16:00 04/27/17 15:59 03/30/17 21:12 1 UNITS Glucose (Glucose 40% Gel) 15-30 GRAMS 15 GRAMS... UD PRN PO 03/28/17 14:00 04/27/17 13:59 Glucose (Glucose Chew Tab) 4-8 Tablets 4 Tabl... UD PRN PO 03/28/17 14:00 04/27/17 13:59 Dextrose (Dextrose 50% 50ML Syringe) 25-50ML OF 50% DW IV FOR... UD PRN IV 03/28/17 14:00 04/27/17 13:59 Glucagon (Glucagon Inj) 1 mg UD PRN SQ 03/28/17 14:00 04/27/17 13:59 Docusate Sodium (coLACE CAP) 100 mg BID PO 03/28/17 21:00 04/27/17 20:59 03/31/17 07:48 100 MG Insulin Glargine (Lantus Solostar Pen) 5 units QAM SC 03/29/17 09:00 04/28/17 08:59 03/31/17 07:52 5 UNITS Polyethylene (Miralax Powder Packet) 17 gm QAM PO 03/29/17 09:00 04/28/17 08:59 03/31/17 07:49 17 GM Senna (Senokot Tab) 8.6 mg DAILY PO 03/29/17 09:00 04/28/17 08:59 03/31/17 07:49 8.6 MG Non-Formulary Medication (Non-Formulary Patient'S Own Med) 2 ea TIDM PO 03/29/17 08:00 04/28/17 07:59 03/31/17 07:47 2 EA Non-Formulary Medication (Non-Formulary Patient'S Own Med) 2 ea PRN PRN PO 03/28/17 18:45 04/27/17 18:44 Metoprolol Tartrate (Lopressor Tab) 12.5 mg BID PO 03/30/17 21:00 04/27/17 20:59 03/31/17 07:48 12.5 MG Last 24 Hours Test 03/30/17 11:12 03/30/17 11:47 03/30/17 16:19 03/30/17 19:50 Bedside Glucose 162 mg/dl 183 mg/dl 113 mg/dl 213 mg/dl Test 03/31/17 05:32 03/31/17 07:41 Sodium Level 137 mmol/L Potassium Level 4.5 mmol/L Chloride Level 107 mmol/L Carbon Dioxide Level 24 mmol/L Anion Gap 6.0 mmol/L Blood Urea Nitrogen 61 mg/dl Creatinine 2.20 mg/dl Est Creatinine Clear Calc Drug Dose 17.7 ml/min Estimated GFR () 30.1 Estimated GFR (Non- 26.0 BUN/Creatinine Ratio 27.9 Random Glucose 101 mg/dl Calcium Level 8.4 mg/dl Bedside Glucose 104 mg/dl Assessment & Plan hyponatremia-pt with chronic hyponatremia treated with fluid restriction at home and sodium levels are stable here in the hospital. CKD stage 4-creatinine usually in the low 2s and stable. Orthostatic hypotension-improved with hydration and lowering of bp meds. now laying bp too high. will stop the iv fluids and increase the metoprolol back to 25mg po bid. observe for another 24 hours. if bp stable tomorrow, ok to discharge. would recommend a bp check this week prior to going to [place] to see if we need to restart the norvasc at 2.5mg a day.
--- NOTE | 2017-03-31 17:20 | Progress Note ---
Medicine Progress Note Date & Time of Visit: Mar 31, 2017 at 09:07. Subjective Pt was seen and examined Lying in bed with no distress Pt said that he feels fine He said that he does not have any urinary symptoms Denies any chest pain, palpitation, dysuria, fever and SOB Objective Last 8 Hrs Date Time Temp Pulse Resp B/P (MAP) Pulse Ox O2 Delivery O2 Flow Rate FiO2 03/31/17 16:46 36.7 68 18 176/86 (116) 96 Room Air 148/76 (100) 148/80 (102) 03/31/17 16:10 Room Air 03/31/17 15:26 36.4 69 18 146/70 (95) 96 Room Air 03/31/17 12:00 Room Air 03/31/17 11:37 36.3 66 18 157/81 (106) 96 Room Air Physical Exam: General- No acute distress Head- atraumatic Eyes- PERRL, EOMI ENT- oropharynx clear Neck- supple, no JVD Lungs- clear to auscultation Heart- regular rhythm, +systolic murmur Abdomen- normal bowel sounds, soft Extremities- no calf tenderness Neuro- alert, oriented, PERRL, EOMI; no facial palsy Skin- warm & dry Laboratory Results: Last 24 Hours Test 03/30/17 19:50 03/31/17 05:32 03/31/17 07:41 03/31/17 11:50 Bedside Glucose 213 mg/dl 104 mg/dl 140 mg/dl Sodium Level 137 mmol/L Potassium Level 4.5 mmol/L Chloride Level 107 mmol/L Carbon Dioxide Level 24 mmol/L Anion Gap 6.0 mmol/L Blood Urea Nitrogen 61 mg/dl Creatinine 2.20 mg/dl Est Creatinine Clear Calc Drug Dose 17.7 ml/min Estimated GFR () 30.1 Estimated GFR (Non- 26.0 BUN/Creatinine Ratio 27.9 Random Glucose 101 mg/dl Calcium Level 8.4 mg/dl Test 03/31/17 16:33 Bedside Glucose 161 mg/dl Assessment & Plan SYNCOPE had 3 syncopal events at home CT head was negative for acute finding Positive for orthostatic BP Positive related to hypovolemia from fluid restriction EKG showed no acute ischemic changes No focal neuro deficit on exam Received 500 ml IVL Telemonitor showed no arrhythmia activity Consider to decrease BP med if continue Last outpatient echo 02/13/17 - PFO noted, mild aortic stenosis, mild aortic regurgitation, moderate MR, mod-severe TR Continue monitor in telemetry 03/31 Continue PT/OT Fall precaution no further episode of syncope while in the hospital no arrhythmia on tele monitor D/C IVF Norvasc d/c yesterday Metoprolol increase back to 25mg Continue monitor ANEMIA Baseline hgb 8.5 - 9.0 Hgb 8.8 today Likely due to CKD; has had positive FOBT however due to patient's advanced age, EGD and colonoscopy were deferred Continue monitor cbc CKD STAGE III Baseline creat runs in the high 1's - low 2's Creatine on admission 2.1, increase to 2.2 today Avoid nephrotoxic agents Continue monitor ABNORMAL UA Asymptomatic UA showed trace leukocytes urine cx positive for coag negative staph with 30,000 colonies NO Leukocytosis and afebrile No abx given continue monitor check cbc HYPONATREMIA Na on admission 137 improved to 134 today Nephrology on board D/C IVF monitor for signs of overload continue monitor ABNORMAL TSH TSH elevated to 5.9 with normal free T4 Check TSH in 1 month PFO Noted on recent echo ASA not given due to anemia / positive FOBT HTN Orthostatic BP present Norvasc discontinued yesterday BP starting to elevate Metoprolol increased back to 25mg If BP high, will start Norvasc 2.5 mg Continue monitor BP closely DM TYPE I Hgba1C 5.7 09/2016 Continue Lantus + SSI DVT PROPHYLAXIS SCDs due to anemia CODE STATUS DNR DISPOSITION Continue monitor in tele Consultants: Nephrology Current Inpatient Medications: Current Inpatient Medications Medications (Trade) Dose Ordered Sig/Ruben Route Start Time Stop Time Status Last Admin Dose Admin Acetaminophen (Tylenol Tab) 650 mg Q4H PRN PO 03/28/17 13:45 04/27/17 13:44 03/28/17 23:42 325 MG Ondansetron HCl (Zofran Inj) 4 mg Q6H PRN IV 03/28/17 13:45 04/27/17 13:44 Miscellaneous (Iv Fluids Completed) 1 ea PRN PRN N/A 03/28/17 13:45 03/28/18 13:44 Insulin Aspart (novoLOG ASPART) SLIDING SCALE If C... ACHS SC 03/28/17 16:00 04/27/17 15:59 03/30/17 21:12 1 UNITS Glucose (Glucose 40% Gel) 15-30 GRAMS 15 GRAMS... UD PRN PO 03/28/17 14:00 04/27/17 13:59 Glucose (Glucose Chew Tab) 4-8 Tablets 4 Tabl... UD PRN PO 03/28/17 14:00 04/27/17 13:59 Dextrose (Dextrose 50% 50ML Syringe) 25-50ML OF 50% DW IV FOR... UD PRN IV 03/28/17 14:00 04/27/17 13:59 Glucagon (Glucagon Inj) 1 mg UD PRN SQ 03/28/17 14:00 04/27/17 13:59 Docusate Sodium (coLACE CAP) 100 mg BID PO 03/28/17 21:00 04/27/17 20:59 03/31/17 07:48 100 MG Insulin Glargine (Lantus Solostar Pen) 5 units QAM SC 03/29/17 09:00 04/28/17 08:59 03/31/17 07:52 5 UNITS Polyethylene (Miralax Powder Packet) 17 gm QAM PO 03/29/17 09:00 04/28/17 08:59 03/31/17 07:49 17 GM Senna (Senokot Tab) 8.6 mg DAILY PO 03/29/17 09:00 04/28/17 08:59 03/31/17 07:49 8.6 MG Non-Formulary Medication (Non-Formulary Patient'S Own Med) 2 ea TIDM PO 03/29/17 08:00 04/28/17 07:59 03/31/17 12:26 2 EA Non-Formulary Medication (Non-Formulary Patient'S Own Med) 2 ea PRN PRN PO 03/28/17 18:45 04/27/17 18:44 Metoprolol Tartrate (Lopressor Tab) 25 mg BID PO 03/31/17 21:00 04/27/17 20:59
[2017-04-01] VITALS (7 sets, daily range): BP systolic 108–180; BP diastolic 71–87; PULSE 64–91; TEMP 36.3–36.7; O2SAT 96–98
[2017-04-01 06:30] LABS: HEMATOCRIT 27.4 % (42-52); MEAN CELL VOLUME 87.5 fL (80-100); MEAN CORPUSCULAR HEMOGLOBIN 28.8 pg (25-34); MEAN CORPUSCULAR HGB CONC 32.8 g/dl (32-36); MEAN PLATELET VOLUME 9.6 fL (7.4-10.4); PLATELET COUNT 259 K/uL (130-400); RED BLOOD COUNT 3.13 M/uL (4.7-6.1)
[2017-04-01] MEDS: INSULIN ASPART 100 UNITS/ML 3 ML PEN SC SCH ×2 (06:30→11:00)
[2017-04-01 06:52] LABS: BUN/CREATININE RATIO 31.3 (10-20); CALCIUM 8.4 mg/dl (8.5-10.1); CREATININE 1.87 mg/dl (0.60-1.40); POTASSIUM 4.2 mmol/L (3.5-5.1)
[2017-04-01] MEDS: ZENPEP PO SCH ×2 (08:06→12:22)
[2017-04-01] MEDS: DOCUSATE SODIUM 100 MG CAP PO SCH (08:08)
[2017-04-01] MEDS: POLYETHYLENE (MIRALAX) 17 GM PACK PO SCH (08:08)
[2017-04-01] MEDS: SENNA 8.6 MG TAB PO SCH (08:09)
[2017-04-01] MEDS: METOPROLOL TARTRATE 25 MG TAB PO SCH (08:09)
[2017-04-01] MEDS: INSULIN GLARGINE SOLOSTAR 100 UNITS/ML 3 ML PEN SC SCH (08:14)
--- NOTE | 2017-04-01 12:59 | Progress Note ---
Medicine Progress Note Date & Time of Visit: Apr 01, 2017 at 12:39. Subjective Pt was seen and examined Lying in bed with no distress with Family at bedside Pt said that he feels fine He denies any chest pain, palpitation, dizziness and SOB Objective Last 8 Hrs Date Time Temp Pulse Resp B/P (MAP) Pulse Ox O2 Delivery O2 Flow Rate FiO2 04/01/17 12:00 36.3 64 18 154/84 (107) 98 Room Air 04/01/17 08:00 97 Room Air 04/01/17 07:03 36.7 91 20 145/87 (106) 97 Room Air 135/85 (102) 108/71 (83) Physical Exam: General- No acute distress Head- atraumatic Eyes- PERRL, EOMI ENT- oropharynx clear Neck- supple, no JVD Lungs- clear to auscultation Heart- regular rhythm, +systolic murmur Abdomen- normal bowel sounds, soft Extremities- no calf tenderness Neuro- alert, oriented, PERRL, EOMI; no facial palsy Skin- warm & dry Laboratory Results: Last 24 Hours Test 03/31/17 16:33 03/31/17 19:59 04/01/17 06:08 04/01/17 07:23 Bedside Glucose 161 mg/dl 173 mg/dl 131 mg/dl White Blood Count 9.20 K/uL Red Blood Count 3.13 M/uL Hemoglobin 9.0 g/dL Hematocrit 27.4 % Mean Corpuscular Volume 87.5 fL Mean Corpuscular Hemoglobin 28.8 pg Mean Corpuscular Hemoglobin Concent 32.8 g/dl RDW Standard Deviation 42.4 fL RDW Coefficient of Variation 13.2 % Platelet Count 259 K/uL Mean Platelet Volume 9.6 fL Sodium Level 135 mmol/L Potassium Level 4.2 mmol/L Chloride Level 103 mmol/L Carbon Dioxide Level 24 mmol/L Anion Gap 7.0 mmol/L Blood Urea Nitrogen 59 mg/dl Creatinine 1.87 mg/dl Est Creatinine Clear Calc Drug Dose 21.1 ml/min Estimated GFR () 36.6 Estimated GFR (Non- 31.6 BUN/Creatinine Ratio 31.3 Random Glucose 119 mg/dl Calcium Level 8.4 mg/dl Test 04/01/17 11:50 Bedside Glucose 136 mg/dl Assessment & Plan SYNCOPE had 3 syncopal events at home CT head was negative for acute finding Positive for orthostatic BP Positive related to hypovolemia from fluid restriction EKG showed no acute ischemic changes No focal neuro deficit on exam Received 500 ml IVL Telemonitor showed no arrhythmia activity Consider to decrease BP med if continue Last outpatient echo 02/13/17 - PFO noted, mild aortic stenosis, mild aortic regurgitation, moderate MR, mod-severe TR Continue monitor in telemetry 03/31 Continue PT/OT Fall precaution no further episode of syncope while in the hospital no arrhythmia on tele monitor D/C IVF Norvasc d/c yesterday Metoprolol increase back to 25mg Continue monitor 04/01 Continue metoprolol 25 mg BID Hold Norvasc for now If BP high, can start on Norvasc 2.5 mg daily Has an appointment on Sat with PCP Continue monitor BP at home ANEMIA Baseline hgb 8.5 - 9.0 Hgb 9 today Likely due to CKD; has had positive FOBT however due to patient's advanced age, EGD and colonoscopy were deferred Continue monitor cbc CKD STAGE III Baseline creat runs in the high 1's - low 2's Creatine on admission 2.1, increase to 1.8 today Avoid nephrotoxic agents Continue monitor ABNORMAL UA Asymptomatic UA showed trace leukocytes urine cx positive for coag negative staph with 30,000 colonies NO Leukocytosis and afebrile No abx given continue monitor check cbc HYPONATREMIA Na on admission 137 improved to 135 today Nephrology on board D/C IVF monitor for signs of overload continue monitor ABNORMAL TSH TSH elevated to 5.9 with normal free T4 Check TSH in 1 month PFO Noted on recent echo ASA not given due to anemia / positive FOBT HTN Orthostatic BP present Norvasc discontinued yesterday BP starting to elevate Metoprolol increased back to 25mg If BP high, will start Norvasc 2.5 mg Continue monitor BP closely DM TYPE I Hgba1C 5.7 09/2016 Continue Lantus + SSI DVT PROPHYLAXIS SCDs due to anemia CODE STATUS DNR DISPOSITION Discharge home today Follow up appointment with your PCP Dr. Espino on 04/03 @ 12:45 [place] leave to [place] on [place] for the fall and winter. Continue monitor Blood pressure Consultants: Nephrology Current Inpatient Medications: Current Inpatient Medications Medications (Trade) Dose Ordered Sig/Ruben Route Start Time Stop Time Status Last Admin Dose Admin Acetaminophen (Tylenol Tab) 650 mg Q4H PRN PO 03/28/17 13:45 04/27/17 13:44 03/28/17 23:42 325 MG Ondansetron HCl (Zofran Inj) 4 mg Q6H PRN IV 03/28/17 13:45 04/27/17 13:44 Miscellaneous (Iv Fluids Completed) 1 ea PRN PRN N/A 03/28/17 13:45 03/28/18 13:44 Insulin Aspart (novoLOG ASPART) SLIDING SCALE If C... ACHS SC 03/28/17 16:00 04/27/17 15:59 03/31/17 17:15 2 UNITS Glucose (Glucose 40% Gel) 15-30 GRAMS 15 GRAMS... UD PRN PO 03/28/17 14:00 04/27/17 13:59 Glucose (Glucose Chew Tab) 4-8 Tablets 4 Tabl... UD PRN PO 03/28/17 14:00 04/27/17 13:59 Dextrose (Dextrose 50% 50ML Syringe) 25-50ML OF 50% DW IV FOR... UD PRN IV 03/28/17 14:00 04/27/17 13:59 Glucagon (Glucagon Inj) 1 mg UD PRN SQ 03/28/17 14:00 04/27/17 13:59 Docusate Sodium (coLACE CAP) 100 mg BID PO 03/28/17 21:00 04/27/17 20:59 04/01/17 08:08 100 MG Insulin Glargine (Lantus Solostar Pen) 5 units QAM SC 03/29/17 09:00 04/28/17 08:59 04/01/17 08:14 5 UNITS Polyethylene (Miralax Powder Packet) 17 gm QAM PO 03/29/17 09:00 04/28/17 08:59 04/01/17 08:08 17 GM Senna (Senokot Tab) 8.6 mg DAILY PO 03/29/17 09:00 04/28/17 08:59 03/31/17 07:49 8.6 MG Non-Formulary Medication (Non-Formulary Patient'S Own Med) 2 ea TIDM PO 03/29/17 08:00 04/28/17 07:59 04/01/17 12:22 2 EA Non-Formulary Medication (Non-Formulary Patient'S Own Med) 2 ea PRN PRN PO 03/28/17 18:45 04/27/17 18:44 Metoprolol Tartrate (Lopressor Tab) 25 mg BID PO 03/31/17 21:00 04/27/17 20:59 04/01/17 08:09 25 MG
[2017-04-01] MEDS ORDERED: METO25TA56 PO (13:01)
--- NOTE | 2017-04-01 13:13 | Discharge Instructions ---
Discharge Instructions Date of Service Apr 01, 2017. Admission Reason for Admission: Syncope Discharge Discharge Diagnosis / Problem: Syncope, CKD STAGE III, ANEMIA, HYPONATREMIA, ABNORMAL URINE Discharge Goals Goal(s): Decrease discomfort, Improve function, Improve disease control Activity Recommendations Activity Limitations: resume your previous activity ( TOLERATED ) . Instructions / Follow-Up Instructions / Follow-Up Follow up with your primary care provider Dr. Espino on 04/03 @ 12:45 PM Continue monitor Blood pressure and bring Blood pressure log to your next appointment with Dr. Espino Hold Norvasc for now ( Your physician can restart Norvasc at 2.5 mg if blood pressure starts to elevate) It is very important that you follow with a physician once you get to [place] to monitor your blood pressure. If you develop any urinary symptoms or fever, please notify your physician Avoid nephrotoxic agents Fall precaution Current Hospital Diet Patient's current hospital diet: Diabetes Type 2 Diet, AHA Diet (Heart Healthy) Discharge Diet Recommended Diet: AHA Diet (Heart Healthy), Diabetes Type 2 Diet Pending Studies Studies pending at discharge: no Medical Emergencies . Who to Call and When: Medical Emergencies: If at any time you feel your situation is an emergency, please call 911 immediately. . Non-Emergent Contact Non-Emergency issues call your: Primary Care Provider Call Non-Emergent contact if: you have a fever, you have any medication questions . . "Provider Documentation" section prepared by Lia Guzmán. . VTE Core Measure Inpt VTE Proph given/why not?: SCD's
--- NOTE | 2017-04-01 13:16 | Nephrology Progress Note ---
Nephrology Progress Note Date of Service: Apr 01, 2017. Subjective 87 yo male with orthostasis in the setting of hyponatremia and ckd stage 4 both of which are stable. pt lost some weight and temporarily stopped bp medications and gave fluids to help with orthostasis. increased metoprolol back to prior dosing but continue to hold the norvasc. Objective Date Time Temp Pulse Resp B/P (MAP) Pulse Ox O2 Delivery O2 Flow Rate FiO2 04/01/17 12:00 36.3 64 18 154/84 (107) 98 Room Air 04/01/17 08:00 97 Room Air 04/01/17 07:03 36.7 91 20 145/87 (106) 97 Room Air 135/85 (102) 108/71 (83) 04/01/17 04:07 36.6 81 20 144/80 (101) 96 Room Air 04/01/17 04:00 Room Air 04/01/17 00:37 67 166/83 (110) 04/01/17 00:06 36.6 77 18 180/86 (117) 98 Room Air 141/85 (103) 127/77 (94) 04/01/17 00:00 Room Air 03/31/17 21:00 81 181/86 (117) 03/31/17 20:06 Room Air 03/31/17 19:28 36.7 73 20 163/84 (110) 98 Room Air 03/31/17 16:46 36.7 68 18 176/86 (116) 96 Room Air 148/76 (100) 148/80 (102) 03/31/17 16:10 Room Air 03/31/17 15:26 36.4 69 18 146/70 (95) 96 Room Air Physical Exam: General-aaox3 Eyes-no scleral icterus ENT-mmm Neck-supple Lungs-cta Heart-regular Abdomen-bs+ s/nt/nd Extremities-no c/c/e Neuro-nonfocal Current Inpatient Medications Medications (Trade) Dose Ordered Sig/Ruben Route Start Time Stop Time Status Last Admin Dose Admin Acetaminophen (Tylenol Tab) 650 mg Q4H PRN PO 03/28/17 13:45 04/27/17 13:44 03/28/17 23:42 325 MG Ondansetron HCl (Zofran Inj) 4 mg Q6H PRN IV 03/28/17 13:45 04/27/17 13:44 Miscellaneous (Iv Fluids Completed) 1 ea PRN PRN N/A 03/28/17 13:45 03/28/18 13:44 Insulin Aspart (novoLOG ASPART) SLIDING SCALE If C... ACHS SC 03/28/17 16:00 04/27/17 15:59 03/31/17 17:15 2 UNITS Glucose (Glucose 40% Gel) 15-30 GRAMS 15 GRAMS... UD PRN PO 03/28/17 14:00 04/27/17 13:59 Glucose (Glucose Chew Tab) 4-8 Tablets 4 Tabl... UD PRN PO 03/28/17 14:00 04/27/17 13:59 Dextrose (Dextrose 50% 50ML Syringe) 25-50ML OF 50% DW IV FOR... UD PRN IV 03/28/17 14:00 04/27/17 13:59 Glucagon (Glucagon Inj) 1 mg UD PRN SQ 03/28/17 14:00 04/27/17 13:59 Docusate Sodium (coLACE CAP) 100 mg BID PO 03/28/17 21:00 04/27/17 20:59 04/01/17 08:08 100 MG Insulin Glargine (Lantus Solostar Pen) 5 units QAM SC 03/29/17 09:00 04/28/17 08:59 04/01/17 08:14 5 UNITS Polyethylene (Miralax Powder Packet) 17 gm QAM PO 03/29/17 09:00 04/28/17 08:59 04/01/17 08:08 17 GM Senna (Senokot Tab) 8.6 mg DAILY PO 03/29/17 09:00 04/28/17 08:59 03/31/17 07:49 8.6 MG Non-Formulary Medication (Non-Formulary Patient'S Own Med) 2 ea TIDM PO 03/29/17 08:00 04/28/17 07:59 04/01/17 12:22 2 EA Non-Formulary Medication (Non-Formulary Patient'S Own Med) 2 ea PRN PRN PO 03/28/17 18:45 04/27/17 18:44 Metoprolol Tartrate (Lopressor Tab) 25 mg BID PO 03/31/17 21:00 04/27/17 20:59 04/01/17 08:09 25 MG Last 24 Hours Test 03/31/17 16:33 03/31/17 19:59 04/01/17 06:08 04/01/17 07:23 Bedside Glucose 161 mg/dl 173 mg/dl 131 mg/dl White Blood Count 9.20 K/uL Red Blood Count 3.13 M/uL Hemoglobin 9.0 g/dL Hematocrit 27.4 % Mean Corpuscular Volume 87.5 fL Mean Corpuscular Hemoglobin 28.8 pg Mean Corpuscular Hemoglobin Concent 32.8 g/dl RDW Standard Deviation 42.4 fL RDW Coefficient of Variation 13.2 % Platelet Count 259 K/uL Mean Platelet Volume 9.6 fL Sodium Level 135 mmol/L Potassium Level 4.2 mmol/L Chloride Level 103 mmol/L Carbon Dioxide Level 24 mmol/L Anion Gap 7.0 mmol/L Blood Urea Nitrogen 59 mg/dl Creatinine 1.87 mg/dl Est Creatinine Clear Calc Drug Dose 21.1 ml/min Estimated GFR () 36.6 Estimated GFR (Non- 31.6 BUN/Creatinine Ratio 31.3 Random Glucose 119 mg/dl Calcium Level 8.4 mg/dl Test 04/01/17 11:50 Bedside Glucose 136 mg/dl Assessment & Plan hyponatremia-pt with chronic hyponatremia treated with fluid restriction at home and sodium levels are stable here in the hospital. CKD stage 4-creatinine usually in the low 2s and stable. Orthostatic hypotension-bp appears better on metoprolol alone. no more norvasc unless bp starts to trend back up. feel pt lost some weight and does not need as much bp medications. pt though fragile given his age and comorbidities and going to [place] soon. recommended to be seen soon when he gets to [place] nd to see pcp tomorrow.
--- NOTE | 2017-04-02 08:12 | Discharge Summary ---
Discharge Summary Date of Service Apr 02, 2017. Discharge Summary Admission Date: Mar 30, 2017 at 16:29 Discharge Date: Apr 01, 2017 Discharge Disposition: Home Principal Diagnosis: SYNCOPE Secondary Diagnoses/Problems: CKD STAGE III ANEMIA HYPONATREMIA ABNORMAL URINE ANEMIA ABNORMAL TSH HYPONATREMIA HTN DM Procedures: CT HEAD WITHOUT CONTRAST (CT) CLINICAL HISTORY: Head pain status post trauma COMPARISON STUDY: No previous studies for comparison. TECHNIQUE: Axial CT of the brain is performed from the vertex to the skull base. IV contrast was not administered for this examination. A dose lowering technique was utilized adhering to the principles of ALARA. CT DOSE: 776.86 mGycm FINDINGS: No intra or extra-axial mass lesions are visualized. There is no CT evidence of acute cortical infarction. There is no evidence of midline shift. There is no acute hemorrhage. No calvarial fractures are visualized. There are patchy white matter hypodensities likely on a small vessel basis. 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 There is a lacunar infarct in the right cerebellar hemisphere. There is no evidence of pathologic ventricular dilatation. There is left maxillary sinus because of thickening and left frontal sinus mucosal thickening IMPRESSION: No acute intracranial findings Electronically signed by: Aakash Mayo M.D. 03/28/2017 11:42 AM Dictated Date/Time: 03/28/2017 11:40 AM LEFT KNEE 2 VIEWS CLINICAL HISTORY: Left knee pain status post trauma COMPARISON: None. DISCUSSION: The bones are osteopenic. No fractures or dislocations are visualized. There are moderately extensive vascular calcifications. IMPRESSION: Osteopenia. No acute fractures. Electronically signed by: Aakash Mayo M.D. 03/28/2017 1:49 PM Dictated Date/Time: 03/28/2017 1:48 PM CHEST ONE VIEW PORTABLE CLINICAL HISTORY: Weakness. COMPARISON STUDY: 09/24/2016 FINDINGS: The cardiac and mediastinal contours remain stable. There is persistent aortic tortuosity/ectasia. There is mild interstitial thickening but no evidence of overt failure. There is no focal pulmonary consolidation. There are no pleural effusions.[ IMPRESSION: No active disease in the chest. Electronically signed by: Aakash Mayo M.D. 03/28/2017 10:44 AM Dictated Date/Time: 03/28/2017 10:44 AM Consultations: Nephrology Medication Reconciliation Continued Medications: Acetaminophen (Tylenol) 325 Mg Tab 650 MG PO Q8 PRN for Pain, TAB Artificial Saliva (Mouthkote) 1 Nellie Nellie 1 DOSE PO QPM PRN for PRN Docusate Sodium (Colace) 100 Mg Cap 100 MG PO BID for 30 Days, #60 CAP Insulin Aspart (Novolog Flexpen) 100 Units/Ml Inj 0 SQ UD per sliding scale Insulin Glargine (Lantus Solostar) 100 Unit/Ml Inj 5 UNITS SC QAM for 30 Days, #1 PEN Metoprolol Tartrate (Lopressor) (Lopressor) 25 Mg Tab 25 MG PO BID for 90 Days, #180 TAB (This prescription has been renewed) Ondansetron Hcl (Zofran) 4 Mg Tab 4 MG PO Q6 PRN for Nausea, TAB Pancrelipase (Lipase-Protease- (Zenpep) 1 Cap Cap 2 CAP PO TIDM and with snacks Polyethylene (Miralax) 17 Gm Pow 17 GM PO QAM Protein (Prosource) 1 Yuri Yuri 15 GM PO BID 2 SCOOPS Sennosides (Senna Lax) 8.6 Mg Tab 8.6 MG PO LUNCH Discontinued Medications: Amlodipine Besylate (Amlodipine Besylate) 5 Mg Tab 5 MG PO QAM for 30 Days, #30 TAB Admission Information HPI (per Admitting provider): 87 year old male who presents to the ED with multiple syncopal events at home. is at the bedside who provides some history. Patient reports that he woke up around 0300 to have a bowl of cereal, like he normally does. He was warming the milk up in the microwave and when he turned around her felt very warm and lightheaded. He reports he fell to his knees. He does not feel as though he lost coconsciousness but his reports he did for a few seconds. She checked his blood sugar and reports that it was normal. He then went back to bed. He got up a few hours later to go to the bathroom and had another similar event in the bathroom. He was took weak to stand on his own so his son-in-law was called to help him. While he was lifting him up, he passed out again. EMS was then called. Patient denies any loss of bowel or bladder function with these episodes. No associated shortness of breath, chest pain, or diaphoresis. He reports he has been feeling well recently. He actually went out last night to celebrate his birthday. He was placed on a fluid restriction 6 months ago by nephrology and denies any changes in his oral intake. He denies abdominal pain, nausea, vomiting, or diarrhea. No fever or chills. He denies urinary symptoms. In the ED, patient is found to have orthostatic BPs. Labs and EKG are unremarkable. Physical Exam (per Admitting): General Appearance: WD/WN, no apparent distress Head: normocephalic, atraumatic Eyes: normal inspection, PERRL, EOMI, sclerae normal ENT: hearing grossly normal, + pertinent finding (mucous membranes moist) Neck: supple, no JVD, trachea midline Respiratory/Chest: lungs clear, normal breath sounds, no respiratory distress Cardiovascular: regular rate, rhythm, no edema, normal peripheral pulses, + systolic murmur Abdomen/GI: normal bowel sounds, non tender, soft, no organomegaly Extremities/Musculoskelatal: normal inspection, no calf tenderness, normal capillary refill Neurologic/Psych: no motor/sensory deficits, alert, normal mood/affect, oriented x 3 Skin: normal color, warm/dry Hospital Course SYNCOPE had 3 syncopal events at home CT head was negative for acute finding Positive for orthostatic BP Positive related to hypovolemia from fluid restriction EKG showed no acute ischemic changes No focal neuro deficit on exam Received 500 ml IVL Telemonitor showed no arrhythmia activity Consider to decrease BP med if continue Last outpatient echo 02/13/17 - PFO noted, mild aortic stenosis, mild aortic regurgitation, moderate MR, mod-severe TR Continue monitor in telemetry 03/31 Continue PT/OT Fall precaution no further episode of syncope while in the hospital no arrhythmia on tele monitor D/C IVF Norvasc d/c yesterday Metoprolol increase back to 25mg Continue monitor 04/01 Continue metoprolol 25 mg BID Hold Norvasc for now If BP high, can start on Norvasc 2.5 mg daily Has an appointment on Sat with PCP Continue monitor BP at home ANEMIA Baseline hgb 8.5 - 9.0 Hgb 9 today Likely due to CKD; has had positive FOBT however due to patient's advanced age, EGD and colonoscopy were deferred Continue monitor cbc CKD STAGE III Baseline creat runs in the high 1's - low 2's Creatine on admission 2.1, increase to 1.8 today Avoid nephrotoxic agents Continue monitor ABNORMAL UA Asymptomatic UA showed trace leukocytes urine cx positive for coag negative staph with 30,000 colonies NO Leukocytosis and afebrile No abx given continue monitor check cbc HYPONATREMIA Na on admission 137 improved to 135 today Nephrology on board D/C IVF monitor for signs of overload continue monitor ABNORMAL TSH TSH elevated to 5.9 with normal free T4 Check TSH in 1 month PFO Noted on recent echo ASA not given due to anemia / positive FOBT HTN Orthostatic BP present Norvasc discontinued yesterday BP starting to elevate Metoprolol increased back to 25mg If BP high, will start Norvasc 2.5 mg Continue monitor BP closely DM TYPE I Hgba1C 5.7 09/2016 Continue Lantus + SSI DVT PROPHYLAXIS SCDs due to anemia CODE STATUS DNR DISPOSITION Discharge home today Follow up appointment with your PCP Dr. Espino on 04/03 @ 12:45 Will leave to [place] on Saturday for the fall and winter. Continue monitor Blood pressure Total time spent on discharge = 35 MINUTES This includes examination of the patient, discharge planning, medication reconciliation, and communication with other providers. Discharge Instructions Discharge Instructions Date of Service Apr 01, 2017. Admission Reason for Admission: Syncope Discharge Discharge Diagnosis / Problem: Syncope, CKD STAGE III, ANEMIA, HYPONATREMIA, ABNORMAL URINE Discharge Goals Goal(s): Decrease discomfort, Improve function, Improve disease control Activity Recommendations Activity Limitations: resume your previous activity ( TOLERATED ) . Instructions / Follow-Up Instructions / Follow-Up Follow up with your primary care provider Dr. Espino on 04/03 @ 12:45 PM Continue monitor Blood pressure and bring Blood pressure log to your next appointment with Dr. Espino Hold Norvasc for now ( Your physician can restart Norvasc at 2.5 mg if blood pressure starts to elevate) It is very important that you follow with a physician once you get to [place] to monitor your blood pressure. If you develop any urinary symptoms or fever, please notify your physician Avoid nephrotoxic agents Fall precaution Current Hospital Diet Patient's current hospital diet: Diabetes Type 2 Diet, AHA Diet (Heart Healthy) Discharge Diet Recommended Diet: AHA Diet (Heart Healthy), Diabetes Type 2 Diet Pending Studies Studies pending at discharge: no Medical Emergencies . Who to Call and When: Medical Emergencies: If at any time you feel your situation is an emergency, please call 911 immediately. . Non-Emergent Contact Non-Emergency issues call your: Primary Care Provider Call Non-Emergent contact if: you have a fever, you have any medication questions . . "Provider Documentation" section prepared by Lia Guzmán. . VTE Core Measure Inpt VTE Proph given/why not?: SCD's Additional Copies To Naldo Espino MD
== END 2017-04-01 14:15 | disposition home or self-care (01) | DRG 312 ==
LOC: EDBD 10:06 → C.EDA 10:06 → C.MED 13:39 → ENRESERV 14:09 → OBSVTOIN 03-30 16:29
PROVIDERS: ADMIT Hospitalist; ATTEND Internal Medicine
DX: R55 Syncope and collapse (principal); Q21.1 Atrial septal defect; N18.4 Chronic kidney disease, stage 4 (severe); E87.1 Hypo-osmolality and hyponatremia; E78.5 Hyperlipidemia, unspecified; D63.1 Anemia in chronic kidney disease; I12.9 Hypertensive chronic kidney disease with stage 1 through stage 4 chronic kidney disease, or unspecified chronic kidney disease; E10.22 Type 1 diabetes mellitus with diabetic chronic kidney disease; Z66 Do not resuscitate; Z82.49 Family history of ischemic heart disease and other diseases of the circulatory system; Z87.891 Personal history of nicotine dependence; Z79.4 Long term (current) use of insulin; Z86.711 Personal history of pulmonary embolism; E86.1 Hypovolemia; E07.89 Other specified disorders of thyroid; I95.1 Orthostatic hypotension; R82.79 Other abnormal findings on microbiological examination of urine

== ENCOUNTER 2017-04-29 08:48 | Emergency (ER) | payer BC ==
[~2017-04-29] VITALS: Ht 167.6 cm; Wt 54.3 kg
[~2017-04-29 08:48] MED LIST changes: -NRV5 PO; -NUTR-977 PO; -PANC1CAP17 PO; +PANC1CAP21 PO; +SENN1TAB80 PO; -SENN8.6T13 PO
[2017-04-29 08:55] VITALS: TEMP 36.4; Ht 167.6 cm; Wt 54.3 kg
[2017-04-29 09:01] VITALS: O2SAT 96
[2017-04-29 09:13] VITALS: BP 124/66; PULSE 94; O2SAT 99
--- NOTE | 2017-04-29 09:27 | EMERGENCY ROOM VISIT NOTE ---
History Report prepared by Kaylin: Cherelle Rolon Under the Supervision of: Dr. Min Collins D.O. 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 The patient woke up early this morning to go to the bathroom. He became weak, dizzy, and lightheaded. He felt like he was going to pass out. He states that this happens frequently especially when he stands up too quickly. He has learned to just sit down when this happens to him. He sat down today. He was able to stand back up with the help of his walker. His called the ambulance. The patient states that he is feeling fine now. He denies any symptoms at this time. He states that he feels fine now. Patient denies any recent melena or hematochezia. 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 A total of 10 systems reviewed and were otherwise negative. Past Medical & Surgical Medical Problems: (1) Anemia (2) CKD (chronic kidney disease), stage III (3) DM type 1 (diabetes mellitus, type 1) (4) H/O fracture of femur (5) HTN (hypertension) (6) Hyponatremia (7) Pulmonary embolism (8) Syncope Surgical Problems: (1) H/O exploratory laparotomy (2) S/P cholecystectomy (3) s/p Whipple Family History Heart disease Social History Smoking Status: Former Smoker Alcohol Use: none Marital Status: Housing Status: lives with family Occupation Status: retired Current/Historical Medications Scheduled Docusate Sodium (Colace), 100 MG PO BID Insulin Aspart (Novolog Flexpen), 0 SQ UD Insulin Glargine (Lantus Solostar), 5 UNITS SC QAM Metoprolol Tartrate (Lopressor) (Lopressor), 25 MG PO BID Pancrelipase (Lipase-Protease- (Zenpep), 2 CAP PO TIDM Polyethylene (Miralax), 17 GM PO QAM Protein (Prosource), 15 GM PO BID Sennosides (Senna Lax), 8.6 MG PO LUNCH Scheduled PRN Acetaminophen (Tylenol), 650 MG PO Q8 PRN for Pain Artificial Saliva (Mouthkote), 1 DOSE PO QPM PRN for PRN Ondansetron Hcl (Zofran), 4 MG PO Q6 PRN for Nausea Allergies Coded Allergies: Dextromethorphan (Verified Allergy, Unknown, RASH, 03/28/17) Guaifenesin (Verified Allergy, Unknown, RASH, 03/28/17) Physical Exam Vital Signs Date Time Temp Pulse Resp B/P (MAP) Pulse Ox O2 Delivery O2 Flow Rate FiO2 04/29/17 09:13 93 121/69 99 92 119/68 94 124/66 04/29/17 09:01 96 Room Air 04/29/17 08:55 36.4 96 18 131/70 96 Room Air 04/29/17 08:53 93 Physical Exam VITAL SIGNS: were reviewed as above. GENERAL:Non-toxic in appearance. SKIN: Warm dry and pink. HEAD: Normocephalic and atraumatic. OROPHARYNX: Is clear and moist NECK: Supple without lymphadenopathy or meningismus. LUNGS: clear. HEART: Regular rate and rhythm. ABDOMEN: Soft and nontender. EXTREMITIES: Warm and well perfused. NEUROLOGICALLY: Awake alert and oriented without focal deficit. Cranial nerves 2 -12 are intact. There is no pronator drift. Cerebellar testing is within normal limits. There is no nystagmus. There is no facial droop. Speech is clear. Vision is grossly normal. MUSCULOSKELETAL: Good muscle tone. No evidence of trauma. Medical Decision & Procedures ED Course 0849: Previous medical records were reviewed. The patient was evaluated in room B6. A complete history and physical examination was performed. 0914: I reassessed the patient at this time. He is feeling better and resting comfortably. I discussed the results and treatment plan with the patient and his daughter. I answered all pertaining questions that they had. They expressed understanding and verbalized agreement. The patient will be discharged home. Medical Decision Differentials include: Acute cardiac dysrhythmia, microinfarction, CVA, TIA, dehydration, anemia, electrolyte disturbance, seizure, trauma, intracranial bleeding, acute vascular catastrophe, thoracic aortic dissection, PE, abdominal aortic aneurysm rupture, and ectopic rupture. This is an 87-year-old male who presents to the ED with a chief complaint of a near-syncopal episode. The patient got up from sleeping. He states that he had to go to the bathroom. While and bleeding to the bathroom, he became lightheaded and sent to the ground. His states that it appeared as though he may have briefly passed out. The patient was able to get up and go to the bathroom without difficulty. Because of the patient's symptoms, the patient's called the ambulance. He was brought here. Orthostatic vital signs on initial evaluation by nurses reveals normal orthostatic vital signs. The patient's complete neurological and physical examination normal. Denies black tarry stools or blood in the stools. He denies any symptoms at this point. The patient has had similar symptoms in the past. He was evaluated for this. He is currently on Lopressor. They did decrease his Lopressor dose in half last month when this occurred. At this point, the patient is fine. He does not require additional workup. I did talk to the family about providing a bedside commode for the patient. His symptoms could be a combination of vasovagal related to micturition/defecation as well as Lopressor. They are going to talk to his doctor about his Lopressor dosing and to see if this is required. The patient is felt to be stable for discharge at this time. Medication Reconcilliation Current Medication List: was personally reviewed by me Blood Pressure Screening Patient's blood pressure: Normal blood pressure Impression Primary Impression: Near syncope Scribe Attestation The scribe's documentation has been prepared under my direction and personally reviewed by me in its entirety. I confirm that the note above accurately reflects all work, treatment, procedures, and medical decision making performed by me. Departure Information Dispostion Home / Self-Care Referrals Naldo Espino MD (PCP) Patient Instructions ED Near Syncope Vasovagal, My [facility] Additional Instructions Talk to your doctor about your Lopressor to see if this is necessary as this may be contributing to your symptoms. Follow-up with your doctor for further care and evaluation in 1-2 days. Return to the emergency department for worsening or new symptoms or any concerns. You have been examined and treated today on an emergency basis only. This is not a substitute for, or an effort to provide, complete comprehensive medical care. It is impossible to recognize and treat all injuries or illnesses in a single emergency department visit. It is therefore important that you follow up closely with your doctor. Call as soon as possible for an appointment.
== END 2017-04-29 09:40 | disposition home or self-care (01) ==
LOC: EDBD 08:48 → C.EDB 08:49
DX: R55 Syncope and collapse (principal); R53.1 Weakness; I12.9 Hypertensive chronic kidney disease with stage 1 through stage 4 chronic kidney disease, or unspecified chronic kidney disease; N18.3 Chronic kidney disease, stage 3 (moderate); E10.9 Type 1 diabetes mellitus without complications; Z79.899 Other long term (current) drug therapy; Z86.711 Personal history of pulmonary embolism; Z87.891 Personal history of nicotine dependence; Z82.49 Family history of ischemic heart disease and other diseases of the circulatory system

== ENCOUNTER 2018-12-04 10:23 | Inpatient (IN) ==
--- OUTSIDE RECORDS SUMMARY | 2018-12-04 10:26 | External Medical Summary | Continuity of Care Document ---
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 Kadi Saleh Start: 28-Feb-2010 Quantity: 28 Refills: 1 Procedures History of Leg Repair Status: Completed Immunizations Immunizations not documented Social History - Smoking Status Unknown if ever smoked Plan of Treatment Planned Observations Planned Goals not documented Results No Known Results Results not documented
[2018-12-04] MEDS ORDERED: SODIUM CHLORIDE 0.9% 500 ML IV SCH (10:45)
--- NOTE | 2018-12-04 11:13 | XRay Report ---
XR chest 1V portable HISTORY: 88 years-old Male near syncope COMPARISON: Chest radiograph 03/28/2017 TECHNIQUE: Portable AP view of the chest FINDINGS: Cardiomediastinal and hilar silhouettes are unchanged. Mitral annular calcifications noted. Calcifica tion of the thoracic aortic arch. Mild chronic interstitial coarsening with unchanged mild right demetria diaphragmatic elevation. No pneumothorax, pleural effusion, focal airspace consolidation or overt pul monary edema. Degenerative changes of the shoulders and spine. Partially imaged hardware about the pr oximal right humerus with subacute to chronic appearing mildly displaced fracture. Surgical clips pro ject over the upper abdomen. IMPRESSION: No acute process. The above report was generated using voice recognition software. It may contain grammatical, syntax o r spelling errors. Electronically signed by: Thiago Valero M.D. 12/04/2018 11:12 AM
[2018-12-04 11:15] LABS: Basophils # (auto) 0.02 K/uL (0-0.2); Basophils % (auto) 0.2 %; Eosinophils # (auto) 0.06 K/uL (0-0.5); Eosinophils % (auto) 0.6 %; Hematocrit (blood only) 24.1 % (42-52); Immature Granulocytes # (auto) 0.06 K/uL (0.00-0.02); Immature Granulocytes % (auto) 0.6 %; Lymphocytes # (auto) 1.89 K/uL (1.2-3.4); Lymphocytes % (auto) 20.1 %; Mean Corpuscular Hgb Conc 33.2 g/dL (32-36); Mean Corpuscular Volume 89.9 fL (80-100); Mean Platelet Volume 9.9 fL (7.4-10.4); Monocytes # (auto) 0.73 K/uL (0.11-0.59); Monocytes % (auto) 7.8 %; Neutrophils # (auto) 6.62 K/uL (1.4-6.5); Neutrophils % (auto) 70.7 %; Platelet Count 341 K/uL (130-400); RDW Coefficient of Variation 15.4 % (11.5-14.5); RDW Standard Deviation 50.4 fL (36.4-46.3); Red Blood Count 2.68 M/uL (4.7-6.1); White Blood Count 9.38 K/uL (4.8-10.8)
[2018-12-04 11:26] LABS: Partial Thromboplastin Ratio 1.3; Partial Thromboplastin Time 35.4 Seconds (21.0-31.0)
[2018-12-04 11:33] LABS: Alanine Aminotransferase 21 U/L (12-78); Albumin Level 2.8 gm/dl (3.4-5.0); Aspartate Aminotransferase 22 U/L (15-37); BUN Creatinine Ratio 39.7 (10-20); Blood Urea Nitrogen 55 mg/dl (7-18); Calcium 8.4 mg/dl (8.5-10.1); Carbon Dioxide 20 mmol/L (21-32); Chloride 99 mmol/L (98-107); Creatinine Clr Calc Pharmacy 29.8 ml/min; Est GFR (African American) 52.5; Est GFR (Non-African American) 45.3; Glucose 158 mg/dl (70-99); Potassium 4.2 mmol/L (3.5-5.1); Sodium 127 mmol/L (136-145)
[2018-12-04 11:43] LABS: Albumin Globulin Ratio 0.7 (0.9-2); Alkaline Phosphatase 173 U/L (45-117); Bilirubin,Total 0.2 mg/dl (0.2-1); Globulin 3.9 gm/dl (2.5-4.0); Total Protein 6.7 gm/dl (6.4-8.2); Troponin I < 0.015 ng/ml (0-0.045)
[2018-12-04] MEDS ORDERED: OPTIRAY 320 125ml IV PRN (12:29)
--- NOTE | 2018-12-04 12:50 | CT Scan Report ---
CT angio chest PE protocol CT DOSE: 217.59 mGy.cm HISTORY: 88 years-old Male with SOB recent surg. Acute shortness of breath TECHNIQUE: Multiple CTA images of the chest were obtained after the intravenous administration of 88 ml Optiray 320. Coronal and sagittal MIPS were obtained from the axial data set and were submitted f or review. All measurements were obtained according to NASCET criteria. A dose lowering technique wa s utilized adhering to the principles of ALARA. COMPARISON: Chest radiograph of same day, CTA chest 09/24/2016 FINDINGS: CTA: Streak artifact from positioning of the patient's upper extremities limits the study. Mild cardiomega ly. Extensive coronary arterial with mitral and aortic annular calcifications are noted. Limited eval uation of the left heart structures and thoracic aorta secondary to contrast bolus timing. No thoraci c aortic aneurysm or dissection identified. Extensive mixed plaque formation of the thoracic aorta an d proximal great vessels. Decreased contrast opacification of the subclavian arteries may be secondar y to contrast bolus timing. The pulmonary arterial tree is opacified to level of the proximal subsegm ental branches and demonstrates no focal filling defects to suggest pulmonary thromboembolic disease. CT CHEST: No focal thyroid nodule identified. Nonspecific mildly enlarged subcarinal lymph node, 1.5 x 1.2 cm. Mildly prominent hilar lymph nodes are seen measuring up to 9 mm. Trace pleural effusions. No pneumot horax. Mild emphysema. Bilateral bronchial wall thickening noted with bilateral groundglass densities suggestive of atelectasis. Mild biapical pleural-parenchymal scarring. No overt pulmonary edema or f ocal airspace consolidation typical for pneumonia. Tracheobronchial secretions are noted with mild bi basilar mucous plugging. There is gaseous distention of the esophagus. Partially imaged pelvis fragments of the proximal gastr ic lumen. Soft tissues are within normal limits. Degenerative changes of the shoulders and spine. Pos toperative changes of the right shoulder, partially imaged. 25% anterior endplate compression deformi ty at T1 has progressed from comparison. Unchanged 30% anterior endplate compression deformity at T9. IMPRESSION: 1. No evidence of pulmonary thromboembolic disease. 2. Trace pleural effusions with subsegmental bibasilar atelectasis. 3. Mild emphysema with findings suggestive of bronchitis. Mild associated tracheobronchial secretions with mild mucous plugging. 4. Remote T9 compression deformity. 25% anterior endplate compression deformity at T1 has progressed from 09/24/2016 without retropulsion. Correlate clinically. 5. Additional findings as above. The above report was generated using voice recognition software. It may contain grammatical, syntax o r spelling errors. Electronically signed by: Thiago Valero M.D. 12/04/2018 12:48 PM
[2018-12-04 12:53] LABS: Appearance Urine Clear (Clear); Bilirubin Urine Negative (Negative); Blood Urine Negative (Negative); Color Urine Yellow; Glucose Urine UA Trace (Negative); Ketones Urine Negative (Negative); Leukocyte Esterase Urine Negative (Negative); Nitrite Urine Negative (Negative); Protein Urine Negative (Negative); Specific Gravity Urine 1.015 (1.000-1.030); Urobilinogen Urine Negative (Negative)
[2018-12-04] MEDS ORDERED: SODIUM CHLORIDE 0.9% 500 ML IV ONE (13:43)
[2018-12-04] MEDS ORDERED: ACETAMINOPHEN 325 MG TAB PO STA (14:58)
--- NOTE | 2018-12-04 15:23 | History & Physical Report ---
Date of Service December 04, 2018 Assessment & Plan (1) Orthostatic hypotension: This is an 88yo M with a PMH of orthostatic syncope, Type 1 diabetes, history of pancreatic cancer s/p Whipple in 2013, CKD 3 and hyponatremia who presents after near syncopal episodes. -History of orthostatic hypotension and syncope since 2017 -Recently instructed to increase fluid intake, lisinopril and amlodipine were discontinued - + orthostatic vitals despite fluid resuscitation -Also with history of SR with first-degree block, trifascicular block -Continue monitoring orthostatic vitals, gentle IV fluids, monitor on telemetry -May benefit from Midodrine? -Cardiology consult (2) Hyponatremia: -Initial sodium of 127 (baseline 135) -Given 1 L NSS bolus in ED, maintenance of NSS running at 80 mL/hour -Unable to obtain accurate serum and urine osm labwork -Likely hypovolemic hyponatremia -Sodium improved to 131 with IV fluids -Nephrology consult -Continue to monitor (3) CKD (chronic kidney disease), stage III: Kidney function at baseline -Continue to monitor (4) Anemia: Hgb of 8 today (baseline ~9) -H/o HEIDI on iron supplements -Has dark stool from iron so unable to assess for melena -Continue to monitor CBC (5) DM type 1 (diabetes mellitus, type 1): A1c pending -Hold home agents -SSI while in-patient -BSG AC HS DVT Ppx: SQ heparin due to h/o PE but may need to switch to SCDs if hgb decreases Code status: DNR per discussion with patient PCP: Srinivas Dispo: Admitted to telemetry. Discharge planning ordered. Patient seen in collaboration with Dr. Guzmán. Please see addendum. History of Present Illness Chief Complaint: Hyponatremia, near syncope Primary Care Provider: Naldo Espino MD This is an 88yo M with a PMH of orthostatic syncope, Type 1 diabetes, history of pancreatic cancer s/p Whipple in 2013, CKD 3 and hyponatremia who presents after near syncopal episodes. Patient is at [facility] following a shoulder and hip fracture that occurred from a fall in [place] this past October. Patient has history of syncopal events starting back in 2017. Has avoided drinking fluid in the past due to history of incontinence and therefore has suffered multiple syncopal events due to orthostasis. Recently establish care with Dr. Ackerman on November 19, during which visit he was encouraged to triple his fluid intake to 64 ounces and discontinue his lisinopril and amlodipine. At [facility], patient has been experiencing orthostatic hypotension, with shortness of breath and visual changes when he sits or stands. On 12/02/18, patient's sodium was noted to be 125 and he was started on sodium chloride tablets and given a liter of normal saline. Repeat sodium on 12/03/2018 is 129. Patient was supposed to be discharged tomorrow but instead was sent in for further evaluation of orthostatic syncope. Patient is asymptomatic at rest. + orthostatic BP today and for the past few days at [facility], per paperwork. Denies any lightheadedness, visual changes, chest pain, palpitations or shortness of breath. Eat small meals ever since Whipple surgery and has been tolerating them well. No nausea, vomiting or abdominal pain. Still does not have much fluid intake, per family at bedside. No dysuria, diarrhea or constipation. Allergies Allergy/AdvReac Type Severity Reaction Status Date / Time dextromethorphan Allergy Unknown RASH Verified 12/04/18 11:15 [email or web address] Allergy Unknown RASH Verified 12/04/18 11:15 Home Medications Home Medications Medication Instructions Recorded Confirmed Type acetaminophen [Acetaminophen Extra 500 mg PO Q4H PRN 12/04/18 12/04/18 History Strength] bisacodyl 10 mg TX DAILY PRN 12/04/18 12/04/18 History docusate sodium 100 mg PO BID PRN 12/04/18 12/04/18 History ferrous sulfate 325 mg PO BID 12/04/18 12/04/18 History heparin (porcine) 5,000 unit SUBCUT Q8H 12/04/18 12/04/18 History insulin aspart U-100 [Novolog 1 sliding scale dose SUBCUT ACHS 12/04/18 12/04/18 History U-100 Insulin aspart] insulin glargine [Lantus Solostar 7 unit SUBCUT QAM 12/04/18 12/04/18 History U-100 Insulin] lidocaine [Lidoderm] 2 patch TOPICAL QAM 12/04/18 12/04/18 History [id number] [Zenpep] 1 cap PO TIDM 12/04/18 12/04/18 History magnesium hydroxide [Milk Of 30 ml PO DAILY PRN 12/04/18 12/04/18 History Magnesia Concentrated] polyethylene glycol 3350 [Miralax] 17 g PO QAM 12/04/18 12/04/18 History sodium chloride 1,000 mg PO QAM 12/04/18 12/04/18 History Past Med/Surg History Medical History Pulmonary embolism (Chronic) "post op in 2013, completed Coumadin therapy" DM type 1 (diabetes mellitus, type 1) (Chronic) CKD (chronic kidney disease), stage III (Chronic) H/O fracture of femur (Chronic) "s/p internal fixation 10/2013" HTN (hypertension) (Chronic) Anemia (Chronic) Hyponatremia (Chronic) No pertinent family history Surgical History S/P cholecystectomy (Chronic) H/O exploratory laparotomy (Chronic) "for SBO" Family History Other No pertinent family history Social History Preferred Language: Occitan Communication Ability: Effective Visual Impairment: No Limitations Hearing Ability: Normal Pst Manager Required: No Beliefs That Will Affect Care: None Current Living Situation: Spouse Other Information That Helps Us Care for You: No Feels Safe at Home: Yes Safety Concerns: Feels Safe At This Time Smoking Status: Former smoker Do You Dip or Chew Tobacco: No Smoking End Date: quit about age 30 Second Hand Exposure: No Hx Alcohol Use: No Hx Substance Use: No Review of Systems Review of Systems: At least ten systems reviewed and negative except as noted in the HPI. Physical Exam Physical Exam: General Appearance: WD/WN, no apparent distress, elderly thin male, appears comfortable Head: normocephalic, atraumatic Eyes: normal inspection, PERRL, EOMI ENT: hearing grossly normal, pharynx normal (dry mucous membranes) Neck: supple, no JVD, no adenopathy Respiratory/Chest: lungs clear to auscultation. No wheezes, rales or rhonci. No respiratory distress or accessory muscle use Cardiovascular: regular rate, rhythm, systolic ejection murmur, normal peripheral pulses, no BLE edema Abdomen/GI: normal bowel sounds, soft, non-tender to palpation Extremities/Musculoskelatal: normal inspection, no calf tenderness, normal capillary refill, no pedal edema Neurologic/Psych: alert, normal mood/affect, oriented x 3 Skin: normal color, warm/dry, pale Results & Data Vital Signs (Past 12 Hours) Vital Signs Temp Pulse Pulse Resp BP BP Pulse Ox 12/04/18 14:46 90 14 149/70 H 97 12/04/18 12:35 87 16 126/66 12/04/18 11:26 75 18 124/68 98 12/04/18 10:32 36.7 C 82 16 117/68 99 Laboratory Results Short CBC 12/04/18 Range/Units 11:05 WBC 9.38 (4.8-10.8) K/uL Hgb 8.0 L (14.0-18.0) g/dL Hct 24.1 L (42-52) % Plt Count 341 (130-400) K/uL BMP 12/04/18 11:05 Sodium 127 L Potassium 4.2 Chloride 99 Carbon Dioxide 20 L BUN 55 H Creatinine 1.38 Glucose 158 H Calcium 8.4 L Cardiac Enzymes 12/04/18 Range/Units 11:05 Troponin I < 0.015 (0-0.045) ng/ml Liver Function 12/04/18 Range/Units 11:05 Total Bilirubin 0.2 (0.2-1) mg/dl AST 22 (15-37) U/L ALT 21 (12-78) U/L Alkaline Phosphatase 173 H (45-117) U/L Albumin 2.8 L (3.4-5.0) gm/dl Urine 12/04/18 Range/Units 12:30 Urine Color Yellow Urine Appearance Clear (Clear) Urine pH 5.0 (4.5-7.5) Ur Specific [place] 1.015 (1.000-1.030) Urine Protein Negative (Negative) Urine Glucose (UA) Trace H (Negative) Diagnostic Findings CXR: IMPRESSION: No acute process. Chest CTA: IMPRESSION: 1. No evidence of pulmonary thromboembolic disease. 2. Trace pleural effusions with subsegmental bibasilar atelectasis. 3. Mild emphysema with findings suggestive of bronchitis. Mild associated tracheobronchial secretions with mild mucous plugging. 4. Remote T9 compression deformity. 25% anterior endplate compression deformity at T1 has progressed from 09/24/2016 without retropulsion. Correlate clinically. 5. Additional findings as above. Supervising Physician Co-Signing Physician Notes Pt was seen and examined. Agreed with Araceli LOMBARDI exam, assessment and plan. 88yo M with a PMH of orthostatic syncope, Type 1 diabetes, history of pancreatic cancer s/p Whipple in 2013, CKD 3 and hyponatremia who presents after near syncopal episodes. Patient has been at [facility] for rehab shoulder and hip fracture that occurred from a fall in [place] in October. Pt had previous hospitalization for syncope due to orthostatic hypotension. he saw cardiology dr. Ackerman last month that recommended him to increase his fluid intake and to discontinue his blood pressure meds. He has been having episodes of orthostatic hypotension associated with SOB at [facility]. Hs Na level was 125 on 12/02 and improved to 129 on 12/03 after starting on salt tab. Sodium today 127 on admission. CTA chest showed no acute PE or infiltrate. Will give 1 L NS. Jorge check sodium and serum osmolarity. Will monitor BMP. Will consult nephrology for the hyponatremia. Will consult cardiology since he was seen by cardiology recently for orthostatic hypotension. Fall precaution. Please refer to Araceli LOMBARDI documentation for other problem. MD Arielle
[2018-12-04] MEDS ORDERED: DOCUSATE SODIUM 100 MG CAP PO PRN (16:14)
[2018-12-04] MEDS ORDERED: SODIUM CHLORIDE 0.9% 1000ML 1,000 ML IV SCH (16:30)
--- NOTE | 2018-12-04 16:39 | Emergency Department Note ---
Entered by Nola Quezada acting as a scribe for Alexandro Velazquez DO History of Present Illness General Chief complaint: Syncope Source: patient Mode of arrival: EMS Limitations: no limitations History of Present Illness Onset (ago): hour(s) (today) Location: head (global), upper extremity (global) and lower extremity (global) Pain Consistency: + other (episode) Maximum Pain Intensity: 0 Relieved By: + rest Exacerbated By: + movement Associated symptoms: + syncope and + other (The patient denies rhinorrhea and diarrhea.); no chest pain, no cough and no nausea/vomiting The patient is an 88 year old male with a history of PE, type 1 diabetes, CKD, cholecystectomy, and orthostatic hypertension who presents to the ED via EMS with complaints of an episode of syncope that onset today. The patient presents with his and daughter. Per nursing staff, the patient presents from [facility]. They state that he has been there for past month status post right hip and humeral head fracture secondary to a fall. Per [facility] staff, the patient experienced low blood pressure. The patient states that he lost consciousness. Upon arrival the patients systolic blood pressure was 107 and he is currently 113. The patient complains of shortness of breath with exertion that is alleviated with rest. The patient denies cough, rhinorrhea, nausea, vomiting, diarrhea, and chest pain. Home Medications Home Medications Medication Instructions Recorded Confirmed Type acetaminophen [Acetaminophen Extra 500 mg PO Q4H PRN 12/04/18 12/04/18 History Strength] bisacodyl 10 mg NM DAILY PRN 12/04/18 12/04/18 History docusate sodium 100 mg PO BID PRN 12/04/18 12/04/18 History ferrous sulfate 325 mg PO BID 12/04/18 12/04/18 History heparin (porcine) 5,000 unit SUBCUT Q8H 12/04/18 12/04/18 History insulin aspart U-100 [Novolog 1 sliding scale dose SUBCUT ACHS 12/04/18 12/04/18 History U-100 Insulin aspart] insulin glargine [Lantus Solostar 7 unit SUBCUT QAM 12/04/18 12/04/18 History U-100 Insulin] lidocaine [Lidoderm] 2 patch TOPICAL QAM 12/04/18 12/04/18 History [id number] [Zenpep] 1 cap PO TIDM 12/04/18 12/04/18 History magnesium hydroxide [Milk Of 30 ml PO DAILY PRN 12/04/18 12/04/18 History Magnesia Concentrated] polyethylene glycol 3350 [Miralax] 17 g PO QAM 12/04/18 12/04/18 History sodium chloride 1,000 mg PO QAM 12/04/18 12/04/18 History Allergies Allergy/AdvReac Type Severity Reaction Status Date / Time dextromethorphan Allergy Unknown RASH Verified 12/04/18 11:15 guaifenesin Allergy Unknown RASH Verified 12/04/18 11:15 Past Med/Surg History Medical History Pulmonary embolism (Chronic) "post op in 2013, completed Coumadin therapy" DM type 1 (diabetes mellitus, type 1) (Chronic) CKD (chronic kidney disease), stage III (Chronic) H/O fracture of femur (Chronic) "s/p internal fixation 10/2013" HTN (hypertension) (Chronic) Anemia (Chronic) Hyponatremia (Chronic) No pertinent family history Surgical History S/P cholecystectomy (Chronic) H/O exploratory laparotomy (Chronic) "for SBO" Family History Other No pertinent family history Social History Preferred Language: [place] Communication Ability: Effective Visual Impairment: No Limitations Hearing Ability: Normal Diaper Machine Tender Required: No Beliefs That Will Affect Care: None Current Living Situation: Spouse Other Information That Helps Us Care for You: No Feels Safe at Home: Yes Safety Concerns: Feels Safe At This Time Smoking Status: Former smoker Do You Dip or Chew Tobacco: No Smoking End Date: quit about age 30 Second Hand Exposure: No Hx Alcohol Use: No Hx Substance Use: No Review of Systems See HPI for pertinent positives & negatives. and A total of 10 systems reviewed and were otherwise negative Physical Exam Vital Signs Vital Signs - 24 hr 12/04/18 10:32 12/04/18 11:26 12/04/18 12:35 Temperature 36.7 C Temperature Source Oral Sepsis Recent Fever Within 48 Hours No Sepsis New/Unexplained Change in Mental Status No Sepsis Action Taken by Nursing No Action Required Pulse Rate - Lying Pulse Rate - Sitting Pulse Rate - Standing Pulse Rate 82 Pulse Rate [Apical] 75 87 Respiratory Rate 16 18 16 Respiratory Effort / Characteristics Respiratory Depth Respiratory Pattern Blood Pressure - Lying Blood Pressure - Sitting Blood Pressure- Standing Blood Pressure 117/68 Blood Pressure [Left Arm] 124/68 126/66 Blood Pressure Mean 84 Blood Pressure Mean [Left Arm] 86 86 Blood Pressure Position [Left Arm] Pulse Oximetry 99 98 Oxygen Delivery Method Room Air Room Air 12/04/18 13:32 12/04/18 14:46 12/04/18 15:04 Temperature Temperature Source Sepsis Recent Fever Within 48 Hours Sepsis New/Unexplained Change in Mental Status Sepsis Action Taken by Nursing Pulse Rate - Lying 93 H Pulse Rate - Sitting 92 H Pulse Rate - Standing 92 H Pulse Rate Pulse Rate [Apical] 90 Respiratory Rate 14 Respiratory Effort / Characteristics Non-Labored Spontaneous Respiratory Depth Normal Respiratory Pattern Regular Regular Blood Pressure - Lying 120/66 Blood Pressure - Sitting 116/62 Blood Pressure- Standing 67/38 L Blood Pressure Blood Pressure [Left Arm] 149/70 H Blood Pressure Mean Blood Pressure Mean [Left Arm] 96 Blood Pressure Position [Left Arm] Lying Pulse Oximetry 97 Oxygen Delivery Method Room Air Room Air GENERAL: Sitting up in bed, tachypneic, alert, chronically ill appearing. EYE EXAM: Normal conjunctiva. PERRL and EOM's grossly intact OROPHARYNX: no exudate, no erythema, lips, buccal mucosa, and tongue normal and mucous membranes are moist NECK: supple, no nuchal rigidity, no adenopathy, non-tender LUNGS: Clear to auscultation. Normal chest wall mechanics HEART: Positive systolic ejection murmur that radiates into the axilla. ABDOMEN: abdomen soft, non-tender, normo-active bowel sounds, no masses, no rebound or guarding. BACK: Back is symmetrical on inspection and there is no deformity, no midline tenderness, no CVA tenderness. SKIN: no rashes and no bruising UPPER EXTREMITIES: upper extremities are grossly normal. LOWER EXTREMITIES: No pitting edema. Calves are equal bilaterally. Incision on right hip is clean, dry, and intact. No drainage. NEURO EXAM: Normal sensorium, cranial nerves II-XII grossly intact, normal speech, no gross weakness of arms, no gross weakness of legs. Course 1034: Past medical records reviewed. The patient was evaluated in room B5. A complete history and physical examination was performed. 1342: The patient's pressure dropped to the 60s. He will be brought in. 1400: I reviewed the patient's case with Aarceli Peresist Paty hitchcock. She will evaluate the patient for further management. Consultations Consultation #1: 1400: I reviewed the patient's case with Araceli Glass. She will evaluate the patient for further management. Time: 14:00 Administered Medications Discontinued Medications Acetaminophen (Tylenol) 650 mg PO NOW STA Stop: 12/04/18 14:59 Last Admin: 12/04/18 15:02 Dose: 650 mg Documented by: [id number] Sodium Chloride (Nss) 500 mls @ 999 mls/hr IV .Q31M MARY ANN Stop: 12/04/18 11:15 Last Infusion: 12/04/18 11:50 Dose: 0 mls/hr Documented by: [id number] Admin: 12/04/18 11:20 Dose: 999 mls/hr Documented by: [id number] Sodium Chloride (Nss) 500 mls @ 999 mls/hr IV .Q31M ONE Stop: 12/04/18 14:13 Last Infusion: 12/04/18 16:16 Dose: 0 mls/hr Documented by: [id number] Admin: 12/04/18 14:52 Dose: 999 mls/hr Documented by: [id number] Ioversol (Optiray 320 125ml) 88 ml IV ONCE PRN PRN Reason: Interaction Checking Stop: 12/08/18 12:28 Last Admin: 12/04/18 12:29 Dose: 88 ml Documented by: [id number] Medical Decision Making Differential Diagnosis Differential diagnosis Vasovagal event, infection, hypoglycemia, electrolyte abnormalities, cardiac sources, intracerebral event, toxicologic, neurologic, as well as others etiologies were entertained. Medical Records Attestation: I reviewed the patient's medical records. Home Medications Current Medication List: was personally reviewed by me Laboratory Data Attestation: I reviewed the patient's lab results. Result diagrams: 12/04/18 11:05 12/04/18 11:05 Lab Results 12/04/18 12/04/18 12/04/18 Range/Units 11:05 11:05 11:05 WBC 9.38 (4.8-10.8) K/uL RBC 2.68 L (4.7-6.1) M/uL Hgb 8.0 L (14.0-18.0) g/dL Hct 24.1 L (42-52) % MCV 89.9 (80-100) fL MCH 29.9 (25-34) pg MCHC 33.2 (32-36) g/dL RDW Std Deviation 50.4 H (36.4-46.3) fL RDW Coeff of Joann 15.4 H (11.5-14.5) % Plt Count 341 (130-400) K/uL MPV 9.9 (7.4-10.4) fL Immature Gran % (Auto) 0.6 % Neut % (Auto) 70.7 % Lymph % (Auto) 20.1 % [place] % (Auto) 7.8 % Eos % (Auto) 0.6 % Baso % (Auto) 0.2 % Immature Gran # (Auto) 0.06 H (0.00-0.02) K/uL Neut # (Auto) 6.62 H (1.4-6.5) K/uL Lymph # (Auto) 1.89 (1.2-3.4) K/uL [place] # (Auto) 0.73 H (0.11-0.59) K/uL Eos # (Auto) 0.06 (0-0.5) K/uL Baso # (Auto) 0.02 (0-0.2) K/uL PT 10.0 (9.0-12.0) Seconds INR 1.0 (0.9-1.1) APTT 35.4 H (21.0-31.0) Seconds PTT Ratio 1.3 Sodium 127 L (136-145) mmol/L Potassium 4.2 (3.5-5.1) mmol/L Chloride 99 (98-107) mmol/L Carbon Dioxide 20 L (21-32) mmol/L Anion Gap 8.0 (3-11) BUN 55 H (7-18) mg/dl Creatinine 1.38 (0.6-1.4) mg/dl Est Cr Clr Drug Dosing 29.8 ml/min Est GFR ( Amer) 52.5 Est GFR (Non-Af Amer) 45.3 BUN/Creatinine Ratio 39.7 H (10-20) Glucose 158 H (70-99) mg/dl Osmolality (280-300) mOsm/kg Calcium 8.4 L (8.5-10.1) mg/dl Magnesium 2.0 (1.8-2.4) mg/dl Total Bilirubin 0.2 (0.2-1) mg/dl AST 22 (15-37) U/L ALT 21 (12-78) U/L Alkaline Phosphatase 173 H (45-117) U/L Troponin I < 0.015 (0-0.045) ng/ml Total Protein 6.7 (6.4-8.2) gm/dl Albumin 2.8 L (3.4-5.0) gm/dl Globulin 3.9 (2.5-4.0) gm/dl Albumin/Globulin Ratio 0.7 L (0.9-2) Lipase 22 L (73-393) U/L TSH 2.330 (0.300-4.500) uIu/ml Urine Color Urine Appearance (Clear) Urine pH (4.5-7.5) Ur Specific [place] (1.000-1.030) Urine Protein (Negative) Urine Glucose (UA) (Negative) Urine Ketones (Negative) Urine Blood (Negative) Urine Nitrite (Negative) Urine Bilirubin (Negative) Urine Urobilinogen (Negative) Ur Leukocyte Esterase (Negative) Urine Osmolality (500-800) mOsm/kg 12/04/18 12/04/18 12/04/18 Range/Units 11:05 12:30 12:30 WBC (4.8-10.8) K/uL RBC (4.7-6.1) M/uL Hgb (14.0-18.0) g/dL Hct (42-52) % MCV (80-100) fL MCH (25-34) pg MCHC (32-36) g/dL RDW Std Deviation (36.4-46.3) fL RDW Coeff of Joann (11.5-14.5) % Plt Count (130-400) K/uL MPV (7.4-10.4) fL Immature Gran % (Auto) % Neut % (Auto) % Lymph % (Auto) % [place] % (Auto) % Eos % (Auto) % Baso % (Auto) % Immature Gran # (Auto) (0.00-0.02) K/uL Neut # (Auto) (1.4-6.5) K/uL Lymph # (Auto) (1.2-3.4) K/uL [place] # (Auto) (0.11-0.59) K/uL Eos # (Auto) (0-0.5) K/uL Baso # (Auto) (0-0.2) K/uL PT (9.0-12.0) Seconds INR (0.9-1.1) APTT (21.0-31.0) Seconds PTT Ratio Sodium (136-145) mmol/L Potassium (3.5-5.1) mmol/L Chloride (98-107) mmol/L Carbon Dioxide (21-32) mmol/L Anion Gap (3-11) BUN (7-18) mg/dl Creatinine (0.6-1.4) mg/dl Est Cr Clr Drug Dosing ml/min Est GFR ( Amer) Est GFR (Non-Af Amer) BUN/Creatinine Ratio (10-20) Glucose (70-99) mg/dl Osmolality 288 (280-300) mOsm/kg Calcium (8.5-10.1) mg/dl Magnesium (1.8-2.4) mg/dl Total Bilirubin (0.2-1) mg/dl AST (15-37) U/L ALT (12-78) U/L Alkaline Phosphatase (45-117) U/L Troponin I (0-0.045) ng/ml Total Protein (6.4-8.2) gm/dl Albumin (3.4-5.0) gm/dl Globulin (2.5-4.0) gm/dl Albumin/Globulin Ratio (0.9-2) Lipase (73-393) U/L TSH (0.300-4.500) uIu/ml Urine Color Yellow Urine Appearance Clear (Clear) Urine pH 5.0 (4.5-7.5) Ur Specific [place] 1.015 (1.000-1.030) Urine Protein Negative (Negative) Urine Glucose (UA) Trace H (Negative) Urine Ketones Negative (Negative) Urine Blood Negative (Negative) Urine Nitrite Negative (Negative) Urine Bilirubin Negative (Negative) Urine Urobilinogen Negative (Negative) Ur Leukocyte Esterase Negative (Negative) Urine Osmolality 274 L (500-800) mOsm/kg Imaging Data Radiologist's Impression: Radiology results as stated below per my review and the radiologist's interpretation: CT angio chest PE protocol CT DOSE: 217.59 mGy.cm HISTORY: 88 years-old Male with SOB recent surg. Acute shortness of breath TECHNIQUE: Multiple CTA images of the chest were obtained after the intravenous administration of 88 ml Optiray 320. Coronal and sagittal MIPS were obtained from the axial data set and were submitted for review. All measurements were obtained according to NASCET criteria. A dose lowering technique was utilized adhering to the principles of ALARA. COMPARISON: Chest radiograph of same day, CTA chest 09/24/2016 FINDINGS: CTA: Streak artifact from positioning of the patient's upper extremities limits the study. Mild cardiomegaly. Extensive coronary arterial with mitral and aortic annular calcifications are noted. Limited evaluation of the left heart structures and thoracic aorta secondary to contrast bolus timing. No thoracic aortic aneurysm or dissection identified. Extensive mixed plaque formation of the thoracic aorta and proximal great vessels. Decreased contrast opacification of the subclavian arteries may be secondary to contrast bolus timing. The pulmonary arterial tree is opacified to level of the proximal subsegmental branches and demonstrates no focal filling defects to suggest pulmonary thromboembolic disease. CT CHEST: No focal thyroid nodule identified. Nonspecific mildly enlarged subcarinal lymph node, 1.5 x 1.2 cm. Mildly prominent hilar lymph nodes are seen measuring up to 9 mm. Trace pleural effusions. No pneumothorax. Mild emphysema. Bilateral bronchial wall thickening noted with bilateral groundglass densities suggestive of atelectasis. Mild biapical pleural-parenchymal scarring. No overt pulmonary edema or focal airspace consolidation typical for pneumonia. Tracheobronchial secretions are noted with mild bibasilar mucous plugging. There is gaseous distention of the esophagus. Partially imaged pelvis fragments of the proximal gastric lumen. Soft tissues are within normal limits. Degenerative changes of the shoulders and spine. Postoperative changes of the right shoulder, partially imaged. 25% anterior endplate compression deformity at T1 has progressed from comparison. Unchanged 30% anterior endplate compression deformity at T9. IMPRESSION: 1. No evidence of pulmonary thromboembolic disease. 2. Trace pleural effusions with subsegmental bibasilar atelectasis. 3. Mild emphysema with findings suggestive of bronchitis. Mild associated tracheobronchial secretions with mild mucous plugging. 4. Remote T9 compression deformity. 25% anterior endplate compression deformity at T1 has progressed from 09/24/2016 without retropulsion. Correlate clinically. 5. Additional findings as above. The above report was generated using voice recognition software. It may contain grammatical, syntax or spelling errors. Electronically signed by: Thiago Valero M.D. 12/04/2018 12:48 PM Dictated: 12/04/18 1239 Transcribed: 12/04/18 1239 XR chest 1V portable HISTORY: 88 years-old Male near syncope COMPARISON: Chest radiograph 03/28/2017 TECHNIQUE: Portable AP view of the chest FINDINGS: Cardiomediastinal and hilar silhouettes are unchanged. Mitral annular calcifications noted. Calcification of the thoracic aortic arch. Mild chronic interstitial coarsening with unchanged mild right hemidiaphragmatic elevation. No pneumothorax, pleural effusion, focal airspace consolidation or overt pulmonary edema. Degenerative changes of the shoulders and spine. Partially imaged hardware about the proximal right humerus with subacute to chronic appearing mildly displaced fracture. Surgical clips project over the upper abdomen. IMPRESSION: No acute process. The above report was generated using voice recognition software. It may contain grammatical, syntax or spelling errors. Electronically signed by: Thiago Valero M.D. 12/04/2018 11:12 AM Dictated: 12/04/18 1110 Transcribed: 12/04/18 1110 ECG Data Attestation: I personally reviewed and interpreted this ECG as follows: Indication: syncope Rate (beats per minute): 78 Rhythm: sinus rhythm Findings: + 1st degree AV block, + RBBB and + left axis deviation Comparison ECG Date: from (03/28/17) Change: no significant change Blood Pressure Blood Pressure Findings: Elevated blood pressure Blood Pressure Disposition: further management by hospitalist THOMAS Narrative Patient is an 88-year-old male who presents the ER for dizziness and lightheadedness with any kind of movement along with near syncope. This is been going on for the past week. He saw cardiology 3 weeks ago and he stopped all of his blood pressure medications for separate reason. On exam patient is neurologically intact. Systolic blood pressures dropped into the 60s with orthostasis following rehydration. Hemoglobin was consistently low at 8 and has been unchanged from previous. INR is unremarkable. BMP with mild hyponatremia. Troponin was negative. Bilirubin LFTs were normal. TSH was unremarkable. UA was unremarkable. Chest x-ray and CT PE shows no obvious PEs but recent compression fractures. Patient was updated bedside due to the hypotension dizziness lightheadedness and near syncope I discussed case with the hospitalist. Patient was admitted for orthostatic hypotension. Impression & Plan Hypotension, Dizziness, Lightheadedness, Hyponatremia, Orthostatic hypotension Discharge Plan Visit Data *Final* Discharge Date/Time: 12/04/18 15:44 Chief Complaint: Syncope ED Provider: Alexandro Velazquez Discharge Problem: Hypotension, Dizziness, Lightheadedness, Hyponatremia, Orthostatic hypotension Patient Disposition: Admitted As Inpatient Discharge Instructions Interventions: ED Discharge Assessment Last Done: 12/04/18 15:44 The scribe's documentation has been prepared under my direction and personally reviewed by me in its entirety. I confirm that the note above accurately reflects all work, treatment, procedures, and medical decision making performed by me.
[2018-12-04] MEDS: PANCREAZE (LIPASE 4,200U) CAP PO SCH (17:16)
[2018-12-04] MEDS: HEPARIN SOD 5,000 UNIT/0.5 ML VIAL SQ SCH ×2 (17:17→22:05)
[2018-12-04 18:28] LABS: BUN Creatinine Ratio 42.1 (10-20); Calcium 7.9 mg/dl (8.5-10.1); Creatinine Clr Calc Pharmacy 34.6 ml/min; Est GFR (African American) 62.8; Est GFR (Non-African American) 54.2
[2018-12-04] MEDS ORDERED: GLUCOSE 40% GEL 15 GM TUBE PO PRN (20:02)
[2018-12-04] MEDS ORDERED: DEXTROSE 50% 50 ML SYRINGE IV PRN (20:02)
[2018-12-04] MEDS ORDERED: GLUCOSE 10 TABS/TUBE PO PRN (20:02)
[2018-12-04] MEDS ORDERED: GLUCAGON FOR INJ 1 MG VIAL SQ PRN (20:02)
[2018-12-04] MEDS ORDERED: CARBOHYDRATES FOR HYPOGLYCEMIA PO PRN (20:02)
[2018-12-04] MEDS: INSULIN ASPART 100 UNITS/ML 3 ML PEN SC SCH (20:59)
[2018-12-04] MEDS: FERROUS SULFATE 325 MG TAB PO SCH (21:00)
[2018-12-04] MEDS: ACETAMINOPHEN 325 MG TAB PO PRN (23:20)
[2018-12-05 06:36] LABS: Hematocrit (blood only) 22.5 % (42-52); Hemoglobin 7.6 g/dL (14.0-18.0); Mean Corpuscular Hgb Conc 33.8 g/dL (32-36); Mean Corpuscular Volume 90.7 fL (80-100); Mean Platelet Volume 10.2 fL (7.4-10.4); Platelet Count 305 K/uL (130-400); RDW Coefficient of Variation 15.7 % (11.5-14.5); RDW Standard Deviation 52.5 fL (36.4-46.3); Red Blood Count 2.48 M/uL (4.7-6.1); White Blood Count 9.19 K/uL (4.8-10.8)
[2018-12-05 07:12] LABS: Calcium 8.7 mg/dl (8.5-10.1); Creatinine Clr Calc Pharmacy 32.8 ml/min; Est GFR (African American) 60.4; Est GFR (Non-African American) 52.1
[2018-12-05 07:45] LABS: Estimated Average Glucose 114 mg/dl; Hemoglobin A1C 5.6 % (4.5-5.6)
[2018-12-05] MEDS: INSULIN ASPART 100 UNITS/ML 3 ML PEN SC SCH ×4 (08:45→20:57)
[2018-12-05] MEDS: FERROUS SULFATE 325 MG TAB PO SCH ×2 (08:46→20:56)
[2018-12-05] MEDS: PANCREAZE (LIPASE 4,200U) CAP PO SCH ×3 (08:46→17:06)
[2018-12-05] MEDS: LIDOCAINE 5% 1 PATCH TD SCH (08:46)
[2018-12-05] MEDS: SODIUM CHLORIDE 1 GM TABLET PO SCH (08:46)
[2018-12-05] MEDS: POLYETHYLENE (MIRALAX) 17 GM PACK PO SCH (08:46)
[2018-12-05] MEDS: HEPARIN SOD 5,000 UNIT/0.5 ML VIAL SQ SCH (09:29)
[2018-12-05] MEDS ORDERED: SODIUM CHLORIDE 0.9% 250 ML IV PRN (10:15)
--- NOTE | 2018-12-05 10:17 | Hospitalist Progress Note ---
Date of Service December 05, 2018 Assessment & Plan (1) Orthostatic hypotension: Per admitting service notes This is an 88yo M with a PMH of orthostatic syncope, hyponatremia, Type 1 diabetes, history of pancreatic cancer s/p Whipple in 2014, CKD 3 who presents after near syncopal episodes. -History of orthostatic hypotension and syncope since 2017 -Recently instructed to increase fluid intake, lisinopril and amlodipine were discontinued -IV fluids administered Supine blood pressure stable so far Cardiology and nephrology consulted, awaiting further recommendations Transfuse 1 unit of packed RBCs for hemoglobin is 7.6 and symptoms of dizziness and weakness when upright Repeat H&H in the afternoon after transfusion (2) Anemia: Globin 7.6, baseline 9-10 No signs of melena, hematochezia or hematuria Anemia panel ordered, could be secondary to anemia of chronic kidney disease or anemia of chronic disease 1 unit packed RBCs ordered Repeat H&H in the afternoon (3) Hyponatremia: -Initial sodium of 127 (baseline 135) Given IV NSS Sodium improved to 133 -Likely hypovolemic hyponatremia Nephrology consulted (4) CKD (chronic kidney disease), stage III: Kidney function at baseline -Continue to monitor (5) DM type 1 (diabetes mellitus, type 1): History of Whipple's procedure A1c 5.6 -Hold home agents -SSI while in-patient -BSG AC HS DVT Ppx: Hold heparin in light of anemia SCDs ordered Code status: DNR per discussion with patient PCP: Srinivas Dispo: Pending We will order PT OT evaluation Subjective ff up for orthostatic hypotension seen resting in bed, appears weak alert, awake, not in distress states he feels slightly better still has dizziness, weakness when upright denies chest pain, palpitations, dyspnea denies melena, hematochezia, hematuria no other symptoms Review of Systems Review of Systems: All systems reviewed & are unremarkable except as noted in HPI & below Physical Exam Physical Exam: General- oriented x 3, not in distress, speaks in sentences with no effort or accessory muscle use underweight Head- atraumatic Eyes- PERRL, EOMI, anicteric ENT- oropharynx clear dry oral mucosa Neck- supple, no JVD, no adenopathy, no thyromegaly; carotids +2/2, no bruits appreciated Lungs- clear to auscultation bilaterally, no rales/wheezes Heart- normal rate, regular rhythm; (+) grade 2 murmur, no gallop, no rub appreciated Abdomen- normal bowel sounds, nondistended, soft, nontender, no masses or hepatosplenomegaly Extremities- no pretibial edema, no calf tenderness; peripheral pulses intact Neuro- alert, oriented x 3; CN 2-12 grossly intact; motor 5/5 bilaterally;sensat ion 100% on all extremities; no other gross focal neurologic deficits Skin- warm & dry Results & Data Vital Signs (Past 12 Hours) Vital Signs Temp Pulse Resp BP Pulse Ox 12/05/18 07:14 36.6 C 84 18 125/55 L 98 12/05/18 04:23 36.5 C 92 H 22 106/61 97 12/04/18 23:12 36.5 C 91 H 18 118/56 L 98 Laboratory Results Home Medications Medication Instructions Recorded Confirmed acetaminophen [Acetaminophen Extra 500 mg PO Q4H PRN 12/04/18 12/04/18 Strength] bisacodyl 10 mg AK DAILY PRN 12/04/18 12/04/18 docusate sodium 100 mg PO BID PRN 12/04/18 12/04/18 ferrous sulfate 325 mg PO BID 12/04/18 12/04/18 heparin (porcine) 5,000 unit SUBCUT Q8H 12/04/18 12/04/18 insulin aspart U-100 [Novolog 1 sliding scale dose SUBCUT ACHS 12/04/18 12/04/18 U-100 Insulin aspart] insulin glargine [Lantus Solostar 7 unit SUBCUT QAM 12/04/18 12/04/18 U-100 Insulin] lidocaine [Lidoderm] 2 patch TOPICAL QAM 12/04/18 12/04/18 [id number] [Zenpep] 1 cap PO TIDM 12/04/18 12/04/18 magnesium hydroxide [Milk Of 30 ml PO DAILY PRN 12/04/18 12/04/18 Magnesia Concentrated] polyethylene glycol 3350 [Miralax] 17 g PO QAM 12/04/18 12/04/18 sodium chloride 1,000 mg PO QAM 12/04/18 12/04/18
[2018-12-05 10:18] LABS: Ferritin 362.2 ng/ml (8-388)
--- NOTE | 2018-12-05 11:48 | Nephrology Consultation ---
Date of Consultation December 05, 2018 Assessment & Plan (1) Hyponatremia: normotonic hyponatremia; difficult to assess hydration status but appears to have been mildly dehydrated on presentation give response to NS. that said, historically he has had euvolemic hyponatremia responsive to salt tabs; lasix avoided in past for mgt of this d/t chronic voiding sx/urinary frequency and will try to respect that here -continue salt tabs current dose; no FR currently; would not give further -recheck bmp, serum osms, urine osms, rd urine sodium to be done w/ already planned 1600 labs -given that he's had blood and NS already, consider at most another 500 mL of fluid, composition to depend on above labs [facility] I will order -control pain > given recent surgeries and vertebral fractures, prone to pain which can worsen low sNa; that said he had no pain c/o this am Present on Admission?: Yes (2) CKD (chronic kidney disease), stage III: baseline creatinine 1.3-1.4; he did just have IV contrast for CT angio so creatinine could still bump next 36 hrs but will monitor; for now creat at baseline and he has had Present on Admission?: Yes (3) Orthostatic hypotension: longstanding issue; cardiology following; on tele; no bp meds currently and none indicated Present on Admission?: Yes History of Present Illness Reason for Consultation: hyponatremia Requesting Physician: Dr Guzmán Attending Physician: Binh Whiting MD History of Present Illness 88 y/o M whom I'm asked to see for hyponatremia was admitted yesterday from [facility] for near syncope from orthostatic hypotension. PMH includes recurrent syncope x years, IDDM, pancreatic CA s/p 2013 ipple, CKD 3 w/ baseline creatinine 1.4, chronic intermittent hyponatremia managed w/ salt tablets. He was rehabbing at [facility] after hip shoulder fracture [place]. Pt has had recurrent syncope since 2017. he has had chronic hyponatremia for mos - years as well and has been on different doses of salt tablet in this timeframe. He recently established w/ [facility] cardi ology > encouraged to increase fluid intake 3X to 64 oz and to stop lisinopril and amlodipine. On 12/02, sNa 125 and he was restarted on salt tabs 1 gm daily and given 1L NS. In ER last evening, he had a 0.5L of NS, then NS ran at 80 mL / hr ON for another liter. Salt tab cont same dose. He follows in CKD clinic w/ Dr Hussein; also saw Dr Bar in past for hyponatremia. he was on a heparin gtt this am but hgb came down from 8 > 7.6: heparin now off and he is for a unit of blood. Allergies Allergy/AdvReac Type Severity Reaction Status Date / Time dextromethorphan Allergy Unknown RASH Verified 12/04/18 11:15 guaifenesin Allergy Unknown RASH Verified 12/04/18 11:15 Home Medications Home Medications Medication Instructions Recorded Confirmed Type acetaminophen [Acetaminophen Extra 500 mg PO Q4H PRN 12/04/18 12/04/18 History Strength] bisacodyl 10 mg AL DAILY PRN 12/04/18 12/04/18 History docusate sodium 100 mg PO BID PRN 12/04/18 12/04/18 History ferrous sulfate 325 mg PO BID 12/04/18 12/04/18 History heparin (porcine) 5,000 unit SUBCUT Q8H 12/04/18 12/04/18 History insulin aspart U-100 [Novolog 1 sliding scale dose SUBCUT ACHS 12/04/18 12/04/18 History U-100 Insulin aspart] insulin glargine [Lantus Solostar 7 unit SUBCUT QAM 12/04/18 12/04/18 History U-100 Insulin] lidocaine [Lidoderm] 2 patch TOPICAL QAM 12/04/18 12/04/18 History [id number]-[id number] [Zenpep] 1 cap PO TIDM 12/04/18 12/04/18 History magnesium hydroxide [Milk Of 30 ml PO DAILY PRN 12/04/18 12/04/18 History Magnesia Concentrated] polyethylene glycol 3350 [Miralax] 17 g PO QAM 12/04/18 12/04/18 History sodium chloride 1,000 mg PO QAM 12/04/18 12/04/18 History Patient History Medical History H/O fracture of humerus s/p R ORIF 11/03/2018 H/O fracture of femur s/p R ORIF 10/31/18 Pulmonary embolism (Chronic) "post op in 2013, completed Coumadin therapy" DM type 1 (diabetes mellitus, type 1) (Chronic) CKD (chronic kidney disease), stage III (Chronic) H/O fracture of femur (Chronic) "s/p internal fixation 10/2013" HTN (hypertension) (Chronic) Anemia (Chronic) Hyponatremia (Chronic) No pertinent family history Surgical History S/P cholecystectomy (Chronic) H/O exploratory laparotomy (Chronic) "for SBO" Family History Other No pertinent family history Social History Preferred Language: Tajik Communication Ability: Effective Visual Impairment: No Limitations Hearing Ability: Normal Pressroom 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 Required: No Beliefs That Will Affect Care: None marital status: Current Living Situation: Spouse Other Information That Helps Us Care for You: No Feels Safe at Home: Yes Safety Concerns: Feels Safe At This Time Smoking Status: Former smoker Do You Dip or Chew Tobacco: No Smoking End Date: quit about age 30 Second Hand Exposure: No Hx Alcohol Use: No Hx Substance Use: No Review of Systems Review of Systems: All systems reviewed & are unremarkable except as noted in HPI & below Constitutional: + weakness Eyes: no worsening vision Ear, Nose, Mouth, Throat: no dry mouth Respiratory: no cough and no dyspnea Cardiovascular: as per Subjective / HPI; no chest pain, no palpitations and no edema Gastrointestinal: no abdominal pain, no early satiety, no nausea, no vomiting and no change in bowel habits Genitourinary: + urinary frequency; no dysuria and no urinary hesitancy Musculoskeletal: some pain after recent ortho procedures Integumentary: no rash and no non-healing lesions Neurologic: as per Subjective / HPI, + unsteadiness, + falls and + syncope Psychiatric: no behavioral changes Endocrine: + fatigue Hematologic / Lymphatic: no easy bleeding Physical Exam Constitutional: well developed and well nourished cachectic on RA Eyes: EOM intact bilaterally ENMT: Ears: no external ear abnormality Nose: no external nose abnormality Mouth: + dry oral mucous membranes Neck: no nuchal rigidity Respiratory: normal respiratory effort Auscultation: + diminished lung sounds Cardiovascular: RRR, no murmur, no edema Gastrointestinal (Abdomen): Inspection/Auscultation: normal bowel sounds Percussion/Palpation: abdomen soft; abdomen nontender Musculoskeletal: Extremities: strength 5/5 throughout Skin: no rashes, warm and dry Neurologic: yang, fluent speech, no tremor Psychiatric: A+Ox3, euthymic affect Speech: normal rate/rhythm/volume of speech Results & Data Vital Signs (Past 12 Hours) Vital Signs Temp Pulse Resp BP Pulse Ox 12/05/18 07:14 36.6 C 84 18 125/55 L 98 12/05/18 04:23 36.5 C 92 H 22 106/61 97 12/04/18 23:12 36.5 C 91 H 18 118/56 L 98 Laboratory Results Abnormal lab results 12/04/18 12/04/18 12/04/18 Range/Units 12:30 16:22 17:52 RBC (4.7-6.1) M/uL Hgb (14.0-18.0) g/dL Hct (42-52) % RDW Std Deviation (36.4-46.3) fL RDW Coeff of Joann (11.5-14.5) % Sodium 131 L (136-145) mmol/L Chloride (98-107) mmol/L Carbon Dioxide 19 L (21-32) mmol/L BUN 50 H (7-18) mg/dl BUN/Creatinine Ratio 42.1 H (10-20) Glucose 130 H (70-99) mg/dl POC Glucose 123 H (70-99) Calcium 7.9 L (8.5-10.1) mg/dl TIBC (250-450) mcg/dl Transferrin (200-360) mg/dl Urine Osmolality 274 L (500-800) mOsm/kg Crossmatch 12/04/18 12/05/18 12/05/18 Range/Units 20:58 06:12 06:12 RBC 2.48 L (4.7-6.1) M/uL Hgb 7.6 L (14.0-18.0) g/dL Hct 22.5 L (42-52) % RDW Std Deviation 52.5 H (36.4-46.3) fL RDW Coeff of Joann 15.7 H (11.5-14.5) % Sodium 133 L (136-145) mmol/L Chloride 108 H (98-107) mmol/L Carbon Dioxide 18 L (21-32) mmol/L BUN 48 H (7-18) mg/dl BUN/Creatinine Ratio 39.0 H (10-20) Glucose (70-99) mg/dl POC Glucose 157 H (70-99) Calcium (8.5-10.1) mg/dl TIBC (250-450) mcg/dl Transferrin (200-360) mg/dl Urine Osmolality (500-800) mOsm/kg Crossmatch 12/05/18 12/05/18 12/05/18 Range/Units 07:17 07:34 10:23 RBC (4.7-6.1) M/uL Hgb (14.0-18.0) g/dL Hct (42-52) % RDW Std Deviation (36.4-46.3) fL RDW Coeff of Joann (11.5-14.5) % Sodium (136-145) mmol/L Chloride (98-107) mmol/L Carbon Dioxide (21-32) mmol/L BUN (7-18) mg/dl BUN/Creatinine Ratio (10-20) Glucose (70-99) mg/dl POC Glucose 100 H (70-99) Calcium (8.5-10.1) mg/dl TIBC 237 L (250-450) mcg/dl Transferrin 192 L (200-360) mg/dl Urine Osmolality (500-800) mOsm/kg Crossmatch See Detail 12/05/18 Range/Units 11:09 RBC (4.7-6.1) M/uL Hgb (14.0-18.0) g/dL Hct (42-52) % RDW Std Deviation (36.4-46.3) fL RDW Coeff of Joann (11.5-14.5) % Sodium (136-145) mmol/L Chloride (98-107) mmol/L Carbon Dioxide (21-32) mmol/L BUN (7-18) mg/dl BUN/Creatinine Ratio (10-20) Glucose (70-99) mg/dl POC Glucose 138 H (70-99) Calcium (8.5-10.1) mg/dl TIBC (250-450) mcg/dl Transferrin (200-360) mg/dl Urine Osmolality (500-800) mOsm/kg Crossmatch Diagnostic Findings CT angio CTA: Streak artifact from positioning of the patient's upper extremities limits the study. Mild cardiomegaly. Extensive coronary arterial with mitral and aortic annular calcifications are noted. Limited evaluation of the left heart structures and thoracic aorta secondary to contrast bolus timing. No thoracic aortic aneurysm or dissection identified. Extensive mixed plaque formation of the thoracic aorta and proximal great vessels. Decreased contrast opacification of the subclavian arteries may be secondary to contrast bolus timing. The pulmonary arterial tree is opacified to level of the proximal subsegmental branches and demonstrates no focal filling defects to suggest pulmonary thromboembolic disease. CT CHEST: No focal thyroid nodule identified. Nonspecific mildly enlarged subcarinal lymph node, 1.5 x 1.2 cm. Mildly prominent hilar lymph nodes are seen measuring up to 9 mm. Trace pleural effusions. No pneumothorax. Mild emphysema. Bilateral bronchial wall thickening noted with bilateral groundglass densities suggestive of atelectasis. Mild biapical pleural-parenchymal scarring. No overt pulmonary edema or focal airspace consolidation typical for pneumonia. Tracheobronchial secretions are noted with mild bibasilar mucous plugging. There is gaseous distention of the esophagus. Partially imaged pelvis fragments of the proximal gastric lumen. Soft tissues are within normal limits. Degenerative changes of the shoulders and spine. Postoperative changes of the right shoulder, partially imaged. 25% anterior endplate compression deformity at T1 has progressed from comparison. Unchanged 30% anterior endplate compression deformity at T9. IMPRESSION: 1. No evidence of pulmonary thromboembolic disease. 2. Trace pleural effusions with subsegmental bibasilar atelectasis. 3. Mild emphysema with findings suggestive of bronchitis. Mild associated tracheobronchial secretions with mild mucous plugging. 4. Remote T9 compression deformity. 25% anterior endplate compression deformity at T1 has progressed from 09/24/2016 without retropulsion. Correlate clinically. 5. Additional findings as above.
--- NOTE | 2018-12-05 13:22 | Cardiology Consultation ---
Date of Consultation December 05, 2018 Assessment & Plan (1) Orthostatic hypotension: Likely multifactorial in setting of volume depletion, anemia and hyponatremia. Recommend compression stockings be placed, continue gentle IV fluids. If symptoms fail to improve with conservative therapies, could consider trial of low-dose midodrine. Case discussed with Dr. Martinez. Will follow (2) Anemia: Hemoglobin 7.6 this morning. Likely contributing to his symptoms. Discussed with hospitalist. Will proceed with transfusion of 1 unit packed red blood cells (3) Aortic stenosis: Mild aortic stenosis and moderate MR noted on last echo. Repeat echo during admission to rule out worsening valvular heart disease. (4) Hyponatremia: Significant hyponatremia noted on admission. Sodium tablets supplemented. Levels improved this AM. Nephrology consulted as well. Supervising Physician Co-Signing Physician Notes Seen and examined, chart medications telemetry reviewed. Consultation as well outlined above. Patient with long-standing history of intermittent syncopal events with orthostatic hypotension is well. Now once again symptomatic. Echocardiogram reviewed demonstrates moderate left ventricular hypertrophy with hyperdynamic LV function and small left her cavity size. There is a mid cavity gradient. In addition the aortic valve is calcified with moderate aortic stenosis present Impression: Orthostatic hypotension, symptomatic currently on no medications as culprit. Echocardiogram demonstrates a very hyperdynamic LV with aortic stenosis. And mid cavity gradient noted. Discussed findings with patient noted he may benefit from low-dose beta-shaun to allow diastolic filling time and less LV gradient though may exacerbate symptoms. I feel this is appropriate time to retrial while in hospital and observed will begin low-dose metoprolol tartrate 12.5 mg p.o. twice daily History of Present Illness Reason for Consultation: Orthostatic hypotension Requesting Physician: Dr. Whiting Attending Physician: Dr. Martinez History of Present Illness Patient is a complex 88-year-old male who was admitted to [facility] with complaints of progressive weakness, near syncope and low blood pressure readings while participating at [facility] for rehab. In October 2018 patient was in [place] for a wedding when he sustained a fall after getting out of bed fracture in his hip and shoulder. He underwent surgery for repair. He was transferred back to [place] for rehab. History includes pancreatic cancer status post Whipple procedure, history of pulmonary embolus after 2014 surgery, diabetes type 1, history of mild valvular heart disease with borderline/mild aortic stenosis and mitral regurgitation per last echo in 2018, chronic kidney disease, and urinary incontinence. Patient also a history of iron deficiency anemia with baseline hemoglobin around 9-10. Currently 7.6. Patient reports a long history of orthostatic hypotension and dizziness. He admits to poor dietary intake of fluids/water during the day for many years due to incontinence. Patient was recently evaluated at the outpatient cardiology office with Dr. Ackerman for symptoms of orthostatic hypotension and possible orthostatic syncope. At that time his lisinopril and amlodipine were discontinued. Increased fluids recommended. He returned to [facility] and symptoms progressed over the last 2 weeks with stable BP laying supine, but BP significantly dropped upon sitting and standing, with readings in the 70/50 range. Due to near syncopal episodes he was referred to [facility] yesterday for evaluation and treatment. Upon presentation patient was found to have worsening anemia, likely in the post op setting, volume depleted and hyponatremic. he was started on IV fluids and sodium tablets. EKG demonstrated normal sinus rhythm without acute changes. He was admitted for observation and further treatment. At time of consult, patient lying in bed comfortably. He reports mild dizziness upon sitting up earlier this morning. Symptoms improved from yesterday though. Sodium levels also improving. Resting blood pressure stable currently. No recent chest pain or unusual shortness of breath. No true syncope or loss of consciousness. No current symptoms of dizziness. He is resting comfortably. No orthopnea, PND, lower extremity edema. He is currently not wearing support stockings. Allergies Allergy/AdvReac Type Severity Reaction Status Date / Time dextromethorphan Allergy Unknown RASH Verified 12/04/18 11:15 [email or web address] Allergy Unknown RASH Verified 12/04/18 11:15 Home Medications Home Medications Medication Instructions Recorded Confirmed Type acetaminophen [Acetaminophen Extra 500 mg PO Q4H PRN 12/04/18 12/04/18 History Strength] bisacodyl 10 mg AR DAILY PRN 12/04/18 12/04/18 History docusate sodium 100 mg PO BID PRN 12/04/18 12/04/18 History ferrous sulfate 325 mg PO BID 12/04/18 12/04/18 History heparin (porcine) 5,000 unit SUBCUT Q8H 12/04/18 12/04/18 History insulin aspart U-100 [Novolog 1 sliding scale dose SUBCUT ACHS 12/04/18 12/04/18 History U-100 Insulin aspart] insulin glargine [Lantus Solostar 7 unit SUBCUT QAM 12/04/18 12/04/18 History U-100 Insulin] lidocaine [Lidoderm] 2 patch TOPICAL QAM 12/04/18 12/04/18 History [id number] [Zenpep] 1 cap PO TIDM 12/04/18 12/04/18 History magnesium hydroxide [Milk Of 30 ml PO DAILY PRN 12/04/18 12/04/18 History Magnesia Concentrated] polyethylene glycol 3350 [Miralax] 17 g PO QAM 12/04/18 12/04/18 History sodium chloride 1,000 mg PO QAM 12/04/18 12/04/18 History Patient History Medical History H/O fracture of humerus s/p R ORIF 11/03/2018 H/O fracture of femur s/p R ORIF 10/31/18 Pulmonary embolism (Chronic) "post op in 2013, completed Coumadin therapy" DM type 1 (diabetes mellitus, type 1) (Chronic) CKD (chronic kidney disease), stage III (Chronic) H/O fracture of femur (Chronic) "s/p internal fixation 10/2013" HTN (hypertension) (Chronic) Anemia (Chronic) Hyponatremia (Chronic) No pertinent family history Surgical History S/P cholecystectomy (Chronic) H/O exploratory laparotomy (Chronic) "for SBO" Family History Other No pertinent family history Social History Preferred Language: Taiwanese Communication Ability: Effective Visual Impairment: No Limitations Hearing Ability: Normal Sieve Maker Required: No Beliefs That Will Affect Care: None marital status: Current Living Situation: Spouse Other Information That Helps Us Care for You: No Feels Safe at Home: Yes Safety Concerns: Feels Safe At This Time Smoking Status: Former smoker Do You Dip or Chew Tobacco: No Smoking End Date: quit about age 30 Second Hand Exposure: No Hx Alcohol Use: No Hx Substance Use: No Review of Systems Review of Systems: All systems reviewed & are unremarkable except as noted in HPI & below Physical Exam Constitutional: + ill appearing, + thin and + cachectic Eyes: PERRL, conjunctivae normal, anicteric sclerae ENMT: external ear and nose normal, oropharynx normal Neck: normal visual inspection Respiratory: normal respiratory effort, lungs clear to auscultation Cardiovascular: Rate/Rhythm: regular rate and regular rhythm Heart Sounds: + murmur (II/ systolic murmur LSB) Vessels: no JVD Extremities: no edema Gastrointestinal (Abdomen): normal bowel sounds, soft, nontender, no hepatosplenomegaly Neurologic: PERRL, EOMI, accommodation nl, no face palsy, no dysarthria Psychiatric: A+Ox3, euthymic affect Results & Data Vital Signs (Past 12 Hours) Vital Signs Temp Pulse Pulse Resp BP BP Pulse Ox 12/05/18 12:42 70 14 101/53 L 98 12/05/18 12:25 36.4 C L 82 18 110/54 L 98 12/05/18 11:51 96 12/05/18 11:11 36.5 C 81 18 123/62 99 12/05/18 07:14 36.6 C 84 18 125/55 L 98 12/05/18 04:23 36.5 C 92 H 22 106/61 97 Laboratory Results 12/05/18 12/05/18 12/05/18 Range/Units 11:09 10:23 10:22 WBC (4.8-10.8) K/uL RBC (4.7-6.1) M/uL Hgb (14.0-18.0) g/dL Hct (42-52) % MCV (80-100) fL MCH (25-34) pg MCHC (32-36) g/dL RDW Std Deviation (36.4-46.3) fL RDW Coeff of Joann (11.5-14.5) % Plt Count (130-400) K/uL MPV (7.4-10.4) fL Sodium (136-145) mmol/L Potassium (3.5-5.1) mmol/L Chloride (98-107) mmol/L Carbon Dioxide (21-32) mmol/L Anion Gap (3-11) BUN (7-18) mg/dl Creatinine (0.6-1.4) mg/dl Est Cr Clr Drug Dosing ml/min Est GFR ( Amer) Est GFR (Non-Af Amer) BUN/Creatinine Ratio (10-20) Glucose (70-99) mg/dl POC Glucose 138 H (70-99) Estimat Average Glucose mg/dl Hemoglobin A1c (4.5-5.6) % Osmolality (280-300) mOsm/kg Calcium (8.5-10.1) mg/dl Iron (35-175) mcg/dl TIBC (250-450) mcg/dl Transferrin (200-360) mg/dl Ferritin (8-388) ng/ml Folate 14.20 (>5.38) ng/ml Urine Osmolality (500-800) mOsm/kg Ur Random Sodium mmol/L Nasal Screen MRSA (PCR) (Negative) Blood Type AB Positive Antibody Screen NEGATIVE Crossmatch See Detail 12/05/18 12/05/18 12/05/18 Range/Units 07:34 07:34 07:17 WBC (4.8-10.8) K/uL RBC (4.7-6.1) M/uL Hgb (14.0-18.0) g/dL Hct (42-52) % MCV (80-100) fL MCH (25-34) pg MCHC (32-36) g/dL RDW Std Deviation (36.4-46.3) fL RDW Coeff of Joann (11.5-14.5) % Plt Count (130-400) K/uL MPV (7.4-10.4) fL Sodium (136-145) mmol/L Potassium 4.6 (3.5-5.1) mmol/L Chloride (98-107) mmol/L Carbon Dioxide (21-32) mmol/L Anion Gap (3-11) BUN (7-18) mg/dl Creatinine (0.6-1.4) mg/dl Est Cr Clr Drug Dosing ml/min Est GFR ( Amer) Est GFR (Non-Af Amer) BUN/Creatinine Ratio (10-20) Glucose (70-99) mg/dl POC Glucose 100 H (70-99) Estimat Average Glucose mg/dl Hemoglobin A1c (4.5-5.6) % Osmolality (280-300) mOsm/kg Calcium (8.5-10.1) mg/dl Iron 84 (35-175) mcg/dl TIBC 237 L (250-450) mcg/dl Transferrin 192 L (200-360) mg/dl Ferritin 362.2 (8-388) ng/ml Folate (>5.38) ng/ml Urine Osmolality (500-800) mOsm/kg Ur Random Sodium mmol/L Nasal Screen MRSA (PCR) (Negative) Blood Type Antibody Screen Crossmatch 12/05/18 12/05/18 12/05/18 Range/Units 06:12 06:12 06:12 WBC 9.19 (4.8-10.8) K/uL RBC 2.48 L (4.7-6.1) M/uL Hgb 7.6 L (14.0-18.0) g/dL Hct 22.5 L (42-52) % MCV 90.7 (80-100) fL MCH 30.6 (25-34) pg MCHC 33.8 (32-36) g/dL RDW Std Deviation 52.5 H (36.4-46.3) fL RDW Coeff of Joann 15.7 H (11.5-14.5) % Plt Count 305 (130-400) K/uL MPV 10.2 (7.4-10.4) fL Sodium 133 L (136-145) mmol/L Potassium (3.5-5.1) mmol/L Chloride 108 H (98-107) mmol/L Carbon Dioxide 18 L (21-32) mmol/L Anion Gap 7.0 (3-11) BUN 48 H (7-18) mg/dl Creatinine 1.23 (0.6-1.4) mg/dl Est Cr Clr Drug Dosing 32.8 ml/min Est GFR ( Amer) 60.4 Est GFR (Non-Af Amer) 52.1 BUN/Creatinine Ratio 39.0 H (10-20) Glucose 83 (70-99) mg/dl POC Glucose (70-99) Estimat Average Glucose 114 mg/dl Hemoglobin A1c 5.6 (4.5-5.6) % Osmolality (280-300) mOsm/kg Calcium 8.7 (8.5-10.1) mg/dl Iron (35-175) mcg/dl TIBC (250-450) mcg/dl Transferrin (200-360) mg/dl Ferritin (8-388) ng/ml Folate (>5.38) ng/ml Urine Osmolality (500-800) mOsm/kg Ur Random Sodium mmol/L Nasal Screen MRSA (PCR) (Negative) Blood Type Antibody Screen Crossmatch 12/04/18 12/04/18 12/04/18 Range/Units 20:58 17:52 16:30 WBC (4.8-10.8) K/uL RBC (4.7-6.1) M/uL Hgb (14.0-18.0) g/dL Hct (42-52) % MCV (80-100) fL MCH (25-34) pg MCHC (32-36) g/dL RDW Std Deviation (36.4-46.3) fL RDW Coeff of Joann (11.5-14.5) % Plt Count (130-400) K/uL MPV (7.4-10.4) fL Sodium 131 L (136-145) mmol/L Potassium 4.0 (3.5-5.1) mmol/L Chloride 105 (98-107) mmol/L Carbon Dioxide 19 L (21-32) mmol/L Anion Gap 7.0 (3-11) BUN 50 H (7-18) mg/dl Creatinine 1.19 (0.6-1.4) mg/dl Est Cr Clr Drug Dosing 34.6 ml/min Est GFR ( Amer) 62.8 Est GFR (Non-Af Amer) 54.2 BUN/Creatinine Ratio 42.1 H (10-20) Glucose 130 H (70-99) mg/dl POC Glucose 157 H (70-99) Estimat Average Glucose mg/dl Hemoglobin A1c (4.5-5.6) % Osmolality (280-300) mOsm/kg Calcium 7.9 L (8.5-10.1) mg/dl Iron (35-175) mcg/dl TIBC (250-450) mcg/dl Transferrin (200-360) mg/dl Ferritin (8-388) ng/ml Folate (>5.38) ng/ml Urine Osmolality (500-800) mOsm/kg Ur Random Sodium mmol/L Nasal Screen MRSA (PCR) Negative (Negative) Blood Type Antibody Screen Crossmatch 12/04/18 12/04/18 12/04/18 Range/Units 16:22 12:30 12:30 WBC (4.8-10.8) K/uL RBC (4.7-6.1) M/uL Hgb (14.0-18.0) g/dL Hct (42-52) % MCV (80-100) fL MCH (25-34) pg MCHC (32-36) g/dL RDW Std Deviation (36.4-46.3) fL RDW Coeff of Joann (11.5-14.5) % Plt Count (130-400) K/uL MPV (7.4-10.4) fL Sodium (136-145) mmol/L Potassium (3.5-5.1) mmol/L Chloride (98-107) mmol/L Carbon Dioxide (21-32) mmol/L Anion Gap (3-11) BUN (7-18) mg/dl Creatinine (0.6-1.4) mg/dl Est Cr Clr Drug Dosing ml/min Est GFR ( Amer) Est GFR (Non-Af Amer) BUN/Creatinine Ratio (10-20) Glucose (70-99) mg/dl POC Glucose 123 H (70-99) Estimat Average Glucose mg/dl Hemoglobin A1c (4.5-5.6) % Osmolality (280-300) mOsm/kg Calcium (8.5-10.1) mg/dl Iron (35-175) mcg/dl TIBC (250-450) mcg/dl Transferrin (200-360) mg/dl Ferritin (8-388) ng/ml Folate (>5.38) ng/ml Urine Osmolality 274 L (500-800) mOsm/kg Ur Random Sodium 54 mmol/L Nasal Screen MRSA (PCR) (Negative) Blood Type Antibody Screen Crossmatch 12/04/18 Range/Units 11:05 WBC (4.8-10.8) K/uL RBC (4.7-6.1) M/uL Hgb (14.0-18.0) g/dL Hct (42-52) % MCV (80-100) fL MCH (25-34) pg MCHC (32-36) g/dL RDW Std Deviation (36.4-46.3) fL RDW Coeff of Joann (11.5-14.5) % Plt Count (130-400) K/uL MPV (7.4-10.4) fL Sodium (136-145) mmol/L Potassium (3.5-5.1) mmol/L Chloride (98-107) mmol/L Carbon Dioxide (21-32) mmol/L Anion Gap (3-11) BUN (7-18) mg/dl Creatinine (0.6-1.4) mg/dl Est Cr Clr Drug Dosing ml/min Est GFR ( Amer) Est GFR (Non-Af Amer) BUN/Creatinine Ratio (10-20) Glucose (70-99) mg/dl POC Glucose (70-99) Estimat Average Glucose mg/dl Hemoglobin A1c (4.5-5.6) % Osmolality 288 (280-300) mOsm/kg Calcium (8.5-10.1) mg/dl Iron (35-175) mcg/dl TIBC (250-450) mcg/dl Transferrin (200-360) mg/dl Ferritin (8-388) ng/ml Folate (>5.38) ng/ml Urine Osmolality (500-800) mOsm/kg Ur Random Sodium mmol/L Nasal Screen MRSA (PCR) (Negative) Blood Type Antibody Screen Crossmatch Diagnostic Findings Telemetry reviewed: Normal sinus rhythm with possible blocked PAC's, no significant pauses. No concerning arrhythmias. EKG demonstrated normal sinus rhythm without acute ischemic changes Chest x-ray reviewed on admission: No acute cardiopulmonary findings. Chest CT a completed on admission, report reviewed: IMPRESSION: 1. No evidence of pulmonary thromboembolic disease. 2. Trace pleural effusions with subsegmental bibasilar atelectasis. 3. Mild emphysema with findings suggestive of bronchitis. Mild associated tracheobronchial secretions with mild mucous plugging. 4. Remote T9 compression deformity. 25% anterior endplate compression deformity at T1 has progressed from 09/24/2016 without retropulsion. Correlate clinically. 5. Additional findings as above. 2D echocardiogram report reviewed dated January 2018: The primary indication after review was deemed appropriate and the examination was performed. Normal LV chamber size and wall thickness. Normal LV systolic function without regional wall motion abnormality. Calculated LV ejection Fraction = 52% (bi-plane method of discs). Grade I diastolic dysfunction. The aortic valve has three leaflets. The aortic valve is moderately calcified. Borderline aortic stenosis. Mild aortic valve regurgitation is present. There is moderate mitral annular calcification. Mitral stenosis is absent. Moderate mitral regurgitation is present. (1) Anemia Anemia type: iron deficiency Iron deficiency anemia type: unspecified iron deficiency Qualified Code(s): D50.9 - Iron deficiency anemia, unspecified (2) Aortic stenosis Cardiac valve disease etiology: nonrheumatic Qualified Code(s): I35.0 - Nonrheumatic aortic (valve) stenosis
[2018-12-05 16:28] LABS: BUN Creatinine Ratio 35.7 (10-20); Calcium 8.7 mg/dl (8.5-10.1); Creatinine Clr Calc Pharmacy 33.6 ml/min; Est GFR (African American) 62.2; Est GFR (Non-African American) 53.7; Potassium 4.7 mmol/L (3.5-5.1)
[2018-12-05] MEDS: METOPROLOL TARTRATE 25 MG TAB PO SCH (20:56)
[2018-12-05] MEDS: ACETAMINOPHEN 325 MG TAB PO PRN (21:59)
[2018-12-06] MEDS: ACETAMINOPHEN 325 MG TAB PO PRN ×2 (02:57→22:02)
[2018-12-06 06:24] LABS: Hematocrit (blood only) 24.1 % (42-52); Hemoglobin 8.1 g/dL (14.0-18.0); Mean Corpuscular Hgb Conc 33.6 g/dL (32-36); Mean Corpuscular Volume 88.9 fL (80-100); Mean Platelet Volume 9.9 fL (7.4-10.4); Platelet Count 280 K/uL (130-400); RDW Coefficient of Variation 16.3 % (11.5-14.5); RDW Standard Deviation 52.4 fL (36.4-46.3); Red Blood Count 2.71 M/uL (4.7-6.1); White Blood Count 8.92 K/uL (4.8-10.8)
[2018-12-06 07:00] LABS: BUN Creatinine Ratio 35.3 (10-20); Calcium 8.4 mg/dl (8.5-10.1); Creatinine Clr Calc Pharmacy 31.7 ml/min; Est GFR (African American) 55.9; Est GFR (Non-African American) 48.3
[2018-12-06] MEDS: INSULIN ASPART 100 UNITS/ML 3 ML PEN SC SCH ×4 (08:44→20:48)
[2018-12-06] MEDS: FERROUS SULFATE 325 MG TAB PO SCH ×2 (08:45→20:49)
[2018-12-06] MEDS: METOPROLOL TARTRATE 25 MG TAB PO SCH ×2 (08:46→20:49)
[2018-12-06] MEDS: PANCREAZE (LIPASE 4,200U) CAP PO SCH ×3 (08:46→17:00)
[2018-12-06] MEDS: LIDOCAINE 5% 1 PATCH TD SCH (08:47)
[2018-12-06] MEDS: SODIUM CHLORIDE 1 GM TABLET PO SCH (08:47)
[2018-12-06] MEDS: POLYETHYLENE (MIRALAX) 17 GM PACK PO SCH (08:47)
--- NOTE | 2018-12-06 10:28 | Cardiology Progress Note ---
Date of Service December 06, 2018 Assessment & Plan (1) Orthostatic hypotension: Likely multifactorial in setting of volume depletion, anemia and hyponatremia. Recommend compression stockings be placed Continue him sodium supplements Low-dose beta-shaun restarted hopefully aid in diastolic filling, decrease LV gradient Will follow closely in hospital (2) Anemia: Hemoglobin 7.6 this morning. Likely contributing to his symptoms. Discussed with hospitalist. Will proceed with transfusion of 1 unit packed red blood cells (3) Aortic stenosis: Moderate aortic stenosis present with mid cavitary gradient as well, hyperdynamic LV function (4) Hyponatremia: Significant hyponatremia noted on admission. Sodium tablets supplemented. Subjective Patient seen and examined, chart medications, telemetry reviewed. No new complaints this morning. No dizziness or lightheadedness but has been in bed Physical Exam Physical Exam: Vital signs as above thin and + cachectic Eyes: PERRL, conjunctivae normal, anicteric sclerae ENMT: external ear and nose normal, oropharynx normal Neck: normal visual inspection Respiratory: normal respiratory effort, lungs clear to auscultation Cardiovascular: Rate/Rhythm: regular rate and regular rhythm Heart Sounds: + murmur (II/ systolic murmur LSB) Vessels: no JVD Extremities: no edema Gastrointestinal (Abdomen): normal bowel sounds, soft, nontender, no hepatosplenomegaly Neurologic: PERRL, EOMI, accommodation nl, no face palsy, no dysarthria Psychiatric: A+Ox3, euthymic affect Results & Data Vital Signs (Past 12 Hours) Vital Signs Temp Pulse Pulse Resp BP Pulse Ox 12/06/18 07:15 36.6 C 82 20 118/52 L 97 12/06/18 04:00 36.3 C L 85 20 124/70 94 Laboratory Results Laboratory Results - last 24 hr 12/05/18 12/05/18 12/05/18 10:22 10:23 11:09 WBC RBC Hgb Hct MCV MCH MCHC RDW Std Deviation RDW Coeff of Joann Plt Count MPV Sodium Potassium Chloride Carbon Dioxide Anion Gap BUN Creatinine Est Cr Clr Drug Dosing Est GFR ( Amer) Est GFR (Non-Af Amer) BUN/Creatinine Ratio Glucose POC Glucose 138 H Osmolality Calcium Vitamin B12 Folate 14.20 Urine Osmolality Ur Random Sodium Blood Type AB Positive Antibody Screen NEGATIVE Crossmatch See Detail 12/05/18 12/05/18 12/05/18 15:50 15:50 15:53 WBC RBC Hgb 9.0 L Hct 27.0 L MCV MCH MCHC RDW Std Deviation RDW Coeff of Joann Plt Count MPV Sodium Potassium Chloride Carbon Dioxide Anion Gap BUN Creatinine Est Cr Clr Drug Dosing Est GFR ( Amer) Est GFR (Non-Af Amer) BUN/Creatinine Ratio Glucose POC Glucose Osmolality Calcium Vitamin B12 Folate Urine Osmolality 343 L Ur Random Sodium 92 Blood Type Antibody Screen Crossmatch 12/05/18 12/05/18 12/05/18 15:53 15:53 16:10 WBC RBC Hgb Hct MCV MCH MCHC RDW Std Deviation RDW Coeff of Joann Plt Count MPV Sodium 133 L Potassium 4.7 Chloride 103 Carbon Dioxide 20 L Anion Gap 10.0 BUN 43 H Creatinine 1.20 Est Cr Clr Drug Dosing 33.6 Est GFR ( Amer) 62.2 Est GFR (Non-Af Amer) 53.7 BUN/Creatinine Ratio 35.7 H Glucose 93 POC Glucose 108 H Osmolality 285 Calcium 8.7 Vitamin B12 Folate Urine Osmolality Ur Random Sodium Blood Type Antibody Screen Crossmatch 12/05/18 12/06/18 12/06/18 20:10 06:00 06:00 WBC 8.92 RBC 2.71 L Hgb 8.1 L Hct 24.1 L MCV 88.9 MCH 29.9 MCHC 33.6 RDW Std Deviation 52.4 H RDW Coeff of Joann 16.3 H Plt Count 280 MPV 9.9 Sodium Potassium Chloride Carbon Dioxide Anion Gap BUN Creatinine Est Cr Clr Drug Dosing Est GFR ( Amer) Est GFR (Non-Af Amer) BUN/Creatinine Ratio Glucose POC Glucose 159 H Osmolality Calcium Vitamin B12 434 Folate Urine Osmolality Ur Random Sodium Blood Type Antibody Screen Crossmatch 12/06/18 12/06/18 06:00 07:09 WBC RBC Hgb Hct MCV MCH MCHC RDW Std Deviation RDW Coeff of Joann Plt Count MPV Sodium 134 L Potassium 5.0 Chloride 106 Carbon Dioxide 18 L Anion Gap 10.0 BUN 46 H Creatinine 1.31 Est Cr Clr Drug Dosing 31.7 Est GFR ( Amer) 55.9 Est GFR (Non-Af Amer) 48.3 BUN/Creatinine Ratio 35.3 H Glucose 95 POC Glucose 107 H Osmolality Calcium 8.4 L Vitamin B12 Folate Urine Osmolality Ur Random Sodium Blood Type Antibody Screen Crossmatch (1) Anemia Anemia type: iron deficiency Iron deficiency anemia type: unspecified iron deficiency Qualified Code(s): D50.9 - Iron deficiency anemia, unspecified (2) Aortic stenosis Cardiac valve disease etiology: nonrheumatic Qualified Code(s): I35.0 - Nonrheumatic aortic (valve) stenosis
--- NOTE | 2018-12-06 15:01 | Nephrology Progress Note ---
Date of Service December 06, 2018 Assessment & Plan (1) Hyponatremia: normotonic hyponatremia; difficult to assess hydration status but appears to have been mildly dehydrated on presentation give response to NS. that said, historically he has had euvolemic hyponatremia responsive to salt tabs; lasix avoided in past for mgt of this d/t chronic voiding sx/urinary frequency and will try to respect that here -continue salt tabs current dose; no FR currently; would not give higher salt tabs -recheck bmp in am -given that he's had blood and NS already, consider at most another 500 mL of fluid, composition to depend on above labs [facility] I will order -control pain > given recent surgeries and vertebral fractures, prone to pain which can worsen low sNa; that said he had no pain c/o this am (2) CKD (chronic kidney disease), stage III: baseline creatinine 1.3-1.4; he did just have IV contrast for CT angio so creatinine could still bump next 12 hrs but will monitor; for now creat at baseline (3) Orthostatic hypotension: longstanding issue; cardiology following; on tele; no bp meds currently and none indicated Subjective seen on rounds thsi am 0900 approx. no c/o n/v, no sob, no uncontrolled pain; denies voiding concerns or diarrhea chronically Review of Systems Review of Systems: All systems reviewed & are unremarkable except as noted in HPI & below Constitutional: + weakness Eyes: no worsening vision Ear, Nose, Mouth, Throat: no dry mouth Gastrointestinal: no diarrhea/loose stools Genitourinary: + urinary frequency and + urinary incontinence Musculoskeletal: + joint pain Integumentary: no rash and no non-healing lesions Endocrine: + fatigue Hematologic / Lymphatic: no easy bleeding Physical Exam Constitutional: well developed and well nourished Eyes: EOM intact bilaterally ENMT: Ears: no external ear abnormality Nose: no external nose abnormality Mouth: + dry oral mucous membranes Neck: no nuchal rigidity Respiratory: normal respiratory effort Auscultation: + diminished lung sounds Cardiovascular: RRR, no murmur, no edema Gastrointestinal (Abdomen): Inspection/Auscultation: normal bowel sounds Percussion/Palpation: abdomen soft; abdomen nontender Musculoskeletal: Extremities: strength 5/5 throughout Skin: no rashes, warm and dry Psychiatric: A+Ox3, euthymic affect Speech: normal rate/rhythm/volume of speech Results & Data Vital Signs (Past 12 Hours) Vital Signs Temp Pulse Pulse Pulse Resp BP BP 12/06/18 11:04 36.5 C 77 17 112/63 12/06/18 08:00 77 12/06/18 07:15 36.6 C 82 20 118/52 L 12/06/18 04:00 36.3 C L 85 20 124/70 Pulse Ox 12/06/18 11:04 98 12/06/18 08:00 12/06/18 07:15 97 12/06/18 04:00 94 Laboratory Results reviewed
--- NOTE | 2018-12-06 15:43 | Hospitalist Progress Note ---
Date of Service December 06, 2018 Assessment & Plan (1) Orthostatic hypotension: Per admitting service notes This is an 88yo M with a PMH of orthostatic syncope, hyponatremia, Type 1 diabetes, history of pancreatic cancer s/p Whipple in 2013, CKD 3 who presents after near syncopal episodes. -History of orthostatic hypotension and syncope since 2017 -Recently instructed to increase fluid intake, lisinopril and amlodipine were discontinued -IV fluids administered 1 unit pRBC given BP stable so far Cardiology and nephrology consulted Metoprolol started continue salt tab (2) Anemia: HgGlobin 7.6, baseline 9-10 No signs of melena, hematochezia or hematuria Anemia panel ordered, could be secondary to anemia of chronic kidney disease or anemia of chronic disease 1 unit packed RBCs ordered H&H 8.0 no signs of bleeding monitor (3) Hyponatremia: -Initial sodium of 127 (baseline 135) Given IV NSS Sodium improved to 133 -Likely hypovolemic hyponatremia Nephrology consulted- continue salt tabs (4) CKD (chronic kidney disease), stage III: Kidney function at baseline -Continue to monitor (5) DM type 1 (diabetes mellitus, type 1): History of Whipple's procedure A1c 5.6 -Hold home agents -SSI while in-patient -BSG AC HS DVT Ppx: Hold heparin in light of anemia SCDs ordered Code status: DNR per discussion with patient PCP: Srinivas Dispo: Pending We will order PT OT evaluation Subjective ff up for orthostatic syncope seen sitting up in bedside chair, comfortable states he feels improved today than yesterday no dizziness when upright today denies chest pain, dyspnea, palpitations denies signs of bleeding no other symptoms Review of Systems Review of Systems: All systems reviewed & are unremarkable except as noted in HPI & below Physical Exam Physical Exam: General- oriented x 2, not in distress, speaks in sentences with no effort or accessory muscle use Eyes- anicteric Neck- no JVD Lungs- clear breath sounds bilaterally Heart- normal rate, regular rhythm;(+) grade 2 murmur Abdomen- normal bowel sounds, nondistended, soft, nontender Extremities- no pretibial edema, no calf tenderness Neuro- alert, oriented x 2; no gross focal neurologic deficits Skin- warm & dry Results & Data Vital Signs (Past 12 Hours) Vital Signs Temp Pulse Pulse Pulse Resp BP BP 06/22/19 15:11 36.5 C 78 18 122/60 12/06/18 11:04 36.5 C 77 17 112/63 12/06/18 08:00 77 12/06/18 07:15 36.6 C 82 20 118/52 L 12/06/18 04:00 36.3 C L 85 20 124/70 Pulse Ox 12/06/18 15:11 98 12/06/18 11:04 98 12/06/18 08:00 12/06/18 07:15 97 12/06/18 04:00 94 Laboratory Results Laboratory Results - last 24 hr 12/05/18 12/05/18 12/05/18 10:23 15:50 15:50 WBC RBC Hgb Hct MCV MCH MCHC RDW Std Deviation RDW Coeff of Joann Plt Count MPV Sodium Potassium Chloride Carbon Dioxide Anion Gap BUN Creatinine Est Cr Clr Drug Dosing Est GFR ( Amer) Est GFR (Non-Af Amer) BUN/Creatinine Ratio Glucose POC Glucose Osmolality Calcium Vitamin B12 Urine Osmolality 343 L Ur Random Sodium 92 Crossmatch See Detail 12/05/18 12/05/18 12/05/18 15:53 15:53 15:53 WBC RBC Hgb 9.0 L Hct 27.0 L MCV MCH MCHC RDW Std Deviation RDW Coeff of Joann Plt Count MPV Sodium 133 L Potassium 4.7 Chloride 103 Carbon Dioxide 20 L Anion Gap 10.0 BUN 43 H Creatinine 1.20 Est Cr Clr Drug Dosing 33.6 Est GFR ( Amer) 62.2 Est GFR (Non-Af Amer) 53.7 BUN/Creatinine Ratio 35.7 H Glucose 93 POC Glucose Osmolality 285 Calcium 8.7 Vitamin B12 Urine Osmolality Ur Random Sodium Crossmatch 12/05/18 12/05/18 12/06/18 16:10 20:10 06:00 WBC RBC Hgb Hct MCV MCH MCHC RDW Std Deviation RDW Coeff of Joann Plt Count MPV Sodium Potassium Chloride Carbon Dioxide Anion Gap BUN Creatinine Est Cr Clr Drug Dosing Est GFR ( Amer) Est GFR (Non-Af Amer) BUN/Creatinine Ratio Glucose POC Glucose 108 H 159 H Osmolality Calcium Vitamin B12 434 Urine Osmolality Ur Random Sodium Crossmatch 12/06/18 12/06/18 12/06/18 06:00 06:00 07:09 WBC 8.92 RBC 2.71 L Hgb 8.1 L Hct 24.1 L MCV 88.9 MCH 29.9 MCHC 33.6 RDW Std Deviation 52.4 H RDW Coeff of Joann 16.3 H Plt Count 280 MPV 9.9 Sodium 134 L Potassium 5.0 Chloride 106 Carbon Dioxide 18 L Anion Gap 10.0 BUN 46 H Creatinine 1.31 Est Cr Clr Drug Dosing 31.7 Est GFR ( Amer) 55.9 Est GFR (Non-Af Amer) 48.3 BUN/Creatinine Ratio 35.3 H Glucose 95 POC Glucose 107 H Osmolality Calcium 8.4 L Vitamin B12 Urine Osmolality Ur Random Sodium Crossmatch 12/06/18 11:03 WBC RBC Hgb Hct MCV MCH MCHC RDW Std Deviation RDW Coeff of Joann Plt Count MPV Sodium Potassium Chloride Carbon Dioxide Anion Gap BUN Creatinine Est Cr Clr Drug Dosing Est GFR ( Amer) Est GFR (Non-Af Amer) BUN/Creatinine Ratio Glucose POC Glucose 134 H Osmolality Calcium Vitamin B12 Urine Osmolality Ur Random Sodium Crossmatch (1) Anemia Anemia type: iron deficiency Iron deficiency anemia type: unspecified iron deficiency Qualified Code(s): D50.9 - Iron deficiency anemia, unspecified
[2018-12-07] MEDS: ACETAMINOPHEN 325 MG TAB PO PRN ×2 (01:53→22:39)
[2018-12-07] MEDS: INSULIN ASPART 100 UNITS/ML 3 ML PEN SC SCH ×4 (08:30→21:18)
[2018-12-07] MEDS: PANCREAZE (LIPASE 4,200U) CAP PO SCH ×3 (08:31→16:50)
[2018-12-07] MEDS: LIDOCAINE 5% 1 PATCH TD SCH (08:31)
[2018-12-07] MEDS: FERROUS SULFATE 325 MG TAB PO SCH ×2 (08:31→21:17)
[2018-12-07] MEDS: METOPROLOL TARTRATE 25 MG TAB PO SCH ×2 (08:32→21:17)
[2018-12-07] MEDS: POLYETHYLENE (MIRALAX) 17 GM PACK PO SCH (08:32)
[2018-12-07] MEDS: SODIUM CHLORIDE 1 GM TABLET PO SCH (08:32)
[2018-12-07 11:46] LABS: Hematocrit (blood only) 26.1 % (42-52); Hemoglobin 8.7 g/dL (14.0-18.0)
--- NOTE | 2018-12-07 11:48 | Cardiology Progress Note ---
Date of Service December 07, 2018 Assessment & Plan (1) Orthostatic hypotension: Likely multifactorial in setting of volume depletion, anemia and hyponatremia. Recommend compression stockings be placed Continue sodium supplements Low-dose beta-shaun restarted and patient initially tolerated I have discussed persistent need for caution with any positional change Patient and family are contemplating assisted care facility on discharge (2) Anemia: (3) Aortic stenosis: Moderate aortic stenosis present with mid cavitary gradient as well, hyperdynamic LV function (4) Hyponatremia: Significant hyponatremia noted on admission. Sodium tablets supplemented. BMP ordered for a.m. Subjective Sitting out of bed in chair this morning for first time with good tone Patient seen and examined, chart medications, telemetry reviewed. No new complaints this morning. No dizziness or lightheadedness sitting out of bed in chair for first time with good tolerance Physical Exam Physical Exam: Vital signs as above thin and + cachectic Eyes: PERRL, conjunctivae normal, anicteric sclerae ENMT: external ear and nose normal, oropharynx normal Neck: normal visual inspection Respiratory: normal respiratory effort, lungs clear to auscultation Cardiovascular: Rate/Rhythm: regular rate and regular rhythm Heart Sounds: + murmur (II/ systolic murmur LSB) Vessels: no JVD Extremities: no edema Gastrointestinal (Abdomen): normal bowel sounds, soft, nontender, no hepatosplenomegaly Neurologic: PERRL, EOMI, accommodation nl, no face palsy, no dysarthria Psychiatric: A+Ox3, euthymic affe Results & Data Vital Signs (Past 12 Hours) Vital Signs Temp Pulse Pulse Resp BP Pulse Ox 12/07/18 10:57 79 12/07/18 07:16 36.5 C 75 18 96/49 L 96 12/07/18 02:33 36.6 C 72 17 101/47 L 96 Laboratory Results Laboratory Results - last 24 hr 12/06/18 12/06/18 12/07/18 16:42 20:11 07:14 Hgb Hct POC Glucose 110 H 153 H 126 H 12/07/18 12/07/18 11:22 11:35 Hgb 8.7 L Hct 26.1 L POC Glucose 163 H (1) Anemia Anemia type: iron deficiency Iron deficiency anemia type: unspecified iron deficiency Qualified Code(s): D50.9 - Iron deficiency anemia, unspecified (2) Aortic stenosis Cardiac valve disease etiology: nonrheumatic Qualified Code(s): I35.0 - Nonrheumatic aortic (valve) stenosis
--- NOTE | 2018-12-07 14:52 | Hospitalist Progress Note ---
Date of Service December 07, 2018 Assessment & Plan (1) Orthostatic hypotension: Per admitting service notes This is an 88yo M with a PMH of orthostatic syncope, hyponatremia, Type 1 diabetes, history of pancreatic cancer s/p Whipple in 2013, CKD 3 who presents after near syncopal episodes. -History of orthostatic hypotension and syncope since 2017 -Recently instructed to increase fluid intake, lisinopril and amlodipine were discontinued -IV fluids administered 1 unit pRBC given Still positive for orthostasis but patient is clinically proving, no dizziness/lightheadedness bright so far Cardiology and nephrology consulted Metoprolol tartrate 12.5 mg p.o. twice daily started, continue to monitor continue salt tab (2) Anemia: HgGlobin 7.6, baseline 9-10 No signs of melena, hematochezia or hematuria Anemia panel ordered, could be secondary to anemia of chronic kidney disease or anemia of chronic disease 1 unit packed RBCs ordered H&H 8.7 no signs of bleeding monitor Continue ferrous sulfate (3) Hyponatremia: -Initial sodium of 127 (baseline 135) Given IV NSS Sodium improved to 133 -Likely hypovolemic hyponatremia Nephrology consulted- continue salt tabs (4) CKD (chronic kidney disease), stage III: Kidney function at baseline -Continue to monitor (5) DM type 1 (diabetes mellitus, type 1): History of Whipple's procedure A1c 5.6 -Hold home agents -SSI while in-patient -BSG AC HS DVT Ppx: Hold heparin in light of anemia SCDs ordered Code status: DNR per discussion with patient PCP: Srinivas Dispo: Pending We will order PT OT evaluation Subjective Follow-up for orthostatic hypotension Seen resting in bed, comfortable Patient is in good spirits States he feels improved compared to admission Able to stand up and sit up on the chair no dizziness, lightheadedness Denies chest pain, shortness of breath, palpitations No signs of bleeding like melena or hematochezia, hematuria No other symptoms Review of Systems Review of Systems: All systems reviewed & are unremarkable except as noted in HPI & below Physical Exam Physical Exam: General- oriented x 2, not in distress, speaks in sentences with no effort or accessory muscle use Eyes- anicteric Neck- no JVD Lungs- clear breath sounds bilaterally, no crackles or wheezing Heart- normal rate, regular rhythm; grade 2 murmur Abdomen- normal bowel sounds, nondistended, soft, nontender Extremities- no pretibial edema, no calf tenderness Neuro- alert, oriented x 3; no gross focal neurologic deficits Skin- warm & dry Results & Data Vital Signs (Past 12 Hours) Vital Signs Temp Pulse Pulse Resp BP Pulse Ox 12/07/18 12:09 36.9 C 76 16 117/58 L 98 12/07/18 10:57 79 12/07/18 07:16 36.5 C 75 18 96/49 L 96 (1) Anemia Anemia type: iron deficiency Iron deficiency anemia type: unspecified iron deficiency Qualified Code(s): D50.9 - Iron deficiency anemia, unspecified
[2018-12-08 06:22] LABS: Basophils # (auto) 0.01 K/uL (0-0.2); Basophils % (auto) 0.1 %; Eosinophils # (auto) 0.21 K/uL (0-0.5); Eosinophils % (auto) 2.2 %; Hematocrit (blood only) 24.7 % (42-52); Hemoglobin 8.2 g/dL (14.0-18.0); Lymphocytes % (auto) 29.7 %; Mean Corpuscular Hgb Conc 33.2 g/dL (32-36); Mean Corpuscular Volume 91.5 fL (80-100); Mean Platelet Volume 9.7 fL (7.4-10.4); Monocytes # (auto) 1.09 K/uL (0.11-0.59); Monocytes % (auto) 11.2 %; Neutrophils # (auto) 5.44 K/uL (1.4-6.5); Neutrophils % (auto) 55.8 %; Platelet Count 269 K/uL (130-400); RDW Coefficient of Variation 15.8 % (11.5-14.5); RDW Standard Deviation 53.3 fL (36.4-46.3); White Blood Count 9.75 K/uL (4.8-10.8)
[2018-12-08 06:52] LABS: BUN Creatinine Ratio 34.7 (10-20); Calcium 8.6 mg/dl (8.5-10.1); Creatinine Clr Calc Pharmacy 27.3 ml/min; Est GFR (African American) 49.9; Potassium 4.4 mmol/L (3.5-5.1)
[2018-12-08] MEDS: SODIUM CHLORIDE 1 GM TABLET PO SCH (08:09)
[2018-12-08] MEDS: PANCREAZE (LIPASE 4,200U) CAP PO SCH ×3 (08:09→18:09)
[2018-12-08] MEDS: METOPROLOL TARTRATE 25 MG TAB PO SCH ×2 (08:09→20:36)
[2018-12-08] MEDS: FERROUS SULFATE 325 MG TAB PO SCH ×2 (08:10→20:36)
[2018-12-08] MEDS: INSULIN ASPART 100 UNITS/ML 3 ML PEN SC SCH ×4 (08:11→20:37)
[2018-12-08] MEDS: POLYETHYLENE (MIRALAX) 17 GM PACK PO SCH (08:12)
--- NOTE | 2018-12-08 09:08 | Cardiology Progress Note ---
Date of Service December 08, 2018 Assessment & Plan (1) Orthostatic hypotension: Likely multifactorial in setting of volume depletion, anemia and hyponatremia. chronic issue significant component is poor oral intake due to incontinence Recommend compression stockings be placed started on low dose beta shaun for possible LV gradient, tolerating well will give a trial of florinef now as well ok to d/c this pm or in am based on symptoms f/u with cardiology in 2-4 weeks as outpatient (2) Anemia: Likely contributing to his symptoms. (3) Aortic stenosis: Moderate aortic stenosis present with mid cavitary gradient as well, hyperdynamic LV function (4) Hyponatremia: Significant hyponatremia noted on admission. Sodium tablets supplemented. appreciate nephro input Subjective Pt seen and examined, oob in chair, states that he's been feeling better. No further dizziness/lightheadedness upon standing. Denies cp, sob, palpitations or syncope. tele reviewed: sinus rhythm with rare blocked PAC's. no sustained arrhythmias or pauses. Review of Systems Review of Systems: All systems reviewed & are unremarkable except as noted in HPI & below Physical Exam Physical Exam: General: Awake, alert and oriented x 3. No acute distress. HEENT: Normocephalic, atraumatic. Pupils equal, round and reactive to light and accommodation. Extraocular muscles are intact. Anicteric sclera. Moist mucous membranes. Neck: No JVD. No bruit. Cardiovascular: Regular. Positive S-4. Normal S-1 and S-2. No S-3. 3/6 holosystolic ejection murmur, left sternal border, mid-clavicular line with radiation to the axilla. No rubs. Pulmonary: Clear to auscultation bilaterally. No rales, rhonchi, or wheezing. Abdomen: Bowel sounds x 4, soft. No rebound, guarding or tenderness. No organomegaly. Extremities: No clubbing, cyanosis or edema. +2 pedal pulses bilaterally. Skin: Warm and dry. Results & Data Vital Signs (Past 12 Hours) Vital Signs Temp Pulse Pulse Resp BP BP Pulse Ox 12/08/18 07:13 36.7 C 77 15 116/54 L 97 12/08/18 04:04 36.2 C L 70 18 119/52 L 98 12/07/18 23:49 36.7 C 73 19 96/56 L 97 (1) Anemia Anemia type: iron deficiency Iron deficiency anemia type: unspecified iron deficiency Qualified Code(s): D50.9 - Iron deficiency anemia, unspecified (2) Aortic stenosis Cardiac valve disease etiology: nonrheumatic Qualified Code(s): I35.0 - Nonrheumatic aortic (valve) stenosis
[2018-12-08] MEDS: FLUDROCORTISONE ACETATE 0.1 MG TAB PO SCH (09:41)
[2018-12-08] MEDS: LIDOCAINE 5% 1 PATCH TD SCH (09:42)
--- NOTE | 2018-12-08 13:11 | Hospitalist Progress Note ---
Date of Service December 08, 2018 Assessment & Plan (1) Orthostatic hypotension: Per admitting service notes This is an 88yo M with a PMH of orthostatic syncope, hyponatremia, Type 1 diabetes, history of pancreatic cancer s/p Whipple in 2013, CKD 3 who presents after near syncopal episodes. -History of orthostatic hypotension and syncope since 2017 -Recently instructed to increase fluid intake, lisinopril and amlodipine were discontinued -IV fluids administered 1 unit pRBC given Still positive for orthostasis but patient is clinically proving, no dizziness/lightheadedness bright so far Florinef 0.1 mg p.o. started respiratory nausea recommendation Cardiology and nephrology consulted Metoprolol tartrate 12.5 mg p.o. twice daily started, continue to monitor continue salt tab Monitor (2) Anemia: HgGlobin 7.6, baseline 9-10 No signs of melena, hematochezia or hematuria Anemia panel ordered, could be secondary to anemia of chronic kidney disease or anemia of chronic disease 1 unit packed RBCs ordered H&H 8.2 no signs of bleeding monitor Continue ferrous sulfate (3) Hyponatremia: -Initial sodium of 127 (baseline 135) Given IV NSS Sodium improved to 132 -Likely hypovolemic hyponatremia Nephrology consulted- continue salt tabs (4) CKD (chronic kidney disease), stage III: Kidney function at baseline -Continue to monitor (5) DM type 1 (diabetes mellitus, type 1): History of Whipple's procedure A1c 5.6 -Hold home agents -SSI while in-patient -BSG AC HS DVT Ppx: Hold heparin in light of anemia SCDs ordered Code status: DNR per discussion with patient PCP: Srinivas Dispo: Case management on board, referrals to [facility] Subjective Follow-up for orthostatic hypotension Seen resting in bedside chair, comfortable, nondistressed States he feels improving overall Denies dizziness or lightheadedness when upright today No chest pain, shortness of breath, palpitations No bleeding No other symptoms Review of Systems Review of Systems: All systems reviewed & are unremarkable except as noted in HPI & below Physical Exam Physical Exam: General- oriented x 2, not in distress, speaks in sentences with no effort or accessory muscle use Eyes- anicteric Neck- no JVD Lungs- clear BS, no wheezing, no crackles Heart- normal rate, regular rhythm; grade 2 murmur Abdomen- normal bowel sounds, nondistended, soft, nontender Extremities- no pretibial edema, no calf tenderness Neuro- alert, oriented x 3; no gross focal neurologic deficits Skin- warm & dry Results & Data Vital Signs (Past 12 Hours) Vital Signs Temp Pulse Pulse Resp BP BP Pulse Ox 12/08/18 11:39 36.4 C L 72 18 116/58 L 96 12/08/18 07:13 36.7 C 77 15 116/54 L 97 12/08/18 04:04 36.2 C L 70 18 119/52 L 98 Laboratory Results Laboratory Results - last 24 hr 12/07/18 12/07/18 12/08/18 16:12 20:19 05:55 WBC 9.75 RBC 2.70 L Hgb 8.2 L Hct 24.7 L MCV 91.5 MCH 30.4 MCHC 33.2 RDW Std Deviation 53.3 H RDW Coeff of Joann 15.8 H Plt Count 269 MPV 9.7 Immature Gran % (Auto) 1.0 Neut % (Auto) 55.8 Lymph % (Auto) 29.7 [place] % (Auto) 11.2 Eos % (Auto) 2.2 Baso % (Auto) 0.1 Immature Gran # (Auto) 0.10 H Neut # (Auto) 5.44 Lymph # (Auto) 2.90 [place] # (Auto) 1.09 H Eos # (Auto) 0.21 Baso # (Auto) 0.01 Sodium Potassium Chloride Carbon Dioxide Anion Gap BUN Creatinine Est Cr Clr Drug Dosing Est GFR ( Amer) Est GFR (Non-Af Amer) BUN/Creatinine Ratio Glucose POC Glucose 192 H 122 H Calcium 12/08/18 12/08/18 12/08/18 05:55 07:10 10:59 WBC RBC Hgb Hct MCV MCH MCHC RDW Std Deviation RDW Coeff of Joann Plt Count MPV Immature Gran % (Auto) Neut % (Auto) Lymph % (Auto) [place] % (Auto) Eos % (Auto) Baso % (Auto) Immature Gran # (Auto) Neut # (Auto) Lymph # (Auto) [place] # (Auto) Eos # (Auto) Baso # (Auto) Sodium 132 L Potassium 4.4 Chloride 103 Carbon Dioxide 21 Anion Gap 8.0 BUN 50 H Creatinine 1.44 H Est Cr Clr Drug Dosing 27.3 Est GFR ( Amer) 49.9 Est GFR (Non-Af Amer) 43.0 BUN/Creatinine Ratio 34.7 H Glucose 108 H POC Glucose 129 H 160 H Calcium 8.6 (1) Anemia Anemia type: iron deficiency Iron deficiency anemia type: unspecified iron deficiency Qualified Code(s): D50.9 - Iron deficiency anemia, unspecified
--- NOTE | 2018-12-08 19:57 | Nephrology Progress Note ---
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 Improved with IV fluids. Na now stable at 132. -continue salt tabs current dose. Consider increasing dose of salt tabs if not improving -control pain > given recent surgeries and vertebral fractures, prone to pain (2) CKD (chronic kidney disease), stage III: baseline creatinine 1.3-1.4; he did have IV contrast for CT angio. Cr today at 1.4. Continue to monitor with daily BMP. Avoid nephrotoxins (3) Orthostatic hypotension: longstanding issue; cardiology on board. Started florinef today. BP better today. Subjective Seen during morning rounds for hyponatremia and CKD. He feels better, denies SOB or dizziness. BP is better. Cr slightly higher than yesterday. Seen with daughter at bedside. Review of Systems Review of Systems: All systems reviewed & are unremarkable except as noted in HPI & below Physical Exam Physical Exam: General exam: Appears comfortable, no acute distress HEENT: Pupils are equal and reactive to light Neck: No JVD, neck is supple trachea is midline Respiratory system: Clear breath sounds bilaterally. Gastrointestinal: Abdomen is soft, non distended, non tender, bowel sounds are present CVS: Regular rate and rhythm. No murmurs, rubs or gallops Musculoskeletal: No joint or muscle tenderness Extremities: Non tender, no edema, peripheral pulses are present Neuro: Oriented, no tremors, no focal neurological deficits Skin: No rashes Results & Data Vital Signs (Past 12 Hours) Vital Signs Temp Pulse Pulse Resp BP Pulse Ox 12/08/18 19:08 36.6 C 94 H 16 105/56 L 95 12/08/18 15:15 36.5 C 82 18 116/57 L 97 12/08/18 14:29 97 12/08/18 11:39 36.4 C L 72 18 116/58 L 96 Laboratory Results Laboratory Results - last 24 hr 12/07/18 12/08/18 12/08/18 20:19 05:55 05:55 WBC 9.75 RBC 2.70 L Hgb 8.2 L Hct 24.7 L MCV 91.5 MCH 30.4 MCHC 33.2 RDW Std Deviation 53.3 H RDW Coeff of Joann 15.8 H Plt Count 269 MPV 9.7 Immature Gran % (Auto) 1.0 Neut % (Auto) 55.8 Lymph % (Auto) 29.7 [place] % (Auto) 11.2 Eos % (Auto) 2.2 Baso % (Auto) 0.1 Immature Gran # (Auto) 0.10 H Neut # (Auto) 5.44 Lymph # (Auto) 2.90 [place] # (Auto) 1.09 H Eos # (Auto) 0.21 Baso # (Auto) 0.01 Sodium 132 L Potassium 4.4 Chloride 103 Carbon Dioxide 21 Anion Gap 8.0 BUN 50 H Creatinine 1.44 H Est Cr Clr Drug Dosing 27.3 Est GFR ( Amer) 49.9 Est GFR (Non-Af Amer) 43.0 BUN/Creatinine Ratio 34.7 H Glucose 108 H POC Glucose 122 H Calcium 8.6 12/08/18 12/08/18 12/08/18 07:10 10:59 16:17 WBC RBC Hgb Hct MCV MCH MCHC RDW Std Deviation RDW Coeff of Joann Plt Count MPV Immature Gran % (Auto) Neut % (Auto) Lymph % (Auto) [place] % (Auto) Eos % (Auto) Baso % (Auto) Immature Gran # (Auto) Neut # (Auto) Lymph # (Auto) [place] # (Auto) Eos # (Auto) Baso # (Auto) Sodium Potassium Chloride Carbon Dioxide Anion Gap BUN Creatinine Est Cr Clr Drug Dosing Est GFR ( Amer) Est GFR (Non-Af Amer) BUN/Creatinine Ratio Glucose POC Glucose 129 H 160 H 119 H Calcium
[2018-12-09 06:41] LABS: Basophils # (auto) 0.02 K/uL (0-0.2); Basophils % (auto) 0.2 %; Eosinophils # (auto) 0.24 K/uL (0-0.5); Eosinophils % (auto) 2.2 %; Hematocrit (blood only) 24.9 % (42-52); Hemoglobin 8.3 g/dL (14.0-18.0); Immature Granulocytes # (auto) 0.06 K/uL (0.00-0.02); Immature Granulocytes % (auto) 0.6 %; Lymphocytes # (auto) 3.41 K/uL (1.2-3.4); Lymphocytes % (auto) 31.7 %; Mean Corpuscular Hgb Conc 33.3 g/dL (32-36); Mean Corpuscular Volume 91.2 fL (80-100); Mean Platelet Volume 9.5 fL (7.4-10.4); Monocytes # (auto) 0.95 K/uL (0.11-0.59); Monocytes % (auto) 8.8 %; Neutrophils # (auto) 6.07 K/uL (1.4-6.5); Neutrophils % (auto) 56.5 %; Platelet Count 271 K/uL (130-400); RDW Coefficient of Variation 15.8 % (11.5-14.5); RDW Standard Deviation 52.7 fL (36.4-46.3); Red Blood Count 2.73 M/uL (4.7-6.1); White Blood Count 10.75 K/uL (4.8-10.8)
[2018-12-09] MEDS: INSULIN ASPART 100 UNITS/ML 3 ML PEN SC SCH ×4 (08:12→20:51)
[2018-12-09] MEDS: METOPROLOL TARTRATE 25 MG TAB PO SCH ×2 (08:13→20:51)
[2018-12-09] MEDS: LIDOCAINE 5% 1 PATCH TD SCH (08:14)
[2018-12-09] MEDS: FERROUS SULFATE 325 MG TAB PO SCH ×2 (08:14→20:51)
[2018-12-09] MEDS: SODIUM CHLORIDE 1 GM TABLET PO SCH (08:14)
[2018-12-09] MEDS: PANCREAZE (LIPASE 4,200U) CAP PO SCH ×3 (08:14→17:31)
[2018-12-09] MEDS: FLUDROCORTISONE ACETATE 0.1 MG TAB PO SCH (08:14)
[2018-12-09] MEDS: POLYETHYLENE (MIRALAX) 17 GM PACK PO SCH (08:15)
[2018-12-09 09:09] LABS: BUN Creatinine Ratio 35.7 (10-20); Calcium 8.6 mg/dl (8.5-10.1); Creatinine Clr Calc Pharmacy 28.1 ml/min; Est GFR (African American) 49.5; Est GFR (Non-African American) 42.7; Potassium 4.2 mmol/L (3.5-5.1)
--- NOTE | 2018-12-09 10:07 | Cardiology Progress Note ---
Date of Service December 09, 2018 Assessment & Plan (1) Orthostatic hypotension: Likely multifactorial in setting of volume depletion, anemia and hyponatremia. chronic issue significant component is poor oral intake due to incontinence Recommend compression stockings be placed started on florinef an metoprolol I discussed with patient and daughters that I have no doubt that this will be an ongoing issue and very high likelihood or readmission explained that medications are an attempt to bulster bp, however, with continued poor po intake, will reoccur encourage oral liquid intake ok to d/c to floor or to [place] [facility] from cardiac standpoint keep cardiology appt for 12/15 (2) Anemia: Likely contributing to his symptoms. (3) Aortic stenosis: Moderate aortic stenosis present with mid cavitary gradient as well, hyperdynamic LV function (4) Hyponatremia: Significant hyponatremia noted on admission. Sodium tablets supplemented. appreciate nephro input Subjective Pt seen and examined, oob in chair, daughters at bedside. No events overnight. No recurrence of lightheadedness or synocpe upon standing but remains orthostatic. Denies cp, sob or palpitations. tele reviewed: sinus rhythm without arrhythmia or significant ectopy. Review of Systems Review of Systems: All systems reviewed & are unremarkable except as noted in HPI & below Physical Exam Physical Exam: General: Awake, alert and oriented x 3. No acute distress. HEENT: Normocephalic, atraumatic. Pupils equal, round and reactive to light and accommodation. Extraocular muscles are intact. Anicteric sclera. Moist mucous membranes. Neck: No JVD. No bruit. Cardiovascular: Regular. Positive S-4. Normal S-1 and S-2. No S-3. 3/6 holosystolic ejection murmur, left sternal border, mid-clavicular line with radiation to the axilla. No rubs. Pulmonary: Clear to auscultation bilaterally. No rales, rhonchi, or wheezing. Abdomen: Bowel sounds x 4, soft. No rebound, guarding or tenderness. No organomegaly. Extremities: No clubbing, cyanosis or edema. +2 pedal pulses bilaterally. Skin: Warm and dry. Results & Data Vital Signs (Past 12 Hours) Vital Signs Temp Pulse Pulse Resp BP BP Pulse Ox 12/09/18 07:01 36.7 C 82 15 102/59 L 96 12/09/18 03:22 36.5 C 86 19 91/55 L 95 12/08/18 22:54 36.7 C 90 21 96/51 L 97 (1) Anemia Anemia type: iron deficiency Iron deficiency anemia type: unspecified iron deficiency Qualified Code(s): D50.9 - Iron deficiency anemia, unspecified (2) Aortic stenosis Cardiac valve disease etiology: nonrheumatic Qualified Code(s): I35.0 - Nonrheumatic aortic (valve) stenosis
[2018-12-09] MEDS ORDERED: EPOETIN ALFA 20,000 UNITS/ML VIAL SQ ONE (11:00)
--- NOTE | 2018-12-09 11:38 | Hospitalist Progress Note ---
Date of Service December 09, 2018 Assessment & Plan (1) Orthostatic hypotension: Per admitting service notes This is an 88yo M with a PMH of orthostatic syncope, hyponatremia, Type 1 diabetes, history of pancreatic cancer s/p Whipple in 2013, CKD 3 who presents after near syncopal episodes. -History of orthostatic hypotension and syncope since 2017 -Recently instructed to increase fluid intake, lisinopril and amlodipine were discontinued -IV fluids administered 1 unit pRBC given Florinef 0.1 mg p.o. started Cardiology and nephrology consulted Metoprolol tartrate 12.5 mg p.o. twice daily started, continue to monitor continue salt tab Still positive for orthostasis but patient continues to improve clinically, no dizziness/lightheadedness so far even with ambulation during PT Monitor (2) Anemia: HgGlobin 7.6, baseline 9-10 No signs of melena, hematochezia or hematuria Anemia panel ordered, could be secondary to anemia of chronic kidney disease or anemia of chronic disease 1 unit packed RBCs ordered H&H 8.3 no signs of bleeding monitor Procrit ordered by Nephro Continue ferrous sulfate (3) Hyponatremia: -Initial sodium of 127 (baseline 135) Given IV NSS Sodium improved to 132 -Likely hypovolemic hyponatremia Nephrology consulted- continue salt tabs (4) CKD (chronic kidney disease), stage III: Kidney function at baseline -Continue to monitor (5) DM type 1 (diabetes mellitus, type 1): History of Whipple's procedure A1c 5.6 -Hold home agents -SSI while in-patient -BSG AC HS DVT Ppx: Hold heparin in light of anemia SCDs ordered Code status: DNR per discussion with patient PCP: Srinivas Dispo: Case management on board, referrals to [facility] Subjective Follow-up for orthostatic hypotension In with daughter at the bedside States he feels that he is improving overall Had physical therapy ambulate with patient yesterday, no dizziness or lightheadedness Today sitting up in bedside chair, again without any dizziness or lighthead edness No signs of bleeding Chest pain, shortness of breath, dizziness or palpitations No other symptoms Review of Systems Review of Systems: All systems reviewed & are unremarkable except as noted in HPI & below Physical Exam Physical Exam: General- oriented x2, not in distress, speaks in sentences with no effort or accessory muscle use Eyes- anicteric Neck- no JVD Lungs- clear breath sounds bilaterally, no wheezing, no crackles Heart- normal rate, regular rhythm; positive grade 2 murmur Abdomen- normal bowel sounds, nondistended, soft, nontender Extremities- no pretibial edema, no calf tenderness Neuro- alert, oriented x 3; no gross focal neurologic deficits Skin- warm & dry Results & Data Vital Signs (Past 12 Hours) Vital Signs Temp Pulse Pulse Resp BP BP Pulse Ox 12/09/18 11:04 36.6 C 70 14 99/48 L 98 12/09/18 07:01 36.7 C 82 15 102/59 L 96 12/09/18 03:22 36.5 C 86 19 91/55 L 95 Laboratory Results Laboratory Results - last 24 hr 12/08/18 12/08/18 12/09/18 16:17 19:58 06:30 WBC RBC Hgb Hct MCV MCH MCHC RDW Std Deviation RDW Coeff of Joann Plt Count MPV Immature Gran % (Auto) Neut % (Auto) Lymph % (Auto) [place] % (Auto) Eos % (Auto) Baso % (Auto) Immature Gran # (Auto) Neut # (Auto) Lymph # (Auto) [place] # (Auto) Eos # (Auto) Baso # (Auto) Sodium 132 L Potassium 4.2 Chloride 103 Carbon Dioxide 21 Anion Gap 8.0 BUN 52 H Creatinine 1.45 H Est Cr Clr Drug Dosing 28.1 Est GFR ( Amer) 49.5 Est GFR (Non-Af Amer) 42.7 BUN/Creatinine Ratio 35.7 H Glucose 111 H POC Glucose 119 H 198 H Calcium 8.6 12/09/18 12/09/18 06:31 07:18 WBC 10.75 RBC 2.73 L Hgb 8.3 L Hct 24.9 L MCV 91.2 MCH 30.4 MCHC 33.3 RDW Std Deviation 52.7 H RDW Coeff of Joann 15.8 H Plt Count 271 MPV 9.5 Immature Gran % (Auto) 0.6 Neut % (Auto) 56.5 Lymph % (Auto) 31.7 [place] % (Auto) 8.8 Eos % (Auto) 2.2 Baso % (Auto) 0.2 Immature Gran # (Auto) 0.06 H Neut # (Auto) 6.07 Lymph # (Auto) 3.41 H [place] # (Auto) 0.95 H Eos # (Auto) 0.24 Baso # (Auto) 0.02 Sodium Potassium Chloride Carbon Dioxide Anion Gap BUN Creatinine Est Cr Clr Drug Dosing Est GFR ( Amer) Est GFR (Non-Af Amer) BUN/Creatinine Ratio Glucose POC Glucose 138 H Calcium (1) Anemia Anemia type: iron deficiency Iron deficiency anemia type: unspecified iron deficiency Qualified Code(s): D50.9 - Iron deficiency anemia, unspecified
--- NOTE | 2018-12-09 19:51 | Nephrology Progress Note ---
Date of Service December 09, 2018 Assessment & Plan (1) Hyponatremia: Multifactorial etiology including low solute and SIADH. Improved with IV fluids. Na now stable at 132. -continue salt tabs current dose. Consider increasing dose of salt tabs if not improving -Patient is asymptomatic. (2) CKD (chronic kidney disease), stage III: baseline creatinine 1.3-1.4; he did have IV contrast for CT angio. Cr today at 1.45. Continue to monitor with daily BMP. Avoid nephrotoxins (3) Orthostatic hypotension: longstanding issue; cardiology on board. Started florinef yesterday. BP better today. Monitor for fluid retention (4) Anemia: Due to CKD. Will give procrit 20,000 units weekly. Side effects discussed with daughter and patient including increased risk of cancer Subjective Seen during morning rounds for hyponatremia and dizziness. BP is stable. No dizziness. he has not ambulated much. No SOB. Waiting for PT. Daughter at [facility] Review of Systems Review of Systems: All systems reviewed & are unremarkable except as noted in HPI & below Physical Exam Physical Exam: General exam: Appears comfortable, no acute distress HEENT: Pupils are equal and reactive to light Neck: No JVD, neck is supple trachea is midline Respiratory system: Clear breath sounds bilaterally. Gastrointestinal: Abdomen is soft, non distended, non tender, bowel sounds are present CVS: Regular rate and rhythm. No murmurs, rubs or gallops Musculoskeletal: No joint or muscle tenderness Extremities: Non tender, no edema, peripheral pulses are present Neuro: Oriented, no tremors, no focal neurological deficits Skin: No rashes Results & Data Vital Signs (Past 12 Hours) Vital Signs Temp Pulse Resp BP Pulse Ox 12/09/18 19:41 36.7 C 89 19 107/50 L 96 12/09/18 15:44 36.5 C 79 18 112/57 L 98 12/09/18 11:04 36.6 C 70 14 99/48 L 98 Laboratory Results Laboratory Results - last 24 hr 12/08/18 12/09/18 12/09/18 19:58 06:30 06:31 WBC 10.75 RBC 2.73 L Hgb 8.3 L Hct 24.9 L MCV 91.2 MCH 30.4 MCHC 33.3 RDW Std Deviation 52.7 H RDW Coeff of Joann 15.8 H Plt Count 271 MPV 9.5 Immature Gran % (Auto) 0.6 Neut % (Auto) 56.5 Lymph % (Auto) 31.7 [place] % (Auto) 8.8 Eos % (Auto) 2.2 Baso % (Auto) 0.2 Immature Gran # (Auto) 0.06 H Neut # (Auto) 6.07 Lymph # (Auto) 3.41 H [place] # (Auto) 0.95 H Eos # (Auto) 0.24 Baso # (Auto) 0.02 Sodium 132 L Potassium 4.2 Chloride 103 Carbon Dioxide 21 Anion Gap 8.0 BUN 52 H Creatinine 1.45 H Est Cr Clr Drug Dosing 28.1 Est GFR ( Amer) 49.5 Est GFR (Non-Af Amer) 42.7 BUN/Creatinine Ratio 35.7 H Glucose 111 H POC Glucose 198 H Calcium 8.6 12/09/18 12/09/18 12/09/18 07:18 11:18 16:20 WBC RBC Hgb Hct MCV MCH MCHC RDW Std Deviation RDW Coeff of Joann Plt Count MPV Immature Gran % (Auto) Neut % (Auto) Lymph % (Auto) [place] % (Auto) Eos % (Auto) Baso % (Auto) Immature Gran # (Auto) Neut # (Auto) Lymph # (Auto) [place] # (Auto) Eos # (Auto) Baso # (Auto) Sodium Potassium Chloride Carbon Dioxide Anion Gap BUN Creatinine Est Cr Clr Drug Dosing Est GFR ( Amer) Est GFR (Non-Af Amer) BUN/Creatinine Ratio Glucose POC Glucose 138 H 164 H 129 H Calcium (1) Anemia Anemia type: iron deficiency Iron deficiency anemia type: unspecified iron deficiency Qualified Code(s): D50.9 - Iron deficiency anemia, unspecified
[2018-12-10 06:07] LABS: Basophils # (auto) 0.03 K/uL (0-0.2); Basophils % (auto) 0.3 %; Eosinophils # (auto) 0.18 K/uL (0-0.5); Eosinophils % (auto) 1.7 %; Hematocrit (blood only) 24.4 % (42-52); Hemoglobin 8.2 g/dL (14.0-18.0); Immature Granulocytes # (auto) 0.07 K/uL (0.00-0.02); Immature Granulocytes % (auto) 0.6 %; Lymphocytes % (auto) 25.8 %; Mean Corpuscular Hgb Conc 33.6 g/dL (32-36); Mean Corpuscular Volume 90.4 fL (80-100); Mean Platelet Volume 9.5 fL (7.4-10.4); Monocytes # (auto) 1.08 K/uL (0.11-0.59); Monocytes % (auto) 9.9 %; Neutrophils # (auto) 6.71 K/uL (1.4-6.5); Neutrophils % (auto) 61.7 %; Platelet Count 284 K/uL (130-400); RDW Coefficient of Variation 15.3 % (11.5-14.5); RDW Standard Deviation 50.2 fL (36.4-46.3); White Blood Count 10.87 K/uL (4.8-10.8)
[2018-12-10] MEDS: INSULIN ASPART 100 UNITS/ML 3 ML PEN SC SCH ×3 (07:55→16:52)
[2018-12-10] MEDS: SODIUM CHLORIDE 1 GM TABLET PO SCH (07:58)
[2018-12-10] MEDS: FLUDROCORTISONE ACETATE 0.1 MG TAB PO SCH (07:58)
[2018-12-10] MEDS: PANCREAZE (LIPASE 4,200U) CAP PO SCH ×3 (07:59→16:51)
[2018-12-10] MEDS: METOPROLOL TARTRATE 25 MG TAB PO SCH (08:00)
[2018-12-10] MEDS: LIDOCAINE 5% 1 PATCH TD SCH (08:00)
[2018-12-10] MEDS: POLYETHYLENE (MIRALAX) 17 GM PACK PO SCH (08:02)
[2018-12-10] MEDS: FERROUS SULFATE 325 MG TAB PO SCH (08:51)
--- NOTE | 2018-12-10 11:36 | Nephrology Progress Note ---
Date of Service December 10, 2018 Assessment & Plan (1) Hyponatremia: Multifactorial etiology including low solute and SIADH. Improved with IV fluids. Na now stable at 132. -continue salt tabs current dose. Consider increasing dose of salt tabs if not improving -Patient is asymptomatic. If discharged, he can follow up with me in 3-4 weeks (2) CKD (chronic kidney disease), stage III: baseline creatinine 1.3-1.4; he did have IV contrast for CT angio. Cr stable at 1.45. Continue to monitor with daily BMP. Avoid nephrotoxins (3) Orthostatic hypotension: longstanding issue; cardiology on board. Started florinef. BP intermittently low but asymptomatic. Monitor for fluid retention (4) Anemia: Due to CKD. Continue procrit 20,000 units weekly. Side effects discussed with daughter and patient including increased risk of cancer Subjective Patient seen in follow-up for CKD and orthostatic hypotension. He reports no dizziness. Blood pressure remains low in the 90s. He was able to ambulate short distance this morning. Review of Systems Review of Systems: All systems reviewed & are unremarkable except as noted in HPI & below Physical Exam Physical Exam: General exam: Appears comfortable, no acute distress HEENT: Pupils are equal and reactive to light Neck: No JVD, neck is supple trachea is midline Respiratory system: Crackles bilaterally. Gastrointestinal: Abdomen is soft, non distended, non tender, bowel sounds are present CVS: Regular rate and rhythm. No murmurs, rubs or gallops Musculoskeletal: No joint or muscle tenderness Extremities: Non tender, no edema, peripheral pulses are present Neuro: Oriented, no tremors, no focal neurological deficits Skin: No rashes Results & Data Vital Signs (Past 12 Hours) Vital Signs Temp Pulse Pulse Resp BP Pulse Ox 12/10/18 07:31 36.4 C L 84 22 93/47 L 96 12/10/18 03:22 36.7 C 81 20 93/48 L 96 12/09/18 23:36 84 Laboratory Results Laboratory Results - last 24 hr 12/09/18 12/09/18 12/09/18 11:18 16:20 20:12 WBC RBC Hgb Hct MCV MCH MCHC RDW Std Deviation RDW Coeff of Joann Plt Count MPV Immature Gran % (Auto) Neut % (Auto) Lymph % (Auto) [place] % (Auto) Eos % (Auto) Baso % (Auto) Immature Gran # (Auto) Neut # (Auto) Lymph # (Auto) [place] # (Auto) Eos # (Auto) Baso # (Auto) POC Glucose 164 H 129 H 158 H 12/10/18 12/10/18 05:47 07:29 WBC 10.87 H RBC 2.70 L Hgb 8.2 L Hct 24.4 L MCV 90.4 MCH 30.4 MCHC 33.6 RDW Std Deviation 50.2 H RDW Coeff of Joann 15.3 H Plt Count 284 MPV 9.5 Immature Gran % (Auto) 0.6 Neut % (Auto) 61.7 Lymph % (Auto) 25.8 [place] % (Auto) 9.9 Eos % (Auto) 1.7 Baso % (Auto) 0.3 Immature Gran # (Auto) 0.07 H Neut # (Auto) 6.71 H Lymph # (Auto) 2.80 [place] # (Auto) 1.08 H Eos # (Auto) 0.18 Baso # (Auto) 0.03 POC Glucose 130 H (1) Anemia Anemia type: iron deficiency Iron deficiency anemia type: unspecified iron deficiency Qualified Code(s): D50.9 - Iron deficiency anemia, unspecified
--- NOTE | 2018-12-10 13:08 | Cardiology Progress Note ---
Date of Service December 10, 2018 Assessment & Plan (1) Orthostatic hypotension: Likely multifactorial in setting of volume depletion, anemia and hyponatremia. chronic issue significant component is poor oral intake due to incontinence Recommend compression stockings be placed started on florinef will d/c metoprolol for further bp support I discussed with patient and daughters that I have no doubt that this will be an ongoing issue and very high likelihood or readmission explained that medications are an attempt to bulster bp, however, with continued poor po intake, will reoccur encourage oral liquid intake ok to d/c to floor or to [facility] from cardiac standpoint keep cardiology appt for 12/15 (2) Anemia: Likely contributing to his symptoms. (3) Aortic stenosis: Moderate aortic stenosis present with mid cavitary gradient as well, hyperdynamic LV function (4) Hyponatremia: Significant hyponatremia noted on admission. Sodium tablets supplemented. appreciate nephro input Subjective Pt seen and examined, oob in chair, daughter at bedside. No events overnight. No recurrence of lightheadedness or synocpe upon standing but remains orthostatic. Denies cp, sob or palpitations. tele reviewed: sinus rhythm without arrhythmia or significant ectopy. Review of Systems Review of Systems: All systems reviewed & are unremarkable except as noted in HPI & below Physical Exam Physical Exam: General: Awake, alert and oriented x 3. No acute distress. HEENT: Normocephalic, atraumatic. Pupils equal, round and reactive to light and accommodation. Extraocular muscles are intact. Anicteric sclera. Moist mucous membranes. Neck: No JVD. No bruit. Cardiovascular: Regular. Positive S-4. Normal S-1 and S-2. No S-3. 3/6 holosystolic ejection murmur, left sternal border, mid-clavicular line with radiation to the axilla. No rubs. Pulmonary: Clear to auscultation bilaterally. No rales, rhonchi, or wheezing. Abdomen: Bowel sounds x 4, soft. No rebound, guarding or tenderness. No organomegaly. Extremities: No clubbing, cyanosis or edema. +2 pedal pulses bilaterally. Skin: Warm and dry. Results & Data Vital Signs (Past 12 Hours) Vital Signs Temp Pulse Pulse Resp BP Pulse Ox 12/10/18 07:35 78 12/10/18 07:31 36.4 C L 84 22 93/47 L 96 12/10/18 03:22 36.7 C 81 20 93/48 L 96 (1) Anemia Anemia type: iron deficiency Iron deficiency anemia type: unspecified iron deficiency Qualified Code(s): D50.9 - Iron deficiency anemia, unspecified (2) Aortic stenosis Cardiac valve disease etiology: nonrheumatic Qualified Code(s): I35.0 - Nonrheumatic aortic (valve) stenosis
--- NOTE | 2018-12-10 16:11 | Hospitalist Progress Note ---
Date of Service December 10, 2018 Assessment & Plan (1) Orthostatic hypotension: Per admitting service notes This is an 88yo M with a PMH of orthostatic syncope, hyponatremia, Type 1 diabetes, history of pancreatic cancer s/p Whipple in 2013, CKD 3 who presents after near syncopal episodes. -this problem is in context of History of orthostatic hypotension and syncope since 2017 and patient was recently instructed to increase fluid intake, lisinopril and amlodipine were discontinued -symptoms improved with IV fluids, Florinef, and 1 unit of PRBC on this admission -Cardiology and nephrology consulted on this admission Metoprolol tartrate 12.5 mg p.o. twice daily started on this admission but then stopped by cardiology on 12/10/18 to improve blood pressure -Discharge to [facility] Orthostatic hypotension: Likely multifactorial in setting of volume depletion, anemia and hyponatremia. chronic issue significant component is poor oral intake due to incontinence Recommend compression stockings be placed Please monitor orthostatic vital signs every shift at [facility] Encourage adequate oral fluid intake daily. Patient may take sodium chloride tablets and fludrocortisone and follow up as outpatient clinics with serum sodium levels checked and blood pressure and heart rate checks Patient should follow up with primary care doctor 12/11/2018 11:20 AM Provider Naldo Espino MD Department General Internal Medicine [facility] 12/15/2018 11:30 AM Provider Sherri Segovia PA-C Department Cardiology, [facility] Patient should continue to take discharge medications as instructed (2) Anemia: Hemoglobin 7.6 on this admission No signs of melena, hematochezia or hematuria Anemia panel ordered, could be secondary to anemia of chronic kidney disease or anemia of chronic disease 1 unit packed RBCs given on this admission Procrit given by Nephrology on this admission Continue ferrous sulfate discharge day Hgb is 8.2 (3) Hyponatremia: -Initial sodium of 127 (baseline 135) -Sodium improved to 132 with IV fluids and salt tabs on this admission (4) CKD (chronic kidney disease), stage III: -Kidney function at baseline History of Coronary artery disease -Aortic stenosis: Moderate aortic stenosis present with mid cavitary gradient as well, hyperdynamic LV function (5) DM type 1 (diabetes mellitus, type 1): History of Whipple's procedure A1c 5.6 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 Patient denies lightheadedness. No chest pain. no shortness of breath. no abdomen pain. no vomiting. [facility] to [facility] Physical Exam Constitutional: comfortable Eyes: PERRL, conjunctivae normal, anicteric sclerae EOM intact bilaterally ENMT: external ear and nose normal, oropharynx normal Respiratory: normal respiratory effort Cardiovascular: Rate/Rhythm: regular rate Heart Sounds: + murmur Gastrointestinal (Abdomen): normal bowel sounds, soft, nontender, no hepatosplenomegaly Musculoskeletal: Head/Neck/Chest: normocephalic and head atraumatic Neurologic: PERRL, EOMI, accommodation nl, no face palsy, no dysarthria CN's II-XI intact bilaterally Results & Data Vital Signs (Past 12 Hours) Vital Signs Temp Pulse Pulse Resp BP Pulse Ox 12/10/18 15:19 36.5 C 82 18 105/55 L 97 12/10/18 11:45 36.6 C 81 20 111/61 98 12/10/18 07:35 78 12/10/18 07:31 36.4 C L 84 22 93/47 L 96 (1) Anemia Anemia type: iron deficiency Iron deficiency anemia type: unspecified iron deficiency Qualified Code(s): D50.9 - Iron deficiency anemia, unspecified
--- NOTE | 2018-12-10 16:22 | Discharge Summary ---
Date of Service December 10, 2018 Admission HPI Per Admitting Provider This is an 88yo M with a PMH of orthostatic syncope, Type 1 diabetes, history of pancreatic cancer s/p Whipple in 2013, CKD 3 and hyponatremia who presents after near syncopal episodes. Patient is at [facility] following a shoulder and hip fracture that occurred from a fall in [place] this past October. Patient has history of syncopal events starting back in 2017. Has avoided drinking fluid in the past due to history of incontinence and therefore has suffered multiple syncopal events due to orthostasis. Recently establish care with Dr. Ackerman on November 19, during which visit he was encouraged to triple his fluid intake to 64 ounces and discontinue his lisinopril and amlodipine. At [facility], patient has been experiencing orthostatic hypotension, with shortness of breath and visual changes when he sits or stands. On 12/02/18, patient's sodium was noted to be 125 and he was started on sodium chloride tablets and given a liter of normal saline. Repeat sodium on 12/03/2018 is 129. Patient was supposed to be discharged tomorrow but instead was sent in for further evaluation of orthostatic syncope. Patient is asymptomatic at rest. + orthostatic BP today and for the past few days at [facility], per paperwork. Denies any lightheadedness, visual changes, chest pain, palpitations or shortness of breath. Eat small meals ever since Whipple surgery and has been tolerating them well. No nausea, vomiting or abdominal pain. Still does not have much fluid intake, per family at bedside. No dysuria, diarrhea or constipation. Admission Exam Per Admitting Provider General Appearance: WD/WN, no apparent distress, elderly thin male, appears comfortable Head: normocephalic, atraumatic Eyes: normal inspection, PERRL, EOMI ENT: hearing grossly normal, pharynx normal (dry mucous membranes) Neck: supple, no JVD, no adenopathy Respiratory/Chest: lungs clear to auscultation. No wheezes, rales or rhonci. No respiratory distress or accessory muscle use Cardiovascular: regular rate, rhythm, systolic ejection murmur, normal peripheral pulses, no BLE edema Abdomen/GI: normal bowel sounds, soft, non-tender to palpation Extremities/Musculoskelatal: normal inspection, no calf tenderness, normal capillary refill, no pedal edema Neurologic/Psych: alert, normal mood/affect, oriented x 3 Skin: normal color, warm/dry, pale Principal Diagnosis Orthostatic hypotension, hyponatremia, dehydration, poor oral intake, anemia Other diagnosis history of coronary artery disease, Diabetes Type I controlled with mcfp current use of insulin Discharge Data Allergies Allergy/AdvReac Type Severity Reaction Status Date / Time dextromethorphan Allergy Unknown RASH Verified 12/04/18 11:15 guaifenesin Allergy Unknown RASH Verified 12/04/18 11:15 Consultations 12/04/18 14:17 ED Decision to Admit Stat 12/04/18 16:14 Consult Cardiology Routine Consult Case Management - Discharge Planning Routine Consult Nephrology Routine Ordered Studies 12/04/18 10:43 CT angio chest PE protocol Stat Hospital Course (1) Orthostatic hypotension: Per admitting service notes This is an 88yo M with a PMH of orthostatic syncope, hyponatremia, Type 1 diabetes, history of pancreatic cancer s/p Whipple in 2013, CKD 3 who presents after near syncopal episodes. -this problem is in context of History of orthostatic hypotension and syncope since 2016 and patient was recently instructed to increase fluid intake, lisinopril and amlodipine were discontinued -symptoms improved with IV fluids, Florinef, and 1 unit of PRBC on this admission -Cardiology and nephrology consulted on this admission Metoprolol tartrate 12.5 mg p.o. twice daily started on this admission but then stopped by cardiology on 12/10/18 to improve blood pressure -Discharge to [facility] Orthostatic hypotension: Likely multifactorial in setting of volume depletion, anemia and hyponatremia. chronic issue significant component is poor oral intake due to incontinence Recommend compression stockings be placed Please monitor orthostatic vital signs every shift at group home facility Encourage adequate oral fluid intake daily. Patient may take sodium chloride tablets and fludrocortisone and follow up as outpatient clinics with serum sodium levels checked and blood pressure and heart rate checks Patient should follow up with primary care doctor 12/11/2018 11:20 AM Provider Naldo Espino MD Department General Internal Medicine [facility] 12/15/2018 11:30 AM Provider Sherri Segovia PA-C Department Cardiology, [facility] Patient should continue to take discharge medications as instructed (2) Anemia: Hemoglobin 7.6 on this admission No signs of melena, hematochezia or hematuria Anemia panel ordered, could be secondary to anemia of chronic kidney disease or anemia of chronic disease 1 unit packed RBCs given on this admission Procrit given by Nephrology on this admission Continue ferrous sulfate discharge day Hgb is 8.2 (3) Hyponatremia: -Initial sodium of 127 (baseline 135) -Sodium improved to 132 with IV fluids and salt tabs on this admission (4) CKD (chronic kidney disease), stage III: -Kidney function at baseline History of Coronary artery disease -Aortic stenosis: Moderate aortic stenosis present with mid cavitary gradient as well, hyperdynamic LV function (5) DM type 1 (diabetes mellitus, type 1): History of Whipple's procedure A1c 5.6 Diabetes Type I controlled with mcfp current use of insulin -SSI while in-patient -can resume home dose insulin on discharge DVT Ppx: SCDs ordered Code status: DNR per discussion with patient PCP: Srinivas Discharge Diagnosis Orthostatic hypotension, hyponatremia, dehydration, poor oral intake, anemia, history of coronary artery disease, Diabetes Type I controlled with stave hewer current use of insulin Total Time Total Time Spent Total Time Spent (In Minutes): 40 minutes Total Time Includes: Examination of the Patient, Discharge Planning, Medication Reconciliation and Communication With Other Providers Discharge Plan Discharge Items Patient Disposition: Transfer [facility] Reason For Visit: NEAR SYNCOPE,ORTHOSTATIC HYPOTENSION Discharge Diagnosis: Orthostatic hypotension, hyponatremia, dehydration, poor oral intake, anemia, history of coronary artery disease, Diabetes Type I controlled with mcfp current use of insulin Condition: Good Discharge Goals: Diagnostic testing and Therapeutic intervention Activity: As commented below Activity Comment: Precautions, always with assistance, continue PT OT Lifting: Wait until after follow-up appointment Exercise/Sports: Wait until after follow-up appointment Driving/Machine Use Comment: No driving Non-emergency contact: Primary Care Provider Call non-emergency contact if: you have any medication questions, your symptoms worsen and you have a fever Follow-up/Referrals: Naldo Espino MD [Primary Care Provider] - Diet: Carb Consistent or DM2 Diet Texture: Mechanical soft (ground) Addtl Provider Instructions: Discharge to [facility] Orthostatic hypotension: Likely multifactorial in setting of volume depletion, anemia and hyponatremia. chronic issue significant component is poor oral intake due to incontinence Recommend compression stockings be placed Please monitor orthostatic vital signs every shift at group home [facility] Encourage adequate oral fluid intake daily. Patient may take sodium chloride tablets and fludrocortisone and follow up as outpatient clinics with serum sodium levels checked and blood pressure and heart rate checks Patient should follow up with primary care doctor 12/11/2018 11:20 AM Provider Naldo Espino MD Department General Internal Medicine [facility] 12/15/2018 11:30 AM Provider Sherri Segovia PA-C Department Cardiology, [facility] Patient should continue to take discharge medications as instructed Prescriptions: New fludrocortisone 0.1 mg Tablet 0.1 mg PO QAM 30 Days Qty: 30 RF: 2 Continued polyethylene glycol 3350 [Miralax] 17 gram Powder In Packet 17 g PO QAM RF: 0 acetaminophen [Acetaminophen Extra Strength] 500 mg Tablet 500 mg PO Q4H PRN (Reason: PAIN/FEVER) RF: 0 Novolog U-100 Insulin aspart 100 unit/mL Solution 1 sliding scale dose SUBCUT ACHS RF: 0 bisacodyl 10 mg Suppository 10 mg KS DAILY PRN (Reason: Constipation) RF: 0 ferrous sulfate 325 mg (65 mg iron) Tablet 325 mg PO BID RF: 0 lidocaine [Lidoderm] 5 % Adhesive Patch,Medicated 2 patch TOPICAL QAM RF: 0 docusate sodium 100 mg Capsule 100 mg PO BID PRN (Reason: Constipation) RF: 0 Milk Of Magnesia Concentrated 2,400 mg/10 mL Suspension 30 ml PO DAILY PRN (Reason: Constipation) RF: 0 Lantus Solostar U-100 Insulin 100 unit/mL (3 mL) Insulin Pen 7 unit SUBCUT QAM RF: 0 Zenpep 3,000-10,000 -14,000-unit Capsule,Delayed Release(Dr/Ec) 1 cap PO TIDM RF: 0 sodium chloride 1,000 mg Tablet,Soluble 1,000 mg PO QAM 30 Days Qty: 30 RF: 2 Discontinued heparin (porcine) 5,000 unit/mL Syringe 5,000 unit SUBCUT Q8H RF: 0 Stand-Alone Forms: [facility] Discharge Orders: Discharge Order (Routine); Ordered 12/10/18 Ordered By: Lee Weinstein Skilled Items Patient informed of condition?: Yes DNR: Yes Discharge Level of Care: Skilled Communicable Disease: No Discharge Prognosis: Improving Admission Data Admit Date/Time: 12/04/18 15:19 Attending Provider: Lee Weinstein Admit Provider: Lia Guzmán Primary Care Provider: Naldo Espino Other Providers: Lia Guzmán ; Cornelius Aguilar ; Neli Day Service: Telemetry
== END 2018-12-10 17:20 | DRG 312 ==
LOC: ED 10:23 → SUATTDRO 15:19 → 2E 15:19

== ENCOUNTER 2019-12-06 09:47 | Inpatient (IN) ==
[2019-12-06] MEDS ORDERED: SODIUM CHLORIDE 0.9% 500 ML IV ONE (10:19)
[2019-12-06] MEDS ORDERED: ACETAMINOPHEN 1,000 MG/100 ML VIAL IV STA (10:21)
[2019-12-06] MEDS ORDERED: LIDOCAINE 5% 1 PATCH TD STA (10:26)
[2019-12-06] MEDS ORDERED: DEXAMETHASONE **PF** INJ 10 MG/ML VIAL IV ONE (10:26)
--- NOTE | 2019-12-06 10:35 | XRay Report ---
SINGLE VIEW CHEST CLINICAL HISTORY: Atypical chest pain. FINDINGS: An AP, portable, upright chest radiograph is compared to chest x-ray and chest CT dated 11/16. The examination is degraded by portable technique and patient rotation. The heart is enlarg ed noting atherosclerotic calcification of the thoracic aorta. The pulmonary vasculature is nonconges yeny. Chronic interstitial thickening and elevation of the right hemidiaphragm are similar to previous . There is bibasilar scarring/atelectasis. No airspace consolidation or large pleural effusion is treva ntified. Biapical scarring is observed. No pneumothorax is seen. The skeletal structures are osteopen ic. There is chronic posttraumatic deformity and postoperative change noted in the right proximal hum erus. Surgical clips are noted in the upper abdomen. IMPRESSION: Cardiomegaly with no acute cardiopulmonary abnormality. ACT 112: Negative or not required by law. Electronically signed by: Ramón Thompson M.D. 12/06/2019 10:34 AM
[2019-12-06] MEDS ORDERED: VANCOMYCIN HCL 1,250 MG in SODIUM CHLORIDE 0.9% 500 ML IV ONE (10:50)
[2019-12-06] MEDS ORDERED: VANCOMYCIN CONSULT ACTIVE PRN (10:50)
[2019-12-06] MEDS ORDERED: PIPERACILLIN/TAZOBACTAM 4.5 GM/120 ML BAG IV ONE (10:50)
[2019-12-06] MEDS ORDERED: DEXAMETHASONE **PF** INJ 10 MG/ML VIAL IM ONE (10:50)
[2019-12-06] MEDS ORDERED: PIPERACILL/TAZOBAC CONSULT ACTIVE PRN (10:50)
[2019-12-06 10:56] LABS: Basophils # (auto) 0.01 K/uL (0-0.2); Basophils % (auto) 0.1 %; Eosinophils # (auto) 0.06 K/uL (0-0.5); Eosinophils % (auto) 0.6 %; Hematocrit (blood only) 30.7 % (42-52); Hemoglobin 10.3 g/dL (14.0-18.0); Immature Granulocytes # (auto) 0.04 K/uL (0.00-0.02); Immature Granulocytes % (auto) 0.4 %; Lymphocytes # (auto) 1.49 K/uL (1.2-3.4); Lymphocytes % (auto) 15.4 %; Mean Corpuscular Hgb Conc 33.6 g/dL (32-36); Mean Corpuscular Volume 86.5 fL (80-100); Mean Platelet Volume 9.7 fL (7.4-10.4); Monocytes # (auto) 0.96 K/uL (0.11-0.59); Monocytes % (auto) 9.9 %; Neutrophils # (auto) 7.13 K/uL (1.4-6.5); Neutrophils % (auto) 73.6 %; Platelet Count 254 K/uL (130-400); RDW Coefficient of Variation 12.9 % (11.5-14.5); RDW Standard Deviation 41.4 fL (36.4-46.3); Red Blood Count 3.55 M/uL (4.7-6.1); White Blood Count 9.69 K/uL (4.8-10.8)
[2019-12-06 11:19] LABS: Alanine Aminotransferase 24 U/L (12-78); Albumin Level 2.8 gm/dl (3.4-5.0); BUN Creatinine Ratio 21.6 (10-20); Blood Urea Nitrogen 29 mg/dl (7-18); Calcium 8.6 mg/dl (8.5-10.1); Carbon Dioxide 26 mmol/L (21-32); Chloride 86 mmol/L (98-107); Creatinine Clr Calc Pharmacy 33.3 ml/min; Est GFR (African American) 53.6; Est GFR (Non-African American) 46.2; Glucose 137 mg/dl (70-99); Lipase 17 U/L (73-393); Sodium 119 mmol/L (136-145)
[2019-12-06 11:30] LABS: Albumin Globulin Ratio 0.6 (0.9-2); Alkaline Phosphatase 213 U/L (45-117); Bilirubin,Total 0.4 mg/dl (0.2-1); Globulin 4.8 gm/dl (2.5-4.0); NT Pro B Type Natriuretic Pept 2185 pg/ml (0-1800); Phosphorus 2.9 mg/dl (2.5-4.9); Total Protein 7.6 gm/dl (6.4-8.2); Troponin I < 0.015 ng/ml (0-0.045)
[2019-12-06 11:35] LABS: Partial Thromboplastin Ratio 0.9; Partial Thromboplastin Time 23.8 Seconds (21.0-31.0); Prothrombin Time 10.7 Seconds (9.0-12.0)
[2019-12-06 11:45] LABS: Appearance Urine Clear (Clear); Bacteria Urine Automated Negative (Negative); Bilirubin Urine Negative (Negative); Blood Urine Trace (Negative); Cast Urine Automated 0 /lpf (0-5); Color Urine Yellow; Epithelial Cell Urine Auto 0-5 /lpf (0-5); Glucose Urine UA Trace (Negative); Ketones Urine Negative (Negative); Leukocyte Esterase Urine Negative (Negative); Nitrite Urine Negative (Negative); RBC Urine Automated 0-4 /hpf (0-4); Specific Gravity Urine 1.012 (1.000-1.030); Urobilinogen Urine Negative (Negative); WBC Urine Automated 0 /hpf (0-5); pH Urine 7.5 (4.5-7.5)
[2019-12-06 11:57] LABS: Bilirubin Direct 0.1 mg/dl (0-0.2); Magnesium 1.9 mg/dl (1.8-2.4); Potassium 3.7 mmol/L (3.5-5.1)
[2019-12-06 12:04] LABS: Protein Urine 1+ (Negative); Sulfosalicylic Acid Urine Positive (Negative)
--- NOTE | 2019-12-06 12:09 | CT Scan Report ---
CT SCAN OF THE BRAIN WITHOUT IV CONTRAST CLINICAL HISTORY: Fall. Head injury. COMPARISON STUDY: CT of the brain dated 03/28/2017. TECHNIQUE: Unenhanced axial CT scan of the brain is performed from the vertex to the skull base. A do se lowering technique was utilized adhering to the principles of ALARA. CT DOSE: 2432.52 mGycm FINDINGS: Brain parenchyma: There are age-related involutional changes noting mild to moderate subcortical and periventricular microangiopathic change. There is no hemorrhage, mass effect, or evidence of acute t erritorial ischemia by CT criteria. 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 Fox-white matter differentiation is preserved. No extra-axial fluid collection is seen. Ventricles, sulci, cisterns: Prominent secondary to involutional change. Intracranial vasculature: There is atherosclerotic calcification of the cavernous carotid and vertebr al arteries. Calvarium: The skeletal structures are osteopenic. There is no depressed calvarial fracture. Sinuses and mastoids: There is trace mucosal thickening within the maxillary antra. A small air-fluid levels noted on the right. The remaining visualized paranasal sinuses are clear. The mastoid air lemira ls are well pneumatized. Orbits: The bony orbits are grossly intact. There are bilateral ocular lens implants. IMPRESSION: There is no hemorrhage, mass effect, or evidence of acute territorial ischemia by CT levi robert. ACT 112: Negative or not required by law. Electronically signed by: Ramón Thompson M.D. 12/06/2019 12:07 PM
--- NOTE | 2019-12-06 12:35 | CT Scan Report ---
CT SCAN OF THE ABDOMEN AND PELVIS WITHOUT IV CONTRAST CLINICAL HISTORY: Fall. Generalized abdominal pain. Low back pain. COMPARISON STUDY: Abdominal CT dated 11/02/2015. TECHNIQUE: CT scan of the abdomen and pelvis is performed from the lung bases to the proximal femora. Images are reviewed in the axial, sagittal, and coronal planes. IV contrast was not administered for this examination. Note that the examination is suboptimal without IV contrast. A dose lowering techn ique was utilized adhering to the principles of ALARA. FINDINGS: Lung bases: The heart is enlarged and without pericardial effusion. The coronary arteries, mitral daphne ulus, and aortic valve leaflets are densely calcified. There is diminished attenuation of the cardiac blood pool as compared to the myocardium suggesting anemia. There is a trace right pleural effusion. Scarring/atelectasis is noted at the right lung base. Liver: The unenhanced liver is normal in size, contour, and attenuation. There is minimal intrahepati c biliary ductal dilatation. Gallbladder: The gallbladder surgically absent. Spleen: Normal in size and attenuation. Pancreas: The pancreatic head is presumed surgically absent, likely related to previous Whipple proce dure. The pancreatic body and tail are markedly atrophic. Adrenal glands: Unremarkable. Kidneys: The unenhanced demonstrate cortical atrophy and are without hydronephrosis. There is fullnes s of the right renal collecting system. There are bilateral renal vascular calcifications. A punctate nonobstructing calculus is seen in the left lower pole. There is no evidence of contour deforming re nal mass lesion. Abdominal vasculature: There is advanced atherosclerotic calcification and mild ectasia of the abdomi nal aorta. There is mild ectasia of the common iliac arteries which measure up to 1.8 cm in diameter. Bowel: There is postoperative change from gastroduodenal resection with gastrojejunostomy. Postoperat whitley change and bowel loops within the gallbladder fossa are likely related to hepaticojejunostomy and pancreaticojejunostomy. There is moderate colonic diverticulosis without CT evidence of acute divert iculitis. Mild to moderate fecal retention is noted in the colon. No bowel obstruction is seen. The a ppendix is well-visualized and normal. Peritoneum: There is no intraperitoneal free air or abdominal ascites. Lymphadenopathy: None. Pelvic viscera: Evaluation of the pelvis is degraded by streak artifact from orthopedic hardware in t he hips. The prostate gland is mildly enlarged and heterogeneous. The bladder is distended. The bladd er wall is mildly thickened and trabeculated indicating chronic outlet obstruction. Numerous phleboli ths are noted in the pelvis. Skeletal structures: The skeletal structures are heterogeneously osteopenic. There are moderate compr ession fracture of L3 and L4. These are new from 11/02/2015, and both fractures appear acute to subacu te. No retropulsed fragments are identified. Mild compression was of T12, L1, and L2 are likely chron ic. No lytic or blastic lesions are seen. Chronic posttraumatic deformity and postoperative change is present in the proximal femora. There are healed left-sided rib fractures. IMPRESSION: 1. There are no acute infectious or inflammatory findings in the abdomen or pelvis. 2. Postoperative changes suggest previous Whipple procedure. Correlation with the patient's surgical history be required. No bowel obstruction is seen. 3. Moderate compression deformities of L3 and L4 appear acute to subacute. Correlate for point tender ness. 4. Cardiomegaly and trace right pleural effusion. 5. There is a punctate nonobstructing left renal calculus. 6. Moderate colonic diverticulosis without CT evidence of acute diverticulitis. 7. Additional findings as above. ACT 112: Negative or not required by law. Electronically signed by: Ramón Thompson M.D. 12/06/2019 12:33 PM
--- NOTE | 2019-12-06 13:32 | History & Physical Report ---
Date of Service December 06, 2019 Assessment & Plan (1) Syncope: Syncope: H/O Syncopal episodes in past H/O orthostatic hypotension Risk Factors: Moderate Aortic Stenosis CT head: There is no hemorrhage, mass effect, or evidence of acute territorial ischemia by CT criteria. Bifascicular block on security assurance specialist in Telemetry for arrhythmia Check Orthostatics Check ECHO, Carotid Ultrasound Troponin Negative Fall precautions Cardiology consulted Avoid AV fanta blocking agents Mechanical Fall Lumbago secondary to L3, L4 acute to subacute compression deformities CT : Moderate compression deformities of L3 and L4 appear acute to subacute. Pain control Fall precautions Orthopedics consulted Hyponatremia Likely multifactorial: Low solute, SIADH Sodium: 119 Received 500ml of IV fluids in ED. Also known to be hyponatremic in the past Serum osmolality 264 Urine osmolality 240 Urine sodium pending Appreciate nephrology input Started on sodium chloride 1 g twice daily Fluid restriction 1500 mL/day Monitor sodium levels closely Chronic anemia Hemoglobin at baseline No bleeding issues Monitor CBC Abdominal discomfort Likely due to fall CT abdomen showed no acute process Monitor DM Type I: Last A1c:6.7 in August 2019 ISS, basal Insulin, Accu checks, Diabetic diet Monitor BGs CKD III Cr at baseline Monitor renal function Pancreatic insufficiency S/P Whipple's Surgery Continue Zenpep DVT Px: Heparin SQ Code Status DNI DNR As per my discussion with patient, and family. Code Status PT/OT prior to discharge History of Present Illness Chief Complaint: Back Pain Primary Care Provider: Naldo Espino MD Patient is an 89-year-old male with history of type 1 diabetes mellitus, CKD stage III, BPH, dyslipidemia, pancreatic insufficiency, H/O PE, orthostatic hypotension, aortic valve stenosis and other medical problems presents with history of syncope, back pain and leg pain. As per the patient and his family, patient had a syncopal episode today while he was trying to use bathroom. He states that he lost consciousness for about 1 minute but denies any head trauma. He reports that his legs "gave away" that possibly caused the syncopal episode. His witnessed the fall where he slumped over his walker. No seizure-like activity, bowel or bladder incontinence during the episode. He has been having ongoing worsening back pain associated with leg cramps since many months as per the patient's daughter. He was planned to be seen by Dr. caraballo from pain management as outpatient. He also states having some right hip pain since the fall. He grades the back pain is sharp, 9/10, non radiating which increases with any movement and is associated with leg cramps. His appetite has been poor since many days. CT head showed no acute intracranial abnormality. CT abdomen suggestive of moderate compressive deformities of L3 and L4 appear acute to subacute. Patient states having ambulatory dysfunction secondary to the back pain. He also states having some abdominal discomfort, had bowel movement this morning. Reports chronic dry cough which is unchanged. Denies any history of chest pain, SOB, palpitations, dizziness, hemoptysis, fever, chills, head trauma, headache, change in vision, vertigo, slurred speech, facial deformity, bowel/bladder incontinence, nausea, vomiting, blood in stools, diarrhea, dysuria, recent travel, sick contact, recent change in medications. Allergies Allergy/AdvReac Type Severity Reaction Status Date / Time dextromethorphan Allergy Unknown RASH Verified 12/06/19 10:51 [email or web address] Allergy Unknown RASH Verified 12/06/19 10:51 Home Medications Home Medications Medication Instructions Recorded Confirmed Type Lantus Solostar U-100 Insulin 7 unit SUBCUT QAM 12/04/18 12/06/19 History docusate sodium 100 mg PO BID PRN 12/04/18 12/06/19 History ferrous sulfate 325 mg PO BID 12/04/18 12/06/19 History polyethylene glycol 3350 [Miralax] 17 g PO QAM 12/04/18 12/06/19 History acetaminophen 325 mg PO DAILY 12/06/19 12/06/19 History amlodipine 2.5 mg PO DAILY 12/06/19 12/06/19 History famotidine [Pepcid AC] 10 mg PO DAILY 12/06/19 12/06/19 History insulin aspart U-100 [Novolog 1 sliding scale dose SUBCUT 12/06/19 12/06/19 History U-100 Insulin aspart] USEASDIRECTD [id number] [Zenpep] 2 cap PO QID 12/06/19 12/06/19 History Past Med/Surg History Medical History Anemia (Chronic) CKD (chronic kidney disease), stage III (Chronic) DM type 1 (diabetes mellitus, type 1) (Chronic) H/O fracture of femur (Chronic) "s/p internal fixation 10/2013" H/O fracture of femur s/p R ORIF 10/31/18 H/O fracture of humerus s/p R ORIF 11/03/2018 HTN (hypertension) (Chronic) Hyponatremia (Chronic) No pertinent family history Pulmonary embolism (Chronic) "post op in 2013, completed Coumadin therapy" Surgical History H/O exploratory laparotomy (Chronic) "for SBO" S/P cholecystectomy (Chronic) Family History Other No pertinent family history Social History Preferred Language: [place] Communication Ability: Effective Visual Impairment: No Limitations Hearing Ability: Normal Chief Lock Tender Operator Required: No Beliefs That Will Affect Care: None marital status: Current Living Situation: Spouse Feels Safe at Home: Yes Smoking Status: Never smoker Second Hand Exposure: No ; Hx Alcohol Use: No Hx Substance Use: No Review of Systems Review of Systems: All systems reviewed & are unremarkable except as noted in HPI & below Physical Exam Physical Exam: Physical Exam: Vitals signs as noted above General Appearance:Thin, Frail, no apparent distress Head: normocephalic, Atraumatic Eyes: normal inspection, EOMI Neck: supple, Trachea midline Respiratory/Chest: Normal breath sounds, Basal crackles, No accessory muscle use Cardiovascular: S1, S2, + systolic murmur Abdomen/GI:Soft, mild tender, Bowel sounds present, No guarding/rigidity Back: Lower back end architect, decreased ROM Extremities/Musculoskelatal:normal inspection, 1+ B/L LE edema Neurologic/Psych:AAOX3, grossly no focal neurological deficits Skin: normal color, warm Results & Data Results & Data ([facility]) Vital Signs (Past 12 Hours) Vital Signs Temp Pulse Pulse Resp BP BP Pulse Ox 12/06/19 12:00 86 18 127/78 94 12/06/19 10:19 96 12/06/19 10:06 74 12 95 12/06/19 10:01 36.7 C 75 75 12 135/78 141/82 H 96 Laboratory Results Short CBC 12/06/19 Range/Units 10:40 WBC 9.69 (4.8-10.8) K/uL Hgb 10.3 L (14.0-18.0) g/dL Hct 30.7 L (42-52) % Plt Count 254 (130-400) K/uL BMP 12/06/19 12/06/19 12/06/19 10:40 11:06 14:28 Sodium 119 L* 122 L Potassium 3.7 Chloride 86 L Carbon Dioxide 26 BUN 29 H Creatinine 1.35 Glucose 137 H Calcium 8.6 Cardiac Enzymes 12/06/19 Range/Units 10:40 Troponin I < 0.015 (0-0.045) ng/ml Liver Function 12/06/19 12/06/19 Range/Units 10:40 11:06 Total Bilirubin 0.4 (0.2-1) mg/dl Direct Bilirubin 0.1 (0-0.2) mg/dl AST 25 (15-37) U/L ALT 24 (12-78) U/L Alkaline Phosphatase 213 H (45-117) U/L Albumin 2.8 L (3.4-5.0) gm/dl Urine 12/06/19 Range/Units 11:25 Urine Color Yellow Urine Appearance Clear (Clear) Urine pH 7.5 (4.5-7.5) Ur Specific Flora 1.012 (1.000-1.030) Urine Protein 1+ H (Negative) Urine Glucose (UA) Trace H (Negative) Diagnostic Findings Head CT: There is no hemorrhage, mass effect, or evidence of acute territorial ischemia by CT criteria. ABD CT: 1. There are no acute infectious or inflammatory findings in the abdomen or p maria luisa. 2. Postoperative changes suggest previous Whipple procedure. Correlation with the patient's surgical history be required. No bowel obstruction is seen. 3. Moderate compression deformities of L3 and L4 appear acute to subacute. Correlate for point tenderness. 4. Cardiomegaly and trace right pleural effusion. 5. There is a punctate nonobstructing left renal calculus. 6. Moderate colonic diverticulosis without CT evidence of acute diverticulitis. 7. Additional findings as above. ECG Additional Comments: EKG: Sinus rhythm with first-degree AV block, right bundle branch block, left anterior fascicular block. QTC:460
--- NOTE | 2019-12-06 14:39 | Electrocardiogram Report ---
Test Reason : Blood Pressure : / mmHG Vent. Rate : 079 BPM Atrial Rate : 079 BPM P-R Int : 354 ms QRS Dur : 156 ms QT Int : 402 ms P-R-T Axes : 038 -69 001 degrees QTc Int : 460 ms Sinus rhythm with 1st degree A-V block Right bundle branch block Left anterior fascicular block Bifascicular block Abnormal ECG When compared with ECG of 04-DEC-2018 10:28, Questionable change in initial forces of Septal leads Confirmed by Narinder Ramirez ([id number] on 12/06/2019 2:39:00 PM Referred By: REFERRED SELF Confirmed By:Narinder Ramirez
[2019-12-06] MEDS ORDERED: GLUCAGON FOR INJ 1 MG VIAL SQ PRN (15:32)
[2019-12-06] MEDS ORDERED: DEXTROSE 50% 50 ML SYRINGE IV PRN (15:32)
[2019-12-06] MEDS ORDERED: CARBOHYDRATES FOR HYPOGLYCEMIA PO PRN (15:32)
[2019-12-06] MEDS ORDERED: ONDANSETRON INJ 2 MG/ML 2 ML VIAL IV PRN (15:32)
[2019-12-06] MEDS ORDERED: GLUCOSE 40% GEL 15 GM TUBE PO PRN (15:32)
[2019-12-06] MEDS ORDERED: GLUCOSE 10 TABS/TUBE PO PRN (15:32)
[2019-12-06] MEDS ORDERED: POLYETHYLENE (MIRALAX) 17 GM PACK PO PRN (15:32)
[2019-12-06] MEDS ORDERED: DOCUSATE SODIUM 100 MG CAP PO PRN (15:32)
[2019-12-06] MEDS: OXYCODONE/ACETAMINOPHEN 5mg/325mg TAB PO PRN ×2 (16:09→23:28)
[2019-12-06] MEDS: SODIUM CHLORIDE 1 GM TABLET PO SCH ×2 (16:10→21:01)
--- NOTE | 2019-12-06 16:54 | Emergency Department Note ---
Impression & Plan Acute hyponatremia, Syncope, Weakness, Acute exacerbation of chronic low back pain ED Provider Note NAME: CARMEN ECHEVARRIA AGE: 89 SEX: M ARRIVES VIA: Ambulance INFORMANT: Patient, ED PROVIDER(S): Ruiz Jones MD CHIEF COMPLAINT: Weakness, fall PLAN: Disposition: Admit MEDICAL DECISION MAKING: The patient is a pleasant 89-year-old gentleman who presents emergency department accompanied by his from [facility] for worsening genera lized weakness over the past several days with complaint of acute on chronic lower back pain with syncopal episode that occurred today when he was attempting to walk with his walker to the bathroom. He does report having had several falls over the past month. Patient denies any fevers, chills, cough, congestion, nausea, vomiting, diarrhea, urinary symptoms. Per the patient and the patient did immediately awake when he fell to the ground. On arrival patient is in no acute distress, afebrile stable vital signs. He has no focal neuro deficits. He does have full range of motion of the hips bilaterally though with slow movements which the reports is at his baseline. The pelvis is stable. He has mild lower lumbar and sacral tenderness without bony crepitus. He has no focal neuro deficits. EKG demonstrates bifascicular block that is similar to prior without overt ST elevation or depression, there is question of a change in initial forces of the septal leads. WBC and platelets within normal limits. H/H 10.3/30.7 improved from prior. Initial sodium 119 with serum to urine osmolality suggestive of polydipsia/volume overload. Chemistry without acidosis. Electrolytes and LFTs unremarkable. Troponin negative/undetectable. BNP slightly elevated at 2100. UA without convincing evidence of infection. CT of the head was negative for acute process. CT of the abdomen pelvis demonstrates moderate compression deformities of L3-L4 that are considered subacute to acute. There is no significant posterior involvement. Most likely related to prior recent fall. Given the patient's worsening generalized weakness reasonable to admit the patient for further management. Case was discussed with Dr. Jones, [facility] hospitalist, who will evaluate the patient for admission. Triage Nursing notes reviewed and agree them. Additional history obtained from at bedside. Prior medical records reviewed Vital Signs: reviewed and remarkable for no significant abnormalities Differential diagnosis: Infection, dehydration, metabolic abnormality, hypo/hyperglycemia, electrolyte disturbance, anemia, hypoxia, cardiac sources, intracerebral event, toxicologic, neurologic, as well as other pathologies. ER treatment provided: See below. Diagnostics interpreted by me: ECG: Sinus rhythm with first-degree AV block, 79 bpm, right bundle branch block, left anterior fascicular block (bifascicular block) no overt ST elevation or depression, QTC 460, QRS 156. Cardiac Monitoring: An order for continuous cardiac monitoring was placed and demonstrated sinus rhythm, 78 bpm, no ectopy. Laboratory studies: See below Imaging studies: SINGLE VIEW CHEST CLINICAL HISTORY: Atypical chest pain. FINDINGS: An AP, portable, upright chest radiograph is compared to chest x-ray and chest CT dated 12/04/2018. The examination is degraded by portable technique and patient rotation. The heart is enlarged noting atherosclerotic calcification of the thoracic aorta. The pulmonary vasculature is noncongested. Chronic interstitial thickening and elevation of the right hemidiaphragm are similar to previous. There is bibasilar scarring/atelectasis. No airspace consolidation or large pleural effusion is identified. Biapical scarring is observed. No pneumothorax is seen. The skeletal structures are osteopenic. There is chronic posttraumatic deformity and postoperative change noted in the right proximal humerus. Surgical clips are noted in the upper abdomen. IMPRESSION: Cardiomegaly with no acute cardiopulmonary abnormality. -- CT SCAN OF THE BRAIN WITHOUT IV CONTRAST CLINICAL HISTORY: Fall. Head injury. COMPARISON STUDY: CT of the brain dated 03/28/2017. TECHNIQUE: Unenhanced axial CT scan of the brain is performed from the vertex to the skull base. A dose lowering technique was utilized adhering to the principles of ALARA. CT DOSE: 2432.52 mGycm FINDINGS: Brain parenchyma: There are age-related involutional changes noting mild to moderate subcortical and periventricular microangiopathic change. There is no hemorrhage, mass effect, or evidence of acute territorial ischemia by CT criteria. 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 Fox-white matter differ entiation is preserved. No extra-axial fluid collection is seen. Ventricles, sulci, cisterns: Prominent secondary to involutional change. Intracranial vasculature: There is atherosclerotic calcification of the cavernous carotid and vertebral arteries. Calvarium: The skeletal structures are osteopenic. There is no depressed calvarial fracture. Sinuses and mastoids: There is trace mucosal thickening within the maxillary antra. A small air-fluid levels noted on the right. The remaining visualized paranasal sinuses are clear. The mastoid air cells are well pneumatized. Orbits: The bony orbits are grossly intact. There are bilateral ocular lens implants. IMPRESSION: There is no hemorrhage, mass effect, or evidence of acute territorial ischemia by CT criteria. -- CT SCAN OF THE ABDOMEN AND PELVIS WITHOUT IV CONTRAST CLINICAL HISTORY: Fall. Generalized abdominal pain. Low back pain. COMPARISON STUDY: Abdominal CT dated 11/02/2015. TECHNIQUE: CT scan of the abdomen and pelvis is performed from the lung bases to the proximal femora. Images are reviewed in the axial, sagittal, and coronal planes. IV contrast was not administered for this examination. Note that the examination is suboptimal without IV contrast. A dose lowering technique was utilized adhering to the principles of ALARA. FINDINGS: Lung bases: The heart is enlarged and without pericardial effusion. The coronary arteries, mitral annulus, and aortic valve leaflets are densely calcified. There is diminished attenuation of the cardiac blood pool as compared to the myocardium suggesting anemia. There is a trace right pleural effusion. Scarring/atelectasis is noted at the right lung base. Liver: The unenhanced liver is normal in size, contour, and attenuation. There is minimal intrahepatic biliary ductal dilatation. Gallbladder: The gallbladder surgically absent. Spleen: Normal in size and attenuation. 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 The pancreatic body and tail are markedly atrophic. Adrenal glands: Unremarkable. Kidneys: The unenhanced demonstrate cortical atrophy and are without hydronephrosis. There is fullness of the right renal collecting system. There are bilateral renal vascular calcifications. A punctate nonobstructing calculus is seen in the left lower pole. There is no evidence of contour deforming renal mass lesion. Abdominal vasculature: There is advanced atherosclerotic calcification and mild ectasia of the abdominal aorta. There is mild ectasia of the common iliac arteries which measure up to 1.8 cm in diameter. Bowel: There is postoperative change from gastroduodenal resection with gastrojejunostomy. Postoperative change and bowel loops within the gallbladder fossa are likely related to hepaticojejunostomy and pancreaticojejunostomy. There is moderate colonic diverticulosis without CT evidence of acute diverticulitis. Mild to moderate fecal retention is noted in the colon. No bowel obstruction is seen. The appendix is well-visualized and normal. Peritoneum: There is no intraperitoneal free air or abdominal ascites. Lymphadenopathy: None. Pelvic viscera: Evaluation of the pelvis is degraded by streak artifact from orthopedic hardware in the hips. The prostate gland is mildly enlarged and heterogeneous. The bladder is distended. The bladder wall is mildly thickened and trabeculated indicating chronic outlet obstruction. Numerous phleboliths are noted in the pelvis. Skeletal structures: The skeletal structures are heterogeneously osteopenic. There are moderate compression fracture of L3 and L4. These are new from 11/02/2015, and both fractures appear acute to subacute. No retropulsed fragments are identified. Mild compression was of T12, L1, and L2 are likely chronic. No lytic or blastic lesions are seen. Chronic posttraumatic deformity and postoperative change is present in the proximal femora. There are healed left- sided rib fractures. IMPRESSION: 1. There are no acute infectious or inflammatory findings in the abdomen or pelvis. 2. Postoperative changes suggest previous Whipple procedure. Correlation with the patient's surgical history be required. No bowel obstruction is seen. 3. Moderate compression deformities of L3 and L4 appear acute to subacute. C orrelate for point tenderness. 4. Cardiomegaly and trace right pleural effusion. 5. There is a punctate nonobstructing left renal calculus. 6. Moderate colonic diverticulosis without CT evidence of acute diverticulitis. 7. Additional findings as above. Consultation(s): Case was discussed with Dr. Jones, [facility] hospitalist, who will evaluate the patient for admission. HPI: The patient is a pleasant 89-year-old gentleman who presents emergency department accompanied by his from [facility] for worsening generalized weakness over the past several days with complaint of acute on chronic lower back pain with syncopal episode that occurred today when he was attempting to walk with his walker to the bathroom. He does report having had several falls over the past month. Patient denies any fevers, chills, cough, congestion, nausea, vomiting, diarrhea, urinary symptoms. Per the patient and the patient did immediately awake when he fell to the ground. ROS: See above HPI for pertinent positives & negatives. A total of 10 systems reviewed and were otherwise negative. PAST MEDICAL HISTORY:See Below PAST SURGICAL HISTORY:See Below FAMILY HISTORY:See Below SOCIAL HISTORY:See Below HOME MEDICATIONS:See Below ALLERGIES:See Below VITALS:See Below PHYSICAL EXAMINATION: GENERAL: Awake, alert, well-appearing, in no distress HENT: Normocephalic, atraumatic. Oropharynx unremarkable. EYES: Normal conjunctiva. Sclera non-icteric. NECK: Supple. No nuchal rigidity. FROM. No JVD. RESPIRATORY: Clear to auscultation. CARDIAC: Regular rate, normal rhythm. Extremities warm and well perfused. Pulses equal. ABDOMEN: Soft, non-distended. No tenderness to palpation. No rebound or guardin g. No masses. RECTAL: Deferred. MUSCULOSKELETAL: Chest examination reveals no tenderness. The back is symmetrical on inspection without obvious abnormality. Full range of motion of the hips bilaterally though with slow movements which the reports is at his baseline. The pelvis is stable. He has mild lower lumbar and sacral tenderness without bony crepitus. No joint edema. LOWER EXTREMITIES: Calves are equal size bilaterally and non-tender. No edema. No discoloration. NEURO: Normal sensorium. No sensory or motor deficits noted. SKIN: No rash or jaundice noted. ED COURSE: Critical Care: I have personally spent greater than 45 minutes of critical care time in the direct management of this patient. This includes bedside care, interpretation of diagnostic studies, and testing, discussion with consultants, patient, and family members, and other required patient management activities. This 45 minutes is in excess of all separately billable procedures. Ruiz Jones MD Past Med/Surg History Medical History Anemia (Chronic) CKD (chronic kidney disease), stage III (Chronic) DM type 1 (diabetes mellitus, type 1) (Chronic) H/O fracture of femur (Chronic) "s/p internal fixation 10/2013" H/O fracture of femur s/p R ORIF 10/31/18 H/O fracture of humerus s/p R ORIF 11/03/2018 HTN (hypertension) (Chronic) Hyponatremia (Chronic) No pertinent family history Pulmonary embolism (Chronic) "post op in 2013, completed Coumadin therapy" Surgical History H/O exploratory laparotomy (Chronic) "for SBO" S/P cholecystectomy (Chronic) Family History Other No pertinent family history Social History Preferred Language: Malay Communication Ability: Effective Visual Impairment: No Limitations Hearing Ability: Normal Client Experience Manager Required: No Beliefs That Will Affect Care: None marital status: Current Living Situation: Spouse Current Living Situation Comment: Lives w/ spouse at [facility] Other Information That Helps Us Care for You: No Feels Safe at Home: Yes Safety Concerns: Feels Safe At This Time Smoking Status: Never smoker Second Hand Exposure: No ; Hx Alcohol Use: No Hx Substance Use: No Allergies Allergies Allergy/AdvReac Type Severity Reaction Status Date / Time dextromethorphan Allergy Unknown RASH Verified 12/06/19 10:51 guaifenesin Allergy Unknown RASH Verified 12/06/19 10:51 Home Meds Home Medications Medication Instructions Recorded Confirmed Lantus Solostar U-100 Insulin 7 unit SUBCUT QAM 12/04/18 12/06/19 docusate sodium 100 mg PO BID PRN 12/04/18 12/06/19 ferrous sulfate 325 mg PO BID 12/04/18 12/06/19 polyethylene glycol 3350 [Miralax] 17 g PO QAM 12/04/18 12/06/19 acetaminophen 325 mg PO DAILY 12/06/19 12/06/19 amlodipine 2.5 mg PO DAILY 12/06/19 12/06/19 famotidine [Pepcid AC] 10 mg PO DAILY 12/06/19 12/06/19 insulin aspart U-100 [Novolog 1 sliding scale dose SUBCUT 12/06/19 12/06/19 U-100 Insulin aspart] USEASDIRECTD [id number] [Zenpep] 2 cap PO QID 12/06/19 12/06/19 Results & Data (ED) Vital Signs Vital Signs - 24 hr 12/06/19 10:01 12/06/19 10:06 12/06/19 10:19 Temperature 36.7 C Temperature Source Oral Pulse Rate 75 74 Pulse Rate [Apical] 75 Pulse Rate from SpO2 Sensor 69 74 Respiratory Rate 12 12 Respiratory Effort / Characteristics Non-Labored Spontaneous Respiratory Depth Normal Respiratory Pattern Regular Blood Pressure 135/78 Blood Pressure [Right Arm] 141/82 H Blood Pressure Mean 97 Blood Pressure Mean [Right Arm] 101 Pulse Oximetry 96 95 96 Oxygen Delivery Method Room Air Room Air Sepsis Recent Fever Within 48 Hours No Sepsis Action Taken by Nursing No Action Required 12/06/19 12:00 Temperature Temperature Source Pulse Rate Pulse Rate [Apical] 86 Pulse Rate from SpO2 Sensor Respiratory Rate 18 Respiratory Effort / Characteristics Respiratory Depth Respiratory Pattern Blood Pressure Blood Pressure [Right Arm] 127/78 Blood Pressure Mean Blood Pressure Mean [Right Arm] 94 Pulse Oximetry 94 Oxygen Delivery Method Room Air Sepsis Recent Fever Within 48 Hours Sepsis Action Taken by Nursing Laboratory Data Attestation: I reviewed the patient's lab results. Result diagrams: 12/06/19 10:40 12/06/19 20:17 Lab Results 12/06/19 12/06/19 12/06/19 Range/Units 10:40 10:40 11:02 WBC 9.69 (4.8-10.8) K/uL RBC 3.55 L (4.7-6.1) M/uL Hgb 10.3 L (14.0-18.0) g/dL Hct 30.7 L (42-52) % MCV 86.5 (80-100) fL MCH 29.0 (25-34) pg MCHC 33.6 (32-36) g/dL RDW Std Deviation 41.4 (36.4-46.3) fL RDW Coeff of Joann 12.9 (11.5-14.5) % Plt Count 254 (130-400) K/uL MPV 9.7 (7.4-10.4) fL Immature Gran % (Auto) 0.4 % Neut % (Auto) 73.6 % Lymph % (Auto) 15.4 % [place] % (Auto) 9.9 % Eos % (Auto) 0.6 % Baso % (Auto) 0.1 % Immature Gran # (Auto) 0.04 H (0.00-0.02) K/uL Neut # (Auto) 7.13 H (1.4-6.5) K/uL Lymph # (Auto) 1.49 (1.2-3.4) K/uL [place] # (Auto) 0.96 H (0.11-0.59) K/uL Eos # (Auto) 0.06 (0-0.5) K/uL Baso # (Auto) 0.01 (0-0.2) K/uL PT 10.7 (9.0-12.0) Seconds INR 1.0 (0.9-1.1) APTT 23.8 (21.0-31.0) Seconds PTT Ratio 0.9 Sodium 119 L* (136-145) mmol/L Potassium (3.5-5.1) mmol/L Chloride 86 L (98-107) mmol/L Carbon Dioxide 26 (21-32) mmol/L Anion Gap 7.0 (3-11) BUN 29 H (7-18) mg/dl Creatinine 1.35 (0.6-1.4) mg/dl Est Cr Clr Drug Dosing 33.3 ml/min Est GFR ( Amer) 53.6 Est GFR (Non-Af Amer) 46.2 BUN/Creatinine Ratio 21.6 H (10-20) Glucose 137 H (70-99) mg/dl Osmolality (280-300) mOsm/kg Calcium 8.6 (8.5-10.1) mg/dl Phosphorus 2.9 (2.5-4.9) mg/dl Magnesium (1.8-2.4) mg/dl Total Bilirubin 0.4 (0.2-1) mg/dl Direct Bilirubin (0-0.2) mg/dl AST (15-37) U/L ALT 24 (12-78) U/L Alkaline Phosphatase 213 H (45-117) U/L Troponin I < 0.015 (0-0.045) ng/ml NT-Pro-B Natriuret Pep 2185 H (0-1800) pg/ml Total Protein 7.6 (6.4-8.2) gm/dl Albumin 2.8 L (3.4-5.0) gm/dl Globulin 4.8 H (2.5-4.0) gm/dl Albumin/Globulin Ratio 0.6 L (0.9-2) Lipase 17 L (73-393) U/L TSH 3.230 (0.300-4.500) uIu/ml Urine Color Urine Appearance (Clear) Urine pH (4.5-7.5) Ur Specific Barnhart (1.000-1.030) Urine Protein (Negative) Urine Glucose (UA) (Negative) Urine Ketones (Negative) Urine Blood (Negative) Urine Nitrite (Negative) Urine Bilirubin (Negative) Urine Urobilinogen (Negative) Ur Leukocyte Esterase (Negative) Urine WBC (Auto) (0-5) /hpf Urine RBC (Auto) (0-4) /hpf U Hyaline Cast (Auto) (0-5) /lpf U Epithel Cells (Auto) (0-5) /lpf Urine Bacteria (Auto) (Negative) Urine Osmolality (500-800) mOsm/kg 12/06/19 12/06/19 12/06/19 Range/Units 11:06 11:25 11:25 WBC (4.8-10.8) K/uL RBC (4.7-6.1) M/uL Hgb (14.0-18.0) g/dL Hct (42-52) % MCV (80-100) fL MCH (25-34) pg MCHC (32-36) g/dL RDW Std Deviation (36.4-46.3) fL RDW Coeff of Joann (11.5-14.5) % Plt Count (130-400) K/uL MPV (7.4-10.4) fL Immature Gran % (Auto) % Neut % (Auto) % Lymph % (Auto) % [place] % (Auto) % Eos % (Auto) % Baso % (Auto) % Immature Gran # (Auto) (0.00-0.02) K/uL Neut # (Auto) (1.4-6.5) K/uL Lymph # (Auto) (1.2-3.4) K/uL [place] # (Auto) (0.11-0.59) K/uL Eos # (Auto) (0-0.5) K/uL Baso # (Auto) (0-0.2) K/uL PT (9.0-12.0) Seconds INR (0.9-1.1) APTT (21.0-31.0) Seconds PTT Ratio Sodium (136-145) mmol/L Potassium 3.7 (3.5-5.1) mmol/L Chloride (98-107) mmol/L Carbon Dioxide (21-32) mmol/L Anion Gap (3-11) BUN (7-18) mg/dl Creatinine (0.6-1.4) mg/dl Est Cr Clr Drug Dosing ml/min Est GFR ( Amer) Est GFR (Non-Af Amer) BUN/Creatinine Ratio (10-20) Glucose (70-99) mg/dl Osmolality (280-300) mOsm/kg Calcium (8.5-10.1) mg/dl Phosphorus (2.5-4.9) mg/dl Magnesium 1.9 (1.8-2.4) mg/dl Total Bilirubin (0.2-1) mg/dl Direct Bilirubin 0.1 (0-0.2) mg/dl AST 25 (15-37) U/L ALT (12-78) U/L Alkaline Phosphatase (45-117) U/L Troponin I (0-0.045) ng/ml NT-Pro-B Natriuret Pep (0-1800) pg/ml Total Protein (6.4-8.2) gm/dl Albumin (3.4-5.0) gm/dl Globulin (2.5-4.0) gm/dl Albumin/Globulin Ratio (0.9-2) Lipase (73-393) U/L TSH (0.300-4.500) uIu/ml Urine Color Yellow Urine Appearance Clear (Clear) Urine pH 7.5 (4.5-7.5) Ur Specific Barnhart 1.012 (1.000-1.030) Urine Protein 1+ H (Negative) Urine Glucose (UA) Trace H (Negative) Urine Ketones Negative (Negative) Urine Blood Trace H (Negative) Urine Nitrite Negative (Negative) Urine Bilirubin Negative (Negative) Urine Urobilinogen Negative (Negative) Ur Leukocyte Esterase Negative (Negative) Urine WBC (Auto) 0 (0-5) /hpf Urine RBC (Auto) 0-4 (0-4) /hpf U Hyaline Cast (Auto) 0 (0-5) /lpf U Epithel Cells (Auto) 0-5 (0-5) /lpf Urine Bacteria (Auto) Negative (Negative) Urine Osmolality 240 L (500-800) mOsm/kg 12/06/19 Range/Units 12:05 WBC (4.8-10.8) K/uL RBC (4.7-6.1) M/uL Hgb (14.0-18.0) g/dL Hct (42-52) % MCV (80-100) fL MCH (25-34) pg MCHC (32-36) g/dL RDW Std Deviation (36.4-46.3) fL RDW Coeff of Joann (11.5-14.5) % Plt Count (130-400) K/uL MPV (7.4-10.4) fL Immature Gran % (Auto) % Neut % (Auto) % Lymph % (Auto) % [place] % (Auto) % Eos % (Auto) % Baso % (Auto) % Immature Gran # (Auto) (0.00-0.02) K/uL Neut # (Auto) (1.4-6.5) K/uL Lymph # (Auto) (1.2-3.4) K/uL [place] # (Auto) (0.11-0.59) K/uL Eos # (Auto) (0-0.5) K/uL Baso # (Auto) (0-0.2) K/uL PT (9.0-12.0) Seconds INR (0.9-1.1) APTT (21.0-31.0) Seconds PTT Ratio Sodium (136-145) mmol/L Potassium (3.5-5.1) mmol/L Chloride (98-107) mmol/L Carbon Dioxide (21-32) mmol/L Anion Gap (3-11) BUN (7-18) mg/dl Creatinine (0.6-1.4) mg/dl Est Cr Clr Drug Dosing ml/min Est GFR ( Amer) Est GFR (Non-Af Amer) BUN/Creatinine Ratio (10-20) Glucose (70-99) mg/dl Osmolality 264 L (280-300) mOsm/kg Calcium (8.5-10.1) mg/dl Phosphorus (2.5-4.9) mg/dl Magnesium (1.8-2.4) mg/dl Total Bilirubin (0.2-1) mg/dl Direct Bilirubin (0-0.2) mg/dl AST (15-37) U/L ALT (12-78) U/L Alkaline Phosphatase (45-117) U/L Troponin I (0-0.045) ng/ml NT-Pro-B Natriuret Pep (0-1800) pg/ml Total Protein (6.4-8.2) gm/dl Albumin (3.4-5.0) gm/dl Globulin (2.5-4.0) gm/dl Albumin/Globulin Ratio (0.9-2) Lipase (73-393) U/L TSH (0.300-4.500) uIu/ml Urine Color Urine Appearance (Clear) Urine pH (4.5-7.5) Ur Specific Barnhart (1.000-1.030) Urine Protein (Negative) Urine Glucose (UA) (Negative) Urine Ketones (Negative) Urine Blood (Negative) Urine Nitrite (Negative) Urine Bilirubin (Negative) Urine Urobilinogen (Negative) Ur Leukocyte Esterase (Negative) Urine WBC (Auto) (0-5) /hpf Urine RBC (Auto) (0-4) /hpf U Hyaline Cast (Auto) (0-5) /lpf U Epithel Cells (Auto) (0-5) /lpf Urine Bacteria (Auto) (Negative) Urine Osmolality (500-800) mOsm/kg Administered Medications Acetaminophen (Tylenol) 650 mg PO Q4H PRN PRN Reason: Pain or Fever Stop: 01/05/20 15:31 Last Admin: 12/06/19 21:02 Dose: 650 mg Documented by: [id number] Lipase/Protease/Amylase (Pancreaze 71352 Unit) 1 cap PO AC MARY ANN; Protocol Stop: 01/05/20 18:29 Last Admin: 12/06/19 18:53 Dose: 1 cap Documented by: [id number] Lipase/Protease/Amylase (Pancreaze (Lipase 10,500u)) 1 cap PO AC MARY ANN; Protocol Stop: 01/05/20 18:29 Last Admin: 12/06/19 18:52 Dose: 1 cap Documented by: [id number] Ferrous Sulfate (Feosol) 325 mg PO BID [facility] Stop: 01/05/20 20:59 Last Admin: 12/06/19 21:01 Dose: 325 mg Documented by: [id number] Heparin Sodium (Porcine) (Heparin Sodium (Porcine)) 5,000 units SQ Q12 MARY ANN Stop: 01/05/20 20:59 Last Admin: 12/06/19 21:02 Dose: 5,000 units Documented by: [id number] Cosigned by: [id number] Insulin Aspart (Novolog Flexpen) 0 units SC ACHS MARY ANN Stop: 01/05/20 16:29 Last Admin: 12/06/19 21:03 Dose: 1 units Documented by: [id number] Cosigned by: [id number] Admin: 06/21/20 17:43 Dose: 1 units Documented by: [id number] Cosigned by: [id number] Miscellaneous (Remove Lidoderm Patch) 1 ea N/A DAILY@2100 MARY ANN Stop: 01/05/20 20:59 Last Admin: 12/06/19 21:09 Dose: 1 ea Documented by: [id number] Oxycodone/Acetaminophen (Percocet 5mg/325mg) 1 tab PO Q4H PRN PRN Reason: Pain Stop: 12/20/19 15:31 Last Admin: 12/06/19 23:28 Dose: 1 tab Documented by: [id number] Admin: 12/06/19 16:09 Dose: 1 tab Documented by: [id number] Sodium Chloride (Sodium Chloride) 1 gm PO BID MARY ANN Stop: 01/05/20 15:39 Last Admin: 12/06/19 21:01 Dose: 1 gm Documented by: [id number] Admin: 12/06/19 16:10 Dose: 1 gm Documented by: [id number] Discontinued Medications Lipase/Protease/Amylase (Pancreaze (Lipase 10,500u)) 2 cap PO AC MARY ANN Stop: 01/05/20 16:59 Last Admin: 12/06/19 17:44 Dose: 2 cap Documented by: [id number] Dexamethasone Sodium Phosphate (Decadron Pf) 10 mg IV NOW ONE Stop: 12/06/19 10:27 Last Admin: 12/06/19 10:46 Dose: 10 mg Documented by: [id number] Dexamethasone Sodium Phosphate (Decadron Pf) 10 mg IM NOW ONE Stop: 12/06/19 10:51 Last Admin: 12/06/19 11:23 Dose: Not Given Documented by: [id number] Furosemide (Lasix) 10 mg IV NOW ONE Stop: 12/06/19 22:31 Last Admin: 12/06/19 23:49 Dose: 10 mg Documented by: [id number] Sodium Chloride (Nss) 500 mls @ 999 mls/hr IV .Q31M ONE Stop: 12/06/19 10:49 Last Infusion: 12/06/19 11:25 Dose: 0 mls/hr Documented by: [id number] Admin: 12/06/19 10:46 Dose: 999 mls/hr Documented by: [id number] Acetaminophen (Ofirmev) 1,000 mg in 100 mls @ 400 mls/hr IV NOW STA Stop: 12/06/19 10:35 Last Admin: 12/06/19 10:47 Dose: Not Given Documented by: [id number] Piperacillin Sod/Tazobactam Sod (Zosyn) 4.5 gm in 120 mls @ 240 mls/hr IV NOW ONE Stop: 12/06/19 11:19 Last Admin: 12/06/19 11:23 Dose: Not Given Documented by: [id number] Vancomycin HCl 1,250 mg/ (Sodium Chloride) 525 mls @ 200 mls/hr IV NOW ONE Stop: 12/06/19 13:27 Last Admin: 12/06/19 11:23 Dose: Not Given Documented by: [id number] Lidocaine (Lidoderm 5%) 1 patch TD NOW STA Stop: 12/06/19 10:27 Last Admin: 12/06/19 10:46 Dose: 1 patch Documented by: [id number] Blood Pressure Blood Pressure Findings: Normal blood pressure Discharge Plan Visit Data *Final* Discharge Date/Time: 12/06/19 14:49 Chief Complaint: Hip Pain Stated Complaint: fall/ back & R hip pain ED Provider: Ruiz Jones Discharge Problem: Acute hyponatremia, Syncope, Weakness, Acute exacerbation of chronic low back pain Patient Disposition: Admitted As Inpatient Discharge Instructions Interventions: ED Discharge Assessment Last Done: 12/06/19 14:49
[2019-12-06] MEDS ORDERED: PANCREAZE (LIPASE 10,500U) CAP PO PRN ×2 (16:57→18:15)
[2019-12-06] MEDS ORDERED: PANCREAZE (LIPASE 4,200U) CAP PO PRN (16:59)
[2019-12-06] MEDS ORDERED: PANCREAZE (LIPASE 4,200U) CAP PO SCH (17:00)
[2019-12-06] MEDS ORDERED: PANCREAZE (LIPASE 10,500U) CAP PO SCH (17:00)
[2019-12-06] MEDS: INSULIN ASPART 100 UNITS/ML 3 ML PEN SC SCH ×2 (17:43→21:03)
[2019-12-06] MEDS ORDERED: PANCREAZE (LIPASE 16,800U) CAP PO PRN (18:11)
[2019-12-06] MEDS: PANCREAZE (LIPASE 10,500U) CAP PO SCH (18:52)
[2019-12-06] MEDS: PANCREAZE (LIPASE 16,800U) CAP PO SCH (18:53)
[2019-12-06] MEDS: FERROUS SULFATE 325 MG TAB PO SCH (21:01)
[2019-12-06] MEDS: HEPARIN SOD 5,000 UNIT/0.5 ML VIAL SQ SCH (21:02)
[2019-12-06] MEDS: ACETAMINOPHEN 325 MG TAB PO PRN (21:02)
[2019-12-06] MEDS ORDERED: FUROSEMIDE 10 MG in SYRINGE 0 ML IV ONE (22:14)
[2019-12-06] MEDS ORDERED: FUROSEMIDE 40 MG/4 ML VIAL IV ONE (22:30)
[2019-12-07 02:39] LABS: Hematocrit (blood only) 32.8 % (42-52); Hemoglobin 11.2 g/dL (14.0-18.0); Immature Granulocytes # (auto) 0.03 K/uL (0.00-0.02); Immature Granulocytes % (auto) 0.4 %; Lymphocytes # (auto) 0.88 K/uL (1.2-3.4); Lymphocytes % (auto) 10.8 %; Mean Corpuscular Hemoglobin 29.5 pg (25-34); Mean Corpuscular Hgb Conc 34.1 g/dL (32-36); Mean Corpuscular Volume 86.3 fL (80-100); Mean Platelet Volume 9.9 fL (7.4-10.4); Monocytes # (auto) 0.41 K/uL (0.11-0.59); Neutrophils # (auto) 6.81 K/uL (1.4-6.5); Neutrophils % (auto) 83.8 %; Platelet Count 268 K/uL (130-400); RDW Coefficient of Variation 13.1 % (11.5-14.5); RDW Standard Deviation 41.4 fL (36.4-46.3); White Blood Count 8.13 K/uL (4.8-10.8)
[2019-12-07 02:59] LABS: BUN Creatinine Ratio 22.4 (10-20); Calcium 8.7 mg/dl (8.5-10.1); Creatinine Clr Calc Pharmacy 32.5 ml/min; Est GFR (African American) 53.6; Est GFR (Non-African American) 46.2; Magnesium 2.2 mg/dl (1.8-2.4)
[2019-12-07 06:09] LABS: Estimated Average Glucose 140 mg/dl; Hemoglobin A1C 6.5 % (4.5-5.6)
--- NOTE | 2019-12-07 07:57 | Ultrasound Report ---
ULTRASOUND OF THE CAROTID ARTERIES CLINICAL HISTORY: Syncope COMPARISON STUDY: None. TECHNIQUE: Real-time, grayscale, and color Doppler sonography of the carotid arteries was performed. Imaging reviewed in the transverse and longitudinal planes. NASCET criteria was utilized for stenosis calcification. FINDINGS: There is moderate atherosclerotic plaque present most pronounced at the level the right carotid bulb. The peak systolic velocity within the right internal carotid artery is 50 to cm/sec. The systolic velocity ratio of right internal to common carotid artery is 1.7. The peak systolic velocity within the left internal carotid artery is 49 cm/sec. The systolic velocity ratio left internal to common carotid artery is 1.3. Antegrade flow is seen in the vertebral arteries. The external carotid arteries are patent. Blood pressure in the right arm measured 128 mm/Hg. Blood pressure in the left arm measured 121 mm/H g. IMPRESSION: 1. Moderately extensive atheromatous plaque, but no evidence of hemodynamically significant internal carotid artery stenosis. ACT 112: Negative or not required by law. Electronically signed by: Aakash Mayo M.D. 12/07/2019 7:55 AM
[2019-12-07] MEDS: SODIUM CHLORIDE 1 GM TABLET PO SCH ×2 (08:23→21:22)
[2019-12-07] MEDS: PANCREAZE (LIPASE 16,800U) CAP PO SCH ×3 (08:23→17:33)
[2019-12-07] MEDS: FAMOTIDINE 10 MG TABLET PO SCH (08:23)
[2019-12-07] MEDS: PANCREAZE (LIPASE 10,500U) CAP PO SCH ×3 (08:23→17:32)
[2019-12-07] MEDS: FERROUS SULFATE 325 MG TAB PO SCH ×2 (08:23→21:21)
[2019-12-07] MEDS: INSULIN GLARGINE SOLOSTAR 100 UNITS/ML 3 ML PEN SQ SCH (08:23)
[2019-12-07] MEDS: INSULIN ASPART 100 UNITS/ML 3 ML PEN SC SCH ×4 (08:24→20:42)
[2019-12-07] MEDS: HEPARIN SOD 5,000 UNIT/0.5 ML VIAL SQ SCH ×2 (08:24→21:21)
[2019-12-07] MEDS ORDERED: AMLODIPINE BESYLATE 5 MG TAB PO SCH (09:00)
--- NOTE | 2019-12-07 09:37 | CT Scan Report ---
CT lumbar spine wo con CT DOSE: 652.72 mGy.cm CLINICAL HISTORY: Back pain. Lumbar fracture. TECHNIQUE: Helical images were acquired in transverse plane. Reformatted sagittal and coronal images were reviewed. A dose lowering technique was utilized adhering to the principles of ALARA. CONTRAST: No contrast was administered COMPARISON STUDY: CT scan of the abdomen and pelvis dated 12/06/2019 FINDINGS: L1-2 level: There is no evidence of significant disc bulge or focal herniation. There is no evidence of spinal or foraminal stenosis. L2-3 level: There is no evidence of significant disc bulge or focal herniation. There is no evidence of spinal or foraminal stenosis. L3-4 level: There is a circumferential disc bulge. There is ligament hypertrophy. There is moderate s abigail stenosis. There is no significant foraminal stenosis L4-5 level: There is a circumferential disc bulge. There is facet joint arthropathy. There is ligamen t hypertrophy. There is moderate spinal stenosis. There is no significant foraminal narrowing. L5-S1 level: There is no evidence of significant disc bulge or focal herniation. There is no evidence of spinal or foraminal stenosis. The bones are osteopenic. There is an inferior endplate compression deformity at the T12 level. There are mild superior inferior endplate deformities at the L1 and L2 levels. There are moderate superior endplate deformities at the L3 and L4 levels and mild inferior endplate deformities at the L3 and L4 levels. There are minimal superior and inferior endplate deformities at the L5 level. The L3 and L4 vertebral body fractures while in part subacute appear to have an acute component to the left of midl ine. The L3 and L4 vertebral bodies demonstrate approximately 40% loss in height. IMPRESSION: 1. Multiple vertebral body compression fractures. The L3 and L4 vertebral bodies appear to have both an acute and subacute component 2. Moderate spinal stenosis at the L3-4 and L4-5 levels. ACT 112: Negative or not required by law. Electronically signed by: Aakash Mayo M.D. 12/07/2019 9:35 AM
--- NOTE | 2019-12-07 10:14 | Orthopedic Consultation ---
Date of Consultation December 07, 2019 Assessment & Plan (1) Lumbar compression fracture: At this time a CAT scan does confirm acute to subacute fractures of L3 and L4. His presentation and symptoms confirm that these are most likely acute in nature. At this point I will order an LSO brace to be worn when out of bed and he may begin physical therapy and occupational therapy once this is arranged. Ideally he will be able to avoid any surgical intervention and this should heal in time. Present on Admission?: Yes History of Present Illness Reason for Consultation: Back pain status post fall Attending Physician: Binh Whiting MD History of Present Illness This is an 89-year-old gentleman the presents after a fall at home with multiple medical issues. Is complaining of some back pain. Denies any pain in the lower extremities. He does have chronic numbness in his feet. Allergies Allergy/AdvReac Type Severity Reaction Status Date / Time dextromethorphan Allergy Unknown RASH Verified 12/06/19 10:51 [email or web address] Allergy Unknown RASH Verified 12/06/19 10:51 Home Medications Home Medications Medication Instructions Recorded Confirmed Type Lantus Solostar U-100 Insulin 7 unit SUBCUT QAM 12/04/18 12/06/19 History docusate sodium 100 mg PO BID PRN 12/04/18 12/06/19 History ferrous sulfate 325 mg PO BID 12/04/18 12/06/19 History polyethylene glycol 3350 [Miralax] 17 g PO QAM 12/04/18 12/06/19 History acetaminophen 325 mg PO DAILY 12/06/19 12/06/19 History amlodipine 2.5 mg PO DAILY 12/06/19 12/06/19 History famotidine [Pepcid AC] 10 mg PO DAILY 12/06/19 12/06/19 History insulin aspart U-100 [Novolog 1 sliding scale dose SUBCUT 12/06/19 12/06/19 History U-100 Insulin aspart] USEASDIRECTD [id number] [Zenpep] 2 cap PO QID 12/06/19 12/06/19 History Patient History Medical History Anemia (Chronic) CKD (chronic kidney disease), stage III (Chronic) DM type 1 (diabetes mellitus, type 1) (Chronic) H/O fracture of femur (Chronic) "s/p internal fixation 10/2013" H/O fracture of femur s/p R ORIF 10/31/18 H/O fracture of humerus s/p R ORIF 11/03/2018 HTN (hypertension) (Chronic) Hyponatremia (Chronic) No pertinent family history Pulmonary embolism (Chronic) "post op in 2013, completed Coumadin therapy" Surgical History H/O exploratory laparotomy (Chronic) "for SBO" S/P cholecystectomy (Chronic) Family History Other No pertinent family history Social History Preferred Language: Kiswahili Communication Ability: Effective Visual Impairment: No Limitations Hearing Ability: Normal Water Filte[employer] Helper Required: No Beliefs That Will Affect Care: None marital status: Current Living Situation: Spouse Current Living Situation Comment: Lives w/ spouse at [facility] Other Information That Helps Us Care for You: No Feels Safe at Home: Yes Safety Concerns: Feels Safe At This Time Smoking Status: Never smoker Second Hand Exposure: No ; Hx Alcohol Use: No Hx Substance Use: No Physical Exam Physical Exam: Patient is sitting up in bed. Appears comfortable. He has positive strength plantar flexion dorsiflexion extensor hallucis longus bilateral feet. He is uncomfortable with rotation in sitting up secondary to back pain. Results & Data ([facility]) Vital Signs (Past 12 Hours) Vital Signs Temp Pulse Pulse Resp BP Pulse Ox 12/07/19 07:23 36.5 C 55 L 20 133/83 94 12/07/19 04:23 36.5 C 90 19 124/77 94 12/07/19 00:35 36.3 C L 82 18 116/78 94 12/07/19 00:00 91 H
[2019-12-07 10:45] LABS: BUN Creatinine Ratio 21.3 (10-20); Creatinine Clr Calc Pharmacy 30.6 ml/min; Est GFR (African American) 51.3; Est GFR (Non-African American) 44.2; Potassium 3.6 mmol/L (3.5-5.1)
--- NOTE | 2019-12-07 11:40 | Electrocardiogram Report ---
Test Reason : Blood Pressure : / mmHG Vent. Rate : 089 BPM Atrial Rate : 089 BPM P-R Int : 228 ms QRS Dur : 148 ms QT Int : 438 ms P-R-T Axes : 050 -74 056 degrees QTc Int : 532 ms Sinus rhythm with 1st degree A-V block Right bundle branch block Left anterior fascicular block Bifascicular block Abnormal ECG When compared with ECG of 06-DEC-2019 10:15, Questionable change in initial forces of Septal leads T wave inversion no longer evident in Anterior leads QT has lengthened Confirmed by Narinder Ramirez ([id number]) on 12/07/2019 11:39:43 AM Referred By: REFERRED SELF Confirmed By:Narinder Ramirez
--- NOTE | 2019-12-07 12:46 | Consultation Report ---
DATE OF CONSULTATION: 12/07/2019 NEPHROLOGY CONSULTATION HISTORY OF PRESENT ILLNESS: The patient is an 89-year-old with multiple medical problems including type 1 diabetes, CKD stage III, BPH, dyslipidemia, pancreatic insufficiency, history of PE, orthostatic hypotension, aortic stenosis and other medical problems, presented with history of syncope, back pain and leg pain. It is hard to obtain history from the patient as the speech is very slow and not always coherent. In any case, he was found to have a serum sodium of 119 at the time of admission, after which nephrology was contacted and was given instruction to give salt tablet 1 gram twice daily and fluid restriction. Overnight, with that, serum sodium has gone up from 119 to 125 in about a span of 24-hour time. He is complaining of quite a bit of back pain. Renal function is very minimally abnormal with a creatinine of 1.4. It also appears that he has had issues with low sodium in the past. He consistently tends to have readings in the high 120s and low 130s. He also tells that he has been prescribed salt tablet in the past and then it was stopped because of congestive heart failure, fluid retention issue. It is not clear to me at this time whether he has ever been on a combination of salt tablet and Lasix at the same time. His appetite is very poor and says he hardly eats anything. Denies nausea, vomiting, or diarrhea though. He is making urine and made 1050 mL of urine in less than a 24-hour time period, but he is also incontinent, so hard to tell the exact amount. PAST MEDICAL AND SURGICAL HISTORY: Type 1 diabetes, CKD stage III, BPH, dyslipidemia, history of hyponatremia, pancreatic insufficiency, history of PE, orthostatic hypotension, aortic valve stenosis, history of recurrent syncope, history of exploratory laparotomy for small-bowel obstruction, cholecystectomy. FAMILY HISTORY: Negative for renal disease or dialysis. SOCIAL HISTORY: He is a resident of [facility]. He is . Never smoked. No alcohol, no substance abuse. REVIEW OF SYSTEMS: As listed in HPI. Unless stated otherwise, 12 systems reviewed and negative. PHYSICAL EXAMINATION: GENERAL: Elderly white male who is not in any respiratory distress. He has a very slow and somewhat incoherent speech, hard to obtain a meaningful history. VITAL SIGNS: Blood pressure is 118/77, pulse rate 86, respiratory rate 18, temperature 36 degrees Celsius, 94% on room air. HEENT: Mucous membranes moist. NECK: Supple. No jugular venous distention. CHEST: Bilaterally clear to auscultation, but very poor inspiratory effort limiting the quality of the exam. CARDIOVASCULAR: S1, S2 regular. ABDOMEN: Soft, nontender. EXTREMITIES: Show trace edema. LABORATORY TESTS: Sodium was 119 at the time of admission and this morning in about 24-hour time period, it is 125. Creatinine is 1.4, BUN is 40. Urine test shows a urine sodium of 31. Urine osmolality yesterday was 240. 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 Hyponatremia: It is quite difficult to maintain normal serum sodium in his case as the treatment involved is conflicting with his other issues. At this time, I would continue with the salt tablet 1 gram twice daily with fluid restriction, but based on his physical exam now as well as history of significant fluid retention/congestive heart failure in the past, he may not do very well with chronic salt tablet. We can also use urea packet, but unfortunately this is not available as an inpatient, but can certainly be considered as an outpatient. This will provide enough solute without necessarily causing fluid retention. At this time, do laboratories twice daily. MILTOND
[2019-12-07] MEDS: OXYCODONE/ACETAMINOPHEN 5mg/325mg TAB PO PRN (15:37)
--- NOTE | 2019-12-07 18:13 | Hospitalist Progress Note ---
Date of Service December 07, 2019 Assessment & Plan (1) Syncope: 89 year old male with history of DM 1, HTN, CKD 3, Orthostatic Hypotension, AV stenosis, presenting with syncope. Syncope, possible secondary to orthostasis, symptomatic aortic stenosis?, Rule out arrhythmia H/O Syncopal episodes in past H/O orthostatic hypotension Risk Factors: Moderate Aortic Stenosis Patient narrates that he stood up from his bed, walked to the bathroom with his walker and 50 feet, and upon reaching the bathroom door, felt warm, Then fell over his walker, lost consciousness for about 1 minute, no confusion upon waking up, but felt too weak to get up CT head: There is no hemorrhage, mass effect, or evidence of acute territorial ischemia by CT criteria. Troponin Negative Bifascicular block on EKG Echo: Severe LVH, EF 45 to 50%, mild to moderate valvular aortic stenosis, moderate mitral regurg, Check Orthostatics: pending Carotid Ultrasound: Extensive atheromatous plaque, but no evidence of hemodynamically significant internal carotid artery stenosis May need to maintain blood pressure on the higher side Hold amlodipine for now Add compression stockings We will consult cardiology Mechanical Fall Lumbago secondary to L3, L4 acute to subacute compression deformities CT : 1. Multiple vertebral body compression fractures. The L3 and L4 vertebral bodies appear to have both an acute and subacute component 2. Moderate spinal stenosis at the L3-4 and L4-5 levels. Pain control with PRN Percocet Fall precautions Orthopedics consulted-LSO brace recommended PT OT evaluation-recommend transitioning to [facility] facility Hyponatremia Likely multifactorial: Low solute, SIADH Sodium: 119 on admission Received 500ml of IV fluids in ED. Also known to be hyponatremic in the past Serum osmolality 264 Urine osmolality 240 Urine sodium 31 Na 125 repeat Na at 9pm goal is + or below 130 this evening continue sodium chloride 1 g twice daily Fluid restriction 1500 mL/day Monitor sodium levels closely Chronic anemia Hemoglobin at baseline No bleeding issues Monitor CBC Abdominal discomfort Likely due to fall CT abdomen showed no acute process resolved DM Type I: Last A1c:6.7 in August 2019 ISS, basal Insulin, Accu checks, Diabetic diet A1c 6.5 may need to lower Lantus from 7 to 5 units and loosen Sliding Scale at home to prevent hypoglycemia, and subsequent falls CKD III Cr at baseline Monitor renal function Pancreatic insufficiency S/P Whipple's Surgery Continue Zenpep DVT Px: Heparin SQ Code Status DNI DNR As per discussion with patient, and family Disposition needs to transition to SNF Code Status PT/OT prior to discharge Admission and Anticipated Discharge Date Admission Date: December 06, 2019 Subjective ff up for syncope, lumbar compression fracture seen resting in bed, comfortable, not in distress states back pain is well controlled so far no leg weakness/paresthesias denies chest pain, dyspnea, palpitations, dizziness, presyncope denies other symptoms Review of Systems Review of Systems: All systems reviewed & are unremarkable except as noted in HPI & below Physical Exam Physical Exam: General- oriented x 3, not in distress, speaks in sentences with no effort or accessory muscle use Head- atraumatic Eyes- PERRL, EOMI, anicteric ENT- oropharynx clear Neck- supple, no JVD, no adenopathy, no thyromegaly; carotids +2/2, no bruits appreciated Lungs- clear to auscultation bilaterally, no rales/wheezes Heart- normal rate, regular rhythm; grade 2 systolic murmur, no gallop, no rub appreciated Abdomen- normal bowel sounds, nondistended, soft, nontender, no masses or hepatosplenomegaly Extremities- no pretibial edema, no calf tenderness; peripheral pulses intact Neuro- alert, oriented x 3; CN 2-12 grossly intact; motor 5/5 bilaterally;sens ation 100% on all extremities; no other gross focal neurologic deficits Skin- warm & dry Results & Data Results & Data ([facility]) Vital Signs (Past 12 Hours) Vital Signs Temp Pulse Pulse Resp BP Pulse Ox 12/07/19 15:15 36.5 C 80 18 151/84 H 12/07/19 11:32 36.3 C L 86 18 118/77 94 12/07/19 07:23 36.5 C 55 L 20 133/83 94 Laboratory Results Laboratory Results - last 24 hr 12/06/19 12/06/19 12/07/19 20:17 20:52 02:04 WBC 8.13 RBC 3.80 L Hgb 11.2 L Hct 32.8 L MCV 86.3 MCH 29.5 MCHC 34.1 RDW Std Deviation 41.4 RDW Coeff of Joann 13.1 Plt Count 268 MPV 9.9 Immature Gran % (Auto) 0.4 Neut % (Auto) 83.8 Lymph % (Auto) 10.8 [place] % (Auto) 5.0 Eos % (Auto) 0.0 Baso % (Auto) 0.0 Immature Gran # (Auto) 0.03 H Neut # (Auto) 6.81 H Lymph # (Auto) 0.88 L [place] # (Auto) 0.41 Eos # (Auto) 0.00 Baso # (Auto) 0.00 Sodium 122 L Potassium Chloride Carbon Dioxide Anion Gap BUN Creatinine Est Cr Clr Drug Dosing Est GFR ( Amer) Est GFR (Non-Af Amer) BUN/Creatinine Ratio Glucose POC Glucose 220 H Estimat Average Glucose Hemoglobin A1c Calcium Magnesium 12/07/19 12/07/19 12/07/19 02:04 02:04 05:04 WBC RBC Hgb Hct MCV MCH MCHC RDW Std Deviation RDW Coeff of Joann Plt Count MPV Immature Gran % (Auto) Neut % (Auto) Lymph % (Auto) [place] % (Auto) Eos % (Auto) Baso % (Auto) Immature Gran # (Auto) Neut # (Auto) Lymph # (Auto) [place] # (Auto) Eos # (Auto) Baso # (Auto) Sodium 125 L Potassium 4.0 Chloride 89 L Carbon Dioxide 31 Anion Gap 5.0 BUN 30 H Creatinine 1.35 Est Cr Clr Drug Dosing 32.5 Est GFR ( Amer) 53.6 Est GFR (Non-Af Amer) 46.2 BUN/Creatinine Ratio 22.4 H Glucose 179 H POC Glucose 160 H Estimat Average Glucose 140 Hemoglobin A1c 6.5 H Calcium 8.7 Magnesium 2.2 12/07/19 12/07/19 12/07/19 08:03 09:53 11:47 WBC RBC Hgb Hct MCV MCH MCHC RDW Std Deviation RDW Coeff of Joann Plt Count MPV Immature Gran % (Auto) Neut % (Auto) Lymph % (Auto) [place] % (Auto) Eos % (Auto) Baso % (Auto) Immature Gran # (Auto) Neut # (Auto) Lymph # (Auto) [place] # (Auto) Eos # (Auto) Baso # (Auto) Sodium 125 L Potassium 3.6 Chloride 91 L Carbon Dioxide 25 Anion Gap 9.0 BUN 30 H Creatinine 1.40 Est Cr Clr Drug Dosing 30.6 Est GFR ( Amer) 51.3 Est GFR (Non-Af Amer) 44.2 BUN/Creatinine Ratio 21.3 H Glucose 185 H POC Glucose 145 H 193 H Estimat Average Glucose Hemoglobin A1c Calcium 9.0 Magnesium 12/07/19 12/07/19 13:42 16:38 WBC RBC Hgb Hct MCV MCH MCHC RDW Std Deviation RDW Coeff of Joann Plt Count MPV Immature Gran % (Auto) Neut % (Auto) Lymph % (Auto) [place] % (Auto) Eos % (Auto) Baso % (Auto) Immature Gran # (Auto) Neut # (Auto) Lymph # (Auto) [place] # (Auto) Eos # (Auto) Baso # (Auto) Sodium 125 L Potassium Chloride Carbon Dioxide Anion Gap BUN Creatinine Est Cr Clr Drug Dosing Est GFR ( Amer) Est GFR (Non-Af Amer) BUN/Creatinine Ratio Glucose POC Glucose 160 H Estimat Average Glucose Hemoglobin A1c Calcium Magnesium
[2019-12-07] MEDS: ACETAMINOPHEN 325 MG TAB PO PRN (21:43)
[2019-12-08] MEDS: OXYCODONE/ACETAMINOPHEN 5mg/325mg TAB PO PRN (01:59)
[2019-12-08] MEDS: INSULIN GLARGINE SOLOSTAR 100 UNITS/ML 3 ML PEN SQ SCH (08:45)
[2019-12-08] MEDS: HEPARIN SOD 5,000 UNIT/0.5 ML VIAL SQ SCH ×2 (08:46→20:58)
[2019-12-08] MEDS: PANCREAZE (LIPASE 16,800U) CAP PO SCH ×3 (08:47→16:27)
[2019-12-08] MEDS: FERROUS SULFATE 325 MG TAB PO SCH ×2 (08:48→20:59)
[2019-12-08] MEDS: INSULIN ASPART 100 UNITS/ML 3 ML PEN SC SCH ×4 (08:48→20:57)
[2019-12-08] MEDS: PANCREAZE (LIPASE 10,500U) CAP PO SCH ×3 (08:48→16:26)
[2019-12-08] MEDS: FAMOTIDINE 10 MG TABLET PO SCH (08:49)
[2019-12-08] MEDS: SODIUM CHLORIDE 1 GM TABLET PO SCH ×2 (08:50→20:58)
--- NOTE | 2019-12-08 09:52 | Cardiology Consultation ---
Date of Consultation December 08, 2019 Assessment & Plan (1) Lumbar compression fracture: (2) Syncope: (3) Aortic stenosis: (4) Acute hyponatremia: This patient has a long history of mechanical falls and syncope and has been treated for orthostatic hypotension with Florinef in the past. I do not believe there is much we can offer at this time except he should be using a walker to aid in his ambulation. His aortic stenosis is not critical and no treatment is necessary at this time. In regard to his hyponatremia I would try fluid restrictions for now. Reviewing his medications, he is not on a diuretic or other medications that would cause SIADH. History of Present Illness Attending Physician: Binh Whiting MD History of Present Illness This is an elderly 89-year-old patient whom we have seen in our practice for orthostatic hypotension, frequent falls and syncopal events. He was in his usual state of health and unfortunately had another fall and this time had several compression fractures of his lumbar spine. Physical therapy is working with him currently. I reviewed his telemetry and he has a stable heart rhythm. Past medical history: 1.Orthostatic syncope resolved 2.Borderline aortic stenosis 3.Moderate mitral regurgitation Allergies Allergy/AdvReac Type Severity Reaction Status Date / Time dextromethorphan Allergy Unknown RASH Verified 12/06/19 10:51 guaifenesin Allergy Unknown RASH Verified 12/06/19 10:51 Home Medications Home Medications Medication Instructions Recorded Confirmed Type Lantus Solostar U-100 Insulin 7 unit SUBCUT QAM 12/04/18 12/06/19 History docusate sodium 100 mg PO BID PRN 12/04/18 12/06/19 History ferrous sulfate 325 mg PO BID 12/04/18 12/06/19 History polyethylene glycol 3350 [Miralax] 17 g PO QAM 12/04/18 12/06/19 History acetaminophen 325 mg PO DAILY 12/06/19 12/06/19 History amlodipine 2.5 mg PO DAILY 12/06/19 12/06/19 History famotidine [Pepcid AC] 10 mg PO DAILY 12/06/19 12/06/19 History insulin aspart U-100 [Novolog 1 sliding scale dose SUBCUT 12/06/19 12/06/19 History U-100 Insulin aspart] USEASDIRECTD [id number] [Zenpep] 2 cap PO QID 12/06/19 12/06/19 History Patient History Medical History Anemia (Chronic) CKD (chronic kidney disease), stage III (Chronic) DM type 1 (diabetes mellitus, type 1) (Chronic) H/O fracture of femur (Chronic) "s/p internal fixation 10/2013" H/O fracture of femur s/p R ORIF 10/31/18 H/O fracture of humerus s/p R ORIF 11/03/2018 HTN (hypertension) (Chronic) Hyponatremia (Chronic) No pertinent family history Pulmonary embolism (Chronic) "post op in 2013, completed Coumadin therapy" Surgical History H/O exploratory laparotomy (Chronic) "for SBO" S/P cholecystectomy (Chronic) Family History Other No pertinent family history Social History Preferred Language: Irish Communication Ability: Effective Visual Impairment: No Limitations Hearing Ability: Normal Division Chief Required: No Beliefs That Will Affect Care: None marital status: Current Living Situation: Spouse Current Living Situation Comment: Lives w/ spouse at [facility] Other Information That Helps Us Care for You: No Feels Safe at Home: Yes Safety Concerns: Feels Safe At This Time Smoking Status: Never smoker Second Hand Exposure: No ; Hx Alcohol Use: No Hx Substance Use: No Review of Systems Review of Systems: All systems reviewed & are unremarkable except as noted in HPI & below Nothing additional to add. Physical Exam Physical Exam: General: no acute distress and stated age Head: normocephalic, no masses, lesions, tenderness or abnormalities Eyes: conjunctiva are pink and non-injected, sclera clear Neck: supple, no adenopathy, no bruits, normal jugular venous pulse, no hepatojugular reflux Chest: normal shape and normal respiratory effort Lungs: clear to auscultation and percussion Cardiac Exam: - regular rate & rhythm, no murmurs gallops or rubs - normal S1, normal S2 Pulses: 2(+) throughout Abdomen: abdomen soft, non-tender, no abnormal masses and no hepatosplenomegaly Musculoskeletal: no gait disturbance, no joint inflammation, no deforming arthritis Extremities: no edema and no cyanosis Neuro: grossly normal exam Results & Data ([facility]) Vital Signs (Past 12 Hours) Vital Signs Temp Pulse Resp BP Pulse Ox 12/08/19 07:03 36.9 C 82 16 120/75 94 12/08/19 04:00 36.6 C 83 16 124/74 93 12/08/19 00:11 36.8 C 92 H 20 129/75 95 Laboratory Results Laboratory Results - last 24 hr 12/07/19 12/07/19 12/07/19 09:53 13:42 16:38 Sodium 125 L Potassium Chloride Carbon Dioxide Anion Gap BUN Creatinine Est Cr Clr Drug Dosing Est GFR ( Amer) Est GFR (Non-Af Amer) BUN/Creatinine Ratio Glucose POC Glucose 160 H Calcium Magnesium 2.1 12/07/19 12/07/19 12/08/19 20:23 20:46 07:40 Sodium 127 L Potassium Chloride Carbon Dioxide Anion Gap BUN Creatinine Est Cr Clr Drug Dosing Est GFR ( Amer) Est GFR (Non-Af Amer) BUN/Creatinine Ratio Glucose POC Glucose 158 H 115 H Calcium Magnesium 12/08/19 12/08/19 09:55 11:42 Sodium 128 L Potassium 3.4 L Chloride 94 L Carbon Dioxide 28 Anion Gap 7.0 BUN 32 H Creatinine 1.39 Est Cr Clr Drug Dosing 30.5 Est GFR ( Amer) 51.7 Est GFR (Non-Af Amer) 44.6 BUN/Creatinine Ratio 23.3 H Glucose 163 H POC Glucose 168 H Calcium 8.5 Magnesium Diagnostic Findings Laboratory Results - last 24 hr 12/07/19 12/07/19 12/07/19 09:53 13:42 16:38 Sodium 125 L Potassium Chloride Carbon Dioxide Anion Gap BUN Creatinine Est Cr Clr Drug Dosing Est GFR ( Amer) Est GFR (Non-Af Amer) BUN/Creatinine Ratio Glucose POC Glucose 160 H Calcium Magnesium 2.1 12/07/19 12/07/19 12/08/19 20:23 20:46 07:40 Sodium 127 L Potassium Chloride Carbon Dioxide Anion Gap BUN Creatinine Est Cr Clr Drug Dosing Est GFR ( Amer) Est GFR (Non-Af Amer) BUN/Creatinine Ratio Glucose POC Glucose 158 H 115 H Calcium Magnesium 12/08/19 12/08/19 09:55 11:42 Sodium 128 L Potassium 3.4 L Chloride 94 L Carbon Dioxide 28 Anion Gap 7.0 BUN 32 H Creatinine 1.39 Est Cr Clr Drug Dosing 30.5 Est GFR ( Amer) 51.7 Est GFR (Non-Af Amer) 44.6 BUN/Creatinine Ratio 23.3 H Glucose 163 H POC Glucose 168 H Calcium 8.5 Magnesium Medications Administered Current Inpatient Medications Acetaminophen (Tylenol) 650 mg PO Q4H PRN PRN Reason: Pain or Fever Stop: 01/05/20 15:31 Last Admin: 12/07/19 21:43 Dose: 650 mg Documented by: Lipase/Protease/Amylase (Pancreaze 12040 Unit) 1 cap PO AC MARY ANN; Protocol Stop: 01/05/20 18:29 Last Admin: 12/08/19 13:30 Dose: Not Given Documented by: Lipase/Protease/Amylase (Pancreaze [id number] Unit) 1 cap PO HS PRN; Protocol PRN Reason: SNACK Stop: 01/05/20 18:10 Lipase/Protease/Amylase (Pancreaze (Lipase 10,500u)) 1 cap PO AC MARY ANN; Protocol Stop: 01/05/20 18:29 Last Admin: 12/08/19 13:24 Dose: 1 cap Documented by: Lipase/Protease/Amylase (Pancreaze (Lipase 10,500u)) 1 cap PO HS PRN; Protocol PRN Reason: SNACK Stop: 01/05/20 18:14 Last Admin: 12/08/19 08:47 Dose: 1 cap Documented by: Dextrose (Dextrose 50%) 25 - 50 ml IV UD PRN; Protocol PRN Reason: Hypoglycemia Protocol Stop: 01/05/20 15:31 Docusate Sodium (Colace) 100 mg PO BID PRN PRN Reason: Constipation Stop: 01/05/20 15:31 Famotidine (Pepcid) 10 mg PO DAILY MARY ANN Stop: 01/06/20 08:59 Last Admin: 12/08/19 08:49 Dose: 10 mg Documented by: Ferrous Sulfate (Feosol) 325 mg PO BID MARY ANN Stop: 01/05/20 20:59 Last Admin: 12/08/19 08:48 Dose: 325 mg Documented by: Glucagon (Glucagen) 1 mg SQ UD PRN; Protocol PRN Reason: Hypoglycemia Protocol Stop: 01/05/20 15:31 Glucose (Dex4 Glucose) 4 - 8 tabs PO UD PRN; Protocol PRN Reason: Hypoglycemia Protocol Stop: 01/05/20 15:31 Glucose (Glucose 40%) 15 - 30 gm PO UD PRN; Protocol PRN Reason: Hypoglycemia Protocol Stop: 01/05/20 15:31 Heparin Sodium (Porcine) (Heparin Sodium (Porcine)) 5,000 units SQ Q12 MARY ANN Stop: 01/05/20 20:59 Last Admin: 12/08/19 08:46 Dose: 5,000 units Documented by: Insulin Aspart (Novolog Flexpen) 0 units SC ACHS [facility] Stop: 01/05/20 16:29 Last Admin: 12/08/19 13:23 Dose: 1 units Documented by: Insulin Glargine (Lantus Solostar Pen) 7 units SQ QAM [facility] Stop: 01/06/20 08:59 Last Admin: 12/08/19 08:45 Dose: 7 units Documented by: Miscellaneous (Remove Lidoderm Patch) 1 ea N/A DAILY@2100 [facility] Stop: 01/05/20 20:59 Last Admin: 12/07/19 21:30 Dose: Not Given Documented by: Miscellaneous (Carbohydrates For Hypoglycemia) 15 - 30 gm PO UD PRN PRN Reason: Hypoglycemia Protocol Stop: 01/05/20 15:31 Miscellaneous (Order Awaiting Action) 1 ea N/A QS [facility] Stop: 01/06/20 00:00 Last Admin: 12/08/19 08:42 Dose: Not Given Documented by: Ondansetron HCl (Zofran) 4 mg IV Q6H PRN PRN Reason: Nausea Stop: 01/05/20 15:31 Oxycodone/Acetaminophen (Percocet 5mg/325mg) 1 tab PO Q4H PRN PRN Reason: Pain Stop: 12/20/19 15:31 Last Admin: 12/08/19 01:59 Dose: 1 tab Documented by: Polyethylene Glycol (Miralax Powder Packet) 17 gm PO DAILY PRN PRN Reason: Constipation Stop: 01/05/20 15:31 Sodium Chloride (Sodium Chloride) 1 gm PO BID [facility] Stop: 01/05/20 15:39 Last Admin: 12/08/19 08:50 Dose: 1 gm Documented by: (1) Aortic stenosis Cardiac valve disease etiology: nonrheumatic Qualified Code(s): I35.0 - Nonrheumatic aortic (valve) stenosis
[2019-12-08 11:04] LABS: BUN Creatinine Ratio 23.3 (10-20); Calcium 8.5 mg/dl (8.5-10.1); Creatinine Clr Calc Pharmacy 30.5 ml/min; Est GFR (African American) 51.7; Est GFR (Non-African American) 44.6; Potassium 3.4 mmol/L (3.5-5.1)
--- NOTE | 2019-12-08 11:45 | Progress Notes ---
DATE: 12/08/2019 NEPHROLOGY PROGRESS NOTE IDENTIFICATION: No new issues overnight. Continues to complain of back pain with any kind of movement. Serum sodium is slowly going up and is now up to 127. He is making urine. OBJECTIVE: VITAL SIGNS: Blood pressure 120/75, pulse rate 82, temperature 36.6 degrees Celsius, 94% on room air. HEENT: Mucous membrane is moist. NECK: Supple. No jugular venous distention. CHEST: Bilaterally clear to auscultation. CARDIOVASCULAR: S1, S2 regular. ABDOMEN: Soft, nontender. EXTREMITIES: Show no edema. LABORATORY TESTS: Reviewed in detail and sodium is 127 this morning, hemoglobin 11.2, potassium 3.4, BUN 32, creatinine 1.39. 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 Hyponatremia: It is quite difficult to maintain a normal serum sodium in his case as the treatment involved is conflicting with his other issues. At this time, I would continue with the salt tablet 1 g twice daily with fluid restriction. Continue twice daily laboratories. For outpatient, we can also consider using urea packet, which unfortunately is not available as an inpatient.
--- NOTE | 2019-12-08 15:37 | Electrocardiogram Report ---
Test Reason : Blood Pressure : / mmHG Vent. Rate : 097 BPM Atrial Rate : 100 BPM P-R Int : 000 ms QRS Dur : 144 ms QT Int : 410 ms P-R-T Axes : 000 -74 024 degrees QTc Int : 520 ms Normal sinus rhythm with 1st degree A-V block Left axis deviation Right bundle branch block Abnormal ECG When compared with ECG of 07-DEC-2019 06:57, No significant change Confirmed by Narinder Ramirez ([id number]) on 12/08/2019 3:36:46 PM Referred By: REFERRED SELF Confirmed By:Narinder Ramirez
--- NOTE | 2019-12-08 15:54 | Electrocardiogram Report ---
Test Reason : Blood Pressure : / mmHG Vent. Rate : 074 BPM Atrial Rate : 074 BPM P-R Int : 320 ms QRS Dur : 150 ms QT Int : 402 ms P-R-T Axes : 043 -63 019 degrees QTc Int : 446 ms Sinus rhythm with marked sinus arrhythmia with 1st degree A-V block Right bundle branch block Left anterior fascicular block Bifascicular block Abnormal ECG When compared with ECG of 07-DEC-2019 18:12, (unconfirmed) No significant change Confirmed by Narinder Ramirez ([id number]) on 12/08/2019 3:54:03 PM Referred By: REFERRED SELF Confirmed By:Narinder Ramirez
[2019-12-08] MEDS ORDERED: POTASSIUM CHLORIDE 20 MEQ TABCR PO STA (17:30)
[2019-12-08] MEDS: ACETAMINOPHEN 325 MG TAB PO PRN (21:09)
--- NOTE | 2019-12-08 23:15 | Hospitalist Progress Note ---
Date of Service December 08, 2019 Assessment & Plan (1) Syncope: 89 year old male with history of DM 1, HTN, CKD 3, Orthostatic Hypotension, AV stenosis, presenting with syncope. Syncope, possible secondary to orthostasis, symptomatic aortic stenosis?, Rule out arrhythmia H/O Syncopal episodes in past H/O orthostatic hypotension Risk Factors: Moderate Aortic Stenosis Patient narrates that he stood up from his bed, walked to the bathroom with his walker and 50 feet, and upon reaching the bathroom door, felt warm, Then fell over his walker, lost consciousness for about 1 minute, no confusion upon waking up, but felt too weak to get up CT head: There is no hemorrhage, mass effect, or evidence of acute territorial ischemia by CT criteria. Troponin Negative Bifascicular block on EKG Echo: Severe LVH, EF 45 to 50%, mild to moderate valvular aortic stenosis, moderate mitral regurg, Check Orthostatics: pending Carotid Ultrasound: Extensive atheromatous plaque, but no evidence of hemodynamically significant internal carotid artery stenosis May need to maintain blood pressure on the higher side--> Hold amlodipine for now Added compression stockings Kennel Operator consulted--> aortic stenosis not critical, no further cardiac testing at this time Mechanical Fall Lumbago secondary to L3, L4 acute to subacute compression deformities CT : 1. Multiple vertebral body compression fractures. The L3 and L4 vertebral bodies appear to have both an acute and subacute component 2. Moderate spinal stenosis at the L3-4 and L4-5 levels. Pain control with PRN Percocet Fall precautions Orthopedics consulted-LSO brace recommended PT OT evaluation-recommend [facility] facility Hyponatremia Likely multifactorial: Low solute, SIADH Sodium: 119 on admission Received 500ml of IV fluids in ED. Also known to be hyponatremic in the past Serum osmolality 264 Urine osmolality 240 Urine sodium 31 Na 119, now 128 repeat Na in the evening Physician Office Assistant consulted continue sodium chloride 1 g twice daily Fluid restriction 1500 mL/day Monitor sodium levels closely Chronic anemia Hemoglobin at baseline No bleeding issues Monitor CBC Abdominal discomfort Likely due to fall CT abdomen showed no acute process resolved DM Type I: Last A1c:6.7 in August 2019 ISS, basal Insulin, Accu checks, Diabetic diet A1c 6.5 may need to lower Lantus from 7 to 5 units and loosen Sliding Scale at home to prevent hypoglycemia, and subsequent falls CKD III Cr at baseline Monitor renal function Pancreatic insufficiency S/P Whipple's Surgery Continue Zenpep DVT Px: Heparin SQ Code Status DNI DNR As per discussion with patient, and family Disposition needs to transition to SNF Code Status PT/OT prior to discharge Admission and Anticipated Discharge Date Admission Date: December 06, 2019 Subjective Follow-up for syncope, status post fall, lumbar compression fractures, hyponatremia Seen resting in bed, comfortable, not in distress, oriented x3 Wake and alert No chest pain, shortness of breath, palpitations, dizziness States he is able to walk to the commode and back to the bed with no dizziness or lightheadedness No other symptoms Review of Systems Review of Systems: All systems reviewed & are unremarkable except as noted in HPI & below Physical Exam Physical Exam: General- oriented x 3, not in distress, speaks in sentences with no effort or accessory muscle use Eyes- anicteric Neck- no JVD Lungs- clear breath sounds bilaterally, no rales/wheezes Heart- normal rate, regular rhythm; grade 2-3 holosystolic murmur Abdomen- normal bowel sounds, nondistended, soft, nontender Extremities- no pretibial edema, no calf tenderness Neuro- alert, oriented x 3; no gross focal neurologic deficits Skin- warm & dry Results & Data Results & Data ([facility]) Vital Signs (Past 12 Hours) Vital Signs Temp Pulse Pulse Resp BP Pulse Ox 12/08/19 23:00 36.6 C 97 H 20 144/79 H 95 12/08/19 19:25 36.7 C 95 H 20 134/86 94 12/08/19 15:23 36.5 C 88 18 138/81 96 12/08/19 15:20 88 12/08/19 11:32 36.3 C L 89 18 129/83 95 Laboratory Results Laboratory Results - last 24 hr 12/08/19 12/08/19 12/08/19 07:40 09:55 09:55 Sodium 128 L Potassium 3.4 L Chloride 94 L Carbon Dioxide 28 Anion Gap 7.0 BUN 32 H Creatinine 1.39 Est Cr Clr Drug Dosing 30.5 Est GFR ( Amer) 51.7 Est GFR (Non-Af Amer) 44.6 BUN/Creatinine Ratio 23.3 H Glucose 163 H POC Glucose 115 H Calcium 8.5 Magnesium 2.0 12/08/19 12/08/19 12/08/19 11:42 16:45 20:33 Sodium Potassium Chloride Carbon Dioxide Anion Gap BUN Creatinine Est Cr Clr Drug Dosing Est GFR ( Amer) Est GFR (Non-Af Amer) BUN/Creatinine Ratio Glucose POC Glucose 168 H 157 H 174 H Calcium Magnesium
[2019-12-09] MEDS: OXYCODONE/ACETAMINOPHEN 5mg/325mg TAB PO PRN ×2 (01:24→14:55)
[2019-12-09] MEDS: FERROUS SULFATE 325 MG TAB PO SCH ×2 (07:13→20:43)
[2019-12-09] MEDS: SODIUM CHLORIDE 1 GM TABLET PO SCH ×2 (07:14→20:52)
[2019-12-09] MEDS: PANCREAZE (LIPASE 16,800U) CAP PO SCH ×3 (07:14→16:59)
[2019-12-09] MEDS: PANCREAZE (LIPASE 10,500U) CAP PO SCH ×3 (07:14→16:59)
[2019-12-09] MEDS: FAMOTIDINE 10 MG TABLET PO SCH (07:15)
[2019-12-09 08:50] LABS: BUN Creatinine Ratio 27.1 (10-20); Calcium 8.9 mg/dl (8.5-10.1); Creatinine Clr Calc Pharmacy 32.7 ml/min; Est GFR (African American) 56.6; Est GFR (Non-African American) 48.8
[2019-12-09] MEDS: HEPARIN SOD 5,000 UNIT/0.5 ML VIAL SQ SCH ×2 (08:51→20:44)
[2019-12-09] MEDS: INSULIN GLARGINE SOLOSTAR 100 UNITS/ML 3 ML PEN SQ SCH (08:51)
[2019-12-09] MEDS: INSULIN ASPART 100 UNITS/ML 3 ML PEN SC SCH ×4 (08:52→20:57)
--- NOTE | 2019-12-09 09:13 | Hospitalist Progress Note ---
Date of Service December 09, 2019 Assessment & Plan (1) Syncope: 89 year old male with history of DM 1, HTN, CKD 3, Orthostatic Hypotension, AV stenosis, presenting with syncope. Syncope, possible secondary to orthostasis, symptomatic aortic stenosis?, Rule out arrhythmia H/O Syncopal episodes in past H/O orthostatic hypotension Risk Factors: Moderate Aortic Stenosis Patient narrates that he stood up from his bed, walked to the bathroom with his walker and 50 feet, and upon reaching the bathroom door, felt warm, Then fell over his walker, lost consciousness for about 1 minute, no confusion upon waking up, but felt too weak to get up CT head: There is no hemorrhage, mass effect, or evidence of acute territorial ischemia by CT criteria. Troponin Negative Bifascicular block on EKG Echo: Severe LVH, EF 45 to 50%, mild to moderate valvular aortic stenosis, moderate mitral regurg, Check Orthostatics: pending Carotid Ultrasound: Extensive atheromatous plaque, but no evidence of hemodynamically significant internal carotid artery stenosis May need to maintain blood pressure on the higher side--> Hold amlodipine for now Added compression stockings Staff Nurse Midwife consulted--> aortic stenosis not critical, no further cardiac testing at this time Mechanical Fall Lumbago secondary to L3, L4 acute to subacute compression deformities CT : 1. Multiple vertebral body compression fractures. The L3 and L4 vertebral bodies appear to have both an acute and subacute component 2. Moderate spinal stenosis at the L3-4 and L4-5 levels. Pain control with PRN Percocet Fall precautions Orthopedics consulted-LSO brace recommended PT OT evaluation-recommend transitioning to senior care facility Hyponatremia Likely multifactorial: Low solute, SIADH Sodium: 119 on admission, now 129 Received 500ml of IV fluids in ED. Also known to be hyponatremic in the past Serum osmolality 264 Urine osmolality 240 Urine sodium 31 Na 119, now 128 repeat Na in the evening District Home Economics Agent on case continue sodium chloride 1 g twice daily Fluid restriction 1500 mL/day Monitor sodium levels closely Chronic anemia Hemoglobin at baseline No bleeding issues Monitor CBC Abdominal discomfort Likely due to fall CT abdomen showed no acute process resolved DM Type I: Last A1c:6.7 in August 2019 ISS, basal Insulin, Accu checks, Diabetic diet A1c 6.5 may need to lower Lantus from 7 to 5 units and loosen Sliding Scale at home to prevent hypoglycemia, and subsequent falls CKD III Cr at baseline Monitor renal function Pancreatic insufficiency S/P Whipple's Surgery Continue Zenpep DVT Px: Heparin SQ Code Status DNI DNR As per discussion with patient, and family Disposition needs to transition to SNF Code Status PT/OT prior to discharge ROS-No Headache, No Visual Changes, No Nausea, No Vomiting, No Fever, No Chills, No Neck Pain or Stiffness, No Chest Pain, No Palpitations, No SOB, No RODRIGUEZ, No Cough, No Sputum, No Wheezing, No Abdominal Pain, No Diarrhea, No Hematemesis, No Hemoptysis, No Unexpected Weight Loss, No Flank pain, No Melena, No Hematochezia, No Frequency, No Urgency, No Burning, No Hematuria, No Rashes, No Diaphoresis. Appetite is Normal Physical Exam Gen-AAO x 3, NAD, Afebrile Head-NCAT, EOMI, PERRLA, Anicteric Sclera, No Posterior Pharyngeal Erythema Neck-Supple, No JVD, No Thyromegaly, No Masses, No LAD, No Bruits Lungs-Clear to Auscultation Bilaterally, No Rales, No Rhonchi, No Wheezing, No Crepitus Chest-No S4, +S1, +S2, No S3, No Murmurs, No Rubs, No Gallops, No Ectopy Abdomen-Soft, Bowel Sounds Present, Non Tender, Non Distended, No Hepatomegaly, No Splenomegaly, No Palpable Masses, No Rebound, No Rigidity, No Guarding Musculoskeletal-Full Range of Motion Bilaterally, No CVAT Extremities-No Cyanosis, No Clubbing, No Edema Nuero-Cranial Nerves II-XII grossly intact, Motor WNL, DTRs WNL, Strength WNL, Non Focal Psych-Normal Mood Admission and Anticipated Discharge Date Admission Date: December 06, 2019 Results & Data Results & Data ([facility]) Vital Signs (Past 12 Hours) Vital Signs Temp Pulse Pulse Resp BP Pulse Ox 12/09/19 07:29 36.7 C 84 18 120/75 92 12/09/19 03:52 36.8 C 101 H 19 143/82 H 97 12/09/19 02:43 93 H 12/08/19 23:00 36.6 C 97 H 20 144/79 H 95
[2019-12-09 09:22] LABS: Potassium 4.1 mmol/L (3.5-5.1)
--- NOTE | 2019-12-09 11:16 | Cardiology Progress Note ---
Date of Service December 09, 2019 Assessment & Plan (1) Lumbar compression fracture: (2) Syncope: (3) Aortic stenosis: (4) Acute hyponatremia: Nothing additional to add from a cardiac standpoint. Cardiology will sign off. Please reconsult if necessary. Subjective The patient is resting comfortably. He does describe some pain and discomfort from his back along with some nausea from the pain medicines. Review of Systems Review of Systems: All systems reviewed & are unremarkable except as noted in HPI & below Nothing additional to add. Physical Exam Physical Exam: General: no acute distress and stated age Head: normocephalic, no masses, lesions, tenderness or abnormalities Eyes: conjunctiva are pink and non-injected, sclera clear Neck: supple, no adenopathy, no bruits, normal jugular venous pulse, no hepatojugular reflux Chest: normal shape and normal respiratory effort Lungs: clear to auscultation and percussion Cardiac Exam: - regular rate & rhythm, no murmurs gallops or rubs - normal S1, normal S2 Pulses: 2(+) throughout Abdomen: abdomen soft, non-tender, no abnormal masses and no hepatosplenomegaly Musculoskeletal: no gait disturbance, no joint inflammation, no deforming arthritis Extremities: no edema and no cyanosis Neuro: grossly normal exam Results & Data Vital Signs (Past 12 Hours) Vital Signs Temp Pulse Pulse Resp BP Pulse Ox 12/09/19 07:29 36.7 C 84 18 120/75 92 12/09/19 03:52 36.8 C 101 H 19 143/82 H 97 12/09/19 02:43 93 H Laboratory Results Laboratory Results - last 24 hr 12/08/19 12/08/19 12/08/19 09:55 11:42 16:45 Sodium Potassium Chloride Carbon Dioxide Anion Gap BUN Creatinine Est Cr Clr Drug Dosing Est GFR ( Amer) Est GFR (Non-Af Amer) BUN/Creatinine Ratio Glucose POC Glucose 168 H 157 H Calcium Magnesium 2.0 12/08/19 12/08/19 12/09/19 20:33 23:29 07:38 Sodium 130 L Potassium Chloride Carbon Dioxide Anion Gap BUN Creatinine Est Cr Clr Drug Dosing Est GFR ( Amer) Est GFR (Non-Af Amer) BUN/Creatinine Ratio Glucose POC Glucose 174 H 140 H Calcium Magnesium 12/09/19 07:43 Sodium 129 L Potassium 4.1 D Chloride 95 L Carbon Dioxide 28 Anion Gap 6.0 BUN 35 H Creatinine 1.29 Est Cr Clr Drug Dosing 32.7 Est GFR ( Amer) 56.6 Est GFR (Non-Af Amer) 48.8 BUN/Creatinine Ratio 27.1 H Glucose 132 H POC Glucose Calcium 8.9 Magnesium Medications Administered Current Inpatient Medications Acetaminophen (Tylenol) 650 mg PO Q4H PRN PRN Reason: Pain or Fever Stop: 01/05/20 15:31 Last Admin: 12/08/19 21:09 Dose: 650 mg Documented by: Lipase/Protease/Amylase (Pancreaze [id number] Unit) 1 cap PO AC MARY ANN; Protocol Stop: 01/05/20 18:29 Last Admin: 12/09/19 07:14 Dose: 1 cap Documented by: Lipase/Protease/Amylase (Pancreaze [id number] Unit) 1 cap PO HS PRN; Protocol PRN Reason: SNACK Stop: 01/05/20 18:10 Lipase/Protease/Amylase (Pancreaze (Lipase 10,500u)) 1 cap PO AC MARY ANN; Protocol Stop: 01/05/20 18:29 Last Admin: 12/09/19 07:14 Dose: 1 cap Documented by: Lipase/Protease/Amylase (Pancreaze (Lipase 10,500u)) 1 cap PO HS PRN; Protocol PRN Reason: SNACK Stop: 01/05/20 18:14 Last Admin: 12/08/19 08:47 Dose: 1 cap Documented by: Dextrose (Dextrose 50%) 25 - 50 ml IV UD PRN; Protocol PRN Reason: Hypoglycemia Protocol Stop: 01/05/20 15:31 Docusate Sodium (Colace) 100 mg PO BID PRN PRN Reason: Constipation Stop: 01/05/20 15:31 Famotidine (Pepcid) 10 mg PO DAILY [facility] Stop: 01/06/20 08:59 Last Admin: 12/09/19 07:15 Dose: 10 mg Documented by: Ferrous Sulfate (Feosol) 325 mg PO BID [facility] Stop: 01/05/20 20:59 Last Admin: 12/09/19 07:13 Dose: 325 mg Documented by: Glucagon (Glucagen) 1 mg SQ UD PRN; Protocol PRN Reason: Hypoglycemia Protocol Stop: 01/05/20 15:31 Glucose (Dex4 Glucose) 4 - 8 tabs PO UD PRN; Protocol PRN Reason: Hypoglycemia Protocol Stop: 01/05/20 15:31 Glucose (Glucose 40%) 15 - 30 gm PO UD PRN; Protocol PRN Reason: Hypoglycemia Protocol Stop: 01/05/20 15:31 Heparin Sodium (Porcine) (Heparin Sodium (Porcine)) 5,000 units SQ Q12 [facility] Stop: 01/05/20 20:59 Last Admin: 12/09/19 08:51 Dose: 5,000 units Documented by: Insulin Aspart (Novolog Flexpen) 0 units SC ACHS MARY ANN Stop: 01/05/20 16:29 Last Admin: 12/09/19 08:52 Dose: Not Given Documented by: Insulin Glargine (Lantus Solostar Pen) 7 units SQ QAM [facility] Stop: 01/06/20 08:59 Last Admin: 12/09/19 08:51 Dose: 7 units Documented by: Miscellaneous (Remove Lidoderm Patch) 1 ea N/A DAILY@2100 [facility] Stop: 01/05/20 20:59 Last Admin: 12/08/19 21:00 Dose: Not Given Documented by: Miscellaneous (Carbohydrates For Hypoglycemia) 15 - 30 gm PO UD PRN PRN Reason: Hypoglycemia Protocol Stop: 01/05/20 15:31 Miscellaneous (Order Awaiting Action) 1 ea N/A QS [facility] Stop: 01/06/20 00:00 Last Admin: 12/09/19 07:15 Dose: Not Given Documented by: Ondansetron HCl (Zofran) 4 mg IV Q6H PRN PRN Reason: Nausea Stop: 01/05/20 15:31 Oxycodone/Acetaminophen (Percocet 5mg/325mg) 1 tab PO Q4H PRN PRN Reason: Pain Stop: 12/20/19 15:31 Last Admin: 12/09/19 01:24 Dose: 1 tab Documented by: Polyethylene Glycol (Miralax Powder Packet) 17 gm PO DAILY PRN PRN Reason: Constipation Stop: 01/05/20 15:31 Sodium Chloride (Sodium Chloride) 1 gm PO BID [facility] Stop: 01/05/20 15:39 Last Admin: 12/09/19 07:14 Dose: 1 gm Documented by: (1) Aortic stenosis Cardiac valve disease etiology: nonrheumatic Qualified Code(s): I35.0 - Nonrheumatic aortic (valve) stenosis
--- NOTE | 2019-12-09 14:51 | Fluoroscopy Report ---
FL video swallow HISTORY: Aspiration TECHNIQUE: Video fluoroscopic evaluation of swallowing was performed in the AP and lateral projection s by the speech pathology staff. The patient is fed nectar-thick and thin liquid barium, a barium coa yeny wafer, and barium pudding. FLUOROSCOPY TIME: 1.7 minutes. NUMBER OF FLUOROSCOPY IMAGES: 0 COMPARISON STUDY: None. FINDINGS: When swallowing thin liquid barium, there was evidence for aspiration. When swallowing nect ar thick liquids, there was late silent aspiration. When swallowing pudding, there was no aspiration. There is vallecular residue. IMPRESSION: 1. Aspiration of thin and nectar thick liquids. 2. Please see the speech pathologist report for detailed findings and recommendations. ACT 112: Negative or not required by law. Electronically signed by: Aakahs Mayo M.D. 12/09/2019 2:49 PM
[2019-12-10] MEDS: OXYCODONE/ACETAMINOPHEN 5mg/325mg TAB PO PRN ×2 (04:39→19:19)
[2019-12-10 06:12] LABS: BUN Creatinine Ratio 29.7 (10-20); Calcium 8.7 mg/dl (8.5-10.1); Creatinine Clr Calc Pharmacy 34.8 ml/min; Est GFR (African American) 61.1; Est GFR (Non-African American) 52.8
[2019-12-10] MEDS: PANCREAZE (LIPASE 10,500U) CAP PO SCH ×3 (08:47→17:24)
--- NOTE | 2019-12-10 08:47 | Discharge Summary ---
Date of Service December 10, 2019 Admission HPI Per Admitting Provider Patient is an 89-year-old male with history of type 1 diabetes mellitus, CKD stage III, BPH, dyslipidemia, pancreatic insufficiency, H/O PE, orthostatic hypotension, aortic valve stenosis and other medical problems presents with history of syncope, back pain and leg pain. As per the patient and his family, patient had a syncopal episode today while he was trying to use bathroom. He states that he lost consciousness for about 1 minute but denies any head trauma. He reports that his legs "gave away" that possibly caused the syncopal episode. His witnessed the fall where he slumped over his walker. No se izure-like activity, bowel or bladder incontinence during the episode. He has been having ongoing worsening back pain associated with leg cramps since many months as per the patient's daughter. He was planned to be seen by Dr. caraballo from pain management as outpatient. He also states having some right hip pain since the fall. He grades the back pain is sharp, 9/10, non radiating which increases with any movement and is associated with leg cramps. His appetite has been poor since many days. CT head showed no acute intracranial abnormality. CT abdomen suggestive of moderate compressive deformities of L3 and L4 appear acute to subacute. Patient states having ambulatory dysfunction secondary to the back pain. He also states having some abdominal discomfort, had bowel movement this morning. Reports chronic dry cough which is unchanged. Denies any history of chest pain, SOB, palpitations, dizziness, hemoptysis, fever, chills, head trauma, headache, change in vision, vertigo, slurred speech, facial deformity, bowel/bladder incontinence, nausea, vomiting, blood in stools, diarrhea, dysuria, recent travel, sick contact, recent change in medications. 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 Extremities/Musculoskelatal:normal inspection, 1+ B/L LE edema Neurologic/Psych:AAOX3, grossly no focal neurological deficits Skin: normal color, warm Principal Diagnosis Syncope: Mechanical Fall Hyponatremia Chronic anemia Abdominal discomfort DM Type I: CKD III Pancreatic insufficiency Discharge Exam See below Discharge Data Allergies Allergy/AdvReac Type Severity Reaction Status Date / Time dextromethorphan Allergy Unknown RASH Verified 12/06/19 10:51 guaifenesin Allergy Unknown RASH Verified 12/06/19 10:51 Consultations 12/06/19 13:44 ED Decision to Admit Stat 12/06/19 15:32 Consult Case Management - Discharge Planning Routine Consult Nephrology Routine Consult Orthopedic Surgery Routine 12/07/19 18:03 Consult Cardiology Routine 12/09/19 13:03 Consult Case Management - Discharge Planning Routine Ordered Studies 12/06/19 10:19 CT head/brain wo con Stat 12/06/19 10:21 CT abd pelvis wo con Stat 12/06/19 16:55 US carotid doppler BI Routine 12/07/19 07:48 CT lumbar spine wo con Routine 12/09/19 14:30 FL video swallow Routine 12/10/19 12/10/19 12/09/19 Range/Units 08:12 05:31 20:52 Sodium 132 L (136-145) mmol/L Potassium 4.0 (3.5-5.1) mmol/L Chloride 98 (98-107) mmol/L Carbon Dioxide 28 (21-32) mmol/L Anion Gap 6.0 (3-11) BUN 36 H (7-18) mg/dl Creatinine 1.21 (0.6-1.4) mg/dl Est Cr Clr Drug Dosing 34.8 ml/min Est GFR ( Amer) 61.1 Est GFR (Non-Af Amer) 52.8 BUN/Creatinine Ratio 29.7 H (10-20) Glucose 118 H (70-99) mg/dl POC Glucose 121 H 154 H (70-99) mg/dl Calcium 8.7 (8.5-10.1) mg/dl 12/09/19 12/09/19 12/09/19 Range/Units 16:39 11:47 07:43 Sodium (136-145) mmol/L Potassium 4.1 D (3.5-5.1) mmol/L Chloride (98-107) mmol/L Carbon Dioxide (21-32) mmol/L Anion Gap (3-11) BUN (7-18) mg/dl Creatinine (0.6-1.4) mg/dl Est Cr Clr Drug Dosing ml/min Est GFR ( Amer) Est GFR (Non-Af Amer) BUN/Creatinine Ratio (10-20) Glucose (70-99) mg/dl POC Glucose 129 H 136 H (70-99) mg/dl Calcium (8.5-10.1) mg/dl Hospital Course (1) Syncope: 89 year old male with history of DM 1, HTN, CKD 3, Orthostatic Hypotension, AV stenosis, presenting with syncope. Syncope, possible secondary to orthostasis, symptomatic aortic stenosis? H/O Syncopal episodes in past H/O orthostatic hypotension Risk Factors: Moderate Aortic Stenosis Patient narrates that he stood up from his bed, walked to the bathroom with his walker and 50 feet, and upon reaching the bathroom door, felt warm, then fell over his walker, lost consciousness for about 1 minute, no confusion upon waking up, but felt too weak to get up CT head: There is no hemorrhage, mass effect, or evidence of acute territorial ischemia by CT criteria. 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 Multiple vertebral body compression fractures. The L3 and L4 vertebral bodies appear to have both an acute and subacute component 2. Moderate spinal stenosis at the L3-4 and L4-5 levels. Pain control with PRN Percocet Fall precautions Orthopedics consulted-LSO brace recommended PT OT evaluation-recommend transitioning to [facility] facility Hyponatremia Likely multifactorial: Low solute, SIADH Sodium: 119 on admission, now 132-Urea on DC Received 500ml of IV fluids in ED. 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 continue sodium chloride 1 g twice daily Fluid restriction 1500 mL/day Monitor sodium levels closely Chronic anemia Hemoglobin at baseline No bleeding issues Monitor CBC Abdominal discomfort Likely due to fall CT abdomen showed no acute process resolved DM Type I: Last A1c:6.7 in August 2019 ISS, basal Insulin, Accu checks, Diabetic diet A1c 6.5 may need to lower Lantus from 7 to 5 units and loosen Sliding Scale at home to prevent hypoglycemia, and subsequent falls CKD III Cr at baseline Monitor renal function Pancreatic insufficiency S/P Whipple's Surgery Continue Zenpep DVT Px: Heparin SQ Code Status DNI DNR As per discussion with patient, and family Disposition needs to transition to SNF Code Status PT/OT prior to discharge ROS-No Headache, No Visual Changes, No Nausea, No Vomiting, No Fever, No Chills, No Neck Pain or Stiffness, No Chest Pain, No Palpitations, No SOB, No RODRIGUEZ, No Cough, No Sputum, No Wheezing, No Abdominal Pain, No Diarrhea, No Hematemesis, No Hemoptysis, No Unexpected Weight Loss, No Flank pain, No Melena, No Hematochezia, No Frequency, No Urgency, No Burning, No Hematuria, No Rashes, No Diaphoresis. Appetite is Normal, +Back Pain Physical Exam Gen-AAO x 3, NAD, Afebrile Head-NCAT, EOMI, PERRLA, Anicteric Sclera, No Posterior Pharyngeal Erythema Neck-Supple, No JVD, No Thyromegaly, No Masses, No LAD, No Bruits Lungs-Clear to Auscultation Bilaterally, No Rales, No Rhonchi, No Wheezing, No Crepitus Chest-No S4, +S1, +S2, No S3, No Murmurs, No Rubs, No Gallops, No Ectopy Abdomen-Soft, Bowel Sounds Present, Non Tender, Non Distended, No Hepatomegaly, No Splenomegaly, No Palpable Masses, No Rebound, No Rigidity, No Guarding Musculoskeletal-Full Range of Motion Bilaterally, No CVAT Extremities-No Cyanosis, No Clubbing, No Edema Nuero-Cranial Nerves II-XII grossly intact, Motor WNL, DTRs WNL, Strength WNL, Non Focal Psych-Normal Mood Total Time Total Time Spent Total Time Spent (In Minutes): 45 mins Total Time Includes: Examination of the Patient, Discharge Planning, Medication Reconciliation and Communication With Other Providers Discharge Plan Discharge Items Patient Disposition: Transfer Custodial Fac Reason For Visit: BACK PAIN Discharge Diagnosis: Syncope: Mechanical Fall Hyponatremia Chronic anemia Abdominal discomfort DM Type I: CKD III Pancreatic insufficiency Activity: Resume your previous activity Lifting: None Bathing: No limitations Exercise/Sports: None Driving/Machine Use: None Weightbearing: Full weightbearing Weightbearing Comment: As Tolerated Non-emergency contact: Primary Care Provider Call non-emergency contact if: you have any medication questions Follow-up/Referrals: Naldo Espino MD [Primary Care Provider] - Diet: Other - See Diet Comment Fluids: 1500ml (6 cups) Diet Texture: Pureed (blended smooth) Diet Comment: Soft Moist Food Addtl Attending Provider Instructions: None Pending Studies at Discharge: No Stand-Alone Forms: My [employer] Skilled Items Patient informed of condition?: Yes DNR: Yes Discharge Level of Care: Skilled Communicable Disease: No Discharge Prognosis: Improving Lines: None Urinary Catheter: No Medications and DC Order Prescriptions: New acetaminophen 325 mg Tablet 650 mg PO Q4H PRN (Reason: fever or pain) Qty: 100 RF: 0 sodium chloride 1 gram Tablet 1 g PO BID Qty: 60 RF: 0 urea 15 gram powder in packet 1 pkt PO DAILY Qty: 8 RF: 0 oxycodone-acetaminophen [Percocet] 5-325 mg tablet 1 tab PO Q6H PRN (Reason: pain) Qty: 30 RF: 0 Continued polyethylene glycol 3350 [Miralax] 17 gram Powder In Packet 17 g PO QAM RF: 0 ferrous sulfate 325 mg (65 mg iron) Tablet 325 mg PO BID RF: 0 docusate sodium 100 mg Capsule 100 mg PO BID PRN (Reason: Constipation) RF: 0 Lantus Solostar U-100 Insulin 100 unit/mL (3 mL) Insulin Pen 7 unit SUBCUT QAM RF: 0 amlodipine 2.5 mg tablet 2.5 mg PO DAILY RF: 0 acetaminophen 325 mg Capsule 325 mg PO DAILY RF: 0 famotidine [Pepcid AC] 10 mg Tablet 10 mg PO DAILY RF: 0 insulin aspart U-100 [Novolog U-100 Insulin aspart] 100 unit/mL Solution 1 sliding scale dose SUBCUT USEASDIRECTD RF: 0 Zenpep 15,000-47,000 -63,000 unit Capsule,Delayed Release(Dr/Ec) 2 cap PO QID RF: 0 Admission Data Admit Date/Time: 12/06/19 13:54 Attending Provider: Lee Lugo Admit Provider: Austyn Jones Primary Care Provider: Naldo Espino Other Providers: Austyn Jones ; Neli Day ; Jez Yoder ; Armani Rai at [facility] ; Syed Nesbitt
[2019-12-10] MEDS: PANCREAZE (LIPASE 16,800U) CAP PO SCH ×3 (08:48→17:23)
[2019-12-10] MEDS: HEPARIN SOD 5,000 UNIT/0.5 ML VIAL SQ SCH (08:48)
[2019-12-10] MEDS: FERROUS SULFATE 325 MG TAB PO SCH (08:48)
[2019-12-10] MEDS: SODIUM CHLORIDE 1 GM TABLET PO SCH (08:49)
[2019-12-10] MEDS: FAMOTIDINE 10 MG TABLET PO SCH (08:49)
[2019-12-10] MEDS: INSULIN GLARGINE SOLOSTAR 100 UNITS/ML 3 ML PEN SQ SCH (08:49)
[2019-12-10] MEDS: INSULIN ASPART 100 UNITS/ML 3 ML PEN SC SCH ×3 (08:49→17:50)
== END 2019-12-10 19:55 | DRG 644 ==
LOC: ED 09:47 → 2N 13:54 → SUATTDRO 13:54 → 2N 14:49
DX: S32.040A Wedge compression fracture of fourth lumbar vertebra, initial encounter for closed fracture; Z66 Do not resuscitate; M54.5 Low back pain; S32.030A Wedge compression fracture of third lumbar vertebra, initial encounter for closed fracture; R29.6 Repeated falls; Z51.81 Encounter for therapeutic drug level monitoring; I95.1 Orthostatic hypotension; N18.3 Chronic kidney disease, stage 3 (moderate); Z79.899 Other long term (current) drug therapy; I12.9 Hypertensive chronic kidney disease with stage 1 through stage 4 chronic kidney disease, or unspecified chronic kidney disease; K86.89 Other specified diseases of pancreas; Y99.8 Other external cause status; Y92.121 Bathroom in nursing home as the place of occurrence of the external cause; D63.1 Anemia in chronic kidney disease; E22.2 Syndrome of inappropriate secretion of antidiuretic hormone; Y93.01 Activity, walking, marching and hiking; R10.9 Unspecified abdominal pain; G89.29 Other chronic pain; Z91.81 History of falling; I35.0 Nonrheumatic aortic (valve) stenosis; R94.31 Abnormal electrocardiogram [ECG] [EKG]; W18.39XA Other fall on same level, initial encounter; R53.1 Weakness; Z86.711 Personal history of pulmonary embolism; E10.22 Type 1 diabetes mellitus with diabetic chronic kidney disease